=== PATIENT | male | born 1970 | race Caucasian/White ===

== ENCOUNTER 2022-09-15 15:20 | Inpatient (IN) | payer OTHER ==
[2022-09-15] MEDS ORDERED: MORPHINE SULFATE 4 MG/ML SYRINGE IV STA (16:14)
[2022-09-15] MEDS ORDERED: SODIUM CHLORIDE 0.9% 1,000 ML IV STA (16:14)
[2022-09-15] MEDS ORDERED: VANCOMYCIN IV PER PHARMACY 1 EACH MISC MISCELLANE PRN (16:15)
--- NOTE | 2022-09-15 16:16 | ED ---
Extremity Problem HPI - General Chief complaint: Extremity Injury, Lower Stated complaint: Cellulitis Time Seen by Provider: 09/15/22 15:24 Source: patient, RN notes reviewed, old records reviewed Mode of arrival: ambulatory Limitations: no limitations - History of Present Illness Initial comments: This is a 52-year-old male to the emergency department for evaluation who is noticed facility. Patient has a long history of acute on chronic comorbidities with recent prolonged hospitalization 2 weeks. Patient presents us today for significant swelling of his right lower extremity with significant tenderness and pain especially over patient weeping ulcers ulcers both to his right lower extremity left lower extremity foot and abdomen. MD Complaint: extremity pain, extremity swelling -: days(s) Location: right, lower extremity, bilateral lower extremity History of Same: Yes Radiation: proximal Severity scale (1-10): 10 Consistency: constant Improves with: nothing Worsens with: weight bearing Associated Symptoms: shortness of breath, fever, rash - Related Data Home Medications Medication Instructions Recorded Confirmed Atorvastatin [Lipitor] 20 mg PO HS 09/15/22 09/15/22 Cetirizine HCl [Zyrtec] 10 mg PO DAILY 09/15/22 09/15/22 Enalapril [Vasotec] 10 mg PO DAILY 09/15/22 09/15/22 Furosemide [Lasix] 80 mg PO BID 09/15/22 09/15/22 HYDROcodone/APAP 5-325MG [[place] 1 tab PO BID PRN 09/15/22 09/15/22 5-325] Ibuprofen [Motrin] 800 mg PO Q8H PRN 09/15/22 09/15/22 Metoprolol Tartrate [Lopressor] 100 mg PO BID 09/15/22 09/15/22 Montelukast Sodium [Singulair] 10 mg PO DAILY 09/15/22 09/15/22 Omeprazole [PriLOSEC] 20 mg PO DAILY 09/15/22 09/15/22 Pregabalin [Lyrica] 300 mg PO BID 09/15/22 09/15/22 Sertraline [Zoloft] 50 mg PO DAILY 09/15/22 09/15/22 Sildenafil Citrate [Sildenafil] 20 mg PO DAILY PRN 09/15/22 09/15/22 Allergies Allergy/AdvReac Type Severity Reaction Status Date / Time No Known Allergies Allergy Verified 09/15/22 16:46 Review of Systems ROS Statement: Those systems with pertinent positive or pertinent negative responses have been documented in the HPI. ROS Other: All systems not noted in ROS Statement are negative. Past Medical History Past Medical History: Heart Failure, COPD, Diabetes Mellitus, Hyperlipidemia, Hypertension History of Any Multi-Drug Resistant Organisms: None Reported Additional Past Surgical History / Comment(s): stomach ulcers Past Psychological History: Depression Smoking Status: Current every day smoker Past Alcohol Use History: Occasional Past Drug Use History: None Reported General Exam Limitations: no limitations General appearance: alert, in no apparent distress, anxious, lethargic, in distress, obese Head exam: Present: atraumatic, normocephalic, normal inspection Eye exam: Present: normal appearance, PERRL, EOMI. Absent: scleral icterus, conjunctival injection, periorbital swelling ENT exam: Present: normal exam, mucous membranes moist Neck exam: Present: normal inspection. Absent: tenderness, meningismus, lymphadenopathy Respiratory exam: Present: normal lung sounds bilaterally. Absent: respiratory distress, wheezes, rales, rhonchi, stridor Cardiovascular Exam: Present: regular rate, normal rhythm, normal heart sounds. Absent: systolic murmur, diastolic murmur, rubs, gallop, clicks GI/Abdominal exam: Present: soft, normal bowel sounds. Absent: distended, tenderness, guarding, rebound, rigid Extremities exam: Present: normal inspection, full ROM, normal capillary refill, other (Significant right lower extremity edema, weeping, redness tenderness and warmth). Absent: tenderness, pedal edema, joint swelling, calf tenderness Back exam: Present: normal inspection Neurological exam: Present: alert, oriented X3, CN II-XII intact Psychiatric exam: Present: normal affect, normal mood Skin exam: Present: warm, dry, intact, normal color. Absent: rash Course Vital Signs 09/15/22 09/15/22 09/15/22 15:23 18:33 18:41 Temperature 97.7 F Pulse Rate 69 68 70 Respiratory 18 Rate Blood Pressure 121/58 O2 Sat by Pulse 98 Oximetry - Reevaluation(s) Reevaluation #1: 09/15/22 18:47 Medical record is reviewed Reevaluation #2: 09/15/22 18:47 Patient has no change in symptoms here in the ER Reevaluation #3: 09/15/22 18:47 Patient informed of results and questions are answered Reevaluation #4: 09/15/22 18:47 Was pt. sent in by a medical professional or institution? @ -no Did you speak to anyone other than the patient for history? @ -no Did you review nursing and triage notes? @ -agree Were old charts reviewed? @ -no Differential Diagnosis? @ -prior EKG interpreted by me (3pts min.)? @ -yes X-rays interpreted by me (1pt min.)? @ -yes CT interpreted by me (1pt min.)? @ -no U/S interpreted by me (1pt. min.)? @ -no What testing was considered but not performed? (CT, X-rays, U/S, labs)? Why? @ -no What meds were considered but not given? Why? @ -no Did you discuss the management of the patient with other professionals? @ -no Did you reconcile home meds? @ -no Was smoking cessation discussed for >3mins.? @ -no Was critical care preformed (if so, how long)? @ -yes Were there social determinants of health that impacted care today? How? (Homelessness, low income, unemployed, alcoholism, drug addiction, transportation, low edu. Level, literacy, decrease access to med. care, group home, rehab)? @ -no Was there de-escalation of care discussed even if they declined? (Discuss DNR or withdrawal of care, Hospice)? @ -no What co-morbidities impacted this encounter? (DM, HTN, Smoking, COPD, CAD, Cancer, CVA, Hep., AIDS, mental health diagnosis, sleep apnea, morbid obesity)? @ -LiverFailure, Venous Stasis, Cellulitis, Obesity Was patient admitted / discharged? @ -admit Undiagnosed new problem with uncertain prognosis? @ -no Drug Therapy requiring intensive monitoring for toxicity (Heparin, Nitro, Insulin, Cardizem)? @ no Were any procedures done? @ -no Diagnosis/symptom? @ -Hyperkalemia,Weak,Cellulitis Acute, or Chronic, or Acute on Chronic? @ -acute on chronic Uncomplicated (without systemic symptoms) or Complicated (systemic symptoms)? @ -complicated Side effects of treatment? @ -no Exacerbation, Progression, or Severe Exacerbation] @ -exacerbation Poses a threat to life or bodily function? @ -no Reevaluation #5: 09/15/22 18:47 Differential Weakness: Hypoglycemia, shock, sepsis, hyponatremia, anemia, infection, HI, ETOH, adverse medicine reaction, overdose, stroke, this is not meant to be an all-inclusive list. - Consultations Consultation #1: Spoke with Dr. March who agrees to admit this patient Medical Decision Making - Medical Decision Making 52 male to the ER for evaluation patient presents today for evaluation of severe right lower Shorty pain pain is severe in nature with increased swelling and drainage. Patient has a decreased potassium we will treat patient will be placed on monitor have treatment hyperkalemia antibiotics for cellulitis and further monitoring - Lab Data Result diagrams: 09/15/22 16:32 09/15/22 16:32 Lab Results 09/15/22 09/15/22 09/15/22 Range/Units 16:32 16:32 16:32 WBC 5.3 (3.8-10.6) k/uL RBC 2.61 L (4.30-5.90) m/uL Hgb 8.6 L (13.0-17.5) gm/dL Hct 27.3 L (39.0-53.0) % MCV 104.8 H (80.0-100.0) fL MCH 33.1 (25.0-35.0) pg MCHC 31.6 (31.0-37.0) g/dL RDW 17.6 H (11.5-15.5) % Plt Count 154 (150-450) k/uL MPV 9.9 Neutrophils % 72 % Lymphocytes % 18 % Monocytes % 7 % Eosinophils % 1 % Basophils % 0 % Neutrophils # 3.8 (1.3-7.7) k/uL Lymphocytes # 0.9 L (1.0-4.8) k/uL Monocytes # 0.4 (0-1.0) k/uL Eosinophils # 0.0 (0-0.7) k/uL Basophils # 0.0 (0-0.2) k/uL Manual Slide Review Performed Polychromasia Present Hypochromasia Slight Poikilocytosis Slight Anisocytosis Slight Macrocytosis Marked A PT 10.3 (9.0-12.0) sec INR 1.0 (<1.2) APTT 23.6 (22.0-30.0) sec Sodium 124 L (137-145) mmol/L Potassium 6.3 H* (3.5-5.1) mmol/L Chloride 91 L (98-107) mmol/L Carbon Dioxide 24 (22-30) mmol/L Anion Gap 9 mmol/L BUN 40 H (9-20) mg/dL Creatinine 1.64 H (0.66-1.25) mg/dL Est GFR (CKD-EPI)AfAm 55 (>60 ml/min/1.73 sqM) Est GFR (CKD-EPI)NonAf 48 (>60 ml/min/1.73 sqM) Glucose 88 (74-99) mg/dL Plasma Lactic Acid Schuyler (0.7-2.0) mmol/L Calcium 8.6 (8.4-10.2) mg/dL Phosphorus 5.1 H (2.5-4.5) mg/dL Magnesium 2.1 (1.6-2.3) mg/dL Total Bilirubin 1.0 (0.2-1.3) mg/dL AST 83 H (17-59) U/L ALT 27 (4-49) U/L Alkaline Phosphatase 161 H (38-126) U/L Ammonia (<30) umol/L Troponin I (0.000-0.034) ng/mL NT-Pro-B Natriuret Pep pg/mL Total Protein 6.6 (6.3-8.2) g/dL Albumin 3.3 L (3.5-5.0) g/dL Lipase 336 H (23-300) U/L 09/15/22 09/15/22 09/15/22 Range/Units 16:32 16:32 16:32 WBC (3.8-10.6) k/uL RBC (4.30-5.90) m/uL Hgb (13.0-17.5) gm/dL Hct (39.0-53.0) % MCV (80.0-100.0) fL MCH (25.0-35.0) pg MCHC (31.0-37.0) g/dL RDW (11.5-15.5) % Plt Count (150-450) k/uL MPV Neutrophils % % Lymphocytes % % Monocytes % % Eosinophils % % Basophils % % Neutrophils # (1.3-7.7) k/uL Lymphocytes # (1.0-4.8) k/uL Monocytes # (0-1.0) k/uL Eosinophils # (0-0.7) k/uL Basophils # (0-0.2) k/uL Manual Slide Review Polychromasia Hypochromasia Poikilocytosis Anisocytosis Macrocytosis PT (9.0-12.0) sec INR (<1.2) APTT (22.0-30.0) sec Sodium (137-145) mmol/L Potassium (3.5-5.1) mmol/L Chloride (98-107) mmol/L Carbon Dioxide (22-30) mmol/L Anion Gap mmol/L BUN (9-20) mg/dL Creatinine (0.66-1.25) mg/dL Est GFR (CKD-EPI)AfAm (>60 ml/min/1.73 sqM) Est GFR (CKD-EPI)NonAf (>60 ml/min/1.73 sqM) Glucose (74-99) mg/dL Plasma Lactic Acid Schuyler 0.9 (0.7-2.0) mmol/L Calcium (8.4-10.2) mg/dL Phosphorus (2.5-4.5) mg/dL Magnesium (1.6-2.3) mg/dL Total Bilirubin (0.2-1.3) mg/dL AST (17-59) U/L ALT (4-49) U/L Alkaline Phosphatase (38-126) U/L Ammonia 20 (<30) umol/L Troponin I 0.013 (0.000-0.034) ng/mL NT-Pro-B Natriuret Pep 2530 pg/mL Total Protein (6.3-8.2) g/dL Albumin (3.5-5.0) g/dL Lipase (23-300) U/L - EKG Data -: EKG Interpreted by Me (EKG is sinus 62 NH 271 QRS 90 QTC 401) - Radiology Data Radiology results: report reviewed (Ultrasound and x-ray of right lower extremity are pending), image reviewed Critical Care Time Critical Care Time: Yes Total Critical Care Time: 31 Disposition Clinical Impression: Cellulitis of right leg, Hyponatremia, Hyperkalemia, Weakness, COPD (chronic obstructive pulmonary disease) Disposition: ADMITTED IP TO THIS [facility] Condition: Fair Is patient prescribed a controlled substance at d/c from ED?: No Time of Disposition: 18:00
[2022-09-15] MEDS ORDERED: VANCOMYCIN 2,500 MG in SODIUM CHLORIDE 0.9% 500 ML 500 ML IVPB STA (16:28)
[2022-09-15 16:46] LABS: Anisocytosis Slight; Basophils % (A) 0 %; Eosinophils % (A) 1 %; HCT 27.3 % (39.0-53.0); HGB 8.6 gm/dL (13.0-17.5); Hypochromasia Slight; Lymphocytes # (A) 0.9 k/uL (1.0-4.8); Lymphocytes % (A) 18 %; MCH 33.1 pg (25.0-35.0); MCHC 31.6 g/dL (31.0-37.0); MCV 104.8 fL (80.0-100.0); Macrocytosis Marked; Mean Platelet Volume 9.9; Monocytes # (A) 0.4 k/uL (0-1.0); Monocytes % (A) 7 %; Neutrophils # (A) 3.8 k/uL (1.3-7.7); Neutrophils % (A) 72 %; Platelet Count 154 k/uL (150-450); Poikilocytosis Slight; RBC 2.61 m/uL (4.30-5.90); RDW 17.6 % (11.5-15.5); WBC 5.3 k/uL (3.8-10.6)
[2022-09-15 16:56] LABS: Partial Thromboplastin Time 23.6 sec (22.0-30.0); Prothrombin Time 10.3 sec (9.0-12.0)
[2022-09-15 16:58] LABS: Albumin 3.3 g/dL (3.5-5.0); Calcium 8.6 mg/dL (8.4-10.2); Lactic Acid, Venous 0.9 mmol/L (0.7-2.0); Magnesium 2.1 mg/dL (1.6-2.3); Phosphorus 5.1 mg/dL (2.5-4.5); Total Protein 6.6 g/dL (6.3-8.2)
[2022-09-15 17:00] LABS: Potassium 6.3 mmol/L (3.5-5.1)
[2022-09-15 17:44] LABS: Polychromasia Present
[2022-09-15] MEDS ORDERED: ONDANSETRON 4 MG/2 ML VIAL IVP PRN (17:57)
[2022-09-15] MEDS ORDERED: IPRATROPIUM-ALBUTEROL 3 ML NEB INHALATION STA (17:57)
[2022-09-15] MEDS ORDERED: NALOXONE 0.4 MG/ML 1 ML VIAL IV PRN (17:57)
[2022-09-15] MEDS ORDERED: SODIUM ZIRCONIUM CYCLOSILICATE 10 GM PACKET PO ONE (17:59)
[2022-09-15] MEDS ORDERED: INSULIN REGULAR 100 UNIT/ML VIAL (IV) IV ONE (17:59)
[2022-09-15] MEDS ORDERED: SODIUM BICARB 8.4% 50 ML SYR (1 MEQ/ML) IV STA (17:59)
[2022-09-15] MEDS ORDERED: SODIUM POLYSTYRENE SULFONATE 15 GM/60 ML BOTTLE PO STA (17:59)
[2022-09-15] MEDS ORDERED: DEXTROSE 50% SYRINGE 50 ML IVP STA (17:59)
--- NOTE | 2022-09-15 19:47 | XR ---
EXAMINATION TYPE: XR tibia fibula RT DATE OF EXAM: 09/15/2022 7:38 PM INDICATION: Patient age:Male; 52 years old; Reason for study: Cellulitis; COMPARISON: None TECHNIQUE: The right tibia/fibula was examined in AP and lateral projections. FINDINGS: Soft tissue swelling throughout the leg. No evidence of osseous erosion. No subcutaneous ga s. No evidence of any acute osseous pathology, joint dislocation, or soft tissue swelling is noted. IMPRESSION: 1. No evidence of acute fracture. 2. Soft tissue swelling of the leg without evidence of osseous erosion.
--- NOTE | 2022-09-15 19:49 | US ---
EXAMINATION TYPE: US venous doppler duplex LE RT DATE OF EXAM: 09/15/2022 6:50 PM COMPARISON: NONE CLINICAL INDICATION: Male, 52 years old with history of cellulitis; hx of cellulitis in calf. Pain an d swelling x 3 days. No hx of DVT SIDE PERFORMED: Right TECHNIQUE: The lower extremity deep venous system is examined utilizing real time linear array sonog mc with graded compression, doppler sonography and color-flow sonography. VESSELS IMAGED: Common Femoral Vein Deep Femoral Vein Greater Saphenous Vein * Femoral Vein Popliteal Vein Small Saphenous Vein * Proximal Calf Veins (* superficial vessels) Right Leg: Negative for DVT IMPRESSION: Grayscale, color doppler, spectral doppler imaging performed of the deep veins of the lo wer extremities. There is normal flow, compressibility, vascular waveforms.
[2022-09-15] MEDS ORDERED: IPRATROPIUM-ALBUTEROL 3 ML NEB INHALATION SCH (20:00)
[2022-09-15 22:42] LABS: ALT 26 U/L (4-49); AST 72 U/L (17-59); African American GFR (CKD) 58 (>60 ml/min/1.73 sqM); Albumin 2.9 g/dL (3.5-5.0); Alkaline Phosphatase 143 U/L (38-126); Anion Gap 7 mmol/L; Blood Urea Nitrogen 41 mg/dL (9-20); Carbon Dioxide 23 mmol/L (22-30); Chloride 94 mmol/L (98-107); Glucose 81 mg/dL (74-99); Non-African American GFR(CKD) 50 (>60 ml/min/1.73 sqM); Potassium 5.5 mmol/L (3.5-5.1); Sodium 124 mmol/L (137-145); Total Bilirubin 0.9 mg/dL (0.2-1.3); Total Protein 5.9 g/dL (6.3-8.2)
[2022-09-16 08:17] LABS: Glucose,Whole Blood 99 mg/dL (70-110)
[2022-09-16] MEDS: IPRATROPIUM-ALBUTEROL 3 ML NEB INHALATION SCH ×4 (08:47→20:30)
[2022-09-16 10:51] LABS: HCT 23.2 % (39.6-50.0); HGB 7.2 g/dL (13.0-17.0); MCH 33.8 pg (27.0-32.0); MCV 108.9 fL (80.0-97.0); Mean Platelet Volume 11.9 fL (9.5-12.2); NRBC Per 100 WBC 0 /100 WBCS (0.0-0.0); Platelet Count 126 X 10*3/uL (140-440); RBC 2.13 X 10*6/uL (4.40-5.60); RDW 18.6 % (11.5-14.5); WBC 5.35 X 10*3/uL (4.50-10.00)
[2022-09-16 11:01] LABS: African American GFR (CKD) 60.1 (60.0-200.0); Albumin/Globulin Ratio 1.19 (1.60-3.17); Anion Gap 9.1 mmol/L (10.00-18.00); BUN/Creat Ratio 25.49 Ratio (12.00-20.00); Calcium 8.6 mg/dL (8.7-10.3); Globulin 2.5 g/dL (1.6-3.3); Magnesium 2.2 mg/dL (1.5-2.4); Non-African American GFR(CKD) 51.9 (60.0-200.0); Phosphorus 4.9 mg/dL (2.4-5.1); Potassium 5.2 mmol/L (3.5-5.5); Total Bilirubin 0.9 mg/dL (0.30-1.20); Total Protein 5.6 g/dL (6.2-8.2)
[2022-09-16 12:46] LABS: Basophils # (A) 0.04 X 10*3/uL (0.00-0.10); Basophils % (A) 0.7 %; Eosinophils # (A) 0.06 X 10*3/uL (0.04-0.35); Eosinophils % (A) 1.1 %; Hypochromasia (M) 2+; Immature Grans, Automated 0.6 %; Lymphocytes # (A) 1.22 X 10*3/uL (0.90-5.00); Lymphocytes % (A) 22.8 %; Macrocytosis (M) 2+; Monocytes # (A) 0.67 X 10*3/uL (0.20-1.00); Monocytes % (A) 12.5 %; Neutrophils # (A) 3.33 X 10*3/uL (1.80-7.70); Neutrophils % (A) 62.3 %
[2022-09-16] MEDS: MORPHINE SULFATE 4 MG/ML SYRINGE IV PRN ×2 (12:48→19:48)
[2022-09-16] MEDS: VANCOMYCIN 2,500 MG in SODIUM CHLORIDE 0.9% 500 ML 500 ML IVPB SCH ×2 (13:17→23:24)
[2022-09-16] MEDS ORDERED: IBUPROFEN 800 MG TAB PO PRN (13:23)
[2022-09-16] MEDS ORDERED: METOPROLOL TARTRATE 50 MG TAB PO SCH (13:30)
[2022-09-16] MEDS: lisinopriL 20 MG TAB PO SCH (16:29)
[2022-09-16] MEDS: FUROSEMIDE 80 MG TAB PO SCH (16:34)
[2022-09-16] MEDS: LORATADINE 10 MG TAB PO SCH (16:35)
[2022-09-16] MEDS: PANTOPRAZOLE 40 MG TABLET PO SCH (16:35)
[2022-09-16] MEDS: MONTELUKAST 10 MG TAB PO SCH (16:35)
[2022-09-16] MEDS: ATORVASTATIN 20 MG TAB PO SCH (19:42)
[2022-09-16] MEDS: PREGABALIN 100 MG CAP PO SCH (19:42)
--- NOTE | 2022-09-17 00:29 | HP ---
HISTORY AND PHYSICAL In 455. CHIEF COMPLAINT: Cellulitis of the right leg. HISTORY OF PRESENT ILLNESS: This is another admission for this 52-year-old obese white male, he has a history of diabetes mellitus and has had problems with venous insufficiency and cellulitis of lower extremities. He presented to the emergency room because the right leg was becoming more swollen and more painful. In the emergency room, he was found to have a hemoglobin of 8.6 and white count of 5300. His potassium was elevated at 6.3. Lipase was 333. REVIEW OF SYSTEMS: He denies any headache, chest pain, significant shortness of breath, cough, hemoptysis, abdominal pain, nausea, vomiting, melena, hematochezia, jaundice, hepatitis, dysuria, frequency, urgency, etc. PAST MEDICAL HISTORY, FAMILY HISTORY AND PERSONAL AND SOCIAL HISTORY: Reveal that he has a history of congestive heart failure as well as stage IV CKD. He does smoke. He states that he drinks socially. MEDICATIONS: He is on numerous medications including, 1. Amoxicillin 3 times a day, which he has finished. 2. Metoprolol 100 mg twice a day. 3. Enalapril 10 mg once a day. 4. Hydrocodone. 5. Symbicort. 6. Zyrtec. 7. Lyrica. 8. Updrafts with DuoNeb. 9. Zyloprim. 10.Singulair. 11.Ambien. 12.Sertraline. 13.Atorvastatin. ALLERGIES: He is not allergic to any medications. PHYSICAL EXAMINATION: VITAL SIGNS: Blood pressure is 140/88 with a pulse of 84, respirations were 33. GENERAL: He appeared to be obese. SKIN: Color is normal. HEENT: Head, ears, eyes, nose, mouth and throat were normal. NECK: Veins not distended. Thyroid is not enlarged. CHEST: Demonstrates decreased breath sounds throughout with scattered rales. CARDIOVASCULAR: Demonstrates sinus rhythm. ABDOMEN: Protuberant, soft, and nontender. EXTREMITIES: Demonstrated dependent edema with cellulitis which is much worse on the right leg and there was a necrotic ulcer in the middle of the anterior lower leg. There is good capillary refill. NEUROLOGICAL: He is intact. DIAGNOSES: He is admitted to the hospital with diagnoses, 1. Cellulitis of the right lower leg. 2. Venous stasis disease. 3. Hyperkalemia. 4. Chronic renal failure. 5. Pancreatitis. PLAN: 1. Bed rest. 2. IV fluids. 3. IV diuretics. 4. IV antibiotics. MMODL / LIUN: [id number] /
--- NOTE | 2022-09-17 00:32 | PN ---
PROGRESS NOTE DATE OF SERVICE: 09/16/2022 CHIEF COMPLAINT: Cellulitis of the right lower extremity. HISTORY OF PRESENT ILLNESS: This gentleman is fairly comfortable and awaits a bed. He has had no fever, chills, chest pain, etc. PHYSICAL EXAMINATION: VITAL SIGNS: Normal. CHEST: Clear. CARDIAC: Normal. ABDOMEN: Soft and protuberant. No masses. EXTREMITIES: Reveal his cellulitis with necrotic ulcer in the mid anterior lower leg. IMPRESSION: 1. Venous stasis disease. 2. Cellulitis. 3. Infected ulcer of the right anterior lower leg. PLAN: Continue with elevation and IV antibiotics. MMODL / IJN: [id number] /
[2022-09-17] MEDS: MORPHINE SULFATE 4 MG/ML SYRINGE IV PRN ×4 (00:55→21:17)
[2022-09-17] MEDS: PANTOPRAZOLE 40 MG TABLET PO SCH (06:24)
[2022-09-17] MEDS: IPRATROPIUM-ALBUTEROL 3 ML NEB INHALATION SCH ×4 (08:28→21:24)
[2022-09-17 09:29] LABS: African American GFR (CKD) 81 (>60 ml/min/1.73 sqM); Anion Gap 10 mmol/L; Blood Urea Nitrogen 32 mg/dL (9-20); Calcium 8.7 mg/dL (8.4-10.2); Carbon Dioxide 25 mmol/L (22-30); Chloride 98 mmol/L (98-107); Glucose 165 mg/dL (74-99); Non-African American GFR(CKD) 70 (>60 ml/min/1.73 sqM); Potassium 4.4 mmol/L (3.5-5.1); Sodium 133 mmol/L (137-145)
[2022-09-17] MEDS: SERTRALINE 50 MG TAB PO SCH (09:47)
[2022-09-17] MEDS: MONTELUKAST 10 MG TAB PO SCH (09:47)
[2022-09-17] MEDS: PREGABALIN 100 MG CAP PO SCH ×2 (09:47→21:12)
[2022-09-17] MEDS: lisinopriL 20 MG TAB PO SCH (09:47)
[2022-09-17] MEDS: FUROSEMIDE 80 MG TAB PO SCH ×2 (09:47→17:21)
[2022-09-17] MEDS: LORATADINE 10 MG TAB PO SCH (09:47)
[2022-09-17] MEDS: VANCOMYCIN 2,500 MG in SODIUM CHLORIDE 0.9% 500 ML 500 ML IVPB SCH ×2 (11:54→23:10)
[2022-09-17 11:57] LABS: Glucose,Whole Blood 193 mg/dL (70-110)
[2022-09-17] MEDS ORDERED: DEXTROSE 50% SYRINGE 50 ML IVP PRN ×2 (12:27)
[2022-09-17] MEDS: INSULIN ASPART (NovoLOG) 100 UNIT/ML VIAL SQ SCH ×3 (12:38→21:13)
[2022-09-17] MEDS: FUROSEMIDE 10 MG/ML 10 ML VIAL IV SCH ×2 (16:57→23:10)
[2022-09-17] MEDS: LOSARTAN 50 MG TAB PO SCH (16:57)
[2022-09-17] MEDS: HEPARIN SODIUM,PORCINE/PF 5,000 UNIT/0.5 ML SYRINGE SQ SCH ×2 (16:58→23:10)
[2022-09-17 16:59] LABS: Glucose,Whole Blood 179 mg/dL (70-110)
[2022-09-17] MEDS: METOPROLOL SUCCINATE (ER) 100 MG TAB.ER.24H PO SCH (17:43)
--- NOTE | 2022-09-17 18:09 | XR ---
EXAMINATION TYPE: XR chest 2V DATE OF EXAM: 09/17/2022 5:25 PM COMPARISON: None TECHNIQUE: XR chest 2V Frontal and lateral views of the chest. CLINICAL INDICATION:Male, 52 years old with history of COPD, CHF; FINDINGS: Lungs/Pleura: Right lower lobe airspace opacities. Airspace opacities. No evidence of pneumothorax or pleural effusion. Pulmonary vascularity: Pulmonary vascular congestion. Heart/mediastinum: Cardiomediastinal silhouette is enlarged and stable. Musculoskeletal: No acute osseous pathology. IMPRESSION: Right lower lobe airspace opacities superimposed on possibly CHF. Correlate with serum BNP and clinic al symptoms for pneumonia.
[2022-09-17 18:30] LABS: Anisocytosis Slight; Basophils % (A) 0 %; Eosinophils % (A) 1 %; HCT 28.1 % (39.0-53.0); HGB 8.6 gm/dL (13.0-17.5); Hypochromasia Marked; Lymphocytes # (A) 0.6 k/uL (1.0-4.8); Lymphocytes % (A) 15 %; MCHC 30.6 g/dL (31.0-37.0); MCV 107.9 fL (80.0-100.0); Macrocytosis Marked; Mean Platelet Volume 9.7; Monocytes # (A) 0.2 k/uL (0-1.0); Monocytes % (A) 6 %; Neutrophils # (A) 3.1 k/uL (1.3-7.7); Neutrophils % (A) 75 %; Platelet Count 113 k/uL (150-450); Poikilocytosis Slight; RDW 17.6 % (11.5-15.5); WBC 4.1 k/uL (3.8-10.6)
[2022-09-17 19:17] LABS: ALT 24 U/L (4-49); AST 69 U/L (17-59); African American GFR (CKD) >90 (>60 ml/min/1.73 sqM); Albumin 3.2 g/dL (3.5-5.0); Alkaline Phosphatase 139 U/L (38-126); Anion Gap 9 mmol/L; Blood Urea Nitrogen 29 mg/dL (9-20); Calcium 8.7 mg/dL (8.4-10.2); Carbon Dioxide 28 mmol/L (22-30); Chloride 98 mmol/L (98-107); Globulin 3.3 g/dL; Glucose 133 mg/dL (74-99); Non-African American GFR(CKD) 85 (>60 ml/min/1.73 sqM); Potassium 4.3 mmol/L (3.5-5.1); Sodium 135 mmol/L (137-145); Total Bilirubin 0.7 mg/dL (0.2-1.3); Total Protein 6.5 g/dL (6.3-8.2)
[2022-09-17 20:31] LABS: Glucose,Whole Blood 170 mg/dL (70-110)
[2022-09-17] MEDS: ATORVASTATIN 20 MG TAB PO SCH (21:12)
[2022-09-17] MEDS: SYMBICORT 160-4.5 MCG INHALER INHALATION SCH (21:24)
[2022-09-18] MEDS: MORPHINE SULFATE 4 MG/ML SYRINGE IV PRN ×5 (01:26→21:53)
[2022-09-18 05:39] LABS: Glucose,Whole Blood 154 mg/dL (70-110)
[2022-09-18] MEDS: PANTOPRAZOLE 40 MG TABLET PO SCH (06:11)
[2022-09-18] MEDS: INSULIN ASPART (NovoLOG) 100 UNIT/ML VIAL SQ SCH ×4 (06:11→20:40)
[2022-09-18] MEDS: FUROSEMIDE 10 MG/ML 10 ML VIAL IV SCH ×3 (07:43→23:30)
[2022-09-18] MEDS: HEPARIN SODIUM,PORCINE/PF 5,000 UNIT/0.5 ML SYRINGE SQ SCH ×3 (08:00→23:30)
[2022-09-18] MEDS: MONTELUKAST 10 MG TAB PO SCH (08:01)
[2022-09-18] MEDS: SERTRALINE 50 MG TAB PO SCH (08:01)
[2022-09-18] MEDS: LORATADINE 10 MG TAB PO SCH (08:01)
[2022-09-18] MEDS: METOPROLOL SUCCINATE (ER) 100 MG TAB.ER.24H PO SCH (08:01)
[2022-09-18] MEDS: LOSARTAN 50 MG TAB PO SCH (08:01)
[2022-09-18] MEDS: PREGABALIN 100 MG CAP PO SCH ×2 (08:01→21:45)
[2022-09-18] MEDS: SYMBICORT 160-4.5 MCG INHALER INHALATION SCH ×2 (08:33→20:52)
[2022-09-18] MEDS: IPRATROPIUM-ALBUTEROL 3 ML NEB INHALATION SCH ×4 (08:33→20:52)
[2022-09-18] MEDS: HYDROcodone/APAP 5-325MG 1 EACH TAB PO PRN (10:53)
[2022-09-18] MEDS: VANCOMYCIN 2,500 MG in SODIUM CHLORIDE 0.9% 500 ML 500 ML IVPB SCH (10:54)
[2022-09-18] MEDS ORDERED: VANCOMYCIN TROUGH DUE 1 EACH MISC MISCELLANE ONE (11:00)
[2022-09-18 11:47] LABS: Glucose,Whole Blood 115 mg/dL (70-110)
[2022-09-18 12:01] LABS: African American GFR (CKD) >90 (>60 ml/min/1.73 sqM); Anion Gap 10 mmol/L; Blood Urea Nitrogen 28 mg/dL (9-20); Calcium 8.5 mg/dL (8.4-10.2); Carbon Dioxide 27 mmol/L (22-30); Chloride 98 mmol/L (98-107); Glucose 97 mg/dL (74-99); Non-African American GFR(CKD) >90 (>60 ml/min/1.73 sqM); Potassium 4.7 mmol/L (3.5-5.1); Sodium 135 mmol/L (137-145)
[2022-09-18 16:32] LABS: Glucose,Whole Blood 122 mg/dL (70-110)
[2022-09-18 20:34] LABS: Glucose,Whole Blood 120 mg/dL (70-110)
[2022-09-18] MEDS: ATORVASTATIN 20 MG TAB PO SCH (21:45)
--- NOTE | 2022-09-19 02:14 | PN ---
PROGRESS NOTE CHIEF COMPLAINT: Cellulitis of the right lower leg. HISTORY OF PRESENT ILLNESS: This gentleman is still having quite a bit of discomfort. He is not febrile. Leg is slightly improved. He does have slight cough. PHYSICAL EXAMINATION: CHEST: He does have bilateral rales and rhonchi. CARDIAC: Normal. ABDOMEN: Soft and nontender. EXTREMITIES: Left lower extremity is still very erythematous and swollen. IMPRESSION: 1. Cellulitis of particularly the right lower leg with anterior ulcer. 2. Shortness of breath and congestion. PLAN: 1. Chest x-ray. 2. Updrafts. 3. Increase Lasix to 80 mg IV q.8. MMODL / IJN: [id number] /
[2022-09-19] MEDS: MORPHINE SULFATE 4 MG/ML SYRINGE IV PRN ×4 (03:19→19:55)
[2022-09-19 05:59] LABS: Glucose,Whole Blood 111 mg/dL (70-110)
[2022-09-19] MEDS: INSULIN ASPART (NovoLOG) 100 UNIT/ML VIAL SQ SCH ×4 (06:06→21:13)
[2022-09-19] MEDS: HYDROcodone/APAP 5-325MG 1 EACH TAB PO PRN ×3 (06:11→22:00)
[2022-09-19] MEDS: PANTOPRAZOLE 40 MG TABLET PO SCH (06:11)
[2022-09-19] MEDS: SYMBICORT 160-4.5 MCG INHALER INHALATION SCH ×2 (07:29→20:44)
[2022-09-19] MEDS: IPRATROPIUM-ALBUTEROL 3 ML NEB INHALATION SCH ×4 (07:29→20:45)
[2022-09-19] MEDS: FUROSEMIDE 10 MG/ML 10 ML VIAL IV SCH ×3 (08:12→23:24)
[2022-09-19] MEDS: HEPARIN SODIUM,PORCINE/PF 5,000 UNIT/0.5 ML SYRINGE SQ SCH ×3 (08:21→23:24)
[2022-09-19] MEDS: SERTRALINE 50 MG TAB PO SCH (08:21)
[2022-09-19] MEDS: PREGABALIN 100 MG CAP PO SCH ×2 (08:21→19:55)
[2022-09-19] MEDS: LORATADINE 10 MG TAB PO SCH (08:21)
--- NOTE | 2022-09-19 08:40 | CDI ---
Documentation Clarification Form Date: 09/22/2022 8:40:00 AM From: Shahida Mckenzie Phone: [phone] Admit Date: 09/15/2022 5:57:00 PM Patient Name: Goran Lombardo Visit Number: [id number] Discharge Date: ATTENTION: The Clinical Documentation Specialists (CDI) and [facility] Coding Staff appreciate your assistance in clarifying documentation. Please respond to the clarification below the line at the bottom and electronically sign. The CDI & [facility] Coding staff will review the response and follow-up if needed. Please note: Queries are made part of the Legal Health Record. If you have any questions, please contact the author of this message via ITS. Dr. Howie March Your patient has the documented diagnosis of acute on chronic CHF. Additional information regarding the type of CHF is requested. History/Risk Factors: Pt has a h/o CHF, CKD4, liver failure ([facility] presented with cellulitis, hyponatremia and hyperkalemia Clinical Indicators: manager of selection and assessment 09/17 4+ pitting weeping B/L LE edema manager of selection and assessment 09/18 pt short of breath with diminished breath sounds BNP 09/17: 1530 Echocardiogram Results 09/20: EF 55-60%, mild concentric LVH, moderate RV dilatation, severe dilatation of LA. Mild pHTN Chest X Ray 09/17: RLL airspace opacities superimposed on possible CHF Treatment: Lasix IV 80mg q8h, supplemental O2, monitoring, daily weights In your professional opinion, can you please clarify the acuity and type of CHF if known? [ ] Acute on Chronic Systolic Heart Failure (reduced EF) [ ] Acute on Chronic Diastolic Heart Failure (preserved EF) [ ] Acute on Chronic Heart Failure Systolic & Diastolic Heart Failure [ ] Other, please specify [ ] Unable to determine (Template Last Revised: June 2020) MTDD
[2022-09-19] MEDS ORDERED: VANCOMYCIN 2,500 MG in SODIUM CHLORIDE 0.9% 500 ML 500 ML IVPB SCH (09:00)
[2022-09-19] MEDS: MONTELUKAST 10 MG TAB PO SCH (09:52)
[2022-09-19] MEDS: LOSARTAN 50 MG TAB PO SCH (09:52)
[2022-09-19] MEDS: METOPROLOL SUCCINATE (ER) 100 MG TAB.ER.24H PO SCH (09:52)
[2022-09-19 11:25] LABS: Glucose,Whole Blood 117 mg/dL (70-110)
[2022-09-19 12:48] LABS: Anisocytosis Slight; Basophils % (A) 1 %; Eosinophils # (A) 0.1 k/uL (0-0.7); Eosinophils % (A) 2 %; HCT 28.9 % (39.0-53.0); HGB 8.5 gm/dL (13.0-17.5); Hypochromasia Marked; Lymphocytes # (A) 0.8 k/uL (1.0-4.8); Lymphocytes % (A) 22 %; MCH 32.8 pg (25.0-35.0); MCHC 29.5 g/dL (31.0-37.0); MCV 111.2 fL (80.0-100.0); Macrocytosis Marked; Mean Platelet Volume 8.9; Monocytes # (A) 0.2 k/uL (0-1.0); Monocytes % (A) 6 %; Neutrophils # (A) 2.6 k/uL (1.3-7.7); Neutrophils % (A) 67 %; Platelet Count 116 k/uL (150-450); RDW 17.2 % (11.5-15.5); WBC 3.8 k/uL (3.8-10.6)
[2022-09-19 13:29] LABS: Large Platelets Present; Polychromasia Present
[2022-09-19] MEDS ORDERED: Magnesium Replacement Protocol 1 EACH MISC MISCELLANE PRN (15:52)
--- NOTE | 2022-09-19 16:05 | P.PN ---
Subjective Progress Note Date: 09/19/[address] March This is a pleasant 52-year-old male who follows with Dr. Restrepo in the [facility] setting with a past medical history of heart failure, COPD, diabetes mellitus, hyperlipidemia, hypertension, depression, nicotine dependence, morbid obesity. Patient was recently admitted CHF exacerbation as well as bilateral lower extremity edema with significant volume overload and concerns of right lower extreme a cellulitis. Patient was maintained on IV vancomycin along with ceftriaxone although labs revealed today and elevated vancomycin level and discontinued. Infectious disease was consulted as there is worsening redness of the right lower extremity. There is a wound on the right lower cobb that does not look infected although the redness reported by patient has worsened overnight. Patient with significant volume overload noted throughout including the abdomen and maintained on high-dose IV Lasix every 8 hours and with kidney disease would recommend nephrology consultation for management of this Lasix. Patient's swelling and edema is not improving. Patient with significant weakness would also recommend physical therapy evaluation. Patient is currently afebrile denies chest pain or shortness of breath. Patient reports significant pain in the abdomen and lower extremities due to all the swelling and reports his swelling has worsened since admission. Patient also reports to excessively drinking a lot of water including ice chips and would recommend fluid restrictions. Patient does have diabetes and would recommend tight glycemic control with Accu-Cheks before meals and at bedtime. Review of systems: Constitutional: No reports of fatigue, fever, or chills Cardiovascular: No reports of chest pain or palpitations Respiratory: No reports of shortness of breath or cough GI: No reports of nausea, no reports of vomiting, no diarrhea : No reports of dysuria or retention Neurovascular: reports of generalized weakness, reports increased lower extremi ty swelling and pain All medications have been reviewed PHYSICAL EXAMINATION: GENERAL: The patient is alert and oriented x4, Well developed, well nourished. Morbidly obese HEENT: Pupils are round and equally reacting to light. EOMI. no scleral icterus. No conjunctival pallor. Normocephalic, atraumatic. No pharyngeal erythema. No thyromegaly. CARDIOVASCULAR: S1 and S2 muffled PULMONARY: diminished breath sounds bilaterally with no wheezing or rhonchi noted. ABDOMEN: soft. Tender of the lower region due to significant swelling and redness on exam. obese. non-distended, normoactive bowel sounds. No palpable organomegaly. MUSCULOSKELETAL: No joint swelling or deformity. EXTREMITIES: No cyanosis, clubbing, bilateral lower extremity swelling with right lower extremity surrounding cellulitis that is spreading up to the knee NEUROLOGICAL: Gross neurological examination did not reveal any focal deficits. Diffuse weakness SKIN: No rashes. Volume overload noted significantly of bilateral lower extremities, cobb wound noted on the right that appears clean and open with weeping noted Assessment: Acute on chronic CHF exacerbation, unknown EF Bilateral lower extremity edema most likely secondary to CHF exacerbation Chronic venous stasis disease of bilateral lower extremities Cellulitis right lower extremity, present on admission hyperkalemia Chronic kidney disease, stage IV Morbid obesity with a BMI of 54.1 Continued ongoing nicotine abuse GI prophylaxis DVT prophylaxis Full code Plan: Recommend to continue with current medications and management and will consult infectious disease along with nephrology as patient was maintained on high-dose IV Lasix 3 times daily and continued to have significant overload Recommend follow-up labs and replace electrolytes per protocol. Magnesium was found to be low and will replace and follow up with repeat labs in the morning. Patient was continued on IV vancomycin although trough level was 35.9 yesterday and discontinued vancomycin and patient was maintained on ceftriaxone although we'll transition to cefazolin and appreciate input and recommendations from infectious disease Recommend local wound care and elevating lower extremity swelling rest. Recommend marking the right lower extremity for redness and monitoring closely for any worsening symptoms Patient with diabetes was maintained on regular diet and we'll transition to consistent carb and recommend fluid restrictions and recommend monitoring Accu- Cheks before meals and at bedtime Patient with significant multiple comorbidities, recommend PT/OT therapy rodrick ta The impression and plan of care has been dictated by nurse Giorgio pra ctitioner as directed. Dr. Geraldine MD I have performed a history and examination and MDM of this patient, discussed the same with the dictator, and agree with the dictator's assessment and plan as written ,documented as a scribe. Based on total visit time, I have performed more than 50% of the visit. Any additional findings or plans will be noted. Objective - Vital Signs Vital signs: Vital Signs Temp 98.5 F 09/19/22 06:56 Pulse 76 09/19/22 07:48 Resp 19 09/19/22 06:56 BP 105/67 09/19/22 06:56 Pulse Ox 92 L 05/05/23 07:26 FiO2 21 09/19/22 07:26 Intake & Output 09/18/22 09/19/22 09/19/22 18:59 06:59 18:59 Intake Total 472 Output Total 800 400 400 Balance -328 -400 -400 Weight 181 kg Intake: Oral 472 Output: Urine 800 400 400 Other: # Voids 3 - Labs CBC & Chem 7: 09/19/22 12:34 09/19/22 05:23 Labs: Abnormal Lab Results - Last 24 Hours (Table) 09/18/22 09/18/22 09/18/22 Range/Units 10:18 10:18 11:46 Sodium 135 L (137-145) mmol/L BUN 28 H (9-20) mg/dL POC Glucose (mg/dL) 115 H (70-110) mg/dL Vancomycin Trough 35.9 H* ug/mL 09/18/22 09/18/22 09/19/22 Range/Units 16:30 20:32 05:58 Sodium (137-145) mmol/L BUN (9-20) mg/dL POC Glucose (mg/dL) 122 H 120 H 111 H (70-110) mg/dL Vancomycin Trough ug/mL Microbiology - Last 24 Hours (Table) 09/15/22 16:35 Blood Culture - Preliminary Blood 09/15/22 16:20 Blood Culture - Preliminary Blood
[2022-09-19 16:19] LABS: Glucose,Whole Blood 116 mg/dL (70-110)
[2022-09-19] MEDS: MAGNESIUM SULFATE-D5W PMX 1 GM in DEXTROSE/WATER 1 100ML.BAG IVPB SCH ×2 (17:14→18:38)
[2022-09-19] MEDS: LATANOPROST 0.005% OPHTH DROPS 2.5 ML BTL BOTH EYES SCH (19:55)
[2022-09-19] MEDS: ATORVASTATIN 20 MG TAB PO SCH (19:55)
[2022-09-19 21:09] LABS: Glucose,Whole Blood 129 mg/dL (70-110)
--- NOTE | 2022-09-19 21:56 | P.CONS ---
History of Present Illness - Reason for Consult Consult date: 09/19/22 Right lower extremity cellulitis Requesting physician: Elma Nascimento - Chief Complaint Increasing shortness of breath and leg swelling x days - History of Present Illness Patient is a 52-year-old male with a past medical history significant for COPD diabetes mellitus hypertension hyperlipidemia heart failure presented to the hospital 4 days ago for evaluation of increasing shortness of breath and significant swelling to bilateral extremity especially the right leg along with weeping edema and some superficial ulceration patient mentioned symptom has been going on on for a few days to week before presented to the hospital has been complaining of increasing shortness of breath on moderate exertion even at rest patient also complaining of elevated skin especially the right leg with some erythema superficial ulceration and some clear drainage has been complaining of pain to the right leg to be done aching to sharp 6-7 out of 10 no radiation some relief with the pain medication patient on presentation to the hospital was afebrile no fever has been recorded subsequently patient did have a normal white count creatinine has been normal liver enzymes are AST alkaline phos mildly elevated patient has been treated with the self troxidone and vancomycin infectious was consulted for further management of antibiotic therapy Review of Systems Positive point and negatives has been mentioned in the HPI, complete review of systems was performed and all other systems are negative Past Medical History Past Medical History: Heart Failure, COPD, Diabetes Mellitus, Hyperlipidemia, Hypertension History of Any Multi-Drug Resistant Organisms: None Reported Additional Past Surgical History / Comment(s): stomach ulcers Past Anesthesia/Blood Transfusion Reactions: No Reported Reaction Smoking Status: Current every day smoker - Past Family History Son(s) Family Medical History: No Reported History Medications and Allergies Home Medications Medication Instructions Recorded Confirmed Type Atorvastatin [Lipitor] 20 mg PO HS 09/15/22 09/15/22 History Cetirizine HCl [Zyrtec] 10 mg PO DAILY 09/15/22 09/15/22 History Enalapril [Vasotec] 10 mg PO DAILY 09/15/22 09/15/22 History Furosemide [Lasix] 80 mg PO BID 09/15/22 09/15/22 History HYDROcodone/APAP 5-325MG [[place] 1 tab PO BID PRN 09/15/22 09/15/22 History 5-325] Ibuprofen [Motrin] 800 mg PO Q8H PRN 09/15/22 09/15/22 History Metoprolol Tartrate [Lopressor] 100 mg PO BID 09/15/22 09/15/22 History Montelukast Sodium [Singulair] 10 mg PO DAILY 09/15/22 09/15/22 History Omeprazole [PriLOSEC] 20 mg PO DAILY 09/15/22 09/15/22 History Pregabalin [Lyrica] 300 mg PO BID 09/15/22 09/15/22 History Sertraline [Zoloft] 50 mg PO DAILY 09/15/22 09/15/22 History Sildenafil Citrate [Sildenafil] 20 mg PO DAILY PRN 09/15/22 09/15/22 History Allergies Allergy/AdvReac Type Severity Reaction Status Date / Time No Known Allergies Allergy Verified 09/15/22 16:46 Physical Exam Vitals: Vital Signs Temp Pulse Pulse Resp BP Pulse Ox FiO2 09/19/22 11:03 80 09/19/22 10:52 80 09/19/22 10:01 65 19 09/19/22 07:48 76 09/19/22 07:26 76 92 L 21 09/19/22 06:56 98.5 F 65 19 105/67 92 L 09/19/22 01:44 98.3 F 90 107/61 90 L 09/18/22 21:07 82 09/18/22 20:53 82 09/18/22 20:00 97.6 F 74 18 123/74 97 09/18/22 16:41 88 18 09/18/22 16:29 84 18 09/18/22 13:31 97.7 F 76 20 106/64 97 09/18/22 12:47 88 18 09/18/22 12:37 84 18 Intake and Output 09/18/22 09/19/22 09/19/22 22:59 06:59 14:59 Intake Total 118 Output Total 400 1100 Balance 118 -400 -1100 Intake: Oral 118 Output: Urine 400 1100 Other: Voiding Method External Catheter # Voids 3 Weight 181 kg GENERAL DESCRIPTION: Middle-aged male up in the chair, no distress. No tachypnea or accessory muscle of respiration use. HEENT: Shows Pallor , no scleral icterus. Oral mucous membrane is dry. NECK: Trachea central, no thyromegaly. LUNGS: Unlabored breathing. Decreased breath sounds at the base. HEART: S1, S2, regular rate and rhythm. No loud murmur ABDOMEN: Soft, no tenderness , guarding or rigidity, no organomegaly EXTREMITIES: Diffuse swelling to bilateral lower extremity especially the right leg with superficial ulceration some slough tissue SKIN: No rash, no masses palpable. NEUROLOGICAL: The patient is awake, alert, oriented x3, mood and affect normal. Results CBC & Chem 7: 09/20/22 04:07 09/20/22 04:07 Labs: Abnormal Lab Results - Last 24 Hours (Table) 09/18/22 09/18/22 09/19/22 Range/Units 16:30 20:32 05:58 POC Glucose (mg/dL) 122 H 120 H 111 H (70-110) mg/dL 09/19/22 Range/Units 11:24 POC Glucose (mg/dL) 117 H (70-110) mg/dL Microbiology - Last 24 Hours (Table) 09/15/22 16:35 Blood Culture - Preliminary Blood 09/15/22 16:20 Blood Culture - Preliminary Blood Assessment and Plan (1) Cellulitis of right leg Current Visit: Yes Status: Acute Code(s): L03.115 - CELLULITIS OF RIGHT LOWER LIMB SNOMED Code(s): 835924327 Plan: 1patient presented to hospital with increasing shortness of breath along with increasing swelling and redness to the right lower extremity in this patient for did have features of fluid overload and concerning for cellulitis to the right leg likely from gram-positive skin aleyda 2-discontinue vancomycin and Rocephin 3-start the patient cefazolin 2 g every 8 hours 4-we will apply Medihoney to the wound right leg with slough tissue followed by moist dressing and Pablo wrap to the left from distal bilateral below the knee 5-nystatin cream in between the toes twice a day We will follow on clinical condition and cultures to further adjust medication if needed Thank you for this consultation we will follow the patient along with you Time with Patient: Greater than 30
[2022-09-20] MEDS: MORPHINE SULFATE 4 MG/ML SYRINGE IV PRN ×4 (01:40→20:16)
[2022-09-20 06:02] LABS: Glucose,Whole Blood 99 mg/dL (70-110)
[2022-09-20] MEDS: INSULIN ASPART (NovoLOG) 100 UNIT/ML VIAL SQ SCH ×4 (06:07→21:29)
[2022-09-20] MEDS: PANTOPRAZOLE 40 MG TABLET PO SCH (06:49)
[2022-09-20] MEDS ORDERED: VANCOMYCIN TROUGH DUE 1 EACH MISC MISCELLANE ONE (08:00)
[2022-09-20] MEDS: SYMBICORT 160-4.5 MCG INHALER INHALATION SCH ×2 (08:26→22:09)
[2022-09-20] MEDS: IPRATROPIUM-ALBUTEROL 3 ML NEB INHALATION SCH ×4 (08:26→22:09)
[2022-09-20] MEDS: FUROSEMIDE 10 MG/ML 10 ML VIAL IV SCH ×3 (08:45→23:52)
[2022-09-20] MEDS: LOSARTAN 50 MG TAB PO SCH (08:46)
[2022-09-20] MEDS: METOPROLOL SUCCINATE (ER) 100 MG TAB.ER.24H PO SCH (08:46)
[2022-09-20] MEDS: MONTELUKAST 10 MG TAB PO SCH (08:46)
[2022-09-20] MEDS: LORATADINE 10 MG TAB PO SCH (08:46)
[2022-09-20] MEDS: HEPARIN SODIUM,PORCINE/PF 5,000 UNIT/0.5 ML SYRINGE SQ SCH ×3 (08:46→23:52)
[2022-09-20] MEDS: SERTRALINE 50 MG TAB PO SCH (08:46)
[2022-09-20] MEDS: PREGABALIN 100 MG CAP PO SCH ×2 (08:46→20:17)
[2022-09-20 09:15] LABS: Basophils # (A) 0.05 X 10*3/uL (0.00-0.10); Basophils % (A) 1.1 %; Eosinophils # (A) 0.18 X 10*3/uL (0.04-0.35); Eosinophils % (A) 3.9 %; HGB 7.9 g/dL (13.0-17.0); Immature Grans, Automated 0.4 %; Lymphocytes % (A) 21.6 %; MCH 32.4 pg (27.0-32.0); MCHC 29.3 g/dL (32.0-37.0); MCV 110.7 fL (80.0-97.0); Mean Platelet Volume 11.8 fL (9.5-12.2); Monocytes # (A) 0.57 X 10*3/uL (0.20-1.00); Monocytes % (A) 12.3 %; NRBC Per 100 WBC 0 /100 WBCS (0.0-0.0); Neutrophils % (A) 60.7 %; Platelet Count 117 X 10*3/uL (140-440); RBC 2.44 X 10*6/uL (4.40-5.60); RDW 18.2 % (11.5-14.5); WBC 4.62 X 10*3/uL (4.50-10.00)
[2022-09-20 09:53] LABS: Magnesium 1.7 mg/dL (1.5-2.4)
[2022-09-20 10:00] LABS: African American GFR (CKD) 80.7 (60.0-200.0); Anion Gap 11.5 mmol/L (10.00-18.00); Calcium 8.9 mg/dL (8.7-10.3); Carbon Dioxide 30.5 mmol/L (20.0-27.5); Non-African American GFR(CKD) 69.6 (60.0-200.0); Potassium 4.5 mmol/L (3.5-5.5)
--- NOTE | 2022-09-20 10:49 | P.PN ---
Subjective Progress Note Date: 09/20/22 Principal diagnosis: Right lower extremity cellulitis Patient is a 52-year-old male with a past medical history significant for COPD diabetes mellitus hypertension hyperlipidemia heart failure presented to the hospital 4 days ago for evaluation of increasing shortness of breath and significant swelling to bilateral extremity especially the right leg along with weeping edema and some superficial ulceration, patient has been diagnosed with right lower extremity cellulitis. On today's evaluation that is 09/20/2022, the patient denies having any fever or any chills, the patient is breathing slightly comfortable today pain to the lower extremity has decreased in intensity, no nausea no vomiting no abdominal pain or diarrhea Objective - Vital Signs Vital signs: Vital Signs Temp 98.1 F 09/20/22 07:40 Pulse 80 09/20/22 08:41 Resp 20 09/20/22 07:40 BP 104/62 09/20/22 07:40 Pulse Ox 98 09/20/22 07:40 FiO2 21 09/19/22 07:26 Intake & Output 09/19/22 09/20/22 09/20/22 18:59 06:59 18:59 Intake Total 236 Output Total 1500 350 Balance -1500 -350 236 Weight 181.7 kg Intake: Oral 236 Output: Urine 1500 350 Other: Voiding Method External Catheter # Voids 3 - Exam GENERAL DESCRIPTION: A middle-aged male up in a chair in no distress RESPIRATORY SYSTEM: Unlabored breathing , decreased breath sounds at bases HEART: S1 S2 regular rate and rhythm , ABDOMEN: Soft , no tenderness EXTREMITIES: Bilateral legs are currently wrapped in Pablo wrap no drainage on the dressing - Labs CBC & Chem 7: 09/20/22 04:07 09/20/22 04:07 Labs: Abnormal Lab Results - Last 24 Hours (Table) 09/19/22 09/19/22 09/19/22 Range/Units 11:24 12:34 12:34 RBC 2.60 L (4.30-5.90) m/uL Hgb 8.5 L (13.0-17.5) gm/dL Hct 28.9 L (39.0-53.0) % MCV 111.2 H (80.0-100.0) fL MCH (27.0-32.0) pg MCHC 29.5 L (31.0-37.0) g/dL RDW 17.2 H (11.5-15.5) % Plt Count 116 L (150-450) k/uL Lymphocytes # 0.8 L (1.0-4.8) k/uL Macrocytosis Marked A Carbon Dioxide (20.0-27.5) mmol/L POC Glucose (mg/dL) 117 H (70-110) mg/dL Magnesium 1.5 L (1.6-2.3) mg/dL 09/19/22 09/19/22 09/20/22 Range/Units 16:18 21:08 04:07 RBC 2.44 L (4.30-5.90) m/uL Hgb 7.9 L (13.0-17.5) gm/dL Hct 27.0 L (39.0-53.0) % MCV 110.7 H (80.0-100.0) fL MCH 32.4 H (27.0-32.0) pg MCHC 29.3 L (31.0-37.0) g/dL RDW 18.2 H (11.5-15.5) % Plt Count 117 L (150-450) k/uL Lymphocytes # (1.0-4.8) k/uL Macrocytosis Carbon Dioxide (20.0-27.5) mmol/L POC Glucose (mg/dL) 116 H 129 H (70-110) mg/dL Magnesium (1.6-2.3) mg/dL 09/20/22 Range/Units 04:07 RBC (4.30-5.90) m/uL Hgb (13.0-17.5) gm/dL Hct (39.0-53.0) % MCV (80.0-100.0) fL MCH (27.0-32.0) pg MCHC (31.0-37.0) g/dL RDW (11.5-15.5) % Plt Count (150-450) k/uL Lymphocytes # (1.0-4.8) k/uL Macrocytosis Carbon Dioxide 30.5 H (20.0-27.5) mmol/L POC Glucose (mg/dL) (70-110) mg/dL Magnesium (1.6-2.3) mg/dL Microbiology - Last 24 Hours (Table) 09/15/22 16:35 Blood Culture - Preliminary Blood 09/15/22 16:20 Blood Culture - Preliminary Blood Assessment and Plan (1) Cellulitis of right leg Current Visit: Yes Status: Acute Code(s): L03.115 - CELLULITIS OF RIGHT LOWER LIMB SNOMED Code(s): 526125492 Plan: 1patient presented to hospital with increasing shortness of breath along with increasing swelling and redness to the right lower extremity in this patient for did have features of fluid overload and concerning for cellulitis to the right leg likely from gram-positive skin aleyda 2Patient to continue with the patient cefazolin 2 g every 8 hours 3-we will apply Medihoney to the wound right leg with slough tissue followed by moist dressing and Pablo wrap to the left from distal bilateral below the knee 4 cream in between the toes twice a day Time with Patient: Less than 30
[2022-09-20] MEDS: HYDROcodone/APAP 5-325MG 1 EACH TAB PO PRN ×3 (11:11→22:05)
[2022-09-20 11:44] LABS: Glucose,Whole Blood 131 mg/dL (70-110)
--- NOTE | 2022-09-20 12:27 | P.NPCON ---
History of Present Illness - Reason for Consult acute renal failure - History of Present Illness Patient is a 52-year-old male with history of obesity, type 2 diabetes, hypertension, COPD, admitted with increased swelling of the legs as well as shortness of breath. Patient has had ulcerations in the right leg as well which has progressively worsened. Serum creatinine was 1.6 on admission and decreased to 0.9 710 increased back up to 1.2. He shouldn't has evidence of significant volume overload and is currently being diuresed. He is also maintained on antibiotics for cellulitis. Overall patient states is feeling better with decrease in lower extremity edema. Systolic blood pressures have been on the lower side with systolic in the 90s. Patient is maintained on angiotensin receptor blockers as well as NSAIDs. Patient reports good urine output. Lasix is currently at 80 mg IV every 8 hours. Review of Systems As per HPI. Past Medical History Past Medical History: Heart Failure, COPD, Diabetes Mellitus, Hyperlipidemia, Hypertension History of Any Multi-Drug Resistant Organisms: None Reported Additional Past Surgical History / Comment(s): stomach ulcers Past Anesthesia/Blood Transfusion Reactions: No Reported Reaction Smoking Status: Current every day smoker - Past Family History Son(s) Family Medical History: No Reported History Medications and Allergies Home Medications Medication Instructions Recorded Confirmed Type Atorvastatin [Lipitor] 20 mg PO HS 09/15/22 09/15/22 History Cetirizine HCl [Zyrtec] 10 mg PO DAILY 09/15/22 09/15/22 History Enalapril [Vasotec] 10 mg PO DAILY 09/15/22 09/15/22 History Furosemide [Lasix] 80 mg PO BID 09/15/22 09/15/22 History HYDROcodone/APAP 5-325MG [[place] 1 tab PO BID PRN 09/15/22 09/15/22 History 5-325] Ibuprofen [Motrin] 800 mg PO Q8H PRN 09/15/22 09/15/22 History Metoprolol Tartrate [Lopressor] 100 mg PO BID 09/15/22 09/15/22 History Montelukast Sodium [Singulair] 10 mg PO DAILY 09/15/22 09/15/22 History Omeprazole [PriLOSEC] 20 mg PO DAILY 09/15/22 09/15/22 History Pregabalin [Lyrica] 300 mg PO BID 09/15/22 09/15/22 History Sertraline [Zoloft] 50 mg PO DAILY 09/15/22 09/15/22 History Sildenafil Citrate [Sildenafil] 20 mg PO DAILY PRN 09/15/22 09/15/22 History Allergies Allergy/AdvReac Type Severity Reaction Status Date / Time No Known Allergies Allergy Verified 09/15/22 16:46 Physical Exam Vitals: Vital Signs Temp Pulse Pulse Resp BP Pulse Ox 09/20/22 10:56 20 09/20/22 08:41 80 09/20/22 08:26 80 09/20/22 07:40 98.1 F 78 20 104/62 98 09/20/22 00:39 98.3 F 74 17 100/64 95 09/19/22 20:56 72 09/19/22 20:47 68 09/19/22 19:14 97.7 F 82 17 114/69 100 09/19/22 16:25 76 09/19/22 16:11 76 09/19/22 14:00 98.4 F 74 18 118/79 98 09/19/22 12:41 92/56 Intake and Output 09/19/22 09/20/22 09/20/22 22:59 06:59 14:59 Intake Total 236 Output Total 400 350 Balance -400 -350 236 Intake: Oral 236 Output: Urine 400 350 Other: Voiding Method External Catheter # Voids 3 Weight 181.7 kg Patient is awake, comfortable, no acute distress Examination of the heart S1 and S2 Examination of the lungs bilateral breath sounds are heard Examination of the abdomen reveals it to be soft obese Examination lower extremity shows bilateral extremities to be wrapped. 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 Acute kidney injury on admission, mostly cardiorenal and due to hypotension causing ischemic ATN in the setting of use of GLENDA inhibitor's and NSAIDs. Currently nonoliguric with improving renal function since admission. Check urine analysis. 2. Volume overload currently being diuresed. Discontinuation of NSAIDs and holding GLENDA inhibitor's will help with the diuresis as blood pressure has been on the lower side. 3. Morbid obesity 4. Anemia rule out iron deficiency 5. COPD 6. Right lower extremity cellulitis status post vancomycin currently maintained on Rocephin 7. Acute on chronic CHF, EF not known Plan: DC ibuprofen DC Cozaar as systolic blood pressure remains on the lower side. Continue with current dose of Lasix Agree with discontinuation of vancomycin Repeat labs in a.m. Check iron profile Check UA Check ultrasound of the kidneys Thank you for the consultation. We will continue to follow the patient with you during his hospitalization
--- NOTE | 2022-09-20 13:16 | CA ---
Transthoracic Echo Report Name: Goran Lombardo Age: 52 Gender: M : 1970 Exam Date: 09/20/2022 07:57 Exam Location: [facility] Ht (in): 72 Wt (lb): 400 Ordering Physician: Elma Nascimento Attending/Referring Phys: Mending Carrier Heidy Gama RDCS Procedure CPT: Indications: chf Cardiac Hx: Technical Quality: Good Contrast 1: Total Dose (mL): Contrast 2: Total Dose (mL): MEASUREMENTS (Male / Female) Normal Values 2D ECHO LV Diastolic Diameter PLAX 5.8 cm 4.2 - 5.9 / 3.9 - 5.3 cm LV Systolic Diameter PLAX 3.7 cm IVS Diastolic Thickness 1.4 cm 0.6 - 1.0 / 0.6 - 0.9 cm LVPW Diastolic Thickness 1.4 cm 0.6 - 1.0 / 0.6 - 0.9 cm LV Relative Wall Thickness 0.5 RV Internal Dim ED PLAX 3.9 cm LA Systolic Diameter LX 5.0 cm 3.0 - 4.0 / 2.7 - 3.8 cm LA Volume 109.2 cm??? 18 - 58 / 22 - 52 cm??? M-MODE Aortic Root Diameter MM 3.4 cm MV E Point Septal Separation 0.3 cm AV Cusp Separation MM 2.6 cm DOPPLER AV Peak Velocity 185.7 cm/s AV Peak Gradient 13.8 mmHg MV Peak Velocity 169.5 cm/s MV Peak Gradient 11.5 mmHg MV Mean Velocity 102.4 cm/s MV Mean Gradient 5.0 mmHg MV Velocity Time Integral 42.1 cm MV Area PHT 3.2 cm??? Mitral E Point Velocity 144.7 cm/s Mitral A Point Velocity 83.2 cm/s Mitral E to A Ratio 1.7 MV Deceleration Time 239.9 ms TR Peak Velocity 285.3 cm/s TR Peak Gradient 32.6 mmHg Right Ventricular Systolic Press 36.6 mmHg FINDINGS Left Ventricle Left ventricular ejection fraction is estimated at 55-60 %. Left ventricular cavity size normal. Moderate concentric left ventricular hypertrophy. Normal left ventricular wall motion. Right Ventricle Moderate right ventricular dilatation. Mild pulmonary hypertension. Right Atrium Normal right atrial size. Left Atrium Moderately increased left atrial diameter. Severely increased left atrial volume. Moderately increased left atrial area. Mitral Valve Mitral valve thickened. Mild mitral regurgitation. Aortic Valve Trileaflet aortic valve. Aortic valve sclerosis. No aortic valve stenosis or regurgitation. Tricuspid Valve Structurally normal tricuspid valve. Mild tricuspid regurgitation. Pulmonic Valve Pulmonic valve not well visualized. Pericardium Normal pericardium. No pericardial effusion. Aorta Normal size aortic root and proximal ascending aorta. CONCLUSIONS 1. Normal left ventricle size and systolic function 2. Mild mitral and tricuspid regurgitation Previewed by: Dr. Neal Becker MD (Electronically Signed) Final Date: 20 Sep 2022 13:15
[2022-09-20 13:53] LABS: Appearance,Urine Clear (Clear); Bilirubin,Urine Negative (Negative); Blood,Urine Moderate (Negative); Color,Urine Light Yellow; Glucose,Urine (UA) Negative (Negative); Ketones,Urine Negative (Negative); Leukocyte Esterase,Urine Negative (Negative); Nitrite,Urine Negative (Negative); PH, Urine 6.5 (5.0-8.0); Protein,Urine Negative (Negative); RBC,Urine 45 /hpf (0-5); Specific Gravity,Urine 1.006 (1.001-1.035); Squamous Epithelial Cell,Urine <1 /hpf (0-4); Urobilinogen,Urine <2.0 mg/dL (<2.0); WBC,Urine 5 /hpf (0-5)
--- NOTE | 2022-09-20 14:18 | P.PN ---
Subjective Progress Note Date: 09/20/22 This is a pleasant 52-year-old male who follows with Dr. Restrepo in the outpatient setting with a past medical history of heart failure, COPD, diabetes mellitus, hyperlipidemia, hypertension, depression, nicotine dependence, morbid obesity. Patient was recently admitted CHF exacerbation as well as bilateral lower extremity edema with significant volume overload and concerns of right lower extreme a cellulitis. Patient was maintained on IV vancomycin along with ceftriaxone although labs revealed today and elevated vancomycin level and discontinued. Infectious disease was consulted as there is worsening redness of the right lower extremity. There is a wound on the right lower cobb that does not look infected although the redness reported by patient has worsened overnight. Patient with significant volume overload noted throughout including the abdomen and maintained on high-dose IV Lasix every 8 hours and with kidney disease would recommend nephrology consultation for management of this Lasix. Patient's swelling and edema is not improving. Patient with significant weakness would also recommend physical therapy evaluation. Patient is currently afebrile denies chest pain or shortness of breath. Patient reports significant pain in the abdomen and lower extremities due to all the swelling and reports his swelling has worsened since admission. Patient also reports to excessively drinking a lot of water including ice chips and would recommend fluid restrictions. Patient does have diabetes and would recommend tight glycemic control with Accu-Cheks before meals and at bedtime. 09/20. Patient seen and examined. White count this morning is 4.62, hemoglobin 7.9, sodium 138, potassium 4.5. States swelling of lower extremity has improved, REVIEW OF SYSTEMS: CONSTITUTIONAL: No fever, no malaise,. CARDIOVASCULAR: No chest pain, no palpitations, no syncope. PULMONARY: No shortness of breath, no cough, GASTROINTESTINAL: No diarrhea, no nausea, no vomiting, no abdominal pain. NEUROLOGICAL: No headaches, no weakness, PHYSICAL EXAMINATION: GENERAL: The patient is alert and oriented x3, not in any acute distress. Well developed, well nourished. HEENT: Pupils are round and equally reacting to light. EOMI. No scleral icterus. No conjunctival pallor. Normocephalic, atraumatic. No pharyngeal erythema. No thyromegaly. CARDIOVASCULAR: S1 and S2 present. No murmurs, rubs, or gallops. PULMONARY: Chest is clear to auscultation, no wheezing or crackles. ABDOMEN: Soft, nontender, nondistended, normoactive bowel sounds. No palpable organomegaly. MUSCULOSKELETAL: No joint swelling or deformity. EXTREMITIES: Right lower extremity erythema, bandage seen NEUROLOGICAL: Gross neurological examination did not reveal any focal deficits. SKIN: No rashes. Assessment and plan Acute on chronic CHF exacerbation, unknown EF Bilateral lower extremity edema most likely secondary to CHF exacerbation Chronic venous stasis disease of bilateral lower extremities Cellulitis right lower extremity, present on admission hyperkalemia Chronic kidney disease, stage IV Morbid obesity with a BMI of 54.1 Continued ongoing nicotine abuse Monitor vital signs Monitor CBC Monitor CMP Continue telemetry monitoring Continue IV cefazolin DC Cozaar and ibuprofen Ultrasound of Kidneys ordered Follow-up in ID recs Follow-up in nephrology recommendations Objective - Vital Signs Vital signs: Vital Signs Temp 98.1 F 09/20/22 07:40 Pulse 80 09/20/22 08:41 Resp 20 09/20/22 07:40 BP 104/62 09/20/22 07:40 Pulse Ox 98 09/20/22 07:40 FiO2 21 09/19/22 07:26 Intake & Output 09/19/22 09/20/22 09/20/22 18:59 06:59 18:59 Intake Total 236 Output Total 1500 350 Balance -1500 -350 236 Weight 181.7 kg Intake: Oral 236 Output: Urine 1500 350 Other: Voiding Method External Catheter # Voids 3 - Labs CBC & Chem 7: 09/20/22 04:07 09/20/22 04:07 Labs: Abnormal Lab Results - Last 24 Hours (Table) 09/19/22 09/19/22 09/19/22 Range/Units 11:24 12:34 12:34 RBC 2.60 L (4.30-5.90) m/uL Hgb 8.5 L (13.0-17.5) gm/dL Hct 28.9 L (39.0-53.0) % MCV 111.2 H (80.0-100.0) fL MCH (27.0-32.0) pg MCHC 29.5 L (31.0-37.0) g/dL RDW 17.2 H (11.5-15.5) % Plt Count 116 L (150-450) k/uL Lymphocytes # 0.8 L (1.0-4.8) k/uL Macrocytosis Marked A Carbon Dioxide (20.0-27.5) mmol/L POC Glucose (mg/dL) 117 H (70-110) mg/dL Magnesium 1.5 L (1.6-2.3) mg/dL 09/19/22 09/19/22 09/20/22 Range/Units 16:18 21:08 04:07 RBC 2.44 L (4.30-5.90) m/uL Hgb 7.9 L (13.0-17.5) gm/dL Hct 27.0 L (39.0-53.0) % MCV 110.7 H (80.0-100.0) fL MCH 32.4 H (27.0-32.0) pg MCHC 29.3 L (31.0-37.0) g/dL RDW 18.2 H (11.5-15.5) % Plt Count 117 L (150-450) k/uL Lymphocytes # (1.0-4.8) k/uL Macrocytosis Carbon Dioxide (20.0-27.5) mmol/L POC Glucose (mg/dL) 116 H 129 H (70-110) mg/dL Magnesium (1.6-2.3) mg/dL 09/20/22 Range/Units 04:07 RBC (4.30-5.90) m/uL Hgb (13.0-17.5) gm/dL Hct (39.0-53.0) % MCV (80.0-100.0) fL MCH (27.0-32.0) pg MCHC (31.0-37.0) g/dL RDW (11.5-15.5) % Plt Count (150-450) k/uL Lymphocytes # (1.0-4.8) k/uL Macrocytosis Carbon Dioxide 30.5 H (20.0-27.5) mmol/L POC Glucose (mg/dL) (70-110) mg/dL Magnesium (1.6-2.3) mg/dL Microbiology - Last 24 Hours (Table) 09/15/22 16:35 Blood Culture - Preliminary Blood 09/15/22 16:20 Blood Culture - Preliminary Blood
--- NOTE | 2022-09-20 14:59 | US ---
EXAMINATION TYPE: US kidneys/renal and bladder DATE OF EXAM: 09/20/2022 COMPARISON: NONE CLINICAL INDICATION: Male, 52 years old with history of karol; Abnormal labs. Patient scanned in chair due to unable to get in bed. Portable ultrasound. EXAM MEASUREMENTS: Right Kidney: 13.2 x 6.5 x 5.3 cm Left Kidney: 10.3 x 5.2 x 4.5 cm Estimated due to unable to visualized lower pole of kidney Suboptimal due to large patient body habitus and position Right Kidney: No hydronephrosis or masses seen Left Kidney: Inferior pole obscured by bowel gas Bladder: anechoic, distended Bilateral Jets not seen Incidental finding: small amount of free fluid seen adjacent to bladder in pelvic and adjacent to spleen There is no evidence for hydronephrosis at this point in time. No nephrolithiasis is seen. No afia s are identified. The urinary bladder is anechoic. IMPRESSION: No significant abnormality seen within the limits described above. No hydronephrosis or nephrolithiasis.
[2022-09-20 16:28] LABS: Glucose,Whole Blood 136 mg/dL (70-110)
[2022-09-20] MEDS: ATORVASTATIN 20 MG TAB PO SCH (20:17)
[2022-09-20 21:24] LABS: Glucose,Whole Blood 121 mg/dL (70-110)
[2022-09-20] MEDS: LATANOPROST 0.005% OPHTH DROPS 2.5 ML BTL BOTH EYES SCH (21:30)
[2022-09-20 22:22] LABS: % Iron Saturation 6.83 (15.00-50.00)
[2022-09-21] MEDS: HYDROcodone/APAP 5-325MG 1 EACH TAB PO PRN ×5 (02:59→23:30)
[2022-09-21] MEDS: MORPHINE SULFATE 4 MG/ML SYRINGE IV PRN ×5 (04:11→21:22)
[2022-09-21 06:00] LABS: Glucose,Whole Blood 133 mg/dL (70-110)
[2022-09-21] MEDS: INSULIN ASPART (NovoLOG) 100 UNIT/ML VIAL SQ SCH ×4 (06:19→21:15)
[2022-09-21] MEDS: PANTOPRAZOLE 40 MG TABLET PO SCH (07:29)
[2022-09-21] MEDS: FUROSEMIDE 10 MG/ML 10 ML VIAL IV SCH ×3 (08:07→23:31)
[2022-09-21] MEDS: PREGABALIN 100 MG CAP PO SCH ×2 (08:07→21:22)
[2022-09-21] MEDS: METOPROLOL SUCCINATE (ER) 100 MG TAB.ER.24H PO SCH (08:08)
[2022-09-21] MEDS: MONTELUKAST 10 MG TAB PO SCH (08:08)
[2022-09-21] MEDS: LORATADINE 10 MG TAB PO SCH (08:08)
[2022-09-21] MEDS: HEPARIN SODIUM,PORCINE/PF 5,000 UNIT/0.5 ML SYRINGE SQ SCH ×3 (08:08→23:31)
[2022-09-21] MEDS: SERTRALINE 50 MG TAB PO SCH (08:08)
[2022-09-21] MEDS: SYMBICORT 160-4.5 MCG INHALER INHALATION SCH ×2 (08:48→19:39)
[2022-09-21] MEDS: IPRATROPIUM-ALBUTEROL 3 ML NEB INHALATION SCH ×4 (08:48→19:39)
[2022-09-21] MEDS ORDERED: NYSTATIN 100,000 UNIT/GM POWD 15 GM TOPICAL SCH (09:00)
[2022-09-21 11:26] LABS: Glucose,Whole Blood 109 mg/dL (70-110)
--- NOTE | 2022-09-21 11:42 | P.PN ---
Subjective Patient is seen for follow-up for volume overload and acute kidney injury. Blood pressure had been low therefore NSAIDs and GLENDA inhibitor's were dis continued yesterday. Patient is maintained on IV Lasix 80 mg every 8 hours. Urine output has improved with 24-hour urine output documented at 2.5 L. No significant complaints today except for weakness. Blood pressure remains low with systolic at 92-96 mmHg. Objective - Vital Signs Vital signs: Vital Signs Temp 97.8 F 09/21/22 07:21 Pulse 68 09/21/22 09:06 Resp 17 09/21/22 07:21 BP 92/53 09/21/22 07:21 Pulse Ox 98 09/21/22 08:48 FiO2 21 09/19/22 07:26 Intake & Output 09/20/22 09/21/22 09/21/22 18:59 06:59 18:59 Intake Total 586 Output Total 1000 1925 Balance -414 -1925 Weight 181.7 kg 181.5 kg Intake: Oral 586 Output: Urine 600 1925 Post Void Residual 400 Other: Voiding Method External Catheter Toilet # Voids 4 # Bowel Movements 1 - Exam Patient is awake, comfortable, no acute distress Examination of the heart S1 and S2 Examination lungs bilateral breath sounds are heard Abdomen is soft, obese with significant abdominal wall edema. Patient also has significant scrotal edema noted yesterday Examination of the lower extremities shows both legs to be wrapped. 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 - Labs CBC & Chem 7: 09/20/22 04:07 09/20/22 04:07 Labs: Abnormal Lab Results - Last 24 Hours (Table) 09/20/22 09/20/22 09/20/22 Range/Units 04:07 11:43 13:22 POC Glucose (mg/dL) 131 H (70-110) mg/dL Iron 26 L (65-175) ug/dL % Saturation 6.83 L (15.00-50.00) Urine Blood Moderate H (Negative) Urine RBC 45 H (0-5) /hpf 09/20/22 09/20/22 09/21/22 Range/Units 16:27 21:22 05:58 POC Glucose (mg/dL) 136 H 121 H 133 H (70-110) mg/dL Iron (65-175) ug/dL % Saturation (15.00-50.00) Urine Blood (Negative) Urine RBC (0-5) /hpf Microbiology - Last 24 Hours (Table) 09/15/22 16:35 Blood Culture - Final Blood 09/15/22 16:20 Blood Culture - Final Blood Assessment and Plan Assessment: 1. Acute kidney injury on admission, mostly cardiorenal and due to hypotension causing ischemic ATN in the setting of use of GLENDA inhibitor's and NSAIDs. Currently nonoliguric with improving renal function since admission. UA shows moderate blood, no protein. WBCs 5 and RBCs 45 2. Volume overload currently being diuresed. Discontinuation of NSAIDs and holding GLENDA inhibitor's will help with the diuresis as blood pressure has been on the lower side. Metoprolol decreased as well today 3. Morbid obesity 4. Anemia rule out iron deficiency 5. COPD 6. Right lower extremity cellulitis status post vancomycin currently maintained on Rocephin 7. Acute on chronic CHF, EF not known Plan: Decrease metoprolol Continue with current dose of IV Lasix Repeat labs
--- NOTE | 2022-09-21 13:59 | XR ---
EXAMINATION TYPE: XR chest 2V DATE OF EXAM: 09/21/2022 1:44 PM COMPARISON: Chest radiographs from 09/17/2022 TECHNIQUE: XR chest 2V Frontal and lateral views of the chest. CLINICAL INDICATION:Male, 52 years old with history of CHF; FINDINGS: Lungs/Pleura: Improved aeration of lungs on today's exam with persistent airspace opacities scattered throughout the lungs. No evidence of pneumothorax or large pleural effusion. Pulmonary vascularity: Unremarkable. Heart/mediastinum: Cardiomediastinal silhouette is enlarged and stable. Musculoskeletal: No acute osseous pathology. IMPRESSION: Improved aeration of the right lower lung with persistent airspace opacities.
--- NOTE | 2022-09-21 16:14 | P.PN ---
Subjective Progress Note Date: 09/21/22 Principal diagnosis: Right lower extremity cellulitis Patient is a 52-year-old male with a past medical history significant for COPD diabetes mellitus hypertension hyperlipidemia heart failure presented to the hospital 4 days ago for evaluation of increasing shortness of breath and significant swelling to bilateral extremity especially the right leg along with weeping edema and some superficial ulceration, patient has been diagnosed with right lower extremity cellulitis. On today's evaluation that is 09/21/2022, the patient remains to be afebrile, the patient is breathing slightly comfortable currently on a 4 L nasal cannula oxygen, patient pain to the lower extremity has decreased in intensity, no nausea no vomiting no abdominal pain or diarrhea Objective - Vital Signs Vital signs: Vital Signs Temp 97.6 F 09/21/22 14:00 Pulse 67 09/21/22 14:00 Resp 18 09/21/22 14:00 BP 104/66 09/21/22 14:00 Pulse Ox 99 09/21/22 14:00 FiO2 21 09/19/22 07:26 Intake & Output 09/20/22 09/21/22 09/21/22 18:59 06:59 18:59 Intake Total 586 Output Total 1000 1925 Balance -414 -1925 Weight 181.7 kg 181.5 kg Intake: Oral 586 Output: Urine 600 1925 Post Void Residual 400 Other: Voiding Method External Catheter Toilet # Voids 4 # Bowel Movements 1 - Exam GENERAL DESCRIPTION: A middle-aged male up in a chair in no distress RESPIRATORY SYSTEM: Unlabored breathing , decreased breath sounds at bases HEART: S1 S2 regular rate and rhythm , ABDOMEN: Soft , no tenderness EXTREMITIES: Bilateral legs are currently wrapped in Pablo wrap no drainage on the dressing - Labs CBC & Chem 7: 09/20/22 04:07 09/20/22 04:07 Labs: Abnormal Lab Results - Last 24 Hours (Table) 09/20/22 09/20/22 09/20/22 Range/Units 04:07 16:27 21:22 POC Glucose (mg/dL) 136 H 121 H (70-110) mg/dL Iron 26 L (65-175) ug/dL % Saturation 6.83 L (15.00-50.00) 09/21/22 Range/Units 05:58 POC Glucose (mg/dL) 133 H (70-110) mg/dL Iron (65-175) ug/dL % Saturation (15.00-50.00) Microbiology - Last 24 Hours (Table) 09/15/22 16:35 Blood Culture - Final Blood 09/15/22 16:20 Blood Culture - Final Blood Assessment and Plan (1) Cellulitis of right leg Current Visit: Yes Status: Acute Code(s): L03.115 - CELLULITIS OF RIGHT LOWER LIMB SNOMED Code(s): 816922696 Plan: 1patient presented to hospital with increasing shortness of breath along with increasing swelling and redness to the right lower extremity in this patient for did have features of fluid overload and concerning for cellulitis to the right leg likely from gram-positive skin aleyda 2we will apply Medihoney to the wound right leg with slough tissue followed by moist dressing and Pablo wrap to the left from distal bilateral below the knee 3 cream in between the toes twice a day 4Patient to continue with the patient cefazolin 2 g every 8 hours Time with Patient: Less than 30
[2022-09-21 16:22] LABS: Glucose,Whole Blood 128 mg/dL (70-110)
[2022-09-21] MEDS: NYSTATIN 100,000 UNIT/GM POWD 15 GM TOPICAL SCH ×2 (18:01→21:25)
[2022-09-21 21:08] LABS: Glucose,Whole Blood 128 mg/dL (70-110)
[2022-09-21] MEDS: ATORVASTATIN 20 MG TAB PO SCH (21:22)
[2022-09-21] MEDS: LATANOPROST 0.005% OPHTH DROPS 2.5 ML BTL BOTH EYES SCH (21:23)
[2022-09-22] MEDS: MORPHINE SULFATE 4 MG/ML SYRINGE IV PRN ×6 (02:03→21:05)
[2022-09-22] MEDS: HYDROcodone/APAP 5-325MG 1 EACH TAB PO PRN ×6 (04:25→23:43)
[2022-09-22] MEDS: PANTOPRAZOLE 40 MG TABLET PO SCH (05:58)
[2022-09-22 06:04] LABS: Glucose,Whole Blood 94 mg/dL (70-110)
[2022-09-22] MEDS: INSULIN ASPART (NovoLOG) 100 UNIT/ML VIAL SQ SCH ×4 (06:10→21:22)
[2022-09-22] MEDS: PREGABALIN 100 MG CAP PO SCH ×2 (08:16→19:51)
[2022-09-22] MEDS: HEPARIN SODIUM,PORCINE/PF 5,000 UNIT/0.5 ML SYRINGE SQ SCH ×2 (08:16→16:46)
[2022-09-22] MEDS: MONTELUKAST 10 MG TAB PO SCH (08:17)
[2022-09-22] MEDS: NYSTATIN 100,000 UNIT/GM POWD 15 GM TOPICAL SCH ×3 (08:17→19:56)
[2022-09-22] MEDS: FUROSEMIDE 10 MG/ML 10 ML VIAL IV SCH (08:17)
[2022-09-22] MEDS: SERTRALINE 50 MG TAB PO SCH (08:17)
[2022-09-22] MEDS: LORATADINE 10 MG TAB PO SCH (08:17)
[2022-09-22] MEDS ORDERED: METOPROLOL SUCCINATE (ER) 100 MG TAB.ER.24H PO SCH (09:00)
[2022-09-22] MEDS: SYMBICORT 160-4.5 MCG INHALER INHALATION SCH ×2 (09:49→21:29)
[2022-09-22] MEDS: IPRATROPIUM-ALBUTEROL 3 ML NEB INHALATION SCH ×4 (09:49→21:29)
[2022-09-22 10:59] LABS: African American GFR (CKD) 66 (>60 ml/min/1.73 sqM); Anion Gap 11 mmol/L; Blood Urea Nitrogen 40 mg/dL (9-20); Calcium 8.1 mg/dL (8.4-10.2); Carbon Dioxide 29 mmol/L (22-30); Chloride 91 mmol/L (98-107); Glucose 87 mg/dL (74-99); Non-African American GFR(CKD) 57 (>60 ml/min/1.73 sqM); Sodium 131 mmol/L (137-145)
--- NOTE | 2022-09-22 11:26 | P.PN ---
Subjective Progress Note Date: 09/22/22 Principal diagnosis: Right lower extremity cellulitis Patient is a 52-year-old male with a past medical history significant for COPD diabetes mellitus hypertension hyperlipidemia heart failure presented to the hospital 4 days ago for evaluation of increasing shortness of breath and significant swelling to bilateral extremity especially the right leg along with weeping edema and some superficial ulceration, patient has been diagnosed with right lower extremity cellulitis. On today's evaluation that is 09/22/2022, the patient continues to be afebrile, the patient is breathing comfortably on a 4 L nasal cannula oxygen, patient pain to the lower extremity has decreased in intensity, no nausea no vomiting no abdominal pain or diarrhea Objective - Vital Signs Vital signs: Vital Signs Temp 98.2 F 09/22/22 07:55 Pulse 80 09/22/22 10:06 Resp 18 09/22/22 07:55 BP 110/67 09/22/22 09:10 Pulse Ox 98 09/22/22 07:55 FiO2 21 09/19/22 07:26 Intake & Output 09/21/22 09/22/22 09/22/22 18:59 06:59 18:59 Intake Total 980 Output Total 400 1150 Balance -400 -1150 980 Weight 184.5 kg Intake: Oral 980 Output: Urine 400 1150 Other: Voiding Method Toilet # Voids 6 # Bowel Movements 1 - Exam GENERAL DESCRIPTION: A middle-aged male up in a chair in no distress RESPIRATORY SYSTEM: Unlabored breathing , decreased breath sounds at bases HEART: S1 S2 regular rate and rhythm , ABDOMEN: Soft , no tenderness EXTREMITIES: Bilateral legs are currently wrapped in Pablo wrap no drainage on the dressing - Labs CBC & Chem 7: 09/20/22 04:07 09/22/22 10:21 Labs: Abnormal Lab Results - Last 24 Hours (Table) 09/21/22 09/21/22 09/22/22 Range/Units 16:21 21:06 10:21 Sodium 131 L (137-145) mmol/L Chloride 91 L (98-107) mmol/L BUN 40 H (9-20) mg/dL Creatinine 1.42 H (0.66-1.25) mg/dL POC Glucose (mg/dL) 128 H 128 H (70-110) mg/dL Calcium 8.1 L (8.4-10.2) mg/dL Microbiology - Last 24 Hours (Table) 09/15/22 16:35 Blood Culture - Final Blood 09/15/22 16:20 Blood Culture - Final Blood Assessment and Plan (1) Cellulitis of right leg Current Visit: Yes Status: Acute Code(s): L03.115 - CELLULITIS OF RIGHT LOWER LIMB SNOMED Code(s): 042127399 Plan: 1patient presented to hospital with increasing shortness of breath along with increasing swelling and redness to the right lower extremity in this patient for did have features of fluid overload and concerning for cellulitis to the right leg likely from gram-positive skin aleyda 2the patient to continue with Medihoney to the wound right leg with slough tissue followed by moist dressing and Pablo wrap to the left from just above the toe to below the knee 3 nystatin cream in between the toes twice a day 4Patient to continue with the patient cefazolin 2 g every 8 hours, which was reported oral diabetic medicines Time with Patient: Less than 30
--- NOTE | 2022-09-22 11:41 | P.PN ---
Subjective Patient is seen for follow-up for volume overload and acute kidney injury. Blood pressure had been low therefore NSAIDs and GLENDA inhibitor's were dis continued yesterday. Patient is maintained on IV Lasix 80 mg every 8 hours. Urine output decreased by about a liter from yesterday. Patient is also complaining of increased swelling. He has had about a 3 kg weight gain if the weight is checked accurately. No complaints of shortness of breath. Serum creatinine 1.4 Post void residual was elevated yesterday at 400 Objective - Vital Signs Vital signs: Vital Signs Temp 98.2 F 09/22/22 07:55 Pulse 80 09/22/22 10:06 Resp 18 09/22/22 07:55 BP 110/67 09/22/22 09:10 Pulse Ox 98 09/22/22 07:55 FiO2 21 09/19/22 07:26 Intake & Output 09/21/22 09/22/22 09/22/22 18:59 06:59 18:59 Intake Total 980 Output Total 400 1150 Balance -400 -1150 980 Weight 184.5 kg Intake: Oral 980 Output: Urine 400 1150 Other: Voiding Method Toilet # Voids 6 # Bowel Movements 1 - Exam Patient is awake, comfortable, no acute distress Examination of the heart S1 and S2 Examination lungs bilateral breath sounds are heard Abdomen is soft, obese with significant abdominal wall edema. Patient also has significant scrotal edema noted Examination of the lower extremities shows both legs to be wrapped. 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 Acute kidney injury on admission, mostly cardiorenal and due to hypotension causing ischemic ATN in the setting of use of GLENDA inhibitor's and NSAIDs. Currently nonoliguric with improving renal function since admission. UA shows moderate blood, no protein. WBCs 5 and RBCs 45. Post void residual was elev ated at 400 yesterday. We will recheck today 2. Volume overload currently being diuresed. Discontinuation of NSAIDs and holding GLENDA inhibitor's will help with the diuresis as blood pressure has been on the lower side. Metoprolol decreased as well 3. Morbid obesity 4. Anemia rule out iron deficiency 5. COPD 6. Right lower extremity cellulitis status post vancomycin currently maintained on Rocephin 7. Acute on chronic CHF, EF not known Plan: Switch to Lasix drip Repeat post void residual May need to insert Carmen catheter Repeat labs in a.m. Add midodrine and add parameters for metoprolol
[2022-09-22 12:00] LABS: Glucose,Whole Blood 121 mg/dL (70-110)
[2022-09-22] MEDS: FUROSEMIDE 100 MG in SODIUM CHLORIDE 0.9% 90 ML IV SCH ×2 (12:37→22:33)
[2022-09-22] MEDS: MIDODRINE 5 MG TAB PO SCH ×2 (12:38→16:45)
[2022-09-22 16:53] LABS: Glucose,Whole Blood 135 mg/dL (70-110)
[2022-09-22] MEDS: LATANOPROST 0.005% OPHTH DROPS 2.5 ML BTL BOTH EYES SCH (19:52)
[2022-09-22] MEDS: ATORVASTATIN 20 MG TAB PO SCH (19:52)
[2022-09-22 21:21] LABS: Glucose,Whole Blood 116 mg/dL (70-110)
[2022-09-23] MEDS: HEPARIN SODIUM,PORCINE/PF 5,000 UNIT/0.5 ML SYRINGE SQ SCH ×3 (00:19→17:42)
[2022-09-23] MEDS: MORPHINE SULFATE 4 MG/ML SYRINGE IV PRN ×6 (01:15→22:01)
[2022-09-23] MEDS: HYDROcodone/APAP 5-325MG 1 EACH TAB PO PRN ×5 (04:29→20:57)
[2022-09-23 06:10] LABS: Glucose,Whole Blood 119 mg/dL (70-110)
[2022-09-23] MEDS: INSULIN ASPART (NovoLOG) 100 UNIT/ML VIAL SQ SCH ×4 (06:25→21:41)
[2022-09-23] MEDS: PANTOPRAZOLE 40 MG TABLET PO SCH (06:52)
[2022-09-23] MEDS: MIDODRINE 5 MG TAB PO SCH ×2 (06:52→17:41)
[2022-09-23] MEDS: METOPROLOL SUCCINATE (ER) 25 MG TAB.ER.24H PO SCH (07:48)
[2022-09-23] MEDS: PREGABALIN 100 MG CAP PO SCH ×2 (07:48→19:40)
[2022-09-23] MEDS: LORATADINE 10 MG TAB PO SCH (07:49)
[2022-09-23] MEDS: SERTRALINE 50 MG TAB PO SCH (07:49)
[2022-09-23] MEDS: MONTELUKAST 10 MG TAB PO SCH (07:49)
--- NOTE | 2022-09-23 08:23 | PN ---
PROGRESS NOTE DATE OF SERVICE: 09/22/2022 CHIEF COMPLAINT: Cellulitis of lower extremities with ulcer on the right cobb along with anasarca. HISTORY OF PRESENT ILLNESS: This gentleman seems to be doing just about the same. He remains quite edematous. He has had no fever, no chills, chest pain, etc. PHYSICAL EXAMINATION: CHEST: Clear. CARDIAC: Normal. ABDOMEN: Protuberant. He does have edema and cellulitis of lower abdominal wall with some intertrigo. EXTREMITIES: Unchanged with 4+ edema and erythema along with the ulcer in the right anterior cobb. IMPRESSION: 1. Lower extremity cellulitis. 2. Infected and necrotic ulcer of the right anterior lower leg. 3. Anasarca. PLAN: Continue with current management with diuretics and antibiotics as well as compressive treatment of the lower extremities. MMODL / IJN: [id number] /
--- NOTE | 2022-09-23 08:59 | PN ---
PROGRESS NOTE CHIEF COMPLAINT: Cellulitis, lower extremities, with an ulcer of the right leg and anasarca. HISTORY OF PRESENT ILLNESS: This gentleman is not feeling he is having quite a bit of discomfort in the lower extremities and he continues to be very edematous. He denies chills. PHYSICAL EXAMINATION: CHEST: Clear. CARDIAC: Normal. ABDOMEN: Protuberant and he has cellulitis of the lower abdominal wall and continues to have significant edema and cellulitis of both legs, even though both are wrapped with a 6-inch Pablo wrap. IMPRESSION: 1. Cellulitis, lower extremities. 2. Ulcer of the right cobb. 3. Anasarca. 4. Cellulitis of abdominal wall. PLAN: Continue with IV antibiotics and diuretics. MMODL / LIUN: [id number] /
[2022-09-23] MEDS: FUROSEMIDE 100 MG in SODIUM CHLORIDE 0.9% 90 ML IV SCH ×2 (09:11→18:49)
--- NOTE | 2022-09-23 09:14 | PN ---
PROGRESS NOTE DATE OF SERVICE: 09/21/2022 CHIEF COMPLAINT: Cellulitis, lower extremities with edema. HISTORY OF PRESENT ILLNESS: This patient is about the same he is having quite a bit of discomfort. He has had no fever or chills. He is complaining of intertrigo underneath his abdominal fold. PHYSICAL EXAM: VITAL SIGNS: Normal. CHEST: Clear. CARDIAC: Normal. ABDOMEN: Very protuberant and cellulitis with edema in the lower half of the abdomen with intertrigo in the lower abdominal fold. EXTREMITIES: Remaining the same. They are both very erythematous and edematous. IMPRESSION: 1. Cellulitis of the lower extremities and abdominal wall. 2. Abscess of the right cobb. 3. Anasarca. PLAN: Nystatin powder for the abdominal panniculus fold. MMODL / IJN: [id number] /
[2022-09-23] MEDS: SYMBICORT 160-4.5 MCG INHALER INHALATION SCH ×2 (09:37→20:22)
[2022-09-23] MEDS: IPRATROPIUM-ALBUTEROL 3 ML NEB INHALATION SCH ×4 (09:37→20:22)
[2022-09-23] MEDS: NYSTATIN 100,000 UNIT/GM POWD 15 GM TOPICAL SCH ×3 (10:51→21:49)
[2022-09-23 11:17] LABS: Glucose,Whole Blood 101 mg/dL (70-110)
[2022-09-23 11:20] LABS: African American GFR (CKD) 73 (>60 ml/min/1.73 sqM); Anion Gap 10 mmol/L; Blood Urea Nitrogen 38 mg/dL (9-20); Calcium 8.3 mg/dL (8.4-10.2); Carbon Dioxide 30 mmol/L (22-30); Chloride 94 mmol/L (98-107); Glucose 95 mg/dL (74-99); Non-African American GFR(CKD) 63 (>60 ml/min/1.73 sqM); Potassium 4.1 mmol/L (3.5-5.1); Sodium 134 mmol/L (137-145)
--- NOTE | 2022-09-23 12:17 | P.PN ---
Subjective Patient is seen for follow-up for volume overload and acute kidney injury. Blood pressure had been low therefore NSAIDs and GLENDA inhibitor's were dis continued. Patient had gained weight yesterday and c/o increased leg and abdominal edema. Therefore, he was started on lasix drip yesterday. UOP has increased to about 6.2L for 24 hrs. Creatinine at 1.3mg/dL Over all feels well. Objective - Vital Signs Vital signs: Vital Signs Temp 97.7 F 09/23/22 07:00 Pulse 84 09/23/22 09:50 Resp 18 09/23/22 07:00 BP 122/77 09/23/22 07:00 Pulse Ox 93 L 09/23/22 07:00 FiO2 21 09/19/22 07:26 Intake & Output 09/22/22 09/23/22 09/23/22 18:59 06:59 18:59 Intake Total 980 99.333 100 Output Total 3423 3000 1650 Balance -2443 -2900.667 -1550 Weight 185.3 kg Intake: Intake, IV Titration 99.333 100 Amount Furosemide 100 mg In 99.333 100 Sodium Chloride 0.9% 90 ml @ 10 MG/HR 10 mls/hr IV .Q10H [facility] Rx#: [id number] Oral 980 Output: Urine 3200 3000 1650 Post Void Residual 223 Other: Voiding Method Toilet - Exam Patient is awake, comfortable, no acute distress Examination of the heart S1 and S2 Examination lungs bilateral breath sounds are heard Abdomen is soft, obese with significant abdominal wall edema. Patient also has significant scrotal edema noted Examination of the lower extremities shows both legs to be wrapped. 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 Acute kidney injury on admission, mostly cardiorenal and due to hypotension causing ischemic ATN in the setting of use of GLENDA inhibitor's and NSAIDs. Currently nonoliguric with improving renal function since admission. UA shows moderate blood, no protein. WBCs 5 and RBCs 45. Post void residual was elevated at 400 , but repeat scan showed no retention. 2. Volume overload currently on lasix drip. Discontinuation of NSAIDs and holding GLENDA inhibitor's will help with the diuresis as blood pressure has been on the lower side. Metoprolol decreased as well 3. Morbid obesity 4. Anemia with evidence of iron deficiency 5. COPD 6. Right lower extremity cellulitis status post vancomycin currently maintained on Rocephin 7. Acute on chronic CHF, EF not known Plan: Continue lasix drip Add IV iron Continue close monitoring of volume status. Maintain salt and fluid restriction.
--- NOTE | 2022-09-23 12:18 | P.PN ---
Subjective Progress Note Date: 09/23/22 Principal diagnosis: Right lower extremity cellulitis Patient is a 52-year-old male with a past medical history significant for COPD diabetes mellitus hypertension hyperlipidemia heart failure presented to the hospital 4 days ago for evaluation of increasing shortness of breath and significant swelling to bilateral extremity especially the right leg along with weeping edema and some superficial ulceration, patient has been diagnosed with right lower extremity cellulitis. On today's evaluation that is 09/23/2022, the patient remains to be afebrile, the patient is breathing comfortably and is down to 2 L nasal cannula oxygen, patient pain to the lower extremity has decreased in intensity, the patient denies nausea no vomiting no abdominal pain or diarrhea Objective - Vital Signs Vital signs: Vital Signs Temp 97.7 F 09/23/22 07:00 Pulse 84 09/23/22 09:50 Resp 18 09/23/22 07:00 BP 122/77 09/23/22 07:00 Pulse Ox 93 L 09/23/22 07:00 FiO2 21 09/19/22 07:26 Intake & Output 09/22/22 09/23/22 09/23/22 18:59 06:59 18:59 Intake Total 980 99.333 100 Output Total 3423 3000 1650 Balance -2443 -2900.667 -1550 Weight 185.3 kg Intake: Intake, IV Titration 99.333 100 Amount Furosemide 100 mg In 99.333 100 Sodium Chloride 0.9% 90 ml @ 10 MG/HR 10 mls/hr IV .Q10H [facility] Rx#: [id number] Oral 980 Output: Urine 3200 3000 1650 Post Void Residual 223 Other: Voiding Method Toilet - Exam GENERAL DESCRIPTION: A middle-aged male up in a chair in no distress RESPIRATORY SYSTEM: Unlabored breathing , decreased breath sounds at bases HEART: S1 S2 regular rate and rhythm , ABDOMEN: Soft , no tenderness EXTREMITIES: Bilateral legs are currently wrapped in Pablo wrap no drainage on the dressing - Labs CBC & Chem 7: 09/20/22 04:07 09/23/22 10:49 Labs: Abnormal Lab Results - Last 24 Hours (Table) 09/22/22 09/22/22 09/22/22 Range/Units 11:58 16:51 21:17 POC Glucose (mg/dL) 121 H 135 H 116 H (70-110) mg/dL 09/23/22 Range/Units 06:08 POC Glucose (mg/dL) 119 H (70-110) mg/dL Assessment and Plan (1) Cellulitis of right leg Current Visit: Yes Status: Acute Code(s): L03.115 - CELLULITIS OF RIGHT LOWER LIMB SNOMED Code(s): 403681634 Plan: 1patient presented to hospital with increasing shortness of breath along with increasing swelling and redness to the right lower extremity in this patient for did have features of fluid overload and concerning for cellulitis to the right leg likely from gram-positive skin aleyda 2the patient to continue with Medihoney to the wound right leg with slough tissue followed by moist dressing and Pablo wrap to the left from just above the toe to below the knee 3 nystatin cream in between the toes twice a day 4Patient did have some clinical improvement and will continue with the patient cefazolin 2 g every 8 hours, with a plan to finish therapy with oral antibiotics Time with Patient: Less than 30
[2022-09-23] MEDS: SODIUM FERRIC GLUCONAT-SUCROSE 125 MG in SODIUM CHLORIDE 0.9% 100 ML IVPB SCH (13:03)
[2022-09-23 16:22] LABS: Glucose,Whole Blood 118 mg/dL (70-110)
[2022-09-23] MEDS: LATANOPROST 0.005% OPHTH DROPS 2.5 ML BTL BOTH EYES SCH (19:40)
[2022-09-23] MEDS: ATORVASTATIN 20 MG TAB PO SCH (19:40)
[2022-09-23 21:22] LABS: Glucose,Whole Blood 133 mg/dL (70-110)
[2022-09-24] MEDS: HYDROcodone/APAP 5-325MG 1 EACH TAB PO PRN ×5 (00:28→20:18)
[2022-09-24] MEDS: HEPARIN SODIUM,PORCINE/PF 5,000 UNIT/0.5 ML SYRINGE SQ SCH ×3 (00:28→17:28)
[2022-09-24] MEDS: MORPHINE SULFATE 4 MG/ML SYRINGE IV PRN ×6 (01:06→22:25)
--- NOTE | 2022-09-24 02:35 | PN ---
PROGRESS NOTE DATE OF SERVICE: 09/23/2022 CHIEF COMPLAINT: Anasarca and cellulitis of the lower extremities with ulcer of the right cobb. HISTORY OF PRESENT ILLNESS: This gentleman is doing just about the same. He has had no chills, chest pain, shortness of breath, abdominal pain, nausea, vomiting, etc. PHYSICAL EXAMINATION: VITAL SIGNS: Normal. CHEST: Clear. CARDIAC: Normal. ABDOMEN: Protuberant, soft. EXTREMITIES: Just about the same. There continues to be a significant amount of edema in the lower abdominal wall and legs, and lower legs were wrapped in 6-inch Pablo wraps. IMPRESSION: 1. Anasarca. 2. Lower extremity and abdominal wall edema. 3. Cellulitis of both legs. 4. Ulcer of the right cobb. PLAN: No change in program and continue with IV fluids and antibiotics and local wound care. MMFELIXL / JATINDER: [id number] /
[2022-09-24] MEDS: FUROSEMIDE 100 MG in SODIUM CHLORIDE 0.9% 90 ML IV SCH ×2 (04:00→18:19)
[2022-09-24 05:48] LABS: Glucose,Whole Blood 97 mg/dL (70-110)
[2022-09-24] MEDS: INSULIN ASPART (NovoLOG) 100 UNIT/ML VIAL SQ SCH ×4 (06:27→23:26)
[2022-09-24] MEDS: MIDODRINE 5 MG TAB PO SCH ×2 (06:28→17:27)
[2022-09-24] MEDS: PANTOPRAZOLE 40 MG TABLET PO SCH (06:28)
[2022-09-24] MEDS: SYMBICORT 160-4.5 MCG INHALER INHALATION SCH ×2 (08:34→20:00)
[2022-09-24] MEDS: IPRATROPIUM-ALBUTEROL 3 ML NEB INHALATION SCH ×4 (08:34→20:00)
[2022-09-24] MEDS: LORATADINE 10 MG TAB PO SCH (09:02)
[2022-09-24] MEDS: METOPROLOL SUCCINATE (ER) 25 MG TAB.ER.24H PO SCH (09:02)
[2022-09-24] MEDS: PREGABALIN 100 MG CAP PO SCH ×2 (09:02→20:18)
[2022-09-24] MEDS: MONTELUKAST 10 MG TAB PO SCH (09:02)
[2022-09-24] MEDS: SERTRALINE 50 MG TAB PO SCH (09:02)
[2022-09-24] MEDS: SODIUM FERRIC GLUCONAT-SUCROSE 125 MG in SODIUM CHLORIDE 0.9% 100 ML IVPB SCH (09:03)
[2022-09-24] MEDS: NYSTATIN 100,000 UNIT/GM POWD 15 GM TOPICAL SCH ×2 (09:04→17:05)
[2022-09-24 11:07] LABS: Glucose,Whole Blood 112 mg/dL (70-110)
--- NOTE | 2022-09-24 11:50 | P.PN ---
Subjective Patient is seen for follow-up for volume overload and acute kidney injury. Blood pressure had been low therefore NSAIDs and GLENDA inhibitor's were dis continued. Patient had gained weight and c/o increased leg and abdominal edema. Therefore, he was started on lasix drip. Leg edema has improved today. UOP has increased to about 9.3 L for 24 hrs. Creatinine at 1.3mg/dL Over all feels well. Objective - Vital Signs Vital signs: Vital Signs Temp 98.6 F 09/24/22 07:00 Pulse 82 09/24/22 11:46 Resp 18 09/24/22 11:46 BP 110/69 09/24/22 07:00 Pulse Ox 95 09/24/22 08:35 FiO2 21 09/19/22 07:26 Intake & Output 09/23/22 09/24/22 09/24/22 18:59 06:59 18:59 Intake Total 196.333 91.833 Output Total 4500 4800 1850 Balance -4303.667 -4708.167 -1850 Weight 181.4 kg Intake: Intake, IV Titration 196.333 91.833 Amount Furosemide 100 mg In 196.333 91.833 Sodium Chloride 0.9% 90 ml @ 10 MG/HR 10 mls/hr IV .Q10H [facility] Rx#: [id number] Output: Urine 4500 4800 1850 Other: Voiding Method Toilet Toilet Urinal Urinal # Voids 300 # Bowel Movements 1 - Exam Patient is awake, comfortable, no acute distress Examination of the heart S1 and S2 Examination lungs bilateral breath sounds are heard Abdomen is soft, obese with significant abdominal wall edema. Patient also has significant scrotal edema noted Examination of the lower extremities shows both legs to be wrapped. 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 Acute kidney injury on admission, mostly cardiorenal and due to hypotension causing ischemic ATN in the setting of use of GLENDA inhibitor's and NSAIDs. Currently nonoliguric with improving renal function since admission. UA shows moderate blood, no protein. WBCs 5 and RBCs 45. Post void residual was elevated at 400 , but repeat scan showed no retention. 2. Volume overload currently on lasix drip. Discontinuation of NSAIDs and holding GLENDA inhibitor's will help with the diuresis as blood pressure has been on the lower side. Metoprolol decreased as well 3. Morbid obesity 4. Anemia with evidence of iron deficiency 5. COPD 6. Right lower extremity cellulitis status post vancomycin currently maintained on Rocephin 7. Acute on chronic CHF, EF not known Plan: Continue lasix drip IV iron x3 days Continue close monitoring of volume status. Maintain salt and fluid restriction.
--- NOTE | 2022-09-24 15:04 | P.PN ---
Subjective Progress Note Date: 09/24/22 Principal diagnosis: Right lower extremity cellulitis Patient is a 52-year-old male with a past medical history significant for COPD diabetes mellitus hypertension hyperlipidemia heart failure presented to the hospital 4 days ago for evaluation of increasing shortness of breath and significant swelling to bilateral extremity especially the right leg along with weeping edema and some superficial ulceration, patient has been diagnosed with right lower extremity cellulitis. On today's evaluation that is 09/24/2022, the patient continues to be afebrile, the patient is breathing comfortably on room air, patient pain to the lower extremity has decreased in intensity, the patient denies nausea no vomiting no abdominal pain or diarrhea, feeling better Objective - Vital Signs Vital signs: Vital Signs Temp 97.9 F 09/24/22 13:00 Pulse 86 09/24/22 13:00 Resp 16 09/24/22 13:00 BP 96/58 09/24/22 13:00 Pulse Ox 97 09/24/22 13:00 FiO2 21 09/19/22 07:26 Intake & Output 09/23/22 09/24/22 09/24/22 18:59 06:59 18:59 Intake Total 196.333 91.833 Output Total 4500 4800 1850 Balance -4303.667 -4708.167 -1850 Weight 181.4 kg Intake: Intake, IV Titration 196.333 91.833 Amount Furosemide 100 mg In 196.333 91.833 Sodium Chloride 0.9% 90 ml @ 10 MG/HR 10 mls/hr IV .Q10H [facility] Rx#: [id number] Output: Urine 4500 4800 1850 Other: Voiding Method Toilet Toilet Urinal Urinal # Voids 300 # Bowel Movements 1 1 - Exam GENERAL DESCRIPTION: A middle-aged male up in a chair in no distress RESPIRATORY SYSTEM: Unlabored breathing , decreased breath sounds at bases HEART: S1 S2 regular rate and rhythm , ABDOMEN: Soft , no tenderness EXTREMITIES: Bilateral legs are currently wrapped in Pablo wrap no drainage on the dressing - Labs CBC & Chem 7: 09/20/22 04:07 09/23/22 10:49 Labs: Abnormal Lab Results - Last 24 Hours (Table) 09/23/22 09/23/22 09/24/22 Range/Units 16:21 21:21 11:05 POC Glucose (mg/dL) 118 H 133 H 112 H (70-110) mg/dL Assessment and Plan (1) Cellulitis of right leg Current Visit: Yes Status: Acute Code(s): L03.115 - CELLULITIS OF RIGHT LOWER LIMB SNOMED Code(s): 427260887 Plan: 1patient presented to hospital with increasing shortness of breath along with increasing swelling and redness to the right lower extremity in this patient for did have features of fluid overload and concerning for cellulitis to the right leg likely from gram-positive skin aleyda 2the patient to continue with Medihoney to the wound right leg with slough tissue followed by moist dressing and Pablo wrap to the left from just above the toe to below the knee 3 nystatin cream in between the toes twice a day 4Patient slowly clinically improving. Continue with the current treatment of cefazolin 2 g every 8 hours, with a plan to finish therapy with oral antibiotics Time with Patient: Less than 30
[2022-09-24 16:14] LABS: Glucose,Whole Blood 133 mg/dL (70-110)
[2022-09-24 19:03] LABS: Glucose,Whole Blood 150 mg/dL (70-110)
[2022-09-24] MEDS: LATANOPROST 0.005% OPHTH DROPS 2.5 ML BTL BOTH EYES SCH (20:16)
[2022-09-24] MEDS: ATORVASTATIN 20 MG TAB PO SCH (20:18)
[2022-09-25] MEDS: HYDROcodone/APAP 5-325MG 1 EACH TAB PO PRN ×6 (00:04→22:26)
[2022-09-25] MEDS: NYSTATIN 100,000 UNIT/GM POWD 15 GM TOPICAL SCH ×3 (02:31→22:26)
[2022-09-25] MEDS: HEPARIN SODIUM,PORCINE/PF 5,000 UNIT/0.5 ML SYRINGE SQ SCH ×4 (02:32→23:25)
[2022-09-25] MEDS: FUROSEMIDE 100 MG in SODIUM CHLORIDE 0.9% 90 ML IV SCH ×4 (02:34→23:26)
[2022-09-25] MEDS: MORPHINE SULFATE 4 MG/ML SYRINGE IV PRN ×5 (03:03→21:23)
[2022-09-25 05:56] LABS: Glucose,Whole Blood 156 mg/dL (70-110)
[2022-09-25] MEDS: INSULIN ASPART (NovoLOG) 100 UNIT/ML VIAL SQ SCH ×4 (07:30→20:47)
[2022-09-25] MEDS: MIDODRINE 5 MG TAB PO SCH ×2 (07:31→17:28)
[2022-09-25] MEDS: PANTOPRAZOLE 40 MG TABLET PO SCH (07:31)
[2022-09-25] MEDS: METOPROLOL SUCCINATE (ER) 25 MG TAB.ER.24H PO SCH (07:49)
[2022-09-25] MEDS: MONTELUKAST 10 MG TAB PO SCH (07:49)
[2022-09-25] MEDS: PREGABALIN 100 MG CAP PO SCH ×2 (07:49→21:26)
[2022-09-25] MEDS: SERTRALINE 50 MG TAB PO SCH (07:49)
[2022-09-25] MEDS: LORATADINE 10 MG TAB PO SCH (07:49)
[2022-09-25] MEDS: SODIUM FERRIC GLUCONAT-SUCROSE 125 MG in SODIUM CHLORIDE 0.9% 100 ML IVPB SCH (08:47)
[2022-09-25] MEDS: IPRATROPIUM-ALBUTEROL 3 ML NEB INHALATION SCH ×4 (08:54→20:41)
[2022-09-25] MEDS: SYMBICORT 160-4.5 MCG INHALER INHALATION SCH ×2 (08:54→20:41)
[2022-09-25 10:28] LABS: African American GFR (CKD) 81 (>60 ml/min/1.73 sqM); Anion Gap 7 mmol/L; Blood Urea Nitrogen 40 mg/dL (9-20); Calcium 8.6 mg/dL (8.4-10.2); Carbon Dioxide 35 mmol/L (22-30); Chloride 95 mmol/L (98-107); Glucose 117 mg/dL (74-99); Non-African American GFR(CKD) 70 (>60 ml/min/1.73 sqM); Potassium 3.9 mmol/L (3.5-5.1); Sodium 137 mmol/L (137-145)
[2022-09-25 11:05] LABS: Glucose,Whole Blood 123 mg/dL (70-110)
--- NOTE | 2022-09-25 11:33 | P.PN ---
Subjective Patient is seen for follow-up for volume overload and acute kidney injury. Blood pressure had been low therefore NSAIDs and GLENDA inhibitor's were dis continued. Started on Lasix drip for severe volume overload and significant abdominal and scrotal edema. UOP has increased. Creatinine at 1.1 mg/dL Over all feels well. Objective - Vital Signs Vital signs: Vital Signs Temp 98.2 F 09/25/22 07:00 Pulse 84 09/25/22 09:07 Resp 18 09/25/22 07:00 BP 109/65 09/25/22 07:00 Pulse Ox 96 09/25/22 08:55 FiO2 21 09/19/22 07:26 Intake & Output 09/24/22 09/25/22 09/25/22 18:59 06:59 18:59 Intake Total 300 442.5 Output Total 2150 1650 1300 Balance -1850 -1207.5 -1300 Weight 181.5 kg Intake: Intake, IV Titration 100 82.5 Amount Furosemide 100 mg In 100 82.5 Sodium Chloride 0.9% 90 ml @ 10 MG/HR 10 mls/hr IV .Q10H [facility] Rx#: [id number] Oral 200 360 Output: Urine 2150 1650 1300 Other: Voiding Method Toilet Urinal # Bowel Movements 1 1 - Exam Patient is awake, comfortable, no acute distress Examination of the heart S1 and S2 Examination lungs bilateral breath sounds are heard Abdomen is soft, obese with significant abdominal wall edema. Patient also has significant scrotal edema noted Examination of the lower extremities shows both legs to be wrapped. 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 Acute kidney injury on admission, mostly cardiorenal and due to hypotension causing ischemic ATN in the setting of use of GLENDA inhibitor's and NSAIDs. Currently nonoliguric with improving renal function since admission. UA shows moderate blood, no protein. WBCs 5 and RBCs 45. Post void residual was elevated at 400 , but repeat scan showed no retention. 2. Volume overload currently on lasix drip. Discontinuation of NSAIDs and holding GLENDA inhibitor's will help with the diuresis as blood pressure has been on the lower side. Metoprolol decreased as well 3. Morbid obesity 4. Anemia with evidence of iron deficiency 5. COPD 6. Right lower extremity cellulitis status post vancomycin currently maintained on Rocephin 7. Acute on chronic CHF, EF not known Plan: Continue with Lasix drip Continue with daily weights and accurate I's and O's
[2022-09-25 13:53] LABS: ALT 14 U/L (4-49); AST 47 U/L (17-59); Albumin 3.2 g/dL (3.5-5.0); Alkaline Phosphatase 129 U/L (38-126); Globulin 3.1 g/dL; Total Bilirubin 0.6 mg/dL (0.2-1.3); Total Protein 6.3 g/dL (6.3-8.2)
--- NOTE | 2022-09-25 15:25 | P.PN ---
Subjective Progress Note Date: 09/25/22 Principal diagnosis: Right lower extremity cellulitis Patient is a 52-year-old male with a past medical history significant for COPD diabetes mellitus hypertension hyperlipidemia heart failure presented to the hospital 4 days ago for evaluation of increasing shortness of breath and significant swelling to bilateral extremity especially the right leg along with weeping edema and some superficial ulceration, patient has been diagnosed with right lower extremity cellulitis. On today's evaluation that is 09/25/2022, the patient remains to be afebrile, the patient is breathing comfortably on room air, the patient denies having any chest pain or cough, patient pain to the lower extremity has decreased in intensity, the patient denies nausea no vomiting no abdominal pain or diarrhea, feeling better Objective - Vital Signs Vital signs: Vital Signs Temp 98.2 F 09/25/22 07:00 Pulse 88 09/25/22 12:16 Resp 18 09/25/22 07:00 BP 109/65 09/25/22 07:00 Pulse Ox 96 09/25/22 08:55 FiO2 21 09/19/22 07:26 Intake & Output 09/24/22 09/25/22 09/25/22 18:59 06:59 18:59 Intake Total 300 442.5 Output Total 2150 1650 1300 Balance -1850 -1207.5 -1300 Weight 181.5 kg Intake: Intake, IV Titration 100 82.5 Amount Furosemide 100 mg In 100 82.5 Sodium Chloride 0.9% 90 ml @ 10 MG/HR 10 mls/hr IV .Q10H [facility] Rx#: [id number] Oral 200 360 Output: Urine 2150 1650 1300 Other: Voiding Method Toilet Urinal # Bowel Movements 1 1 - Exam GENERAL DESCRIPTION: A middle-aged male up in a chair in no distress RESPIRATORY SYSTEM: Unlabored breathing , decreased breath sounds at bases HEART: S1 S2 regular rate and rhythm , ABDOMEN: Soft , no tenderness EXTREMITIES: Bilateral legs are currently wrapped in Pablo wrap no drainage on the dressing - Labs CBC & Chem 7: 09/20/22 04:07 09/25/22 09:57 Labs: Abnormal Lab Results - Last 24 Hours (Table) 09/24/22 09/24/22 09/25/22 Range/Units 16:13 19:02 05:55 Chloride (98-107) mmol/L Carbon Dioxide (22-30) mmol/L BUN (9-20) mg/dL Glucose (74-99) mg/dL POC Glucose (mg/dL) 133 H 150 H 156 H (70-110) mg/dL 09/25/22 09/25/22 Range/Units 09:57 11:04 Chloride 95 L (98-107) mmol/L Carbon Dioxide 35 H (22-30) mmol/L BUN 40 H (9-20) mg/dL Glucose 117 H (74-99) mg/dL POC Glucose (mg/dL) 123 H (70-110) mg/dL Assessment and Plan (1) Cellulitis of right leg Current Visit: Yes Status: Acute Code(s): L03.115 - CELLULITIS OF RIGHT LOWER LIMB SNOMED Code(s): 938415942 Plan: 1patient presented to hospital with increasing shortness of breath along with increasing swelling and redness to the right lower extremity in this patient for did have features of fluid overload and concerning for cellulitis to the right leg likely from gram-positive skin aleyda 2the patient to continue with Medihoney to the wound right leg with slough tissue followed by moist dressing and Pablo wrap to the left from just above the toe to below the knee 3 nystatin cream in between the toes twice a day 4Patient did have some clinical improvement as for his lower extremity cellulitis, patient Continue with the current treatment of cefazolin 2 g every 8 hours, with a plan to finish therapy with oral Keflex Time with Patient: Less than 30
[2022-09-25 15:51] LABS: Basophils # (A) 0.05 X 10*3/uL (0.00-0.10); Eosinophils # (A) 0.09 X 10*3/uL (0.04-0.35); Eosinophils % (A) 1.8 %; HCT 26.1 % (39.6-50.0); HGB 7.6 g/dL (13.0-17.0); Immature Grans, Automated 0.4 %; Lymphocytes # (A) 1.25 X 10*3/uL (0.90-5.00); Lymphocytes % (A) 24.8 %; MCH 31.4 pg (27.0-32.0); MCHC 29.1 g/dL (32.0-37.0); MCV 107.9 fL (80.0-97.0); Mean Platelet Volume 12.2 fL (9.5-12.2); Monocytes # (A) 0.68 X 10*3/uL (0.20-1.00); Monocytes % (A) 13.5 %; NRBC Per 100 WBC 0 /100 WBCS (0.0-0.0); Neutrophils # (A) 2.95 X 10*3/uL (1.80-7.70); Neutrophils % (A) 58.5 %; Platelet Count 146 X 10*3/uL (140-440); RBC 2.42 X 10*6/uL (4.40-5.60); RDW 18.2 % (11.5-14.5); WBC 5.04 X 10*3/uL (4.50-10.00)
[2022-09-25 16:19] LABS: Glucose,Whole Blood 126 mg/dL (70-110)
[2022-09-25 20:46] LABS: Glucose,Whole Blood 130 mg/dL (70-110)
[2022-09-25] MEDS: LATANOPROST 0.005% OPHTH DROPS 2.5 ML BTL BOTH EYES SCH (21:26)
[2022-09-25] MEDS: ATORVASTATIN 20 MG TAB PO SCH (21:26)
[2022-09-25] MEDS: SPIRONOLACTONE-HCTZ 25-25MG 1 EACH TAB PO SCH (22:26)
[2022-09-26] MEDS: MORPHINE SULFATE 4 MG/ML SYRINGE IV PRN ×4 (01:06→22:44)
[2022-09-26] MEDS: HYDROcodone/APAP 5-325MG 1 EACH TAB PO PRN ×3 (02:29→10:27)
--- NOTE | 2022-09-26 05:42 | PN ---
PROGRESS NOTE DATE OF SERVICE: 09/24/2022 CHIEF COMPLAINT: Generalized anasarca and cellulitis of both legs. HISTORY OF PRESENT ILLNESS: This gentleman is doing fairly well and may be slowly improving. The edema seems to be slightly less. He has less shortness of breath and he has had no chest pain. He has had no fever or chills. PHYSICAL EXAM: HEENT: Head ears, eyes, nose, mouth and throat are normal. CHEST: Clear. CARDIAC: Normal. ABDOMEN: Remains protuberant with significant induration and edema in the lower half. EXTREMITIES: Still very edematous and cellulitic, but may be slowly improving. IMPRESSION: 1. Anasarca. 2. Cellulitis of both lower extremities with ulcer of the right cobb. PLAN: Continue with efforts to diurese along with antibiotic management. MMODL / IJN: [id number] /
[2022-09-26 06:01] LABS: Glucose,Whole Blood 119 mg/dL (70-110)
[2022-09-26] MEDS: INSULIN ASPART (NovoLOG) 100 UNIT/ML VIAL SQ SCH ×4 (06:04→21:22)
[2022-09-26] MEDS: MIDODRINE 5 MG TAB PO SCH ×2 (06:28→17:40)
[2022-09-26] MEDS: PANTOPRAZOLE 40 MG TABLET PO SCH (06:28)
[2022-09-26] MEDS: LORATADINE 10 MG TAB PO SCH (08:26)
[2022-09-26] MEDS: PREGABALIN 100 MG CAP PO SCH ×2 (08:26→21:10)
[2022-09-26] MEDS: MONTELUKAST 10 MG TAB PO SCH (08:26)
[2022-09-26] MEDS: METOPROLOL SUCCINATE (ER) 25 MG TAB.ER.24H PO SCH (08:26)
[2022-09-26] MEDS: SERTRALINE 50 MG TAB PO SCH (08:27)
[2022-09-26] MEDS: HEPARIN SODIUM,PORCINE/PF 5,000 UNIT/0.5 ML SYRINGE SQ SCH ×3 (08:49→23:52)
[2022-09-26] MEDS: SPIRONOLACTONE-HCTZ 25-25MG 1 EACH TAB PO SCH ×2 (08:49→21:10)
[2022-09-26] MEDS: FUROSEMIDE 100 MG in SODIUM CHLORIDE 0.9% 90 ML IV SCH ×2 (08:49→22:00)
[2022-09-26] MEDS: SYMBICORT 160-4.5 MCG INHALER INHALATION SCH ×2 (08:53→22:12)
[2022-09-26] MEDS: IPRATROPIUM-ALBUTEROL 3 ML NEB INHALATION SCH ×5 (08:53→22:12)
[2022-09-26 12:09] LABS: Glucose,Whole Blood 125 mg/dL (70-110)
--- NOTE | 2022-09-26 14:53 | P.PN ---
Subjective Progress Note Date: 09/26/22 Principal diagnosis: Right lower extremity cellulitis Patient is a 52-year-old male with a past medical history significant for COPD diabetes mellitus hypertension hyperlipidemia heart failure presented to the hospital 4 days ago for evaluation of increasing shortness of breath and significant swelling to bilateral extremity especially the right leg along with weeping edema and some superficial ulceration, patient has been diagnosed with right lower extremity cellulitis. On today's evaluation that is 09/26/2022, the patient continues to be afebrile, the patient is breathing comfortably on room air, the patient denies having any chest pain or cough, patient still complaining of pain to the lower extremity and apparently noticed to have increasing redness especially to the right lower leg with some clear drainage Objective - Vital Signs Vital signs: Vital Signs Temp 98.9 F 09/26/22 07:32 Pulse 92 09/26/22 09:04 Resp 17 09/26/22 07:32 BP 106/62 09/26/22 07:32 Pulse Ox 95 09/26/22 08:53 FiO2 21 09/19/22 07:26 Intake & Output 09/25/22 09/26/22 09/26/22 18:59 06:59 18:59 Intake Total 100 100 543.833 Output Total 2500 2200 600 Balance -2400 -2100 -56.167 Weight 182.3 kg Intake: Intake, IV Titration 100 100 93.833 Amount Furosemide 100 mg In 100 100 93.833 Sodium Chloride 0.9% 90 ml @ 10 MG/HR 10 mls/hr IV .Q10H [facility] Rx#: [id number] Oral 450 Output: Urine 2500 2200 600 Other: Voiding Method Toilet Urinal # Voids 6 - Exam GENERAL DESCRIPTION: A middle-aged male up in a chair in no distress RESPIRATORY SYSTEM: Unlabored breathing , decreased breath sounds at bases HEART: S1 S2 regular rate and rhythm , ABDOMEN: Soft , no tenderness, some abdominal wall erythema EXTREMITIES: Increasing redness especially the right lower leg was noticed - Labs CBC & Chem 7: 09/25/22 09:57 09/25/22 09:57 Labs: Abnormal Lab Results - Last 24 Hours (Table) 09/25/22 09/25/22 09/25/22 Range/Units 09:57 09:57 16:17 RBC 2.42 L (4.40-5.60) X 10*6/uL Hgb 7.6 L (13.0-17.0) g/dL Hct 26.1 L (39.6-50.0) % MCV 107.9 H (80.0-97.0) fL MCHC 29.1 L (32.0-37.0) g/dL RDW 18.2 H (11.5-14.5) % Chloride 95 L (98-107) mmol/L Carbon Dioxide 35 H (22-30) mmol/L BUN 40 H (9-20) mg/dL Glucose 117 H (74-99) mg/dL POC Glucose (mg/dL) 126 H (70-110) mg/dL Alkaline Phosphatase 129 H (38-126) U/L Albumin 3.2 L (3.5-5.0) g/dL 09/25/22 09/26/22 Range/Units 20:45 05:59 RBC (4.40-5.60) X 10*6/uL Hgb (13.0-17.0) g/dL Hct (39.6-50.0) % MCV (80.0-97.0) fL MCHC (32.0-37.0) g/dL RDW (11.5-14.5) % Chloride (98-107) mmol/L Carbon Dioxide (22-30) mmol/L BUN (9-20) mg/dL Glucose (74-99) mg/dL POC Glucose (mg/dL) 130 H 119 H (70-110) mg/dL Alkaline Phosphatase (38-126) U/L Albumin (3.5-5.0) g/dL Assessment and Plan (1) Cellulitis of right leg Current Visit: Yes Status: Acute Code(s): L03.115 - CELLULITIS OF RIGHT LOWER LIMB SNOMED Code(s): 048635009 Plan: 1patient presented to hospital with increasing shortness of breath along with increasing swelling and redness to the right lower extremity in this patient for did have features of fluid overload and concerning for cellulitis to the right leg likely from gram-positive skin aleyda 2the patient to continue with Medihoney to the wound right leg with slough tissue followed by moist dressing and Pablo wrap to the left from just above the toe to below the knee 3 nystatin cream in between the toes twice a day 4Patient noticed to have slight worsening of redness especially to the right lower leg he would discontinue cefazolin and start the patient on cefepime and monitor clinical course closely. We will check a CBC and in the telemetry markers with a.m. lab Time with Patient: Less than 30
[2022-09-26] MEDS: CEFEPIME 2 GM in SODIUM CHLORIDE 0.9% 100 ML IVPB SCH ×2 (15:19→23:52)
[2022-09-26] MEDS: HYDROcodone/APAP 10-325MG 1 EACH TAB PO PRN ×2 (15:20→21:10)
[2022-09-26] MEDS: MORPHINE SULFATE 2 MG/ML SYRINGE IVP PRN (16:30)
[2022-09-26 16:38] LABS: Glucose,Whole Blood 154 mg/dL (70-110)
[2022-09-26] MEDS: NYSTATIN 100,000 UNIT/GM POWD 15 GM TOPICAL SCH ×2 (17:42→21:14)
--- NOTE | 2022-09-26 19:28 | P.PN ---
Subjective Patient is seen for follow-up for volume overload and acute kidney injury. Blood pressure had been low therefore NSAIDs and GLENDA inhibitor's were dis continued. Started on Lasix drip for severe volume overload and significant abdominal and scrotal edema. UOP has increased with continued improvement in volume status. Creatinine at 1.1 mg/dL Over all feels well. Objective - Vital Signs Vital signs: Vital Signs Temp 98.3 F 09/26/22 14:10 Pulse 96 09/26/22 16:21 Resp 18 09/26/22 14:10 BP 135/69 09/26/22 14:10 Pulse Ox 92 L 09/26/22 14:10 FiO2 21 09/19/22 07:26 Intake & Output 09/26/22 09/26/22 09/27/22 06:59 18:59 06:59 Intake Total 100 663.833 Output Total 2200 1200 Balance -2100 -536.167 Weight 182.3 kg Intake: Intake, IV Titration 100 93.833 Amount Furosemide 100 mg In 100 93.833 Sodium Chloride 0.9% 90 ml @ 10 MG/HR 10 mls/hr IV .Q10H [facility] Rx#: [id number] Oral 570 Output: Urine 2200 1200 Other: Voiding Method Toilet Urinal # Voids 6 - Exam Patient is awake, comfortable, no acute distress Examination of the heart S1 and S2 Examination lungs bilateral breath sounds are heard Abdomen is soft, obese with significant abdominal wall edema. Patient also has significant scrotal edema noted Examination of the lower extremities shows both legs to be wrapped. 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 Acute kidney injury on admission, mostly cardiorenal and due to hypotension causing ischemic ATN in the setting of use of GELNDA inhibitor's and NSAIDs. Currently nonoliguric with improving renal function since admission. UA shows moderate blood, no protein. WBCs 5 and RBCs 45. Post void residual was elevated at 400 , but repeat scan showed no retention. 2. Volume overload currently on lasix drip. Discontinuation of NSAIDs and holding GLENDA inhibitor's will help with the diuresis as blood pressure has been on the lower side. Metoprolol has been decreased. 3. Morbid obesity 4. Anemia with evidence of iron deficiency 5. COPD 6. Right lower extremity cellulitis status post vancomycin currently maintained on Rocephin 7. Acute on chronic CHF, EF not known Plan: Continue with Lasix drip Continue with daily weights and accurate I's and O's Check labs in am.
[2022-09-26] MEDS: ATORVASTATIN 20 MG TAB PO SCH (21:10)
[2022-09-26 21:12] LABS: Glucose,Whole Blood 301 mg/dL (70-110)
[2022-09-26] MEDS: LATANOPROST 0.005% OPHTH DROPS 2.5 ML BTL BOTH EYES SCH (21:14)
--- NOTE | 2022-09-26 23:25 | PN ---
PROGRESS NOTE CHIEF COMPLAINT: Anasarca and cellulitis of lower extremities. HISTORY OF PRESENT ILLNESS: This gentleman is doing fairly well. It is noted that his hemoglobin is dropping, it is just below 8. He has no signs of bleeding. He is feeling a little bit better, but he still remains very edematous and he is slightly less short of breath. He is giving the nurses quite a bit of difficulty about his pain medications and we will start to taper off the morphine and increase Basile. REVIEW OF SYSTEMS: Otherwise unremarkable. He is still having a lot of pain in the legs. PHYSICAL EXAMINATION: CHEST: Clear. CARDIAC: Normal. He still has marked edema of the lower half of the trunk and the legs. There is still cellulitis of the thighs and into the lower legs which are now wrapped. IMPRESSION: 1. Anasarca. 2. Venous stasis disease with cellulitis and ulcers. 3. Narcotic dependency. PLAN: Continue with current program, but increases Basile and cut down morphine. MMODL / IJN: [id number] /
[2022-09-27] MEDS: HYDROcodone/APAP 10-325MG 1 EACH TAB PO PRN ×4 (03:02→20:02)
[2022-09-27] MEDS: MORPHINE SULFATE 4 MG/ML SYRINGE IV PRN ×5 (04:40→23:53)
[2022-09-27 06:27] LABS: Glucose,Whole Blood 137 mg/dL (70-110)
[2022-09-27] MEDS: INSULIN ASPART (NovoLOG) 100 UNIT/ML VIAL SQ SCH ×4 (06:28→20:45)
[2022-09-27] MEDS: PANTOPRAZOLE 40 MG TABLET PO SCH (06:32)
[2022-09-27] MEDS: MIDODRINE 5 MG TAB PO SCH ×2 (06:32→17:13)
[2022-09-27] MEDS: FUROSEMIDE 100 MG in SODIUM CHLORIDE 0.9% 90 ML IV SCH ×2 (08:52→17:14)
[2022-09-27] MEDS: HEPARIN SODIUM,PORCINE/PF 5,000 UNIT/0.5 ML SYRINGE SQ SCH ×3 (08:55→23:54)
[2022-09-27] MEDS: SERTRALINE 50 MG TAB PO SCH (08:55)
[2022-09-27] MEDS: METOPROLOL SUCCINATE (ER) 25 MG TAB.ER.24H PO SCH (08:55)
[2022-09-27] MEDS: PREGABALIN 100 MG CAP PO SCH ×2 (08:55→20:03)
[2022-09-27] MEDS: LORATADINE 10 MG TAB PO SCH (08:56)
[2022-09-27] MEDS: CEFEPIME 2 GM in SODIUM CHLORIDE 0.9% 100 ML IVPB SCH ×3 (08:56→23:54)
[2022-09-27] MEDS: MONTELUKAST 10 MG TAB PO SCH (08:56)
[2022-09-27] MEDS: SPIRONOLACTONE-HCTZ 25-25MG 1 EACH TAB PO SCH ×2 (08:56→20:03)
[2022-09-27] MEDS: SYMBICORT 160-4.5 MCG INHALER INHALATION SCH ×2 (09:12→21:45)
[2022-09-27] MEDS: IPRATROPIUM-ALBUTEROL 3 ML NEB INHALATION SCH ×4 (09:12→21:45)
[2022-09-27 09:51] LABS: Albumin 3.8 g/dL (3.8-4.9); Albumin/Globulin Ratio 1.27 (1.60-3.17); Anion Gap 12.3 mmol/L (10.00-18.00); BUN/Creat Ratio 27.56 Ratio (12.00-20.00); Blood Urea Nitrogen 37.2 mg/dL (9.0-27.0); C Reactive Protein 1.5 mg/dL (0.00-0.80); Calcium 9.2 mg/dL (8.7-10.3); Carbon Dioxide 33.7 mmol/L (20.0-27.5); Non-African American GFR(CKD) 60.4 (60.0-200.0); Potassium 3.9 mmol/L (3.5-5.5); Total Bilirubin 0.8 mg/dL (0.30-1.20); Total Protein 6.8 g/dL (6.2-8.2)
[2022-09-27] MEDS: NYSTATIN 100,000 UNIT/GM POWD 15 GM TOPICAL SCH ×3 (10:24→21:33)
[2022-09-27 11:39] LABS: Glucose,Whole Blood 117 mg/dL (70-110)
[2022-09-27 12:07] LABS: Basophils # (A) 0.05 X 10*3/uL (0.00-0.10); Basophils % (A) 0.9 %; Eosinophils # (A) 0.11 X 10*3/uL (0.04-0.35); Eosinophils % (A) 2.1 %; HCT 26.1 % (39.6-50.0); HGB 7.7 g/dL (13.0-17.0); Immature Grans, Automated 0.4 %; Lymphocytes # (A) 1.04 X 10*3/uL (0.90-5.00); Lymphocytes % (A) 19.7 %; MCH 31.8 pg (27.0-32.0); MCHC 29.5 g/dL (32.0-37.0); MCV 107.9 fL (80.0-97.0); Mean Platelet Volume 11.4 fL (9.5-12.2); Monocytes # (A) 0.54 X 10*3/uL (0.20-1.00); Monocytes % (A) 10.2 %; NRBC Per 100 WBC 0 /100 WBCS (0.0-0.0); Neutrophils # (A) 3.53 X 10*3/uL (1.80-7.70); Neutrophils % (A) 66.7 %; Platelet Count 168 X 10*3/uL (140-440); RBC 2.42 X 10*6/uL (4.40-5.60); RDW 18.2 % (11.5-14.5); WBC 5.29 X 10*3/uL (4.50-10.00)
[2022-09-27 12:08] LABS: Immature Platelet Fraction 7.3 % (1.1-6.1); Macrocytosis (M) 2+
--- NOTE | 2022-09-27 15:31 | P.PN ---
Subjective Progress Note Date: 09/27/22 Follow-up for acute kidney injury and volume overload. Complaining of some pain in his legs needing pain medications. Urine output of 7.5 L in the last 24 hours. Objective - Vital Signs Vital signs: Vital Signs Temp 97.6 F 09/27/22 13:48 Pulse 94 09/27/22 13:48 Resp 16 09/27/22 13:48 BP 137/72 09/27/22 13:48 Pulse Ox 92 L 09/27/22 13:48 FiO2 21 09/19/22 07:26 Intake & Output 09/26/22 09/27/22 09/27/22 18:59 06:59 18:59 Intake Total 763.833 240 110 Output Total 1200 6375 2400 Balance -436.472 -5141 -3280 Weight 180.3 kg Intake: IV 10 Invasive Line 5 10 Intake, IV Titration 193.833 100 Amount Furosemide 100 mg In 193.833 100 Sodium Chloride 0.9% 90 ml @ 10 MG/HR 10 mls/hr IV .Q10H [facility] Rx#: [id number] Oral 570 240 Output: Urine 1200 6375 2400 Other: Voiding Method Toilet # Bowel Movements 1 - Exam No acute distress S1-S2 heard Decreased breath sounds Abdomen distended Edema - Labs CBC & Chem 7: 09/27/22 05:56 09/27/22 05:56 Labs: Abnormal Lab Results - Last 24 Hours (Table) 09/26/22 09/26/22 09/27/22 Range/Units 16:37 21:11 05:56 RBC 2.42 L (4.40-5.60) X 10*6/uL Hgb 7.7 L (13.0-17.0) g/dL Hct 26.1 L (39.6-50.0) % MCV 107.9 H (80.0-97.0) fL MCHC 29.5 L (32.0-37.0) g/dL RDW 18.2 H (11.5-14.5) % Immature Plt Fraction 7.3 H (1.1-6.1) % Chloride (96-109) mmol/L Carbon Dioxide (20.0-27.5) mmol/L BUN (9.0-27.0) mg/dL BUN/Creatinine Ratio (12.00-20.00) Ratio POC Glucose (mg/dL) 154 H 301 H (70-110) mg/dL AST (14-35) U/L Alkaline Phosphatase (41-126) U/L C-Reactive Protein (0.00-0.80) mg/dL Albumin/Globulin Ratio (1.60-3.17) g/dL 09/27/22 09/27/22 09/27/22 Range/Units 05:56 06:25 11:37 RBC (4.40-5.60) X 10*6/uL Hgb (13.0-17.0) g/dL Hct (39.6-50.0) % MCV (80.0-97.0) fL MCHC (32.0-37.0) g/dL RDW (11.5-14.5) % Immature Plt Fraction (1.1-6.1) % Chloride 91 L (96-109) mmol/L Carbon Dioxide 33.7 H (20.0-27.5) mmol/L BUN 37.2 H (9.0-27.0) mg/dL BUN/Creatinine Ratio 27.56 H (12.00-20.00) Ratio POC Glucose (mg/dL) 137 H 117 H (70-110) mg/dL AST 48 H (14-35) U/L Alkaline Phosphatase 137 H (41-126) U/L C-Reactive Protein 1.50 H (0.00-0.80) mg/dL Albumin/Globulin Ratio 1.27 L (1.60-3.17) g/dL Assessment and Plan Assessment: #1 acute kidney injury secondary to CRS -Baseline creatinine 0.9-1.1 MG per DL -Urine analysis hematuria without proteinuria #2 CK D stage IIIa suspected nephrosclerosis #3 morbid obesity #4 suspected CHF, EF unknown #5 anemia multifactorial Plan: #1 good urine output, creeping creatinine suspect overdiuresis. #2 continue with Lasix drip for now. #3 daily labs
[2022-09-27 16:39] LABS: Glucose,Whole Blood 153 mg/dL (70-110)
[2022-09-27] MEDS: ATORVASTATIN 20 MG TAB PO SCH (20:03)
[2022-09-27] MEDS: LATANOPROST 0.005% OPHTH DROPS 2.5 ML BTL BOTH EYES SCH (20:04)
[2022-09-27 20:11] LABS: Glucose,Whole Blood 191 mg/dL (70-110)
[2022-09-28] MEDS: FUROSEMIDE 100 MG in SODIUM CHLORIDE 0.9% 90 ML IV SCH ×2 (01:03→13:03)
[2022-09-28] MEDS: HYDROcodone/APAP 10-325MG 1 EACH TAB PO PRN ×3 (02:02→17:19)
[2022-09-28] MEDS: MORPHINE SULFATE 2 MG/ML SYRINGE IVP PRN (03:54)
[2022-09-28 05:44] LABS: Glucose,Whole Blood 119 mg/dL (70-110)
[2022-09-28] MEDS: INSULIN ASPART (NovoLOG) 100 UNIT/ML VIAL SQ SCH ×4 (05:54→21:37)
[2022-09-28] MEDS: PANTOPRAZOLE 40 MG TABLET PO SCH (06:02)
[2022-09-28] MEDS: MIDODRINE 5 MG TAB PO SCH ×2 (06:02→17:19)
[2022-09-28] MEDS: SYMBICORT 160-4.5 MCG INHALER INHALATION SCH ×2 (07:51→20:53)
[2022-09-28] MEDS: IPRATROPIUM-ALBUTEROL 3 ML NEB INHALATION SCH ×4 (07:51→20:53)
[2022-09-28] MEDS: PREGABALIN 100 MG CAP PO SCH ×2 (08:12→21:37)
[2022-09-28] MEDS: MONTELUKAST 10 MG TAB PO SCH (08:12)
[2022-09-28] MEDS: LORATADINE 10 MG TAB PO SCH (08:12)
[2022-09-28] MEDS: METOPROLOL SUCCINATE (ER) 25 MG TAB.ER.24H PO SCH (08:12)
[2022-09-28] MEDS: HEPARIN SODIUM,PORCINE/PF 5,000 UNIT/0.5 ML SYRINGE SQ SCH ×2 (08:13→17:19)
[2022-09-28] MEDS: SPIRONOLACTONE-HCTZ 25-25MG 1 EACH TAB PO SCH ×2 (08:13→21:37)
[2022-09-28] MEDS: SERTRALINE 50 MG TAB PO SCH (08:13)
[2022-09-28] MEDS: CEFEPIME 2 GM in SODIUM CHLORIDE 0.9% 100 ML IVPB SCH ×3 (08:15→23:58)
[2022-09-28] MEDS: NYSTATIN 100,000 UNIT/GM POWD 15 GM TOPICAL SCH ×3 (09:02→21:38)
[2022-09-28] MEDS: MORPHINE SULFATE 4 MG/ML SYRINGE IV PRN ×4 (09:48→22:22)
[2022-09-28 11:21] LABS: Glucose,Whole Blood 156 mg/dL (70-110)
--- NOTE | 2022-09-28 15:24 | P.PN ---
Subjective Progress Note Date: 09/27/22 Principal diagnosis: Right lower extremity cellulitis Patient is a 52-year-old male with a past medical history significant for COPD diabetes mellitus hypertension hyperlipidemia heart failure presented to the hospital 4 days ago for evaluation of increasing shortness of breath and significant swelling to bilateral extremity especially the right leg along with weeping edema and some superficial ulceration, patient has been diagnosed with right lower extremity cellulitis. On today's evaluation that is 09/27/2022, the patient remains to be afebrile, the patient is breathing comfortably on room air, the patient denies having any chest pain or cough, patient still complaining of pain to the lower extremity and complaining about cutting down on his pain medication, no worsening redness or drainage no vomiting or diarrhea Objective - Vital Signs Vital signs: Vital Signs Temp 98.2 F 09/27/22 07:03 Pulse 97 09/27/22 12:32 Resp 17 09/27/22 07:03 BP 127/72 09/27/22 07:03 Pulse Ox 93 L 09/27/22 07:03 FiO2 21 09/19/22 07:26 Intake & Output 09/26/22 09/27/22 09/27/22 18:59 06:59 18:59 Intake Total 763.833 240 110 Output Total 1200 6375 1400 Balance -436.805 -8313 -7733 Weight 180.3 kg Intake: IV 10 Invasive Line 5 10 Intake, IV Titration 193.833 100 Amount Furosemide 100 mg In 193.833 100 Sodium Chloride 0.9% 90 ml @ 10 MG/HR 10 mls/hr IV .Q10H [facility] Rx#: [id number] Oral 570 240 Output: Urine 1200 6375 1400 Other: Voiding Method Toilet # Bowel Movements 1 - Exam GENERAL DESCRIPTION: A middle-aged male up in a chair in no distress RESPIRATORY SYSTEM: Unlabored breathing , decreased breath sounds at bases HEART: S1 S2 regular rate and rhythm , ABDOMEN: Soft , no tenderness, some abdominal wall erythema EXTREMITIES: Increasing redness especially the right lower leg was noticed - Labs CBC & Chem 7: 09/27/22 05:56 09/27/22 05:56 Labs: Abnormal Lab Results - Last 24 Hours (Table) 09/26/22 09/26/22 09/27/22 Range/Units 16:37 21:11 05:56 RBC 2.42 L (4.40-5.60) X 10*6/uL Hgb 7.7 L (13.0-17.0) g/dL Hct 26.1 L (39.6-50.0) % MCV 107.9 H (80.0-97.0) fL MCHC 29.5 L (32.0-37.0) g/dL RDW 18.2 H (11.5-14.5) % Immature Plt Fraction 7.3 H (1.1-6.1) % Chloride (96-109) mmol/L Carbon Dioxide (20.0-27.5) mmol/L BUN (9.0-27.0) mg/dL BUN/Creatinine Ratio (12.00-20.00) Ratio POC Glucose (mg/dL) 154 H 301 H (70-110) mg/dL AST (14-35) U/L Alkaline Phosphatase (41-126) U/L C-Reactive Protein (0.00-0.80) mg/dL Albumin/Globulin Ratio (1.60-3.17) g/dL 09/27/22 09/27/22 09/27/22 Range/Units 05:56 06:25 11:37 RBC (4.40-5.60) X 10*6/uL Hgb (13.0-17.0) g/dL Hct (39.6-50.0) % MCV (80.0-97.0) fL MCHC (32.0-37.0) g/dL RDW (11.5-14.5) % Immature Plt Fraction (1.1-6.1) % Chloride 91 L (96-109) mmol/L Carbon Dioxide 33.7 H (20.0-27.5) mmol/L BUN 37.2 H (9.0-27.0) mg/dL BUN/Creatinine Ratio 27.56 H (12.00-20.00) Ratio POC Glucose (mg/dL) 137 H 117 H (70-110) mg/dL AST 48 H (14-35) U/L Alkaline Phosphatase 137 H (41-126) U/L C-Reactive Protein 1.50 H (0.00-0.80) mg/dL Albumin/Globulin Ratio 1.27 L (1.60-3.17) g/dL Assessment and Plan (1) Cellulitis of right leg Current Visit: Yes Status: Acute Code(s): L03.115 - CELLULITIS OF RIGHT LOWER LIMB SNOMED Code(s): 253172093 Plan: 1patient presented to hospital with increasing shortness of breath along with increasing swelling and redness to the right lower extremity in this patient for did have features of fluid overload and concerning for cellulitis to the right leg likely from gram-positive skin aleyda 2the patient to continue with Medihoney to the wound right leg with slough tissue followed by moist dressing and Pbalo wrap to the left from just above the toe to below the knee 3 nystatin cream in between the toes twice a day 4Patient redness especially to the right lower leg has slightly decreased in intensity, patient to continue cefepime and monitor clinical course closely. Wild recinos did have a normal white count and CRP was 1.50 Time with Patient: Less than 30
--- NOTE | 2022-09-28 15:26 | P.PN ---
Subjective Progress Note Date: 09/28/22 Principal diagnosis: Right lower extremity cellulitis Patient is a 52-year-old male with a past medical history significant for COPD diabetes mellitus hypertension hyperlipidemia heart failure presented to the hospital 4 days ago for evaluation of increasing shortness of breath and significant swelling to bilateral extremity especially the right leg along with weeping edema and some superficial ulceration, patient has been diagnosed with right lower extremity cellulitis. On today's evaluation that is 09/28/2022, the patient continues to be afebrile, the patient is breathing comfortably on room air, the patient denies having any chest pain or cough, patient pain to the lower extremity is better controlled today, swelling and redness has slightly decreased per patient, no vomiting or diarrhea Objective - Vital Signs Vital signs: Vital Signs Temp 98.2 F 09/28/22 13:48 Pulse 91 09/28/22 13:48 Resp 15 09/28/22 13:48 BP 134/54 09/28/22 13:48 Pulse Ox 94 L 09/28/22 13:48 FiO2 21 09/19/22 07:26 Intake & Output 09/27/22 09/28/22 09/28/22 18:59 06:59 18:59 Intake Total 1073.667 78.167 100 Output Total 2800 3600 800 Balance -1726.333 -3521.833 -700 Weight 178.5 kg Intake: IV 10 Invasive Line 5 10 Intake, IV Titration 183.667 78.167 100 Amount Furosemide 100 mg In 183.667 78.167 100 Sodium Chloride 0.9% 90 ml @ 10 MG/HR 10 mls/hr IV .Q10H [facility] Rx#: [id number] Oral 880 Output: Urine 2800 3600 800 Other: Voiding Method Toilet # Voids 1 # Bowel Movements 1 - Exam GENERAL DESCRIPTION: A middle-aged male up in a chair in no distress RESPIRATORY SYSTEM: Unlabored breathing , decreased breath sounds at bases HEART: S1 S2 regular rate and rhythm , ABDOMEN: Soft , no tenderness, some abdominal wall erythema EXTREMITIES: redness especially the right lower leg has decreased in intensity - Labs CBC & Chem 7: 09/27/22 05:56 09/27/22 05:56 Labs: Abnormal Lab Results - Last 24 Hours (Table) 05/13/23 05/13/23 05/14/23 Range/Units 16:36 20:09 05:42 POC Glucose (mg/dL) 153 H 191 H 119 H (70-110) mg/dL 09/28/22 Range/Units 11:20 POC Glucose (mg/dL) 156 H (70-110) mg/dL Assessment and Plan (1) Cellulitis of right leg Current Visit: Yes Status: Acute Code(s): L03.115 - CELLULITIS OF RIGHT LOWER LIMB SNOMED Code(s): 926661308 Plan: 1patient presented to hospital with increasing shortness of breath along with increasing swelling and redness to the right lower extremity in this patient for did have features of fluid overload and concerning for cellulitis to the right leg likely from gram-positive skin aleyda 2the patient to continue with Medihoney to the wound right leg with slough tissue followed by moist dressing and Pablo wrap to the left from just above the toe to below the knee 3 nystatin cream in between the toes twice a day 4Patient white count is normal CRP 1.50 5-patient to continue with cefepime and plan is for oral antibiotics on discharge Time with Patient: Less than 30
[2022-09-28 16:51] LABS: Glucose,Whole Blood 134 mg/dL (70-110)
--- NOTE | 2022-09-28 17:52 | P.PN ---
Subjective Progress Note Date: 09/28/22 Follow-up for acute kidney injury and volume overload. Sleepy today. Urine output of 6.5 L in the last 24 hours. Objective - Vital Signs Vital signs: Vital Signs Temp 98.2 F 09/28/22 13:48 Pulse 101 H 09/28/22 15:41 Resp 18 09/28/22 15:41 BP 134/54 09/28/22 13:48 Pulse Ox 94 L 09/28/22 13:48 FiO2 21 09/19/22 07:26 Intake & Output 09/27/22 09/28/22 09/28/22 18:59 06:59 18:59 Intake Total 1073.667 78.167 1020 Output Total 2800 3600 1450 Balance -1726.333 -3521.833 -430 Weight 178.5 kg Intake: IV 10 Invasive Line 5 10 Intake, IV Titration 183.667 78.167 100 Amount Furosemide 100 mg In 183.667 78.167 100 Sodium Chloride 0.9% 90 ml @ 10 MG/HR 10 mls/hr IV .Q10H [facility] Rx#: [id number] Oral 880 920 Output: Urine 2800 3600 1450 Other: Voiding Method Toilet # Voids 1 # Bowel Movements 1 - Exam No acute distress S1-S2 heard Decreased breath sounds Abdomen distended Edema - Labs CBC & Chem 7: 09/27/22 05:56 09/27/22 05:56 Labs: Abnormal Lab Results - Last 24 Hours (Table) 09/27/22 09/28/22 09/28/22 Range/Units 20:09 05:42 11:20 POC Glucose (mg/dL) 191 H 119 H 156 H (70-110) mg/dL 09/28/22 Range/Units 16:50 POC Glucose (mg/dL) 134 H (70-110) mg/dL Assessment and Plan Assessment: #1 acute kidney injury secondary to CRS -Baseline creatinine 0.9-1.1 MG per DL -Urine analysis hematuria without proteinuria #2 CK D stage IIIa suspected nephrosclerosis #3 morbid obesity #4 suspected CHF, EF unknown #5 anemia multifactorial Plan: #1 good urine output, no new labs, check in the morning #2 continue with Lasix drip for now. #3 daily labs
[2022-09-28 20:04] LABS: Glucose,Whole Blood 151 mg/dL (70-110)
[2022-09-28] MEDS: ATORVASTATIN 20 MG TAB PO SCH (21:37)
[2022-09-28] MEDS: LATANOPROST 0.005% OPHTH DROPS 2.5 ML BTL BOTH EYES SCH (21:38)
[2022-09-29] MEDS: HYDROcodone/APAP 10-325MG 1 EACH TAB PO PRN ×4 (00:01→18:05)
[2022-09-29] MEDS: HEPARIN SODIUM,PORCINE/PF 5,000 UNIT/0.5 ML SYRINGE SQ SCH ×3 (00:01→16:57)
[2022-09-29] MEDS: MORPHINE SULFATE 4 MG/ML SYRINGE IV PRN ×5 (02:31→21:28)
[2022-09-29] MEDS: FUROSEMIDE 100 MG in SODIUM CHLORIDE 0.9% 90 ML IV SCH ×3 (02:33→18:05)
[2022-09-29 06:01] LABS: Glucose,Whole Blood 141 mg/dL (70-110)
[2022-09-29] MEDS: INSULIN ASPART (NovoLOG) 100 UNIT/ML VIAL SQ SCH ×4 (06:04→21:28)
[2022-09-29] MEDS: PANTOPRAZOLE 40 MG TABLET PO SCH (06:51)
[2022-09-29] MEDS: MIDODRINE 5 MG TAB PO SCH (06:51)
[2022-09-29] MEDS: SYMBICORT 160-4.5 MCG INHALER INHALATION SCH ×3 (07:32→21:34)
[2022-09-29] MEDS: IPRATROPIUM-ALBUTEROL 3 ML NEB INHALATION SCH ×5 (07:32→21:34)
[2022-09-29] MEDS: PREGABALIN 100 MG CAP PO SCH ×2 (07:56→19:55)
[2022-09-29] MEDS: METOPROLOL SUCCINATE (ER) 25 MG TAB.ER.24H PO SCH (07:57)
[2022-09-29] MEDS: CEFEPIME 2 GM in SODIUM CHLORIDE 0.9% 100 ML IVPB SCH ×2 (07:57→19:55)
[2022-09-29] MEDS: MONTELUKAST 10 MG TAB PO SCH (07:58)
[2022-09-29] MEDS: SPIRONOLACTONE-HCTZ 25-25MG 1 EACH TAB PO SCH (07:58)
[2022-09-29] MEDS: SERTRALINE 50 MG TAB PO SCH (07:58)
[2022-09-29] MEDS: LORATADINE 10 MG TAB PO SCH (07:58)
[2022-09-29] MEDS: NYSTATIN 100,000 UNIT/GM POWD 15 GM TOPICAL SCH ×3 (08:57→21:29)
[2022-09-29 09:35] LABS: African American GFR (CKD) 52.9 (60.0-200.0); Anion Gap 14.3 mmol/L (10.00-18.00); BUN/Creat Ratio 27.47 Ratio (12.00-20.00); Blood Urea Nitrogen 46.7 mg/dL (9.0-27.0); Calcium 9.4 mg/dL (8.7-10.3); Carbon Dioxide 30.7 mmol/L (20.0-27.5); Non-African American GFR(CKD) 45.7 (60.0-200.0); Potassium 4.4 mmol/L (3.5-5.5)
--- NOTE | 2022-09-29 10:06 | P.PN ---
Subjective Patient is seen in follow-up for acute kidney injury on chronic kidney disease. Renal function worsening with diuresis. Creatinine 1.7. Urine output over 6 L in the last 24 hours. Still quite edematous. No vomiting or diarrhea. Hemodynamically stable. Vital signs are stable. General: No acute distress. HEENT: Head exam is unremarkable. LUNGS: No audible rhonchi or wheezes. HEART: Rate and Rhythm are regular. ABDOMEN: Obese. Nontender. EXTREMITITES: 2+ edema. Lower extremities wrapped. Objective - Vital Signs Vital signs: Vital Signs Temp 98.5 F 09/29/22 06:57 Pulse 104 H 09/29/22 07:50 Resp 16 09/29/22 06:57 BP 120/71 09/29/22 06:57 Pulse Ox 94 L 09/29/22 07:40 FiO2 21 09/19/22 07:26 Intake & Output 09/28/22 09/29/22 09/29/22 18:59 06:59 18:59 Intake Total 1020 1560 54 Output Total 2650 3400 Balance -1630 -1840 54 Weight 177.7 kg Intake: Intake, IV Titration 100 200 54 Amount Cefepime 2 gm In Sodium 100 Chloride 0.9% 100 ml @ 25 mls/hr IVPB Q8HR [facility] Rx# :[id number] Furosemide 100 mg In 100 100 54 Sodium Chloride 0.9% 90 ml @ 10 MG/HR 10 mls/hr IV .Q10H [facility] Rx#: [id number] Oral 920 1360 Output: Urine 2650 3400 Other: Voiding Method Toilet # Voids 6 - Labs CBC & Chem 7: 09/27/22 05:56 09/29/22 03:53 Labs: Abnormal Lab Results - Last 24 Hours (Table) 09/28/22 09/28/22 09/28/22 Range/Units 11:20 16:50 20:02 Chloride (96-109) mmol/L Carbon Dioxide (20.0-27.5) mmol/L BUN (9.0-27.0) mg/dL Creatinine (0.6-1.5) mg/dL Est GFR (CKD-EPI)AfAm (60.0-200.0) Est GFR (CKD-EPI)NonAf (60.0-200.0) BUN/Creatinine Ratio (12.00-20.00) Ratio Glucose (70-110) mg/dL POC Glucose (mg/dL) 156 H 134 H 151 H (70-110) mg/dL 09/29/22 09/29/22 Range/Units 03:53 05:59 Chloride 90 L (96-109) mmol/L Carbon Dioxide 30.7 H (20.0-27.5) mmol/L BUN 46.7 H (9.0-27.0) mg/dL Creatinine 1.7 H (0.6-1.5) mg/dL Est GFR (CKD-EPI)AfAm 52.9 L (60.0-200.0) Est GFR (CKD-EPI)NonAf 45.7 L (60.0-200.0) BUN/Creatinine Ratio 27.47 H (12.00-20.00) Ratio Glucose 128 H (70-110) mg/dL POC Glucose (mg/dL) 141 H (70-110) mg/dL Assessment and Plan Plan: Assessment: 1. Acute kidney injury secondary to ATN secondary to cardiorenal syndrome. Creatinine 1.7 today. Nonoliguric. No proteinuria on UA. No hydronephrosis noted on kidney ultrasound. 2. Chronic kidney disease stage II with baseline creatinine near 1. Suspect nephrosclerosis. 3. Volume overload. 4. Acute on chronic diastolic CHF with mild mitral and tricuspid regurgitation and mild pulmonary hypertension. 5. Anemia. Rule out iron deficiency. 6. Morbid obesity. Plan: Maintain Lasix drip. Stop hydrochlorothiazide. Add metolazone. Low-salt diet. 1500 mL fluid restriction. Avoid nephrotoxins. Check iron studies. Continue to monitor renal function and urine output. Stop midodrine.
--- NOTE | 2022-09-29 11:16 | PN ---
PROGRESS NOTE DATE OF SERVICE: 09/29/2022 CHIEF COMPLAINT: Anasarca and cellulitis. HISTORY OF PRESENT ILLNESS: This gentleman is improving. His weight is down. He states when he came in, he was 414 pounds and he is now down to 391, and he is diuresing well. He has no complaints. Leg pains are better. PHYSICAL EXAMINATION: CHEST: Clear. CARDIAC: Normal. ABDOMEN: Remains protuberant and cellulitis is improving. EXTREMITIES: Lower extremities are wrapped and less edematous and less painful. IMPRESSION: 1. Anasarca. 2. Cellulitis of lower abdominal wall. 3. Stasis disease and dermatitis of the lower extremities with cellulitis. PLAN: Continue with current program and start to consider discharge plan. MMFELIXL / LIUN: [id number] /
[2022-09-29 11:52] LABS: Glucose,Whole Blood 138 mg/dL (70-110)
[2022-09-29] MEDS: metOLazone 5 MG TAB PO SCH (12:23)
[2022-09-29 17:00] LABS: Glucose,Whole Blood 168 mg/dL (70-110)
[2022-09-29] MEDS: LATANOPROST 0.005% OPHTH DROPS 2.5 ML BTL BOTH EYES SCH (19:56)
[2022-09-29] MEDS: ATORVASTATIN 20 MG TAB PO SCH (19:56)
--- NOTE | 2022-09-29 23:23 | PN ---
PROGRESS NOTE DATE OF SERVICE: 09/25/2022 CHIEF COMPLAINT: Anasarca and cellulitis of both legs and abdominal wall. HISTORY OF PRESENT ILLNESS: This gentleman is still having a lot of trouble with generalized edema and anasarca and is still short of breath. He has had no fever or chills. His echocardiogram failed to demonstrate any pathology. PHYSICAL EXAMINATION: VITAL SIGNS: Normal. CHEST: Clear. CARDIAC: Normal. ABDOMEN: Remains protuberant and nontender. EXTREMITIES: Still edematous and cellulitic and wrapped with Pablo wraps. IMPRESSION: 1. Generalized anasarca. 2. Cellulitis of both lower extremities. 3. Cellulitis of abdominal wall. PLAN: Add Aldactazide to his diuretic program and continue to monitor. MMODL / IJN: [id number] /
--- NOTE | 2022-09-29 23:29 | PN ---
PROGRESS NOTE DATE OF SERVICE: 09/27/2022 CHIEF COMPLAINT: Anasarca and cellulitis. HISTORY OF PRESENT ILLNESS: This gentleman is on IV Lasix, and he is diuresing a little bit better. He is still short of breath, but he feels it is improving. He has had no fever or chills. PHYSICAL EXAMINATION: CHEST: Clear. CARDIAC: Normal. ABDOMEN: Protuberant and soft. Lower abdominal cellulitis is still present. EXTREMITIES: Unchanged as well. IMPRESSION: 1. Generalized anasarca. 2. Cellulitis of the lower abdominal wall. 3. Cellulitis of both legs. PLAN: Continue with IV Lasix. Anticipated discharge is uncertain. MMODL / IJN: [id number] /
[2022-09-30] MEDS: HYDROcodone/APAP 10-325MG 1 EACH TAB PO PRN ×4 (00:12→20:09)
[2022-09-30] MEDS: HEPARIN SODIUM,PORCINE/PF 5,000 UNIT/0.5 ML SYRINGE SQ SCH ×4 (00:13→23:46)
[2022-09-30] MEDS: MORPHINE SULFATE 4 MG/ML SYRINGE IV PRN ×6 (01:00→23:46)
[2022-09-30] MEDS: FUROSEMIDE 100 MG in SODIUM CHLORIDE 0.9% 90 ML IV SCH ×3 (05:01→23:01)
[2022-09-30 05:29] LABS: Glucose,Whole Blood 116 mg/dL (70-110)
[2022-09-30 05:53] LABS: African American GFR (CKD) 55 (>60 ml/min/1.73 sqM); Anion Gap 17 mmol/L; Blood Urea Nitrogen 59 mg/dL (9-20); Calcium 9.1 mg/dL (8.4-10.2); Carbon Dioxide 31 mmol/L (22-30); Chloride 87 mmol/L (98-107); Glucose 107 mg/dL (74-99); Non-African American GFR(CKD) 47 (>60 ml/min/1.73 sqM); Potassium 4.1 mmol/L (3.5-5.1); Sodium 135 mmol/L (137-145)
[2022-09-30] MEDS: INSULIN ASPART (NovoLOG) 100 UNIT/ML VIAL SQ SCH ×4 (06:08→21:49)
[2022-09-30] MEDS: PANTOPRAZOLE 40 MG TABLET PO SCH (06:10)
--- NOTE | 2022-09-30 07:18 | P.PN ---
Subjective Progress Note Date: 09/29/22 Principal diagnosis: Right lower extremity cellulitis Patient is a 52-year-old male with a past medical history significant for COPD diabetes mellitus hypertension hyperlipidemia heart failure presented to the hospital 4 days ago for evaluation of increasing shortness of breath and significant swelling to bilateral extremity especially the right leg along with weeping edema and some superficial ulceration, patient has been diagnosed with right lower extremity cellulitis. On today's evaluation that is 09/29/2022, the patient remains to be afebrile, the patient is breathing comfortably on room air, the patient denies chest pain or cough, patient pain to the lower extremity is controlled with the current medication, the patient bilateral lower extremity swelling and redness has slightly decreased per patient, no vomiting or diarrhea Objective - Vital Signs Vital signs: Vital Signs Temp 98.5 F 09/29/22 06:57 Pulse 92 09/29/22 11:11 Resp 16 09/29/22 06:57 BP 120/71 09/29/22 06:57 Pulse Ox 94 L 09/29/22 07:40 FiO2 21 09/19/22 07:26 Intake & Output 09/28/22 09/29/22 09/29/22 18:59 06:59 18:59 Intake Total 1020 1560 174 Output Total 2650 3400 1000 Balance -1630 -3640 -826 Weight 177.7 kg Intake: Intake, IV Titration 100 200 54 Amount Cefepime 2 gm In Sodium 100 Chloride 0.9% 100 ml @ 25 mls/hr IVPB Q8HR [facility] Rx# :[id number] Furosemide 100 mg In 100 100 54 Sodium Chloride 0.9% 90 ml @ 10 MG/HR 10 mls/hr IV .Q10H [facility] Rx#: [id number] Oral 920 1360 120 Output: Urine 2650 3400 1000 Other: Voiding Method Toilet # Voids 6 - Exam GENERAL DESCRIPTION: A middle-aged male up in a chair in no distress RESPIRATORY SYSTEM: Unlabored breathing , decreased breath sounds at bases HEART: S1 S2 regular rate and rhythm , ABDOMEN: Soft , no tenderness, some abdominal wall erythema EXTREMITIES: redness especially the right lower leg has decreased in intensity - Labs CBC & Chem 7: 09/27/22 05:56 09/30/22 04:48 Labs: Abnormal Lab Results - Last 24 Hours (Table) 09/28/22 09/28/22 09/29/22 Range/Units 16:50 20:02 03:53 Chloride 90 L (96-109) mmol/L Carbon Dioxide 30.7 H (20.0-27.5) mmol/L BUN 46.7 H (9.0-27.0) mg/dL Creatinine 1.7 H (0.6-1.5) mg/dL Est GFR (CKD-EPI)AfAm 52.9 L (60.0-200.0) Est GFR (CKD-EPI)NonAf 45.7 L (60.0-200.0) BUN/Creatinine Ratio 27.47 H (12.00-20.00) Ratio Glucose 128 H (70-110) mg/dL POC Glucose (mg/dL) 134 H 151 H (70-110) mg/dL 09/29/22 09/29/22 Range/Units 05:59 11:50 Chloride (96-109) mmol/L Carbon Dioxide (20.0-27.5) mmol/L BUN (9.0-27.0) mg/dL Creatinine (0.6-1.5) mg/dL Est GFR (CKD-EPI)AfAm (60.0-200.0) Est GFR (CKD-EPI)NonAf (60.0-200.0) BUN/Creatinine Ratio (12.00-20.00) Ratio Glucose (70-110) mg/dL POC Glucose (mg/dL) 141 H 138 H (70-110) mg/dL Assessment and Plan (1) Cellulitis of right leg Current Visit: Yes Status: Acute Code(s): L03.115 - CELLULITIS OF RIGHT LOWER LIMB SNOMED Code(s): 802244765 Plan: 1patient presented to hospital with increasing shortness of breath along with increasing swelling and redness to the right lower extremity in this patient for did have features of fluid overload and concerning for cellulitis to the right leg likely from gram-positive skin aleyda 2the patient to continue with Medihoney to the wound right leg with slough tissue followed by moist dressing and Pablo wrap to the left from just above the toe to below the knee 3 nystatin cream in between the toes twice a day 4Patient white count is normal CRP 1.50 5-patient did have some clinical improvement as for his cellulitis is concerned and will continue with cefepime and plan is for oral antibiotics on discharge Time with Patient: Less than 30
[2022-09-30] MEDS: IPRATROPIUM-ALBUTEROL 3 ML NEB INHALATION SCH ×4 (07:44→19:14)
[2022-09-30] MEDS: SYMBICORT 160-4.5 MCG INHALER INHALATION SCH ×2 (07:44→19:14)
[2022-09-30] MEDS: MONTELUKAST 10 MG TAB PO SCH (08:37)
[2022-09-30] MEDS: PREGABALIN 100 MG CAP PO SCH ×2 (08:37→20:06)
[2022-09-30] MEDS: SPIRONOLACTONE 25 MG TAB PO SCH (08:37)
[2022-09-30] MEDS: METOPROLOL SUCCINATE (ER) 25 MG TAB.ER.24H PO SCH (08:37)
[2022-09-30] MEDS: CEFEPIME 2 GM in SODIUM CHLORIDE 0.9% 100 ML IVPB SCH ×2 (08:37→20:07)
[2022-09-30] MEDS: LORATADINE 10 MG TAB PO SCH (08:37)
[2022-09-30] MEDS: SERTRALINE 50 MG TAB PO SCH (08:37)
[2022-09-30] MEDS: metOLazone 5 MG TAB PO SCH (08:54)
[2022-09-30] MEDS: NYSTATIN 100,000 UNIT/GM POWD 15 GM TOPICAL SCH ×3 (08:55→21:49)
[2022-09-30 09:27] LABS: % Iron Saturation 6.02 (15.00-50.00)
--- NOTE | 2022-09-30 11:37 | P.PN ---
Subjective Patient is seen in follow-up for acute kidney injury on chronic kidney disease. Renal function stable. Creatinine 1.7. Urine output over 5 L in the last 24 hours. Still quite edematous. No vomiting or diarrhea. Hemodynamically stable. Vital signs are stable. General: No acute distress. HEENT: Head exam is unremarkable. LUNGS: No audible rhonchi or wheezes. HEART: Rate and Rhythm are regular. ABDOMEN: Obese. Nontender. EXTREMITITES: 2+ edema. Lower extremities wrapped. Objective - Vital Signs Vital signs: Vital Signs Temp 97.9 F 09/30/22 07:49 Pulse 88 09/30/22 11:24 Resp 19 09/30/22 07:49 BP 102/52 09/30/22 08:34 Pulse Ox 99 09/30/22 07:49 FiO2 21 09/19/22 07:26 Intake & Output 09/29/22 09/30/22 09/30/22 18:59 06:59 18:59 Intake Total 394 1520 Output Total 1800 3700 Balance -1406 -2180 Weight 175.8 kg Intake: Intake, IV Titration 154 200 Amount Cefepime 2 gm In Sodium 100 Chloride 0.9% 100 ml @ 25 mls/hr IVPB Q12HR [facility] Rx #:[id number] Furosemide 100 mg In 154 100 Sodium Chloride 0.9% 90 ml @ 10 MG/HR 10 mls/hr IV .Q10H [facility] Rx#: [id number] Oral 240 1320 Output: Urine 1800 3700 Other: Voiding Method Toilet # Voids 1 - Labs CBC & Chem 7: 09/27/22 05:56 09/30/22 04:48 Labs: Abnormal Lab Results - Last 24 Hours (Table) 09/29/22 09/29/22 09/29/22 Range/Units 03:53 11:50 16:58 Sodium (137-145) mmol/L Chloride (98-107) mmol/L Carbon Dioxide (22-30) mmol/L BUN (9-20) mg/dL Creatinine (0.66-1.25) mg/dL Glucose (74-99) mg/dL POC Glucose (mg/dL) 138 H 168 H (70-110) mg/dL Iron 26 L (65-175) ug/dL % Saturation 6.02 L (15.00-50.00) 09/30/22 09/30/22 Range/Units 04:48 05:27 Sodium 135 L (137-145) mmol/L Chloride 87 L (98-107) mmol/L Carbon Dioxide 31 H (22-30) mmol/L BUN 59 H (9-20) mg/dL Creatinine 1.66 H (0.66-1.25) mg/dL Glucose 107 H (74-99) mg/dL POC Glucose (mg/dL) 116 H (70-110) mg/dL Iron (65-175) ug/dL % Saturation (15.00-50.00) Assessment and Plan Plan: Assessment: 1. Acute kidney injury secondary to ATN secondary to cardiorenal syndrome. Creatinine stable at 1.66 today. Nonoliguric. No proteinuria on UA. No hydronephrosis noted on kidney ultrasound. 2. Chronic kidney disease stage II with baseline creatinine near 1. Suspect nephrosclerosis. 3. Volume overload. Improving with diuresis. 4. Acute on chronic diastolic CHF with mild mitral and tricuspid regurgitation and mild pulmonary hypertension. 5. Anemia. Iron deficiency noted. 6. Morbid obesity. Plan: Maintain Lasix drip. Maintain metolazone. Low-salt diet. 1500 mL fluid restriction. Avoid nephrotoxins. Add IV iron. Continue to monitor renal function and urine output.
[2022-09-30 12:07] LABS: Glucose,Whole Blood 151 mg/dL (70-110)
[2022-09-30] MEDS ORDERED: FERROUS SULFATE 325 MG TAB PO SCH (12:15)
[2022-09-30] MEDS: SODIUM FERRIC GLUCONAT-SUCROSE 125 MG in SODIUM CHLORIDE 0.9% 100 ML IVPB SCH (12:26)
[2022-09-30 12:35] LABS: Glucose,Whole Blood 154 mg/dL (70-110)
[2022-09-30 12:35] LABS: Glucose,Whole Blood 148 mg/dL (70-110)
[2022-09-30 17:02] LABS: Glucose,Whole Blood 168 mg/dL (70-110)
[2022-09-30] MEDS: ATORVASTATIN 20 MG TAB PO SCH (20:05)
[2022-09-30] MEDS: LATANOPROST 0.005% OPHTH DROPS 2.5 ML BTL BOTH EYES SCH (20:06)
[2022-09-30 20:27] LABS: Glucose,Whole Blood 203 mg/dL (70-110)
--- NOTE | 2022-09-30 23:03 | PN ---
PROGRESS NOTE DATE OF SERVICE: 09/30/2022 CHIEF COMPLAINT: Anasarca, cellulitis of abdominal wall and legs. HISTORY OF PRESENT ILLNESS: This gentleman is slowly doing better. His breathing is improving. He still has a great deal of lower abdominal edema with cellulitis and the same in both legs, although they are slowly improving. IMPRESSION: 1. Anasarca. 2. Dependent edema. 3. Stasis dermatitis with ulcer of the right cobb. 4. Obesity. PLAN: Continue with current management and possibly discharge later in the week. He will probably have to go to extended care facility. MMODL / IJN: [id number] /
[2022-10-01] MEDS: HYDROcodone/APAP 10-325MG 1 EACH TAB PO PRN ×4 (02:08→20:20)
[2022-10-01 05:51] LABS: Glucose,Whole Blood 151 mg/dL (70-110)
[2022-10-01] MEDS: MORPHINE SULFATE 4 MG/ML SYRINGE IV PRN (06:03)
[2022-10-01] MEDS: INSULIN ASPART (NovoLOG) 100 UNIT/ML VIAL SQ SCH ×4 (06:46→23:01)
[2022-10-01] MEDS: PANTOPRAZOLE 40 MG TABLET PO SCH (06:47)
[2022-10-01 07:19] LABS: African American GFR (CKD) 54 (>60 ml/min/1.73 sqM); Anion Gap 12 mmol/L; Blood Urea Nitrogen 61 mg/dL (9-20); Calcium 9.1 mg/dL (8.4-10.2); Carbon Dioxide 33 mmol/L (22-30); Chloride 88 mmol/L (98-107); Glucose 140 mg/dL (74-99); Magnesium 1.7 mg/dL (1.6-2.3); Non-African American GFR(CKD) 47 (>60 ml/min/1.73 sqM); Potassium 4.1 mmol/L (3.5-5.1); Sodium 133 mmol/L (137-145)
[2022-10-01] MEDS: CEFEPIME 2 GM in SODIUM CHLORIDE 0.9% 100 ML IVPB SCH ×2 (08:06→20:19)
[2022-10-01] MEDS: HEPARIN SODIUM,PORCINE/PF 5,000 UNIT/0.5 ML SYRINGE SQ SCH ×3 (08:06→23:01)
[2022-10-01] MEDS: SERTRALINE 50 MG TAB PO SCH (08:07)
[2022-10-01] MEDS: MONTELUKAST 10 MG TAB PO SCH (08:07)
[2022-10-01] MEDS: METOPROLOL SUCCINATE (ER) 25 MG TAB.ER.24H PO SCH (08:07)
[2022-10-01] MEDS: PREGABALIN 100 MG CAP PO SCH ×2 (08:07→20:19)
[2022-10-01] MEDS: LORATADINE 10 MG TAB PO SCH (08:08)
[2022-10-01] MEDS: metOLazone 5 MG TAB PO SCH (08:08)
[2022-10-01] MEDS: SPIRONOLACTONE 25 MG TAB PO SCH (08:08)
[2022-10-01] MEDS: SODIUM FERRIC GLUCONAT-SUCROSE 125 MG in SODIUM CHLORIDE 0.9% 100 ML IVPB SCH (08:17)
[2022-10-01] MEDS: IPRATROPIUM-ALBUTEROL 3 ML NEB INHALATION SCH ×4 (09:13→19:48)
[2022-10-01] MEDS: SYMBICORT 160-4.5 MCG INHALER INHALATION SCH ×2 (09:13→19:50)
[2022-10-01] MEDS: MORPHINE SULFATE 2 MG/ML SYRINGE IVP PRN ×3 (11:03→23:02)
[2022-10-01 11:24] LABS: Glucose,Whole Blood 171 mg/dL (70-110)
[2022-10-01] MEDS: NYSTATIN 100,000 UNIT/GM POWD 15 GM TOPICAL SCH ×3 (11:26→23:02)
--- NOTE | 2022-10-01 12:01 | P.PN ---
Subjective Patient is seen in follow-up for acute kidney injury on chronic kidney disease. Renal function stable. Nonoliguric. Still quite edematous. On Lasix drip and metolazone. No vomiting or diarrhea. Hemodynamically stable. Vital signs are stable. General: No acute distress. HEENT: Head exam is unremarkable. LUNGS: No audible rhonchi or wheezes. HEART: Rate and Rhythm are regular. ABDOMEN: Obese. Nontender. EXTREMITITES: 2+ edema. Lower extremities wrapped. Objective - Vital Signs Vital signs: Vital Signs Temp 99.0 F 10/01/22 07:20 Pulse 72 10/01/22 09:27 Resp 18 10/01/22 07:20 BP 103/57 10/01/22 07:20 Pulse Ox 99 10/01/22 09:14 FiO2 21 09/19/22 07:26 Intake & Output 09/30/22 10/01/22 10/01/22 18:59 06:59 18:59 Intake Total 1506 574 Output Total 3660 1050 Balance 1506 -3086 -1050 Weight 175.3 kg Intake: Intake, IV Titration 86 94 Amount Furosemide 100 mg In 86 94 Sodium Chloride 0.9% 90 ml @ 10 MG/HR 10 mls/hr IV .Q10H [facility] Rx#: [id number] Oral 1420 480 Output: Urine 3660 1050 - Labs CBC & Chem 7: 09/27/22 05:56 10/01/22 06:46 Labs: Abnormal Lab Results - Last 24 Hours (Table) 09/29/22 09/29/22 09/30/22 Range/Units 20:38 21:27 12:04 Sodium (137-145) mmol/L Chloride (98-107) mmol/L Carbon Dioxide (22-30) mmol/L BUN (9-20) mg/dL Creatinine (0.66-1.25) mg/dL Glucose (74-99) mg/dL POC Glucose (mg/dL) 154 H 148 H 151 H (70-110) mg/dL 09/30/22 09/30/22 10/01/22 Range/Units 17:00 20:25 05:49 Sodium (137-145) mmol/L Chloride (98-107) mmol/L Carbon Dioxide (22-30) mmol/L BUN (9-20) mg/dL Creatinine (0.66-1.25) mg/dL Glucose (74-99) mg/dL POC Glucose (mg/dL) 168 H 203 H 151 H (70-110) mg/dL 10/01/22 10/01/22 Range/Units 06:46 11:22 Sodium 133 L (137-145) mmol/L Chloride 88 L (98-107) mmol/L Carbon Dioxide 33 H (22-30) mmol/L BUN 61 H (9-20) mg/dL Creatinine 1.68 H (0.66-1.25) mg/dL Glucose 140 H (74-99) mg/dL POC Glucose (mg/dL) 171 H (70-110) mg/dL Assessment and Plan Plan: Assessment: 1. Acute kidney injury secondary to ATN secondary to cardiorenal syndrome. Creatinine stable at 1.68 today. Nonoliguric. No proteinuria on UA. No hydronephrosis noted on kidney ultrasound. 2. Chronic kidney disease stage II with baseline creatinine near 1. Suspect nephrosclerosis. 3. Volume overload. Improving with diuresis. 4. Acute on chronic diastolic CHF with mild mitral and tricuspid regurgitation and mild pulmonary hypertension. 5. Anemia. Iron deficiency noted. 6. Morbid obesity. Plan: Maintain Lasix drip - increase dose to 15 mL an hour. Maintain metolazone. Low-salt diet. 1500 mL fluid restriction. Avoid nephrotoxins. Maintain IV iron. Continue to monitor renal function and urine output.
[2022-10-01] MEDS: FUROSEMIDE 100 MG in SODIUM CHLORIDE 0.9% 90 ML IV SCH ×2 (12:40→17:06)
--- NOTE | 2022-10-01 14:14 | P.PN ---
Subjective Progress Note Date: 09/30/22 Principal diagnosis: Right lower extremity cellulitis Patient is a 52-year-old male with a past medical history significant for COPD diabetes mellitus hypertension hyperlipidemia heart failure presented to the hospital 4 days ago for evaluation of increasing shortness of breath and significant swelling to bilateral extremity especially the right leg along with weeping edema and some superficial ulceration, patient has been diagnosed with right lower extremity cellulitis. On today's evaluation that is 09/30/2022, the patient continues to be afebrile, the patient is breathing comfortably on room air, the patient denies chest pain or cough, patient pain to the lower extremity has decreased in intensity, the patient bilateral lower extremity swelling and redness has slightly decreased per patient, no vomiting or diarrhea has been reported Objective - Vital Signs Vital signs: Vital Signs Temp 97.9 F 09/30/22 07:49 Pulse 88 09/30/22 11:24 Resp 19 09/30/22 07:49 BP 102/52 09/30/22 08:34 Pulse Ox 99 09/30/22 07:49 FiO2 21 09/19/22 07:26 Intake & Output 09/29/22 09/30/22 09/30/22 18:59 06:59 18:59 Intake Total 394 1520 Output Total 1800 3700 Balance -1406 -2180 Weight 175.8 kg Intake: Intake, IV Titration 154 200 Amount Cefepime 2 gm In Sodium 100 Chloride 0.9% 100 ml @ 25 mls/hr IVPB Q12HR [facility] Rx #:[id number] Furosemide 100 mg In 154 100 Sodium Chloride 0.9% 90 ml @ 10 MG/HR 10 mls/hr IV .Q10H [facility] Rx#: [id number] Oral 240 1320 Output: Urine 1800 3700 Other: Voiding Method Toilet # Voids 1 - Exam GENERAL DESCRIPTION: A middle-aged male up in a chair in no distress RESPIRATORY SYSTEM: Unlabored breathing , decreased breath sounds at bases HEART: S1 S2 regular rate and rhythm , ABDOMEN: Soft , no tenderness, some abdominal wall erythema EXTREMITIES: redness especially the right lower leg has decreased in intensity - Labs CBC & Chem 7: 09/27/22 05:56 10/01/22 06:46 Labs: Abnormal Lab Results - Last 24 Hours (Table) 09/29/22 09/29/22 09/30/22 Range/Units 03:53 16:58 04:48 Sodium 135 L (137-145) mmol/L Chloride 87 L (98-107) mmol/L Carbon Dioxide 31 H (22-30) mmol/L BUN 59 H (9-20) mg/dL Creatinine 1.66 H (0.66-1.25) mg/dL Glucose 107 H (74-99) mg/dL POC Glucose (mg/dL) 168 H (70-110) mg/dL Iron 26 L (65-175) ug/dL % Saturation 6.02 L (15.00-50.00) 09/30/22 09/30/22 Range/Units 05:27 12:04 Sodium (137-145) mmol/L Chloride (98-107) mmol/L Carbon Dioxide (22-30) mmol/L BUN (9-20) mg/dL Creatinine (0.66-1.25) mg/dL Glucose (74-99) mg/dL POC Glucose (mg/dL) 116 H 151 H (70-110) mg/dL Iron (65-175) ug/dL % Saturation (15.00-50.00) Assessment and Plan (1) Cellulitis of right leg Current Visit: Yes Status: Acute Code(s): L03.115 - CELLULITIS OF RIGHT L OWER LIMB SNOMED Code(s): 439357957 Plan: 1patient presented to hospital with increasing shortness of breath along with increasing swelling and redness to the right lower extremity in this patient for did have features of fluid overload and concerning for cellulitis to the right leg likely from gram-positive skin aleyda 2the patient to continue with Medihoney to the wound right leg with slough tissue followed by moist dressing and Pablo wrap to the left from just above the toe to below the knee 3 nystatin cream in between the toes twice a day 4Patient white count is normal CRP 1.50 5-patient is slowly clinically improving as for his cellulitis is concerned and will continue with cefepime while inpatient Time with Patient: Less than 30
--- NOTE | 2022-10-01 14:15 | P.PN ---
Subjective Progress Note Date: 10/01/22 Principal diagnosis: Right lower extremity cellulitis Patient is a 52-year-old male with a past medical history significant for COPD diabetes mellitus hypertension hyperlipidemia heart failure presented to the hospital 4 days ago for evaluation of increasing shortness of breath and significant swelling to bilateral extremity especially the right leg along with weeping edema and some superficial ulceration, patient has been diagnosed with right lower extremity cellulitis. On today's evaluation that is 10/01/2022, the patient remains to be afebrile, the patient is breathing comfortably on room air, the patient denies chest pain or cough, patient pain to the lower extremity is controlled with the current medication, the patient bilateral lower extremity swelling and redness has decreased per patient, the patient denies having any nausea no vomiting and no diarrhea has been reported Objective - Vital Signs Vital signs: Vital Signs Temp 99.0 F 10/01/22 07:20 Pulse 89 10/01/22 12:40 Resp 18 10/01/22 07:20 BP 103/57 10/01/22 07:20 Pulse Ox 99 10/01/22 09:14 FiO2 21 09/19/22 07:26 Intake & Output 09/30/22 10/01/22 10/01/22 18:59 06:59 18:59 Intake Total 1506 574 100 Output Total 3660 1050 Balance 1506 -9851 -950 Weight 175.3 kg Intake: Intake, IV Titration 86 94 100 Amount Furosemide 100 mg In 86 94 100 Sodium Chloride 0.9% 90 ml @ 10 MG/HR 10 mls/hr IV .Q10H [facility] Rx#: [id number] Oral 1420 480 Output: Urine 3660 1050 - Exam GENERAL DESCRIPTION: A middle-aged male up in a chair in no distress RESPIRATORY SYSTEM: Unlabored breathing , decreased breath sounds at bases HEART: S1 S2 regular rate and rhythm , ABDOMEN: Soft , no tenderness, some abdominal wall erythema EXTREMITIES: Bilateral lower extremity swelling and redness has decreased no drainage - Labs CBC & Chem 7: 09/27/22 05:56 10/01/22 06:46 Labs: Abnormal Lab Results - Last 24 Hours (Table) 09/30/22 09/30/22 10/01/22 Range/Units 17:00 20:25 05:49 Sodium (137-145) mmol/L Chloride (98-107) mmol/L Carbon Dioxide (22-30) mmol/L BUN (9-20) mg/dL Creatinine (0.66-1.25) mg/dL Glucose (74-99) mg/dL POC Glucose (mg/dL) 168 H 203 H 151 H (70-110) mg/dL 10/01/22 10/01/22 Range/Units 06:46 11:22 Sodium 133 L (137-145) mmol/L Chloride 88 L (98-107) mmol/L Carbon Dioxide 33 H (22-30) mmol/L BUN 61 H (9-20) mg/dL Creatinine 1.68 H (0.66-1.25) mg/dL Glucose 140 H (74-99) mg/dL POC Glucose (mg/dL) 171 H (70-110) mg/dL Assessment and Plan (1) Cellulitis of right leg Current Visit: Yes Status: Acute Code(s): L03.115 - CELLULITIS OF RIGHT LOWER LIMB SNOMED Code(s): 387361335 Plan: 1patient presented to hospital with increasing shortness of breath along with increasing swelling and redness to the right lower extremity in this patient for did have features of fluid overload and concerning for cellulitis to the right leg likely from gram-positive skin aleyda 2the patient to continue with Medihoney to the wound right leg with slough tissue followed by moist dressing and Pablo wrap to the left from just above the toe to below the knee 3 nystatin cream in between the toes twice a day 4Patient white count is normal CRP 1.50 5-patient has shown clinical improvement as for his cellulitis is concerned and will continue with cefepime while inpatient and will transition to oral Keflex on discharge Time with Patient: Less than 30
[2022-10-01 16:54] LABS: Glucose,Whole Blood 156 mg/dL (70-110)
[2022-10-01] MEDS: ATORVASTATIN 20 MG TAB PO SCH (20:20)
[2022-10-01 20:45] LABS: Glucose,Whole Blood 209 mg/dL (70-110)
[2022-10-02] MEDS: FUROSEMIDE 100 MG in SODIUM CHLORIDE 0.9% 90 ML IV SCH ×4 (00:40→20:08)
[2022-10-02] MEDS: HYDROcodone/APAP 10-325MG 1 EACH TAB PO PRN ×4 (02:00→20:09)
[2022-10-02] MEDS: MORPHINE SULFATE 2 MG/ML SYRINGE IVP PRN ×4 (04:56→22:55)
[2022-10-02] MEDS: PANTOPRAZOLE 40 MG TABLET PO SCH (04:56)
[2022-10-02 06:07] LABS: Glucose,Whole Blood 119 mg/dL (70-110)
[2022-10-02] MEDS: INSULIN ASPART (NovoLOG) 100 UNIT/ML VIAL SQ SCH ×4 (06:08→20:10)
[2022-10-02 07:45] LABS: African American GFR (CKD) 51 (>60 ml/min/1.73 sqM); Anion Gap 13 mmol/L; Blood Urea Nitrogen 60 mg/dL (9-20); Calcium 9.3 mg/dL (8.4-10.2); Carbon Dioxide 35 mmol/L (22-30); Chloride 86 mmol/L (98-107); Glucose 107 mg/dL (74-99); Magnesium 1.6 mg/dL (1.6-2.3); Non-African American GFR(CKD) 44 (>60 ml/min/1.73 sqM); Potassium 4.2 mmol/L (3.5-5.1); Sodium 134 mmol/L (137-145)
[2022-10-02] MEDS: LATANOPROST 0.005% OPHTH DROPS 2.5 ML BTL BOTH EYES SCH ×2 (08:06→22:57)
[2022-10-02] MEDS: SODIUM FERRIC GLUCONAT-SUCROSE 125 MG in SODIUM CHLORIDE 0.9% 100 ML IVPB SCH (08:21)
[2022-10-02] MEDS: HEPARIN SODIUM,PORCINE/PF 5,000 UNIT/0.5 ML SYRINGE SQ SCH ×3 (08:21→22:55)
[2022-10-02] MEDS: METOPROLOL SUCCINATE (ER) 25 MG TAB.ER.24H PO SCH (08:22)
[2022-10-02] MEDS: PREGABALIN 100 MG CAP PO SCH ×2 (08:22→20:10)
[2022-10-02] MEDS: MONTELUKAST 10 MG TAB PO SCH (08:22)
[2022-10-02] MEDS: metOLazone 5 MG TAB PO SCH (08:22)
[2022-10-02] MEDS: NYSTATIN 100,000 UNIT/GM POWD 15 GM TOPICAL SCH ×3 (08:23→23:00)
[2022-10-02] MEDS: SPIRONOLACTONE 25 MG TAB PO SCH (08:23)
[2022-10-02] MEDS: SERTRALINE 50 MG TAB PO SCH (08:23)
[2022-10-02] MEDS: LORATADINE 10 MG TAB PO SCH (08:23)
[2022-10-02] MEDS: SYMBICORT 160-4.5 MCG INHALER INHALATION SCH ×2 (09:04→20:51)
[2022-10-02] MEDS: IPRATROPIUM-ALBUTEROL 3 ML NEB INHALATION SCH ×4 (09:04→20:51)
[2022-10-02] MEDS: CEFEPIME 2 GM in SODIUM CHLORIDE 0.9% 100 ML IVPB SCH ×2 (09:28→20:09)
[2022-10-02 11:26] LABS: Glucose,Whole Blood 155 mg/dL (70-110)
--- NOTE | 2022-10-02 12:03 | P.PN ---
Subjective Patient is seen in follow-up for acute kidney injury on chronic kidney disease. Renal function slightly worse from diuresis. Nonoliguric. Still quite edematous. On Lasix drip and metolazone. No vomiting or diarrhea. Hemodynamically stable. Vital signs are stable. General: No acute distress. HEENT: Head exam is unremarkable. LUNGS: No audible rhonchi or wheezes. HEART: Rate and Rhythm are regular. ABDOMEN: Obese. Nontender. EXTREMITITES: 1+ edema. Objective - Vital Signs Vital signs: Vital Signs Temp 97.5 F L 10/02/22 08:00 Pulse 84 10/02/22 11:37 Resp 18 10/02/22 11:37 BP 100/49 10/02/22 08:00 Pulse Ox 97 10/02/22 09:07 FiO2 21 09/19/22 07:26 Intake & Output 10/01/22 10/02/22 10/02/22 18:59 06:59 18:59 Intake Total 144.333 166.5 Output Total 1450 750 Balance -1305.667 166.5 -750 Weight 172.8 kg Intake: Intake, IV Titration 144.333 166.5 Amount Furosemide 100 mg In 144.333 166.5 Sodium Chloride 0.9% 90 ml @ 15 MG/HR 15 mls/hr IV .Q6H40M [facility] Rx#: [id number] Output: Urine 1450 750 Other: Voiding Method Toilet # Voids 4 # Bowel Movements 1 1 - Labs CBC & Chem 7: 09/27/22 05:56 10/02/22 07:04 Labs: Abnormal Lab Results - Last 24 Hours (Table) 10/01/22 10/01/22 10/02/22 Range/Units 16:52 20:43 06:05 Sodium (137-145) mmol/L Chloride (98-107) mmol/L Carbon Dioxide (22-30) mmol/L BUN (9-20) mg/dL Creatinine (0.66-1.25) mg/dL Glucose (74-99) mg/dL POC Glucose (mg/dL) 156 H 209 H 119 H (70-110) mg/dL 10/02/22 10/02/22 Range/Units 07:04 11:23 Sodium 134 L (137-145) mmol/L Chloride 86 L (98-107) mmol/L Carbon Dioxide 35 H (22-30) mmol/L BUN 60 H (9-20) mg/dL Creatinine 1.76 H (0.66-1.25) mg/dL Glucose 107 H (74-99) mg/dL POC Glucose (mg/dL) 155 H (70-110) mg/dL Assessment and Plan Plan: Assessment: 1. Acute kidney injury secondary to ATN secondary to cardiorenal syndrome. Creatinine slightly higher at 1.76 today. Nonoliguric. No proteinuria on UA. No hydronephrosis noted on kidney ultrasound. 2. Chronic kidney disease stage II with baseline creatinine near 1. Suspect nephrosclerosis. 3. Volume overload. Improving with diuresis. 4. Acute on chronic diastolic CHF with mild mitral and tricuspid regurgitation and mild pulmonary hypertension. 5. Anemia. Iron deficiency noted. 6. Morbid obesity. 7. Hypomagnesemia from diuresis. 8. Lower extremity cellulitis on antibiotics. ID following. Plan: Maintain Lasix drip - transition to oral torsemide upon discharge. Maintain metolazone. Low-salt diet. 1500 mL fluid restriction. Avoid nephrotoxins. Maintain IV iron. Continue to monitor renal function and urine output. Replace magnesium.
[2022-10-02 12:07] VITALS: BMI 51.6
[2022-10-02] MEDS: MAGNESIUM SULFATE-D5W PMX 1 GM in DEXTROSE/WATER 1 100ML.BAG IVPB SCH ×2 (13:28→15:35)
--- NOTE | 2022-10-02 14:47 | P.PN ---
Subjective Progress Note Date: 10/02/22 Principal diagnosis: Right lower extremity cellulitis Patient is a 52-year-old male with a past medical history significant for COPD diabetes mellitus hypertension hyperlipidemia heart failure presented to the hospital 4 days ago for evaluation of increasing shortness of breath and significant swelling to bilateral extremity especially the right leg along with weeping edema and some superficial ulceration, patient has been diagnosed with right lower extremity cellulitis. On today's evaluation that is 10/02/2022, the patient continues to be afebrile, the patient is breathing comfortably on room air, the patient denies chest pain or cough, patient pain to the lower extremity has decreased in intensity, the patient bilateral lower extremity swelling and redness has decreased per patient, the patient denies having any nausea no vomiting and no diarrhea Objective - Vital Signs Vital signs: Vital Signs Temp 97.5 F L 10/02/22 08:00 Pulse 84 10/02/22 11:37 Resp 18 10/02/22 11:37 BP 100/49 10/02/22 08:00 Pulse Ox 97 10/02/22 09:07 FiO2 21 09/19/22 07:26 Intake & Output 10/01/22 10/02/22 10/02/22 18:59 06:59 18:59 Intake Total 144.333 166.5 Output Total 1450 750 Balance -1305.667 166.5 -750 Weight 172.8 kg 172.8 kg Intake: Intake, IV Titration 144.333 166.5 Amount Furosemide 100 mg In 144.333 166.5 Sodium Chloride 0.9% 90 ml @ 15 MG/HR 15 mls/hr IV .Q6H40M [facility] Rx#: [id number] Output: Urine 1450 750 Other: Voiding Method Toilet # Voids 4 # Bowel Movements 1 1 - Exam GENERAL DESCRIPTION: A middle-aged male up in a chair in no distress RESPIRATORY SYSTEM: Unlabored breathing , decreased breath sounds at bases HEART: S1 S2 regular rate and rhythm , ABDOMEN: Soft , no tenderness, some abdominal wall erythema EXTREMITIES: Bilateral lower extremity swelling and redness has decreased no drainage - Labs CBC & Chem 7: 09/27/22 05:56 10/02/22 07:04 Labs: Abnormal Lab Results - Last 24 Hours (Table) 10/01/22 10/01/22 10/02/22 Range/Units 16:52 20:43 06:05 Sodium (137-145) mmol/L Chloride (98-107) mmol/L Carbon Dioxide (22-30) mmol/L BUN (9-20) mg/dL Creatinine (0.66-1.25) mg/dL Glucose (74-99) mg/dL POC Glucose (mg/dL) 156 H 209 H 119 H (70-110) mg/dL 10/02/22 10/02/22 Range/Units 07:04 11:23 Sodium 134 L (137-145) mmol/L Chloride 86 L (98-107) mmol/L Carbon Dioxide 35 H (22-30) mmol/L BUN 60 H (9-20) mg/dL Creatinine 1.76 H (0.66-1.25) mg/dL Glucose 107 H (74-99) mg/dL POC Glucose (mg/dL) 155 H (70-110) mg/dL Assessment and Plan (1) Cellulitis of right leg Current Visit: Yes Status: Acute Code(s): L03.115 - CELLULITIS OF RIGHT LOWER LIMB SNOMED Code(s): 198989811 Plan: 1patient presented to hospital with increasing shortness of breath along with increasing swelling and redness to the right lower extremity in this patient for did have features of fluid overload and concerning for cellulitis to the right leg likely from gram-positive skin aleyda 2the patient to continue with Medihoney to the wound right leg with slough tissue followed by moist dressing and Pablo wrap to the left from just above the toe to below the knee 3 nystatin cream in between the toes twice a day 4Patient white count is normal CRP 1.50 5-patient has shown clinical improvement as for his lower extremity cellulitis is concerned and will continue with cefepime while inpatient and will transition to oral Keflex on discharge and continue local care as ordered Time with Patient: Less than 30
[2022-10-02 16:37] LABS: Glucose,Whole Blood 131 mg/dL (70-110)
[2022-10-02 18:57] LABS: Glucose,Whole Blood 171 mg/dL (70-110)
[2022-10-02] MEDS: ATORVASTATIN 20 MG TAB PO SCH (20:09)
[2022-10-03] MEDS: HYDROcodone/APAP 10-325MG 1 EACH TAB PO PRN ×3 (02:00→14:12)
[2022-10-03] MEDS: FUROSEMIDE 100 MG in SODIUM CHLORIDE 0.9% 90 ML IV SCH ×2 (02:00→15:07)
--- NOTE | 2022-10-03 04:10 | PN ---
PROGRESS NOTE DATE OF SERVICE: 10/02/2022 CHIEF COMPLAINT: Persistent anasarca and cellulitis of the lower abdomen and legs. HISTORY OF PRESENT ILLNESS: This gentleman seems to be doing a little bit better each day. He could probably be discharged to a [facility]. He could not manage at home by himself. PHYSICAL EXAMINATION: CHEST: Clear. CARDIAC: Normal. ABDOMEN: Remains the same with hard induration or edema in the lower half. EXTREMITIES: Same in the legs which are also erythematous. IMPRESSION: 1. Anasarca with cellulitis of the lower abdominal wall and legs. 2. Cellulitis of the legs and lower abdominal wall. 3. Ulcer of the right cobb. PLAN: Continue with current care and start to look a place where he could go after the IV medication is stopped. MMODL / LIUN: [id number] /
--- NOTE | 2022-10-03 04:28 | CONS ---
CONSULTATION CHIEF COMPLAINT: Anasarca, cellulitis of the legs and abdominal wall and heart failure. HISTORY OF PRESENT ILLNESS: This is a gentleman who is doing well. He continues to diurese and lose weight. Breathing is improved. His BUN and creatinine are up slightly. PHYSICAL EXAMINATION: CHEST: Quite clear. CARDIAC: Normal. ABDOMEN: Still protuberant with induration in the lower half. EXTREMITIES: Wrapped but there is still cellulitis. IMPRESSION: 1. Anasarca. 2. Abdominal wall edema and cellulitis. 3. Stasis dermatitis with cellulitis and ulcers of the legs. PLAN: Continue with current management with diuresis and local wound care to the legs. His discharge plan will be a problem. He cannot maintain himself at home as he is now. MMODL / IJN: [id number] /
[2022-10-03] MEDS: PANTOPRAZOLE 40 MG TABLET PO SCH (05:07)
[2022-10-03] MEDS: MORPHINE SULFATE 2 MG/ML SYRINGE IVP PRN ×2 (05:08→10:56)
[2022-10-03 06:19] LABS: Glucose,Whole Blood 144 mg/dL (70-110)
[2022-10-03] MEDS: INSULIN ASPART (NovoLOG) 100 UNIT/ML VIAL SQ SCH ×2 (07:32→11:28)
[2022-10-03] MEDS: CEFEPIME 2 GM in SODIUM CHLORIDE 0.9% 100 ML IVPB SCH (07:57)
[2022-10-03] MEDS: HEPARIN SODIUM,PORCINE/PF 5,000 UNIT/0.5 ML SYRINGE SQ SCH ×2 (07:58→15:08)
[2022-10-03] MEDS: metOLazone 5 MG TAB PO SCH (07:59)
[2022-10-03] MEDS: PREGABALIN 100 MG CAP PO SCH (07:59)
[2022-10-03] MEDS: SPIRONOLACTONE 25 MG TAB PO SCH (07:59)
[2022-10-03] MEDS: NYSTATIN 100,000 UNIT/GM POWD 15 GM TOPICAL SCH ×2 (07:59→15:08)
[2022-10-03] MEDS: LORATADINE 10 MG TAB PO SCH (07:59)
[2022-10-03] MEDS: MONTELUKAST 10 MG TAB PO SCH (07:59)
[2022-10-03] MEDS: SERTRALINE 50 MG TAB PO SCH (07:59)
[2022-10-03] MEDS: METOPROLOL SUCCINATE (ER) 25 MG TAB.ER.24H PO SCH (08:02)
[2022-10-03] MEDS: IPRATROPIUM-ALBUTEROL 3 ML NEB INHALATION SCH ×3 (09:27→16:07)
[2022-10-03] MEDS: SYMBICORT 160-4.5 MCG INHALER INHALATION SCH (09:27)
[2022-10-03] MEDS: SODIUM FERRIC GLUCONAT-SUCROSE 125 MG in SODIUM CHLORIDE 0.9% 100 ML IVPB SCH (10:56)
[2022-10-03 11:13] LABS: Glucose,Whole Blood 116 mg/dL (70-110)
--- NOTE | 2022-10-03 12:04 | P.PN ---
Subjective Patient is seen in follow-up for acute kidney injury on chronic kidney disease. Creatinine 1.76 as of yesterday. Edema improving. Weight trending down. Nonoliguric. On Lasix drip and metolazone. No vomiting or diarrhea. Hemodynamically stable. Vital signs are stable. General: No acute distress. HEENT: Head exam is unremarkable. LUNGS: No audible rhonchi or wheezes. HEART: Rate and Rhythm are regular. ABDOMEN: Obese. Nontender. EXTREMITITES: 1+ edema. Objective - Vital Signs Vital signs: Vital Signs Temp 98.1 F 10/03/22 02:00 Pulse 84 10/03/22 09:39 Resp 16 10/03/22 06:56 BP 122/72 10/03/22 06:56 Pulse Ox 95 10/03/22 09:30 FiO2 21 09/19/22 07:26 Intake & Output 10/02/22 10/03/22 10/03/22 18:59 06:59 18:59 Intake Total 1600 188 Output Total 750 1600 Balance 850 -1412 Weight 172.8 kg 170.3 kg Intake: Intake, IV Titration 100 188 Amount Furosemide 100 mg In 100 188 Sodium Chloride 0.9% 90 ml @ 15 MG/HR 15 mls/hr IV .Q6H40M [facility] Rx#: [id number] Oral 1500 Output: Urine 750 1600 Other: Voiding Method Toilet # Bowel Movements 1 - Labs CBC & Chem 7: 09/27/22 05:56 10/02/22 07:04 Labs: Abnormal Lab Results - Last 24 Hours (Table) 10/02/22 10/02/22 10/03/22 Range/Units 16:36 18:56 06:18 POC Glucose (mg/dL) 131 H 171 H 144 H (70-110) mg/dL 10/03/22 Range/Units 11:11 POC Glucose (mg/dL) 116 H (70-110) mg/dL Assessment and Plan Plan: Assessment: 1. Acute kidney injury secondary to ATN secondary to cardiorenal syndrome. Creatinine 1.76 yesterday. Nonoliguric. No proteinuria on UA. No hydronephrosis noted on kidney ultrasound. 2. Chronic kidney disease stage II with baseline creatinine near 1. Suspect nephrosclerosis. 3. Volume overload. Improving with diuresis. 4. Acute on chronic diastolic CHF with mild mitral and tricuspid regurgitation and mild pulmonary hypertension. 5. Anemia. Iron deficiency noted. Status post IV iron. 6. Morbid obesity. 7. Hypomagnesemia from diuresis. Replaced. 8. Lower extremity cellulitis on antibiotics. ID following. Plan: Maintain Lasix drip - transition to oral torsemide 80 mg once daily upon discharge. Stop metolazone. Low-salt diet. 1500 mL fluid restriction. Avoid nephrotoxins. Continue to monitor renal function and urine output. Repeat BMP and magnesium level 2-3 days postdischarge. Follow up outpatient in 1 week. Morning labs pending.
[2022-10-03 15:20] VITALS: BP 103/58; RESP 18; TEMP 97.9
--- NOTE | 2022-10-03 15:28 | P.PN ---
Subjective Progress Note Date: 10/03/22 Principal diagnosis: Right lower extremity cellulitis Patient is a 52-year-old male with a past medical history significant for COPD diabetes mellitus hypertension hyperlipidemia heart failure presented to the hospital 4 days ago for evaluation of increasing shortness of breath and significant swelling to bilateral extremity especially the right leg along with weeping edema and some superficial ulceration, patient has been diagnosed with right lower extremity cellulitis. On today's evaluation that is 10/03/2022, the patient remains to be afebrile, the patient is breathing comfortably on 3 L nasal cannula oxygen, the patient denies chest pain or cough, patient pain to the lower extremity has decreased in intensity, the patient bilateral lower extremity swelling and redness has decreased per patient, the patient denies having any nausea no vomiting and no diarrhea has been reported by the nursing staff Objective - Vital Signs Vital signs: Vital Signs Temp 98.1 F 10/03/22 02:00 Pulse 84 10/03/22 09:39 Resp 16 10/03/22 06:56 BP 122/72 10/03/22 06:56 Pulse Ox 95 10/03/22 09:30 FiO2 21 09/19/22 07:26 Intake & Output 10/02/22 10/03/22 10/03/22 18:59 06:59 18:59 Intake Total 1600 188 Output Total 750 1600 Balance 850 -1412 Weight 172.8 kg 170.3 kg Intake: Intake, IV Titration 100 188 Amount Furosemide 100 mg In 100 188 Sodium Chloride 0.9% 90 ml @ 15 MG/HR 15 mls/hr IV .Q6H40M [facility] Rx#: [id number] Oral 1500 Output: Urine 750 1600 Other: Voiding Method Toilet # Bowel Movements 1 - Exam GENERAL DESCRIPTION: A middle-aged male up in a chair in no distress RESPIRATORY SYSTEM: Unlabored breathing , decreased breath sounds at bases HEART: S1 S2 regular rate and rhythm , ABDOMEN: Soft , no tenderness, some abdominal wall erythema EXTREMITIES: Bilateral lower extremity swelling and redness has decreased no drainage - Labs CBC & Chem 7: 09/27/22 05:56 10/02/22 07:04 Labs: Abnormal Lab Results - Last 24 Hours (Table) 10/02/22 10/02/22 10/03/22 Range/Units 16:36 18:56 06:18 POC Glucose (mg/dL) 131 H 171 H 144 H (70-110) mg/dL 10/03/22 Range/Units 11:11 POC Glucose (mg/dL) 116 H (70-110) mg/dL Assessment and Plan (1) Cellulitis of right leg Current Visit: Yes Status: Acute Code(s): L03.115 - CELLULITIS OF RIGHT LOWER LIMB SNOMED Code(s): 976924641 Plan: 1patient presented to hospital with increasing shortness of breath along with increasing swelling and redness to the right lower extremity in this patient for did have features of fluid overload and concerning for cellulitis to the right leg likely from gram-positive skin aleyda 2the patient to continue with Medihoney to the wound right leg with slough tissue followed by moist dressing and Pablo wrap to the left from just above the toe to below the knee 3 nystatin cream in between the toes twice a day 4Patient white count is normal CRP 1.50 5-patient slowly clinically improving and is currently being treated with cefepime while inpatient and will transition to oral Keflex on discharge and close outpatient follow-up Time with Patient: Less than 30
[2022-10-03 15:31] LABS: African American GFR (CKD) 43.2 (60.0-200.0); Anion Gap 15.4 mmol/L (10.00-18.00); BUN/Creat Ratio 30.75 Ratio (12.00-20.00); Blood Urea Nitrogen 61.8 mg/dL (9.0-27.0); Calcium 9.8 mg/dL (8.7-10.3); Carbon Dioxide 31.9 mmol/L (20.0-27.5); Non-African American GFR(CKD) 37.3 (60.0-200.0); Potassium 4.5 mmol/L (3.5-5.5)
[2022-10-03 16:18] VITALS: PULSE 88
--- NOTE | 2022-10-03 21:25 | P.CONS ---
History of Present Illness - Reason for Consult Consult date: 10/02/22 Rehab needs - History of Present Illness This is a 52 yo M with PMH of heart failure, COPD, HLD, DM, hypertension, and morbid obesity. He was recently admitted for worsening lower extremity edema and concern for cellulitis of lower extremity. Patient was started on IV antibiotics and ID following for concern of cellulitis. PM&R was consulted For evaluation and rehabilitation needs. Upon assessment today, patient reports that he is feeling weaker than baseline but is still able to do his ADLs on his own and ambulate to and from the bathroom without assistance. He states that he lives in a duplex home with a few steps to enter. He lives with family and friends to help him. He was previously not ambulating with any assistive devices. Currently he reports pain particularly in his right foot which has been stable. He is on chronic pain medication's at home.He is interested in returning back home after discharge. Past Medical History Past Medical History: Heart Failure, COPD, Diabetes Mellitus, Hyperlipidemia, Hypertension History of Any Multi-Drug Resistant Organisms: None Reported Additional Past Surgical History / Comment(s): stomach ulcers Past Anesthesia/Blood Transfusion Reactions: No Reported Reaction Smoking Status: Current every day smoker - Past Family History Son(s) Family Medical History: No Reported History Medications and Allergies Home Medications Medication Instructions Recorded Confirmed Type Atorvastatin [Lipitor] 20 mg PO HS 09/15/22 09/15/22 History Cetirizine HCl [Zyrtec] 10 mg PO DAILY 09/15/22 09/15/22 History Enalapril [Vasotec] 10 mg PO DAILY 09/15/22 09/15/22 History Furosemide [Lasix] 80 mg PO BID 09/15/22 09/15/22 History HYDROcodone/APAP 5-325MG [Parsons 1 tab PO BID PRN 09/15/22 09/15/22 History 5-325] Montelukast Sodium [Singulair] 10 mg PO DAILY 09/15/22 09/15/22 History Omeprazole [PriLOSEC] 20 mg PO DAILY 09/15/22 09/15/22 History Pregabalin [Lyrica] 300 mg PO BID 09/15/22 09/15/22 History Sertraline [Zoloft] 50 mg PO DAILY 09/15/22 09/15/22 History Sildenafil Citrate 20 mg PO DAILY PRN 09/15/22 09/15/22 History Budesonide-Formot 160-4.5 Mcg 2 puff INHALATION RT-BID #60 each 10/03/22 Rx [Symbicort 160-4.5 Mcg Inhaler] Ipratropium-Albuterol Nebulize 3 ml INHALATION RT-QID #120 each 10/03/22 Rx [Duoneb 0.5 mg-3 mg/3 ml Soln] Latanoprost Ophth [Xalatan 0.005%] 1 drops BOTH EYES HS ml 10/03/22 Rx Metoprolol Succinate (ER) [Toprol 12.5 mg PO DAILY #30 tab 10/03/22 Rx XL] Nystatin 100,000 Unit/gm Powd 1 applic TOPICAL TID #90 each 10/03/22 Rx [Mycostatin Powder] Spironolactone [Aldactone] 25 mg PO DAILY #30 tab 10/03/22 Rx Allergies Allergy/AdvReac Type Severity Reaction Status Date / Time No Known Allergies Allergy Verified 09/15/22 16:46 Physical Exam Vitals: Vital Signs Temp Pulse Pulse Resp BP Pulse Ox 10/02/22 08:00 97.5 F L 99 18 100/49 93 L 10/02/22 01:20 98.1 F 85 18 101/59 93 L 10/01/22 20:02 82 10/01/22 20:00 82 19 10/01/22 19:51 80 10/01/22 19:08 98.4 F 82 19 111/67 93 L 10/01/22 16:10 80 10/01/22 15:58 76 10/01/22 13:50 98.0 F 93 19 106/63 91 L 10/01/22 12:40 89 10/01/22 12:28 72 10/01/22 09:27 72 10/01/22 09:14 82 99 Intake and Output 10/01/22 10/02/22 10/02/22 22:59 06:59 14:59 Intake Total 44.333 166.5 Output Total 400 750 Balance -355.667 166.5 -750 Intake: Intake, IV Titration 44.333 166.5 Amount Furosemide 100 mg In 44.333 166.5 Sodium Chloride 0.9% 90 ml @ 15 MG/HR 15 mls/hr IV .[id number] [facility] Rx#: [id number] Output: Urine 400 750 Other: Voiding Method Toilet # Voids 4 # Bowel Movements 1 1 Weight 172.8 kg General: Well-developed, well-nourished, male HEENT: NC/AT, external ears intact, hearing intact to conversational speech Cardiovascular: B/L calves with dressings, unsaturated. Respiratory: Even and unlabored breathing on supplemental O2 cannula Skin: Lower extremities with dressings, other areas of exposed skin intact Musculoskeletal: ROM WFL MMT LUE: Sh Abd 5/5, EE 5/5, EF 5/5, WE 5/5, HG 5/5 MMT RUE: Sh Abd 5/5, EE 5/5, EF 5/5, WE 5/5, HG 5/5 MMT LLE: HF 4/5, KE 5/5 MMT RLE: HF 4/5, KE 5/5 Neurological: Alert and oriented x 3. CN II-XII: Grossly intact. Speech is clear, fluent No ankle clonus Sensation to light tough grossly intact Psychiatric: Mood calm, affect appropriate, cooperative Results CBC & Chem 7: 09/27/22 05:56 10/03/22 07:05 Labs: Abnormal Lab Results - Last 24 Hours (Table) 10/01/22 10/01/22 10/01/22 Range/Units 11:22 16:52 20:43 Sodium (137-145) mmol/L Chloride (98-107) mmol/L Carbon Dioxide (22-30) mmol/L BUN (9-20) mg/dL Creatinine (0.66-1.25) mg/dL Glucose (74-99) mg/dL POC Glucose (mg/dL) 171 H 156 H 209 H (70-110) mg/dL 10/02/22 10/02/22 Range/Units 06:05 07:04 Sodium 134 L (137-145) mmol/L Chloride 86 L (98-107) mmol/L Carbon Dioxide 35 H (22-30) mmol/L BUN 60 H (9-20) mg/dL Creatinine 1.76 H (0.66-1.25) mg/dL Glucose 107 H (74-99) mg/dL POC Glucose (mg/dL) 119 H (70-110) mg/dL Assessment and Plan Assessment: Assessment / Plan: # Decline in function 2 CHF volume overload and lower extremity cellulitis -PT/OT evaluation -Fall precautions -Patient appears to be near baseline function. He has good support system at home. He is not requiring assistance for ADLs currently and is not requiring AD for ambulation. OK to DC home with home health care PT/OT/RN. # Thank you for this consult. Bárbara Armenta MD Time with Patient: Greater than 30
--- NOTE | 2022-10-07 07:14 | DS ---
DISCHARGE SUMMARY CHIEF COMPLAINT: Anasarca with lower extremity stasis disease with stasis dermatitis, cellulitis and ulcer on the right anterior cobb. HISTORY OF PRESENT ILLNESS AND PHYSICAL EXAMINATION: Details of this man's history and physical can be found in the initial workup. LABORATORY STUDIES: While he was in the hospital, he had laboratory studies, details of which can be found in the laboratory section of his chart. COURSE IN THE HOSPITAL: After admission, he was placed on bedrest and started on intravenous fluids and diuretics. His course was prolonged and complicated because his anasarca continued and was resistant to diuretic management. He was seen and followed by Cardiology and Nephrology and that he did display renal failure, which made more difficult to improve his diuresis. He also had significant lower abdominal wall edema and cellulitis. He underwent leg wrapping and frequent dressing changes of the right cobb. He had remained quite short of breath and then his diuretic management was changed and he started to lose weight. He still was not able to function well and it was thought that he would have to go to extended care for management. He thought he got really enough relatives and friends to help take care of him at home and it was decided to try to discharge to home care. FINAL DIAGNOSES: 1. Generalized anasarca. 2. Lower extremity venous stasis disease. 3. Stasis dermatitis of the lower extremities. 4. Cellulitis of the lower abdominal wall and lower extremities. 5. Ulcer on the right cobb. 6. Chronic renal failure. 7. Prerenal azotemia. 8. Morbid obesity. OPERATIONS: None. CONSULTATIONS: Cardiology, Nephrology. He is improved. MMODL / IJN: [id number] /
--- NOTE | 2022-10-08 08:39 | CDI ---
Documentation Clarification Form Date: 10/08/2022 8:21:25 AM From: Meghana Angelo Phone: Admit Date: 09/15/2022 5:57:00 PM Patient Name: Goran Lombardo Visit Number: [id number] Discharge Date: 10/03/2022 4:30:00 PM ATTENTION: The Clinical Documentation Specialists (CDI) and [facility] Coding Staff appreciate your assistance in clarifying documentation. Please respond to the clarification below the line at the bottom and electronically sign. The CDI & [facility] Coding staff will review the response and follow-up if needed. Please note: Queries are made part of the Legal Health Record. If you have any questions, please contact the author of this message via ITS. Dr. Howie March Varying stages of CKD are documented throughout the Progress Notes. Additional clarification regarding the stage of CKD is requested. CKD stage II Progress Note 09/29/22 CKD stage IIIa Progress Note 09/27/22 CKD, stage IV Progress Note 09/19/22 History/Risk Factors: 52yo M, HTN w ACDHF w CKD, BLE chronicvenous stasis, cellulitis& abscess RLE, hyperkalemia, morbid obesityBMI 54.1, ATN, pHTN, anemia, BLE ulcers, Baseline creatinine 0.9-1.1 MG per DL Clinical Indicators: BUN: 40 Creatinine 1.64 Est GFR (CKD-EPI) NonAf 48 Est GFR (CKD-EPI) AfAm 55 BUN/Creatinine Ratio 27.56 H (12.00-20.00) Ratio Treatment: patient was maintained on high-dose IV Lasix 3 times daily and continued to have significantoverload Consults: Nephrology- DC ibuprofen; DC Cozaar as systolic bloodpressureremains on the lower side. Continue with current dose of Lasix; agree with discontinuation of vancomycin. Repeat labs in a.m. Check iron profile. Check UA. Checkultrasoundof the kidneys Please clarify the stage of the CKD, if known: [ ] CKD Stage 3a (GFR 45-59) [ ] CKD Stage 3b (GFR 30-44) [ ] CKD Stage 4 (GFR 15-29) [ ] Other, please specify [ ] Unable to determine (Template last revised: June 2020) MTDD
--- NOTE | 2022-10-08 08:54 | CDI ---
Documentation Clarification Form Date: 10/08/2022 8:21:25 AM From: Meghana Angelo Phone: Admit Date: 09/15/2022 5:57:00 PM Patient Name: Goran Lombardo Visit Number: [id number] Discharge Date: 10/03/2022 4:30:00 PM ATTENTION: The Clinical Documentation Specialists (CDI) and [facility] Coding Staff appreciate your assistance in clarifying documentation. Please respond to the clarification below the line at the bottom and electronically sign. The CDI & [facility] Coding staff will review the response and follow-up if needed. Please note: Queries are made part of the Legal Health Record. If you have any questions, please contact the author of this message via ITS. Dr. Howie March Cellulitis is documented per the H&P Note and thoroughout the Progress Notes. Additional clarification regarding the type of cellulitis is requested. History/Risk Factors: 52yo M, HTN w ACDHF w CKD, BLE chronicvenous stasis, Cellulitis BLE, abscess RLE, hyperkalemia, morbid obesityBMI 54.1, ATN, pHTN, anemia, BLE ulcers, venous insufficiency, lower abdominal walledemaand cellulitis Clinical Indicators: hx of cellulitisin calf. Painandswellingx 3 days. Ushlvdezpv00/01/23 Soft tissueswellingof the legw/o evidence ofosseouserosion X-rayReport: 09/15/22 Hemoglobin of 8.6 and white count of 5300.His potassium waselevatedat 6.3. Lipase was 333. Dependentedemawithcellulitismuch worse on the RLE; there was anecroticulcerin the middle of the anterior lower leg. There is good capillary refill. Treatment: underwent leg wrapping and frequent dressing changes of the right cobb the patient to continue with [facility] with slough tissue followed by moist dressing and Pablo wrap to the left from just above the toe to below the knee. Nystatin cream between the toes 2x/day. Please clarify the etiology of the cellulitis, if known: [ ] Cellulitis is a diabetic skin complication [ ] Cellulitis is not a diabetic skin complication [ ] Other, please specify: [ ] Unable to determine (Template Last Revised: May 2022) MTDD
--- NOTE | 2022-10-08 09:06 | CDI ---
Documentation Clarification Form Date: 10/08/2022 8:21:25 AM From: Meghana Angelo Phone: Admit Date: 09/15/2022 5:57:00 PM Patient Name: Goran Lombardo Visit Number: [id number] Discharge Date: 10/03/2022 4:30:00 PM ATTENTION: The Clinical Documentation Specialists (CDI) and [facility] Coding Staff appreciate your assistance in clarifying documentation. Please respond to the clarification below the line at the bottom and electronically sign. The CDI & [facility] Coding staff will review the response and follow-up if needed. Please note: Queries are made part of the Legal Health Record. If you have any questions, please contact the author of this message via ITS. Dr. Howie March Ulcersto BLE, left foot and abdomen per ED Note and throughout. Additional clarification regarding the etiology of the ulcers is requested. History/Risk Factors: 52yo M, HTN w ACDHF w CKD, BLE chronicvenous stasis, cellulitis BLE, abscess RLE, hyperkalemia, morbid obesityBMI 54.1, ATN, pHTN, anemia, BLE ulcers, venous insufficiency, lower abdominal walledemaand cellulitis Clinical Indicators: weepingulcersBLE and left foot and abdomen Treatment: underwent leg wrapping and frequent dressing changes of the right cobb the patient to continue with Medihoney to thewoundright leg with slough tissue followed by moist dressing and Pablo wrap to the left from just above the toe to below the knee. Nystatin cream in between the toes 2x/day. Please clarify the etiology of the ulcers, if known: [ ] Ulcers are a diabetic complication [ ] Ulcers are not a diabetic complication [ ] Other, please specify: [ ] Unable to determine (Template Last Revised: May 2022) MTDD
--- NOTE | 2022-10-09 15:48 | CDI ---
Documentation Clarification Form Date: 10/09/2022 3:42:43 PM From: Meghana Angelo Phone: Admit Date: 09/15/2022 5:57:00 PM Patient Name: Goran Lombardo Visit Number: [id number] Discharge Date: 10/03/2022 4:30:00 PM ATTENTION: The Clinical Documentation Specialists (CDI) and [facility] Coding Staff appreciate your assistance in clarifying documentation. Please respond to the clarification below the line at the bottom and electronically sign. The CDI & [facility] Coding staff will review the response and follow-up if needed. Please note: Queries are made part of the Legal Health Record. If you have any questions, please contact the author of this message via ITS. Dr. Howie March Thank you for acknowledging the previous query; however, it lacked a response. Varying stages of CKD are documented throughout the Progress Notes. Additional clarification regarding the stage of CKD is requested. CKD stage II Progress Note 09/29/22 CKD stage IIIa Progress Note 09/27/22 CKD, stage IV Progress Note 09/19/22 History/Risk Factors: 52yo M, HTN w ACDHF w CKD, BLE chronic venous stasis, ATN, Cellulitis abscess RLE, hyperkalemia, morbid obesity BMI 54.1, pHTN, anemia, BLE ulcers Baseline creatinine 0.9-1.1 MG per DL Clinical Indicators: BUN: 40 Creatinine 1.64 Est GFR (CKD-EPI) NonAf 48 Est GFR (CKD-EPI) AfAm 55 BUN/Creatinine Ratio 27.56 H (12.00-20.00) Ratio Treatment: patient was maintained on high-dose IV Lasix 3 times daily and continued to have significant overload Consults: Nephrology- DC ibuprofen; DC Cozaar as systolic blood pressure remains on the lower side. Continue with current dose of Lasix; agree with discontinuation of vancomycin. Repeat labs in a.m. Check iron profile. Check UA. Check ultrasound of the kidneys Please clarify the stage of the CKD, if known: [ ] CKD Stage 3a (GFR 45-59) [ ] CKD Stage 3b (GFR 30-44) [ ] CKD Stage 4 (GFR 15-29) [ ] Other, please specify [ ] Unable to determine (Template last revised: June 2020) MTDD
--- NOTE | 2022-10-09 15:52 | CDI ---
Documentation Clarification Form Date: 10/09/2022 03:51 PM From: Meghana Angelo Phone: Admit Date: 09/15/2022 5:57:00 PM Patient Name: Goran Lombardo Visit Number: [id number] Discharge Date: 10/03/2022 4:30:00 PM ATTENTION: The Clinical Documentation Specialists (CDI) and [facility] Coding Staff appreciate your assistance in clarifying documentation.Please respond to the clarification below the line at the bottom and electronically sign.The CDI [facility] Coding staff will review the response and follow-up if needed.Please note: Queries are made part of the Legal Health Record.If you have any questions, please contact the author of this message via ITS. Dr. Howie March Thank you for acknowledging the previous query; however, it lacked a response. Ulcers to BLE, left foot and abdomen per ED Note and throughout. Additional clarification regarding the etiology of the ulcers is requested. History/Risk Factors: 52yo M, HTN w ACDHF w CKD, BLE chronic venous stasis, cellulitis BLE, abscess RLE, hyperkalemia, morbid obesity BMI 54.1, ATN, pHTN, anemia, BLE ulcers, venous insufficiency, lower abdominal wall edema and cellulitis Clinical Indicators: weeping ulcers BLE and left foot and abdomen Treatment: underwent leg wrapping and frequent dressing changes of the right cobb the patient to continue with Medihoney to the wound right leg with slough tissue followed by moist dressing and Pablo wrap to the left from just above the toe to below the knee.Nystatin cream in between the toes 2x/day. Please clarify the etiology of the ulcers, if known: [ ] Ulcers are a diabetic complication [ ] Ulcers are not a diabetic complication [ ] Other, please specify: [ ] Unable to determine (Template Last Revised: May 2022) MTDD
--- NOTE | 2022-10-10 02:15 | MISC ---
MISCELLANOUS REPORT Cellulitis due to stasis disease. Clarify etiology of ulcers, stasis disease, not diabetic complication. MMODL / IJN: [id number] /
--- NOTE | 2022-10-14 12:50 | MISC ---
MISCELLANOUS REPORT stage IIIA. Not diabetic complication. Other stasis disease with stasis dermatitis and cellulitis. MMODL / IJN: [id number] /
--- NOTE | 2022-10-16 09:14 | CDI ---
Documentation Clarification Form Date: 10/16/2022 08:55:31 AM From: Meghana Angelo Phone: Admit Date: 09/15/2022 05:57:00 PM Patient Name: Goran Lombardo Visit Number: [id number] Discharge Date: 10/03/2022 04:30:00 PM ATTENTION: The Clinical Documentation Specialists (CDI) and [facility] Coding Staff appreciate your assistance in clarifying documentation. Please respond to the clarification below the line at the bottom and electronically sign. The CDI & [facility] Coding staff will review the response and follow-up if needed. Please note: Queries are made part of the Legal Health Record. If you have any questions, please contact the author of this message via ITS. Dr. Howie March Varying stages of CKD are documented. Additional clarification regarding the stage of CKD is requested. Chronic kidney disease, stage IV Progress Note 09/19/22 CKD stage IIIa Progress Note 09/27/22 Chronic kidney disease stage II Progress Note 09/29/22 History/Risk Factors: 52yo M, ATNon CKD, ACDHF, anemia, MR & TR, pHTN, morbid obesity, venous stasis w cellulitis and ulcers, smoker Baseline creatinine near 1 Clinical Indicators: Current BUN: 20.00 09/20 27.47 09/29 CR: 1.20 09/17 1.68 10/01 AA GFR: 81 54 10/01 JUDAH GFR: 70 47 10/01 Treatment: His course wasprolongedand complicated because hisanasarca continued and wasresistantto diuretic management. He was seen and followed by Cardiology and Nephrology and that he did displayrenal failure, which made more difficult to improve his diuresis. Nephrology Consult: AKIon admission, mostly cardiorenal and due tohypotension causingischemicATNin the setting of use of GLENDA inhibitors and NSAIDs. Currently nonoliguric with improving renal function since admission. Check urine analysis. Please clarify the stage of the CKD, if known: [ ] CKD Stage 2 (GFR 60-89) [ ] CKD Stage 3a (GFR 45-59) [ ] CKD Stage 3b (GFR 30-44) [ ] CKD Stage 4 (GFR 15-29) [ ] Other, please specify [ ] Unable to determine (Template Last revised: June 2020) MTDD
== END 2022-10-03 16:30 | disposition home health service (06) | DRG 194 ==
LOC: EC 15:20 → 4SSUR 17:57
PROVIDERS: ADMIT Family Medicine; ATTEND Family Medicine
PROC: 05HD33Z Insertion of Infusion Device into Right Cephalic Vein, Percutaneous Approach (ICD-10-PCS; principal; 2022-10-03 11:00)
DX: I13.0 Hypertensive heart and chronic kidney disease with heart failure and stage 1 through stage 4 chronic kidney disease, or unspecified chronic kidney disease (principal); N17.0 Acute kidney failure with tubular necrosis; K85.90 Acute pancreatitis without necrosis or infection, unspecified; I27.20 Pulmonary hypertension, unspecified; D63.1 Anemia in chronic kidney disease; L03.115 Cellulitis of right lower limb; L97.529 Non-pressure chronic ulcer of other part of left foot with unspecified severity; L97.221 Non-pressure chronic ulcer of left calf limited to breakdown of skin; L97.211 Non-pressure chronic ulcer of right calf limited to breakdown of skin; L02.415 Cutaneous abscess of right lower limb; N18.31 Chronic kidney disease, stage 3a; L03.311 Cellulitis of abdominal wall; Z68.43 Body mass index [BMI] 50.0-59.9, adult; E87.1 Hypo-osmolality and hyponatremia; L03.116 Cellulitis of left lower limb; I95.9 Hypotension, unspecified; E11.22 Type 2 diabetes mellitus with diabetic chronic kidney disease; J44.9 Chronic obstructive pulmonary disease, unspecified; I50.33 Acute on chronic diastolic (congestive) heart failure; E66.01 Morbid (severe) obesity due to excess calories; I08.1 Rheumatic disorders of both mitral and tricuspid valves; F11.20 Opioid dependence, uncomplicated; I87.2 Venous insufficiency (chronic) (peripheral); F32.A Depression, unspecified; E87.5 Hyperkalemia; F17.210 Nicotine dependence, cigarettes, uncomplicated; L98.499 Non-pressure chronic ulcer of skin of other sites with unspecified severity; E83.42 Hypomagnesemia; T50.2X5A Adverse effect of carbonic-anhydrase inhibitors, benzothiadiazides and other diuretics, initial encounter; I87.8 Other specified disorders of veins; L30.4 Erythema intertrigo; N50.89 Other specified disorders of the male genital organs; T39.395A Adverse effect of other nonsteroidal anti-inflammatory drugs [NSAID], initial encounter; T44.5X5A Adverse effect of predominantly beta-adrenoreceptor agonists, initial encounter; R31.9 Hematuria, unspecified; E78.5 Hyperlipidemia, unspecified; Z87.11 Personal history of peptic ulcer disease; Z79.899 Other long term (current) drug therapy; Z79.85 Long-term (current) use of injectable non-insulin antidiabetic drugs; Z79.51 Long term (current) use of inhaled steroids
CPT/HCPCS: 36410; 36415; 71046; 76770; 76937; 80048; 80053; 80202; 81001; 82140; 82565; 82728; 83036; 83540; 83550; 83605; 83690; 83735; 83880; 84100; 84484; 85025; 85610; 85730; 86140; 93005; 93306; 94640; 94760; 96365; 96366; 96367; 96375; 99291

== ENCOUNTER 2022-11-05 07:49 | Inpatient (IN) | payer OTHER ==
[2022-11-05] MEDS ORDERED: SODIUM CHLORIDE 0.9% 1,000 ML IV STA ×4 (08:10→10:43)
[2022-11-05] MEDS ORDERED: ONDANSETRON 4 MG/2 ML VIAL IVP STA (08:10)
[2022-11-05] MEDS ORDERED: HYDROmorphone 1 MG/ML 1 ML SYRINGE IVP STA (08:11)
[2022-11-05] MEDS ORDERED: FAMOTIDINE 20 MG/2 ML VIAL IV STA (08:11)
--- NOTE | 2022-11-05 08:13 | ED ---
General Adult HPI - General Chief complaint: Abdominal Pain Stated complaint: abd pain Time Seen by Provider: 11/05/22 07:58 Source: patient, EMS, RN notes reviewed Mode of arrival: EMS Limitations: no limitations - History of Present Illness Initial comments: Patient is a pleasant 52-year-old male presenting to the emergency department with concerns with abdominal discomfort. Onset of symptoms was around 2-3 days ago. Patient has had some nausea and vomiting. patient diarrhea. No history of similar symptoms. She. Discomfort has been increasing. Discomfort is left mid abdomen. - Related Data Home Medications Medication Instructions Recorded Confirmed Atorvastatin [Lipitor] 20 mg PO HS 09/15/22 09/15/22 Cetirizine HCl [Zyrtec] 10 mg PO DAILY 09/15/22 09/15/22 Enalapril [Vasotec] 10 mg PO DAILY 09/15/22 09/15/22 Furosemide [Lasix] 80 mg PO BID 09/15/22 09/15/22 HYDROcodone/APAP 5-325MG [[place] 1 tab PO BID PRN 09/15/22 09/15/22 5-325] Montelukast Sodium [Singulair] 10 mg PO DAILY 09/15/22 09/15/22 Omeprazole [PriLOSEC] 20 mg PO DAILY 09/15/22 09/15/22 Pregabalin [Lyrica] 300 mg PO BID 09/15/22 09/15/22 Sertraline [Zoloft] 50 mg PO DAILY 09/15/22 09/15/22 Sildenafil Citrate 20 mg PO DAILY PRN 09/15/22 09/15/22 Previous Rx's Medication Instructions Recorded Budesonide-Formot 160-4.5 Mcg 2 puff INHALATION RT-BID #60 each 10/03/22 [Symbicort 160-4.5 Mcg Inhaler] Ipratropium-Albuterol Nebulize 3 ml INHALATION RT-QID #120 each 10/03/22 [Duoneb 0.5 mg-3 mg/3 ml Soln] Latanoprost Ophth [Xalatan 0.005%] 1 drops BOTH EYES HS ml 10/03/22 Metoprolol Succinate (ER) [Toprol 12.5 mg PO DAILY #30 tab 10/03/22 XL] Nystatin 100,000 Unit/gm Powd 1 applic TOPICAL TID #90 each 10/03/22 [Mycostatin Powder] Spironolactone [Aldactone] 25 mg PO DAILY #30 tab 10/03/22 Allergies Allergy/AdvReac Type Severity Reaction Status Date / Time No Known Allergies Allergy Verified 11/05/22 07:56 Review of Systems ROS Statement: Those systems with pertinent positive or pertinent negative responses have been documented in the HPI. ROS Other: All systems not noted in ROS Statement are negative. Constitutional: Denies: fever Eyes: Denies: eye pain ENT: Denies: ear pain Respiratory: Denies: cough Cardiovascular: Denies: chest pain Endocrine: Denies: fatigue Gastrointestinal: Reports: as per HPI, abdominal pain, nausea, vomiting Genitourinary: Denies: urgency, dysuria Musculoskeletal: Denies: back pain Skin: Denies: rash Neurological: Denies: weakness Past Medical History Past Medical History: Heart Failure, COPD, Diabetes Mellitus, Hyperlipidemia, Hypertension History of Any Multi-Drug Resistant Organisms: None Reported Additional Past Surgical History / Comment(s): stomach ulcers, colonoscopy Past Anesthesia/Blood Transfusion Reactions: No Reported Reaction Past Psychological History: Depression Smoking Status: Current every day smoker Past Alcohol Use History: Occasional Past Drug Use History: None Reported - Past Family History Son(s) Family Medical History: No Reported History General Exam Limitations: no limitations General appearance: alert, in no apparent distress Head exam: Present: normocephalic Eye exam: Present: normal appearance Neck exam: Present: normal inspection Respiratory exam: Present: normal lung sounds bilaterally Cardiovascular Exam: Present: regular rate, normal rhythm Expanded Peripheral pulses: 2+: Posterior Tibialis (R), Posterior Tibialis (L) GI/Abdominal exam: Present: soft, tenderness (Moderate tenderness left mid abdomen), normal bowel sounds. Absent: distended, guarding, rebound, rigid, pulsatile mass Extremities exam: Present: normal inspection. Absent: pedal edema, calf tenderness Neurological exam: Present: alert. Absent: motor sensory deficit Psychiatric exam: Present: normal affect, normal mood Skin exam: Present: normal color Course Vital Signs 11/05/22 11/05/22 07:50 10:50 Temperature 98.2 F Pulse Rate 100 96 Respiratory 20 18 Rate Blood Pressure 98/41 O2 Sat by Pulse 96 92 L Oximetry Medical Decision Making - Medical Decision Making Was pt. sent in by a medical professional or institution (ANI Draper, GYM MANAGER, urgent care, hospital, or half-way...) When possible be specific @ -No Did you speak to anyone other than the patient for history (EMS, parent, family, police, friend...)? What history was obtained from this source @ -No Did you review nursing and triage notes (agree or disagree)? Why? @ -I reviewed and agree with nursing and triage notes Were old charts reviewed (outside hosp., previous admission, EMS record, old EKG, old radiological studies, urgent care reports/EKG's, half-way records)? Report findings @ -No old charts were reviewed Differential Diagnosis (chest pain, altered mental status, abdominal pain women, abdominal pain men, vaginal bleeding, weakness, fever, dyspnea, syncope, headache, dizziness, GI bleed, back pain, seizure, CVA, palpatations, mental health)? @ -Differential Abdominal Pain Men: Appendicitis, cholecystitis, diverticulosis, ischemic bowel, pancreatitis, hepatitis, UTI, gastroenteritis, AAA, incarcerated hernia, bowel obstruction, constipation, inflammatory bowel, hepatitis, peptic ulcer disease, splenic infarction, perforated viscus, testicular torsion, this is not meant to be an all-inclusive list EKG interpreted by me (3pts min.). @ -As above X-rays interpreted by me (1pt min.). @ -Is x-ray does show left lower lobe infiltrate CT interpreted by me (1pt min.). @ -None done U/S interpreted by me (1pt. min.). @ -None done What testing was considered but not performed or refused? (CT, X-rays, U/S, labs)? Why? @ -None What meds were considered but not given or refused? Why? @ -None Did you discuss the management of the patient with other professionals (professionals i.e. ANI Draper, GYM MANAGER, lab, RT, psych nurse, medical social worker, supervisor felting, teacher, chairman president and chief executive officer, social work case manager)? Give summary @ -Case was discussed with Dr. March who will admit his patient. Was smoking cessation discussed for >3mins.? @ -No Was critical care preformed (if so, how long)? @ -31 minutes critical care time provided. Were there social determinants of health that impacted care today? How? (Homelessness, low income, unemployed, alcoholism, drug addiction, transportation, low edu. Level, literacy, decrease access to med. care, [facility], rehab)? @ -No Was there de-escalation of care discussed even if they declined (Discuss DNR or withdrawal of care, Hospice)? DNR status @ -No What co-morbidities impacted this encounter? (DM, HTN, Smoking, COPD, CAD, Cancer, CVA, ARF, Chemo, Hep., AIDS, mental health diagnosis, sleep apnea, morbid obesity)? @ -None Was patient admitted / discharged? Hospital course, mention meds given and route, prescriptions, significant lab abnormalities, going to OR and other pertinent info. @ -Patient reevaluated. Patient updated on results and plan. There is concern for severe sepsis. Patient was hypotensive and has improved with IV fluids. Last systolic blood pressure over 100. Patient was given fluids off of body weight of 81 kg. Blood culture and lactic acid have been ordered. IV antibiotics have been ordered. Undiagnosed new problem with uncertain prognosis? @ -No Drug Therapy requiring intensive monitoring for toxicity (Heparin, Nitro, Insulin, Cardizem)? @ -No Were any procedures done? @ -No Diagnosis/symptom? @ -Pneumonia, severe sepsis, hypotensive episode, acute kidney injury Acute, or Chronic, or Acute on Chronic? @ -Acute, acute, acute, acute Uncomplicated (without systemic symptoms) or Complicated (systemic symptoms)? @ -Complicated with Acute with sepsis and hypotension Side effects of treatment? @ -No Exacerbation, Progression, or Severe Exacerbation? @ -No Poses a threat to life or bodily function? How? (Chest pain, [place], [place], pneumonia, PE, COPD, DKA, ARF, appy, cholecystitis, CVA, Diverticulitis, Homicidal, Suicidal, threat to staff... and all critical care pts) @ -Threat to life and lung and body with hypotension and sepsis - Lab Data Result diagrams: 11/05/22 08:13 11/05/22 08:13 Lab Results 11/05/22 11/05/22 11/05/22 Range/Units 08:13 08:13 08:13 WBC 9.9 (3.8-10.6) k/uL RBC 3.20 L (4.30-5.90) m/uL Hgb 9.8 L (13.0-17.5) gm/dL Hct 31.0 L (39.0-53.0) % MCV 96.6 D (80.0-100.0) fL MCH 30.6 (25.0-35.0) pg MCHC 31.6 (31.0-37.0) g/dL RDW 17.2 H (11.5-15.5) % Plt Count 112 L (150-450) k/uL MPV 11.3 Neutrophils % 75 % Lymphocytes % 16 % Monocytes % 6 % Eosinophils % 1 % Basophils % 0 % Neutrophils # 7.4 (1.3-7.7) k/uL Lymphocytes # 1.6 (1.0-4.8) k/uL Monocytes # 0.6 (0-1.0) k/uL Eosinophils # 0.1 (0-0.7) k/uL Basophils # 0.0 (0-0.2) k/uL Hypochromasia Moderate Anisocytosis Slight Macrocytosis Slight PT 10.8 (9.0-12.0) sec INR 1.0 (<1.2) APTT 24.3 (22.0-30.0) sec Sodium 138 (137-145) mmol/L Potassium 4.9 (3.5-5.1) mmol/L Chloride 108 H (98-107) mmol/L Carbon Dioxide 12 L (22-30) mmol/L Anion Gap 18 mmol/L BUN 97 H (9-20) mg/dL Creatinine 4.06 H (0.66-1.25) mg/dL Est GFR (CKD-EPI)AfAm 18 (>60 ml/min/1.73 sqM) Est GFR (CKD-EPI)NonAf 16 (>60 ml/min/1.73 sqM) Glucose 130 H (74-99) mg/dL Calcium 8.6 (8.4-10.2) mg/dL Total Bilirubin 1.2 (0.2-1.3) mg/dL AST 44 (17-59) U/L ALT 25 (4-49) U/L Alkaline Phosphatase 126 (38-126) U/L Total Protein 6.9 (6.3-8.2) g/dL Albumin 3.7 (3.5-5.0) g/dL Amylase 36 (30-110) U/L Lipase 334 H (23-300) U/L Urine Color Urine Appearance (Clear) Urine pH (5.0-8.0) Ur Specific [place] (1.001-1.035) Urine Protein (Negative) Urine Glucose (UA) (Negative) Urine Ketones (Negative) Urine Blood (Negative) Urine Nitrite (Negative) Urine Bilirubin (Negative) Urine Urobilinogen (<2.0) mg/dL Ur Leukocyte Esterase (Negative) Urine RBC (0-5) /hpf Ur Squamous Epith Cells (0-4) /hpf Urine Bacteria (None) /hpf Urine Mucus (None) /hpf 11/05/22 Range/Units 08:13 WBC (3.8-10.6) k/uL RBC (4.30-5.90) m/uL Hgb (13.0-17.5) gm/dL Hct (39.0-53.0) % MCV (80.0-100.0) fL MCH (25.0-35.0) pg MCHC (31.0-37.0) g/dL RDW (11.5-15.5) % Plt Count (150-450) k/uL MPV Neutrophils % % Lymphocytes % % Monocytes % % Eosinophils % % Basophils % % Neutrophils # (1.3-7.7) k/uL Lymphocytes # (1.0-4.8) k/uL Monocytes # (0-1.0) k/uL Eosinophils # (0-0.7) k/uL Basophils # (0-0.2) k/uL Hypochromasia Anisocytosis Macrocytosis PT (9.0-12.0) sec INR (<1.2) APTT (22.0-30.0) sec Sodium (137-145) mmol/L Potassium (3.5-5.1) mmol/L Chloride (98-107) mmol/L Carbon Dioxide (22-30) mmol/L Anion Gap mmol/L BUN (9-20) mg/dL Creatinine (0.66-1.25) mg/dL Est GFR (CKD-EPI)AfAm (>60 ml/min/1.73 sqM) Est GFR (CKD-EPI)NonAf (>60 ml/min/1.73 sqM) Glucose (74-99) mg/dL Calcium (8.4-10.2) mg/dL Total Bilirubin (0.2-1.3) mg/dL AST (17-59) U/L ALT (4-49) U/L Alkaline Phosphatase (38-126) U/L Total Protein (6.3-8.2) g/dL Albumin (3.5-5.0) g/dL Amylase (30-110) U/L Lipase (23-300) U/L Urine Color Light Yellow Urine Appearance Clear (Clear) Urine pH 5.5 (5.0-8.0) Ur Specific [place] 1.007 (1.001-1.035) Urine Protein Trace H (Negative) Urine Glucose (UA) Negative (Negative) Urine Ketones Negative (Negative) Urine Blood Small H (Negative) Urine Nitrite Negative (Negative) Urine Bilirubin Negative (Negative) Urine Urobilinogen <2.0 (<2.0) mg/dL Ur Leukocyte Esterase Negative (Negative) Urine RBC <1 (0-5) /hpf Ur Squamous Epith Cells <1 (0-4) /hpf Urine Bacteria Rare H (None) /hpf Urine Mucus Occasional H (None) /hpf Critical Care Time Critical Care Time: Yes Total Critical Care Time: 31 Disposition Clinical Impression: Pneumonia, Sepsis, Acute kidney injury Disposition: ADMITTED IP TO THIS HOSP Condition: Serious Is patient prescribed a controlled substance at d/c from ED?: No Referrals: Howie March MD [Primary Care Provider] - 1-2 days Time of Disposition: 12:13
[2022-11-05 08:29] LABS: Anisocytosis Slight; Basophils % (A) 0 %; Eosinophils # (A) 0.1 k/uL (0-0.7); Eosinophils % (A) 1 %; HGB 9.8 gm/dL (13.0-17.5); Hypochromasia Moderate; Lymphocytes # (A) 1.6 k/uL (1.0-4.8); Lymphocytes % (A) 16 %; MCH 30.6 pg (25.0-35.0); MCHC 31.6 g/dL (31.0-37.0); Macrocytosis Slight; Mean Platelet Volume 11.3; Monocytes # (A) 0.6 k/uL (0-1.0); Monocytes % (A) 6 %; Neutrophils # (A) 7.4 k/uL (1.3-7.7); Neutrophils % (A) 75 %; Platelet Count 112 k/uL (150-450); RDW 17.2 % (11.5-15.5); WBC 9.9 k/uL (3.8-10.6)
[2022-11-05 08:44] LABS: MCV 96.6 fL (80.0-100.0)
[2022-11-05 08:46] LABS: Albumin 3.7 g/dL (3.5-5.0); Amylase 36 U/L (30-110); Chloride 108 mmol/L (98-107); Glucose 130 mg/dL (74-99); Potassium 4.9 mmol/L (3.5-5.1); Sodium 138 mmol/L (137-145); Total Protein 6.9 g/dL (6.3-8.2)
[2022-11-05 08:50] LABS: ALT 25 U/L (4-49); AST 44 U/L (17-59); African American GFR (CKD) 18 (>60 ml/min/1.73 sqM); Alkaline Phosphatase 126 U/L (38-126); Anion Gap 18 mmol/L; Blood Urea Nitrogen 97 mg/dL (9-20); Calcium 8.6 mg/dL (8.4-10.2); Carbon Dioxide 12 mmol/L (22-30); Lipase 334 U/L (23-300); Non-African American GFR(CKD) 16 (>60 ml/min/1.73 sqM); Total Bilirubin 1.2 mg/dL (0.2-1.3)
[2022-11-05 08:57] LABS: Partial Thromboplastin Time 24.3 sec (22.0-30.0); Prothrombin Time 10.8 sec (9.0-12.0)
--- NOTE | 2022-11-05 09:36 | CT ---
EXAMINATION TYPE: CT abdomen pelvis wo con DATE OF EXAM: 11/05/2022 COMPARISON: None HISTORY: 52 year-old male acute kidney injury, Pain CT DLP: 2331.9 mGycm. Automated exposure control for dose reduction was used. TECHNIQUE: Contiguous axial scanning of the abdomen and pelvis without IV contrast. Coronal and sagit branden reconstructions performed. FINDINGS: Heart is upper limits of normal in size without pericardial effusion. Prominent patchy and confluent opacities at the left base. Pneumonia not excluded. Liver enlarged at 22.6 cm. Mildly diminished attenuation of the liver parenchyma. Gallbladder nondist ended. Small omental varices anterior to the liver. Adrenal glands, right kidney, and pancreas show no gross abnormality. Spleen enlarged at 16.2 cm with hilar splenule. 1.2 cm nonobstructive left lower pole renal calculus. No hydronephrosis on either side. Some prominent upper abdominal lymph nodes in the [place] hepatis and portacaval region measuring up to 1.4 cm. No dilated small bowel, free fluid, or free air. No mesenteric adenopathy. Normal appendix. Left-sided colonic diverticulosis. No pericolonic inflammatory change. Bladder collapsed with prominent wall thickening. Trace pelvic free fluid noted. No pelvic lymphadeno jeannine. Mild generalized anasarca changes. [facility] in the lower thoracic spine. Moderate spondylotic changes throughout the lumbar spine. IMPRESSION: 1. Patchy and confluent airspace disease at the left base. Correlate for infectious or aspiration pn eumonitis. 2. Hepatomegaly at 22.6 cm. Splenomegaly at 16.2 cm. Small varices in the anterior omentum. Query un derlying chronic liver disease. Consider further evaluation. 3. Mild generalized anasarca and trace pelvic free fluid probably due to third spacing. 4. Borderline enlarged [place] hepatic and portacaval lymph nodes probably reactive measuring up to 1. 4 cm. Follow-up CT in 3 months to ensure stability/resolution. 5. Left sided colonic diverticulosis without acute diverticulitis. 1.2 cm nonobstructive left renal calculus. 6. Thickened and collapsed bladder. Neurogenic bladder or chronic bladder wall hypertrophy or consid erations. Correlate to exclude cystitis.
--- NOTE | 2022-11-05 10:21 | XR ---
EXAMINATION TYPE: XR chest 2V DATE OF EXAM: 11/05/2022 COMPARISON: 09/21/2022 INDICATION: Abdomen pain TECHNIQUE: Frontal and lateral views of the chest are obtained. FINDINGS: The heart size is normal. The pulmonary vasculature is normal. Left lower lobe infiltrate is present. Correlate for pneumonia. Follow-up is recommended.. IMPRESSION: 1. Left lower lobe infiltrate silhouetting the diaphragm. Correlate for pneumonia. Follow-up is recom mended.
[2022-11-05] MEDS ORDERED: SODIUM CHLORIDE 0.9% 500 ML 250 ML IV STA (10:45)
[2022-11-05 12:09] LABS: Appearance,Urine Clear (Clear); Bacteria,Urine Rare /hpf; Bilirubin,Urine Negative (Negative); Blood,Urine Small (Negative); Color,Urine Light Yellow; Glucose,Urine (UA) Negative (Negative); Ketones,Urine Negative (Negative); Leukocyte Esterase,Urine Negative (Negative); Mucus,Urine Occasional /hpf; Nitrite,Urine Negative (Negative); PH, Urine 5.5 (5.0-8.0); Protein,Urine Trace (Negative); RBC,Urine <1 /hpf (0-5); Specific Gravity,Urine 1.007 (1.001-1.035); Squamous Epithelial Cell,Urine <1 /hpf (0-4); Urobilinogen,Urine <2.0 mg/dL (<2.0)
[2022-11-05] MEDS ORDERED: AZITHROMYCIN 500 MG in SODIUM CHLORIDE 0.9% 250 ML IVPB STA (12:14)
[2022-11-05] MEDS ORDERED: PNEUMONIA PROTOCOL UTILIZED 1 EACH MISC PO PRN (12:14)
[2022-11-05] MEDS ORDERED: SODIUM CHLORIDE 0.9% 1,000 ML IV SCH (12:15)
--- NOTE | 2022-11-05 14:49 | ED ---
Medical Decision Making - Lab Data Result diagrams: 11/05/22 08:13 11/05/22 08:13 Lab Results 11/05/22 11/05/22 11/05/22 Range/Units 08:13 08:13 08:13 WBC 9.9 (3.8-10.6) k/uL RBC 3.20 L (4.30-5.90) m/uL Hgb 9.8 L (13.0-17.5) gm/dL Hct 31.0 L (39.0-53.0) % MCV 96.6 D (80.0-100.0) fL MCH 30.6 (25.0-35.0) pg MCHC 31.6 (31.0-37.0) g/dL RDW 17.2 H (11.5-15.5) % Plt Count 112 L (150-450) k/uL MPV 11.3 Neutrophils % 75 % Lymphocytes % 16 % Monocytes % 6 % Eosinophils % 1 % Basophils % 0 % Neutrophils # 7.4 (1.3-7.7) k/uL Lymphocytes # 1.6 (1.0-4.8) k/uL Monocytes # 0.6 (0-1.0) k/uL Eosinophils # 0.1 (0-0.7) k/uL Basophils # 0.0 (0-0.2) k/uL Hypochromasia Moderate Anisocytosis Slight Macrocytosis Slight PT 10.8 (9.0-12.0) sec INR 1.0 (<1.2) APTT 24.3 (22.0-30.0) sec Sodium 138 (137-145) mmol/L Potassium 4.9 (3.5-5.1) mmol/L Chloride 108 H (98-107) mmol/L Carbon Dioxide 12 L (22-30) mmol/L Anion Gap 18 mmol/L BUN 97 H (9-20) mg/dL Creatinine 4.06 H (0.66-1.25) mg/dL Est GFR (CKD-EPI)AfAm 18 (>60 ml/min/1.73 sqM) Est GFR (CKD-EPI)NonAf 16 (>60 ml/min/1.73 sqM) Glucose 130 H (74-99) mg/dL Calcium 8.6 (8.4-10.2) mg/dL Total Bilirubin 1.2 (0.2-1.3) mg/dL AST 44 (17-59) U/L ALT 25 (4-49) U/L Alkaline Phosphatase 126 (38-126) U/L Total Protein 6.9 (6.3-8.2) g/dL Albumin 3.7 (3.5-5.0) g/dL Amylase 36 (30-110) U/L Lipase 334 H (23-300) U/L Urine Color Urine Appearance (Clear) Urine pH (5.0-8.0) Ur Specific [place] (1.001-1.035) Urine Protein (Negative) Urine Glucose (UA) (Negative) Urine Ketones (Negative) Urine Blood (Negative) Urine Nitrite (Negative) Urine Bilirubin (Negative) Urine Urobilinogen (<2.0) mg/dL Ur Leukocyte Esterase (Negative) Urine RBC (0-5) /hpf Ur Squamous Epith Cells (0-4) /hpf Urine Bacteria (None) /hpf Urine Mucus (None) /hpf 11/05/22 Range/Units 08:13 WBC (3.8-10.6) k/uL RBC (4.30-5.90) m/uL Hgb (13.0-17.5) gm/dL Hct (39.0-53.0) % MCV (80.0-100.0) fL MCH (25.0-35.0) pg MCHC (31.0-37.0) g/dL RDW (11.5-15.5) % Plt Count (150-450) k/uL MPV Neutrophils % % Lymphocytes % % Monocytes % % Eosinophils % % Basophils % % Neutrophils # (1.3-7.7) k/uL Lymphocytes # (1.0-4.8) k/uL Monocytes # (0-1.0) k/uL Eosinophils # (0-0.7) k/uL Basophils # (0-0.2) k/uL Hypochromasia Anisocytosis Macrocytosis PT (9.0-12.0) sec INR (<1.2) APTT (22.0-30.0) sec Sodium (137-145) mmol/L Potassium (3.5-5.1) mmol/L Chloride (98-107) mmol/L Carbon Dioxide (22-30) mmol/L Anion Gap mmol/L BUN (9-20) mg/dL Creatinine (0.66-1.25) mg/dL Est GFR (CKD-EPI)AfAm (>60 ml/min/1.73 sqM) Est GFR (CKD-EPI)NonAf (>60 ml/min/1.73 sqM) Glucose (74-99) mg/dL Calcium (8.4-10.2) mg/dL Total Bilirubin (0.2-1.3) mg/dL AST (17-59) U/L ALT (4-49) U/L Alkaline Phosphatase (38-126) U/L Total Protein (6.3-8.2) g/dL Albumin (3.5-5.0) g/dL Amylase (30-110) U/L Lipase (23-300) U/L Urine Color Light Yellow Urine Appearance Clear (Clear) Urine pH 5.5 (5.0-8.0) Ur Specific [place] 1.007 (1.001-1.035) Urine Protein Trace H (Negative) Urine Glucose (UA) Negative (Negative) Urine Ketones Negative (Negative) Urine Blood Small H (Negative) Urine Nitrite Negative (Negative) Urine Bilirubin Negative (Negative) Urine Urobilinogen <2.0 (<2.0) mg/dL Ur Leukocyte Esterase Negative (Negative) Urine RBC <1 (0-5) /hpf Ur Squamous Epith Cells <1 (0-4) /hpf Urine Bacteria Rare H (None) /hpf Urine Mucus Occasional H (None) /hpf Disposition Clinical Impression: Pneumonia, Sepsis, Acute kidney injury Disposition: ADMITTED IP TO THIS [facility] Condition: Serious Is patient prescribed a controlled substance at d/c from ED?: No Procedures - Central Line Placement Right Femoral Consent Obtained: verbal consent, emergent situation Patient Placed on Monitor/Pulse Ox: Yes Prep: mask, gown, gloves Central Line Prep: Chlorhexidine scrub Local Anesthesia Used: Lidocaine 1% Amount of Anesthesia Used (mls): 2 Ultrasound Used for Placement: No Central Line Lumen Inserted: triple Central Line Position: good blood return, all ports aspirated, flushed, capped, sutured in place with 3-0 nylon Dressing Applied: Tegaderm Patient Tolerated Procedure: well, no complications
[2022-11-05] MEDS: NOREPINEPHRINE 32 MG in SODIUM CHLORIDE 0.9% 218 ML IV SCH (14:53)
--- NOTE | 2022-11-05 15:05 | ED ---
Medical Decision Making - Medical Decision Making Case also discussed with Dr. He who will consult for critical care. Central line was placed. Pressor started. Patient will need monitoring for the Levophed drip. - Lab Data Result diagrams: 11/05/22 08:13 11/05/22 08:13 Lab Results 11/05/22 11/05/22 11/05/22 Range/Units 08:13 08:13 08:13 WBC 9.9 (3.8-10.6) k/uL RBC 3.20 L (4.30-5.90) m/uL Hgb 9.8 L (13.0-17.5) gm/dL Hct 31.0 L (39.0-53.0) % MCV 96.6 D (80.0-100.0) fL MCH 30.6 (25.0-35.0) pg MCHC 31.6 (31.0-37.0) g/dL RDW 17.2 H (11.5-15.5) % Plt Count 112 L (150-450) k/uL MPV 11.3 Neutrophils % 75 % Lymphocytes % 16 % Monocytes % 6 % Eosinophils % 1 % Basophils % 0 % Neutrophils # 7.4 (1.3-7.7) k/uL Lymphocytes # 1.6 (1.0-4.8) k/uL Monocytes # 0.6 (0-1.0) k/uL Eosinophils # 0.1 (0-0.7) k/uL Basophils # 0.0 (0-0.2) k/uL Hypochromasia Moderate Anisocytosis Slight Macrocytosis Slight PT 10.8 (9.0-12.0) sec INR 1.0 (<1.2) APTT 24.3 (22.0-30.0) sec Sodium 138 (137-145) mmol/L Potassium 4.9 (3.5-5.1) mmol/L Chloride 108 H (98-107) mmol/L Carbon Dioxide 12 L (22-30) mmol/L Anion Gap 18 mmol/L BUN 97 H (9-20) mg/dL Creatinine 4.06 H (0.66-1.25) mg/dL Est GFR (CKD-EPI)AfAm 18 (>60 ml/min/1.73 sqM) Est GFR (CKD-EPI)NonAf 16 (>60 ml/min/1.73 sqM) Glucose 130 H (74-99) mg/dL Calcium 8.6 (8.4-10.2) mg/dL Total Bilirubin 1.2 (0.2-1.3) mg/dL AST 44 (17-59) U/L ALT 25 (4-49) U/L Alkaline Phosphatase 126 (38-126) U/L Total Protein 6.9 (6.3-8.2) g/dL Albumin 3.7 (3.5-5.0) g/dL Amylase 36 (30-110) U/L Lipase 334 H (23-300) U/L Urine Color Urine Appearance (Clear) Urine pH (5.0-8.0) Ur Specific [place] (1.001-1.035) Urine Protein (Negative) Urine Glucose (UA) (Negative) Urine Ketones (Negative) Urine Blood (Negative) Urine Nitrite (Negative) Urine Bilirubin (Negative) Urine Urobilinogen (<2.0) mg/dL Ur Leukocyte Esterase (Negative) Urine RBC (0-5) /hpf Ur Squamous Epith Cells (0-4) /hpf Urine Bacteria (None) /hpf Urine Mucus (None) /hpf 11/05/22 Range/Units 08:13 WBC (3.8-10.6) k/uL RBC (4.30-5.90) m/uL Hgb (13.0-17.5) gm/dL Hct (39.0-53.0) % MCV (80.0-100.0) fL MCH (25.0-35.0) pg MCHC (31.0-37.0) g/dL RDW (11.5-15.5) % Plt Count (150-450) k/uL MPV Neutrophils % % Lymphocytes % % Monocytes % % Eosinophils % % Basophils % % Neutrophils # (1.3-7.7) k/uL Lymphocytes # (1.0-4.8) k/uL Monocytes # (0-1.0) k/uL Eosinophils # (0-0.7) k/uL Basophils # (0-0.2) k/uL Hypochromasia Anisocytosis Macrocytosis PT (9.0-12.0) sec INR (<1.2) APTT (22.0-30.0) sec Sodium (137-145) mmol/L Potassium (3.5-5.1) mmol/L Chloride (98-107) mmol/L Carbon Dioxide (22-30) mmol/L Anion Gap mmol/L BUN (9-20) mg/dL Creatinine (0.66-1.25) mg/dL Est GFR (CKD-EPI)AfAm (>60 ml/min/1.73 sqM) Est GFR (CKD-EPI)NonAf (>60 ml/min/1.73 sqM) Glucose (74-99) mg/dL Calcium (8.4-10.2) mg/dL Total Bilirubin (0.2-1.3) mg/dL AST (17-59) U/L ALT (4-49) U/L Alkaline Phosphatase (38-126) U/L Total Protein (6.3-8.2) g/dL Albumin (3.5-5.0) g/dL Amylase (30-110) U/L Lipase (23-300) U/L Urine Color Light Yellow Urine Appearance Clear (Clear) Urine pH 5.5 (5.0-8.0) Ur Specific [place] 1.007 (1.001-1.035) Urine Protein Trace H (Negative) Urine Glucose (UA) Negative (Negative) Urine Ketones Negative (Negative) Urine Blood Small H (Negative) Urine Nitrite Negative (Negative) Urine Bilirubin Negative (Negative) Urine Urobilinogen <2.0 (<2.0) mg/dL Ur Leukocyte Esterase Negative (Negative) Urine RBC <1 (0-5) /hpf Ur Squamous Epith Cells <1 (0-4) /hpf Urine Bacteria Rare H (None) /hpf Urine Mucus Occasional H (None) /hpf Disposition Clinical Impression: Pneumonia, Sepsis, Acute kidney injury Disposition: ADMITTED IP TO THIS HOSP Condition: Serious Is patient prescribed a controlled substance at d/c from ED?: No Procedures - Sepsis Sepsis Focused Exam #1 Time Sepsis Criteria Met: 12:00 Sepsis Focused Exam Date: 11/05/22 Sepsis Focused Exam Time: 15:03 Sepsis Focused Exam Complete: Yes Vital Signs & RN Notes Reviewed: Yes Capillary Refill: < 2 Seconds: Fingers, Toes Peripheral Pulses: Weak: Radial (R), Radial (L) Skin Color: Normal for Patient Respiratory Exam: rhonchi Cardiovascular Exam: regular rate, normal rhythm
[2022-11-05 16:40] LABS: Glucose,Whole Blood 141 mg/dL (70-110)
[2022-11-05] MEDS: DEXTROSE 5% IN WATER 1,000 ML with SODIUM BICARB (1 MEQ/ML) 150 ML IV SCH (16:59)
--- NOTE | 2022-11-05 17:20 | P.CNPUL ---
History of Present Illness Consult date: 11/05/22 Chief complaint: Hypotension History of present illness: 52-year-old male patient, and 40 sodium, came into the hospital because of abdominal pain. The pain isn't essentially in the left upper quadrant area. No nausea. No emesis. No witnessed diarrhea although there may be some history of diarrhea. The patient is a poor historian. He is obese. He was afebrile and he was hypotensive in the emergency. He was given IV fluids and following that he was given a triple-lumen catheter and he was started on norepinephrine at 0.03 mcg/kg/m for blood pressure control. WBC count of 9.9 with a hemoglobin of 9.8 and a platelet count of 112. He has chronic kidney disease and he had an acute on top of chronic kidney failure with a BUN of 97 and a creatinine of 4.06. He had a component of anion gap metabolic acidosis with a bicarb of 12. Sodium is at 138. Glucose at 1:30. Amylase level was 36, lipase was 334. His UA was essentially negative. Patient was started on bicarb infusion and the patient was transferred to the intensive care unit for further support. He was started on a combination of Rocephin and Zithromax as the patient was found to have a limited lower lobe pulmonary infiltrates on the left suspicious of a pneumonia based on the CAT scan of the abdomen. His CAT scan showed if patchy airspace disease in the left lung base. There was hepatomegaly. Mild generalized anasarca and placed on 3 with. Borderline enlarged hepatic and portal caval lymph nodes were seen largest being 1.3 cm size. There was a left colonic diverticulosis without diverticulitis and a 1.2 cm nonobstructive left renal Disease was also seen. Note that the patient does not have any hematuria. Is morbidly obese with a BMI of 46. LFTs are within normal limits. Review of Systems Constitutional: Reports fatigue, Reports poor appetite, Reports weakness Eyes: denies as per HPI, denies blurred vision, denies bulging eye, denies decreased vision, denies diplopia, denies discharge, denies dry eye, denies irritation, denies itching, denies pain, denies photophobia, denies loss of peripheral vision, denies loss of vision, denies tunnel vision/blind spots Ears: deny: decreased hearing, ear discharge, earache, tinnitus Ears, nose, mouth and throat: Reports as per HPI Breasts: absent: as per HPI, gynecomastia Cardiovascular: Reports decreased exercise tolerance, Reports dyspnea on exertion Respiratory: Reports cough (review think the main), Reports dyspnea Gastrointestinal: Reports abdominal pain Genitourinary: Reports as per HPI Musculoskeletal: Reports as per HPI, Reports muscle weakness Musculoskeletal: absent: ankle pain, ankle stiffness, ankle swelling Integumentary: Reports as per HPI Neurological: Reports as per HPI, Reports weakness (Wheezy when he) Psychiatric: Reports as per HPI Endocrine: Reports as per HPI Hematologic/Lymphatic: Reports as per HPI Allergic/Immunologic: Reports as per HPI Past Medical History Past Medical History: No Reported History ( abdominal plate tenderness tomorrow), Heart Failure, COPD, Diabetes Mellitus, Hyperlipidemia, Hypertension Additional Past Medical History / Comment(s): CKD History of Any Multi-Drug Resistant Organisms: None Reported Additional Past Surgical History / Comment(s): stomach ulcers, colonoscopy Past Anesthesia/Blood Transfusion Reactions: No Reported Reaction Past Psychological History: Depression Smoking Status: Current every day smoker Past Alcohol Use History: Occasional Past Drug Use History: None Reported - Past Family History Son(s) Family Medical History: No Reported History Medications and Allergies Home Medications Medication Instructions Recorded Confirmed Type Atorvastatin [Lipitor] 20 mg PO HS 09/15/22 11/05/22 History Cetirizine HCl [Zyrtec] 10 mg PO DAILY 09/15/22 11/05/22 History Enalapril [Vasotec] 10 mg PO DAILY 09/15/22 11/05/22 History Furosemide [Lasix] 80 mg PO BID 09/15/22 11/05/22 History HYDROcodone/APAP 5-325MG [[place] 1 tab PO BID PRN 09/15/22 11/05/22 History 5-325] Montelukast Sodium [Singulair] 10 mg PO DAILY 09/15/22 11/05/22 History Omeprazole [PriLOSEC] 20 mg PO DAILY 09/15/22 11/05/22 History Pregabalin [Lyrica] 300 mg PO BID 09/15/22 11/05/22 History Sertraline [Zoloft] 50 mg PO DAILY 09/15/22 11/05/22 History Sildenafil Citrate 20 mg PO DAILY PRN 09/15/22 11/05/22 History Budesonide-Formot 160-4.5 Mcg 2 puff INHALATION RT-BID #60 each 10/03/22 11/05/22 Rx [Symbicort 160-4.5 Mcg Inhaler] Ipratropium-Albuterol Nebulize 3 ml INHALATION RT-QID #120 each 10/03/22 11/05/22 Rx [Duoneb 0.5 mg-3 mg/3 ml Soln] Latanoprost Ophth [Xalatan 0.005%] 1 drops BOTH EYES HS ml 10/03/22 11/05/22 Rx Metoprolol Succinate (ER) [Toprol 12.5 mg PO DAILY #30 tab 10/03/22 11/05/22 Rx XL] Spironolactone [Aldactone] 25 mg PO DAILY #30 tab 10/03/22 11/05/22 Rx Allergies Allergy/AdvReac Type Severity Reaction Status Date / Time No Known Allergies Allergy Verified 11/05/22 12:16 Physical Exam Vitals: Vital Signs Temp Pulse Resp BP Pulse Ox 11/05/22 14:55 89 99/51 97 11/05/22 14:50 90 87/47 11/05/22 14:45 90 80/40 11/05/22 14:30 92 85/39 11/05/22 14:02 96 20 80/40 93 L 11/05/22 13:47 87 19 74/40 95 11/05/22 13:39 97.5 F L 94 18 89/41 97 11/05/22 10:50 96 18 92 L 11/05/22 07:50 98.2 F 100 20 98/41 96 Intake and Output 11/05/22 11/05/22 11/05/22 06:59 14:59 22:59 Other: Weight 154.221 kg obese, comfortable on 2 L of oxygen by nasal cannula, body mass index is 46.1 Head exam was generally normal. There was no scleral icterus or corneal arcus. Mucous membranes were moist. Neck was supple and without jugular venous distension, thyromegaly, or carotid bruits. Carotids were easily palpable bilaterally. There was no adenopathy. Lungs sounds are diminished bilaterally and the patient has few crackles in lung bases Cardiac exam revealed the PMI to be normally situated and sized. The rhythm was regular and no extrasystoles were noted during several minutes of auscultation. The first and second heart sounds were normal and physiologic splitting of the second heart sound was noted. There were no murmurs, rubs, clicks, or gallops. Abdomen distended and the left upper quadrant area. No rebound tenderness or guarding. Bowel sounds are hypoactive at the present Examination of the extremities revealed easily palpable radial, femoral and pedal pulses. There was no cyanosis, clubbing or edema. Examination of the skin revealed no evidence of significant rashes, suspicious a ppearing nevi or other concerning lesions. Results - Laboratory Findings CBC and BMP: 11/05/22 08:13 11/05/22 08:13 ABG WBC 9.9 k/uL (3.8-10.6) 11/05/22 08:13 RBC 3.20 m/uL (4.30-5.90) L 11/05/22 08:13 Hgb 9.8 gm/dL (13.0-17.5) L 11/05/22 08:13 Hct 31.0 % (39.0-53.0) L 11/05/22 08:13 MCV 96.6 fL (80.0-100.0) D 11/05/22 08:13 MCH 30.6 pg (25.0-35.0) 11/05/22 08:13 MCHC 31.6 g/dL (31.0-37.0) 11/05/22 08:13 RDW 17.2 % (11.5-15.5) H 11/05/22 08:13 Plt Count 112 k/uL (150-450) L 11/05/22 08:13 MPV 11.3 11/05/22 08:13 Neutrophils % 75 % 11/05/22 08:13 Lymphocytes % 16 % 11/05/22 08:13 Monocytes % 6 % 11/05/22 08:13 Eosinophils % 1 % 11/05/22 08:13 Basophils % 0 % 11/05/22 08:13 Neutrophils # 7.4 k/uL (1.3-7.7) 11/05/22 08:13 Lymphocytes # 1.6 k/uL (1.0-4.8) 11/05/22 08:13 Monocytes # 0.6 k/uL (0-1.0) 11/05/22 08:13 Eosinophils # 0.1 k/uL (0-0.7) 11/05/22 08:13 Basophils # 0.0 k/uL (0-0.2) 11/05/22 08:13 Hypochromasia Moderate 11/05/22 08:13 Anisocytosis Slight 11/05/22 08:13 Macrocytosis Slight 11/05/22 08:13 PT 10.8 sec (9.0-12.0) 11/05/22 08:13 INR 1.0 (<1.2) 11/05/22 08:13 APTT 24.3 sec (22.0-30.0) 11/05/22 08:13 Sodium 138 mmol/L (137-145) 11/05/22 08:13 Potassium 4.9 mmol/L (3.5-5.1) 11/05/22 08:13 Chloride 108 mmol/L (98-107) H 11/05/22 08:13 Carbon Dioxide 12 mmol/L (22-30) L 11/05/22 08:13 Anion Gap 18 mmol/L 11/05/22 08:13 BUN 97 mg/dL (9-20) H 11/05/22 08:13 Creatinine 4.06 mg/dL (0.66-1.25) H 11/05/22 08:13 Est GFR (CKD-EPI)AfAm 18 (>60 ml/min/1.73 sqM) 11/05/22 08:13 Est GFR (CKD-EPI)NonAf 16 (>60 ml/min/1.73 sqM) 11/05/22 08:13 Glucose 130 mg/dL (74-99) H 11/05/22 08:13 Plasma Lactic Acid Schu[place] 0.8 mmol/L (0.7-2.0) 11/05/22 13:35 Calcium 8.6 mg/dL (8.4-10.2) 11/05/22 08:13 Total Bilirubin 1.2 mg/dL (0.2-1.3) 11/05/22 08:13 AST 44 U/L (17-59) 11/05/22 08:13 ALT 25 U/L (4-49) 11/05/22 08:13 Alkaline Phosphatase 126 U/L (38-126) 11/05/22 08:13 Total Protein 6.9 g/dL (6.3-8.2) 11/05/22 08:13 Albumin 3.7 g/dL (3.5-5.0) 11/05/22 08:13 Amylase 36 U/L (30-110) 11/05/22 08:13 Lipase 334 U/L (23-300) H 11/05/22 08:13 Urine Color Light Yellow 11/05/22 08:13 Urine Appearance Clear (Clear) 11/05/22 08:13 Urine pH 5.5 (5.0-8.0) 11/05/22 08:13 Ur Specific [place] 1.007 (1.001-1.035) 11/05/22 08:13 Urine Protein Trace (Negative) H 11/05/22 08:13 Urine Glucose (UA) Negative (Negative) 11/05/22 08:13 Urine Ketones Negative (Negative) 11/05/22 08:13 Urine Blood Small (Negative) H 11/05/22 08:13 Urine Nitrite Negative (Negative) 11/05/22 08:13 Urine Bilirubin Negative (Negative) 11/05/22 08:13 Urine Urobilinogen <2.0 mg/dL (<2.0) 11/05/22 08:13 Ur Leukocyte Esterase Negative (Negative) 11/05/22 08:13 Urine RBC <1 /hpf (0-5) 11/05/22 08:13 Ur Squamous Epith Cells <1 /hpf (0-4) 11/05/22 08:13 Urine Bacteria Rare /hpf (None) H 11/05/22 08:13 Urine Mucus Occasional /hpf (None) H 11/05/22 08:13 PT/INR, D-dimer PT 10.8 sec (9.0-12.0) 11/05/22 08:13 INR 1.0 (<1.2) 11/05/22 08:13 Abnormal lab findings: Abnormal Labs 11/05/22 11/05/22 11/05/22 08:13 08:13 08:13 RBC 3.20 L Hgb 9.8 L Hct 31.0 L RDW 17.2 H Plt Count 112 L Chloride 108 H Carbon Dioxide 12 L BUN 97 H Creatinine 4.06 H Glucose 130 H Lipase 334 H Urine Protein Trace H Urine Blood Small H Urine Bacteria Rare H Urine Mucus Occasional H - Diagnostic Findings Chest x-ray: image reviewed Assessment and Plan Plan: Abdominal pain under investigation. Pain is essentially left lower quadrant/left upper quadrant area. No evidence of any pyelonephritis. No evidence of any diverticulitis. The patient has diverticulosis. Patient was also found to have a left lower lobe pulmonary infiltrates consistent with pneumonia Acute left lower lobe pneumonia/consolidation Hypotension, rule out underlying sepsis Acute hypoxic respiratory failure currently on 2 L of oxygen by nasal cannula Acute kidney injury on top of chronic kidney disease, no signs of any fluid overload at this point in time Anion gap metabolic acidosis with a serum bicarb of 12 chronic diastolic heart failure Previous history of cellulitis of the lower extremities, inactive for now Anemia of chronic disease Plan Urine and blood cultures continue IV fluids and switch this patient to a bicarb infusion at the rate of 150 mL an hour Nephrology consultation Continue IV Rocephin and Zithromax pending further cultures Keep pressors for now admit the patient to the intensive care unit Stop the GLENDA inhibitor, Lasix and Aldactone Stop the beta blockers and the patient was taking metoprolol and outpatient basis May need a surgical consultation regarding abdominal pain We'll continue to follow
[2022-11-05] MEDS: HEPARIN SODIUM,PORCINE/PF 5,000 UNIT/0.5 ML SYRINGE SQ SCH ×2 (19:52→23:32)
[2022-11-05] MEDS: PREGABALIN 100 MG CAP PO SCH (20:03)
[2022-11-05] MEDS: ATORVASTATIN 20 MG TAB PO SCH (20:03)
[2022-11-05] MEDS: HYDROcodone/APAP 5-325MG 1 EACH TAB PO PRN (20:06)
[2022-11-05] MEDS: LATANOPROST 0.005% OPHTH DROPS 2.5 ML BTL BOTH EYES SCH (21:06)
[2022-11-05] MEDS: SYMBICORT 160-4.5 MCG INHALER INHALATION SCH (21:08)
[2022-11-06] MEDS: DEXTROSE 5% IN WATER 1,000 ML with SODIUM BICARB (1 MEQ/ML) 150 ML IV SCH ×2 (00:23→08:20)
[2022-11-06] MEDS: HYDROcodone/APAP 5-325MG 1 EACH TAB PO PRN ×2 (02:45→18:34)
[2022-11-06 05:08] LABS: Anisocytosis Slight; Basophils % (A) 0 %; Eosinophils # (A) 0.1 k/uL (0-0.7); Eosinophils % (A) 1 %; HCT 33.3 % (39.0-53.0); HGB 10.5 gm/dL (13.0-17.5); Hypochromasia Slight; Lymphocytes % (A) 14 %; MCH 30.2 pg (25.0-35.0); MCHC 31.6 g/dL (31.0-37.0); MCV 95.6 fL (80.0-100.0); Mean Platelet Volume 11.2; Monocytes # (A) 0.5 k/uL (0-1.0); Monocytes % (A) 8 %; Neutrophils # (A) 5.3 k/uL (1.3-7.7); Neutrophils % (A) 75 %; Platelet Count 114 k/uL (150-450); RBC 3.48 m/uL (4.30-5.90); RDW 17.1 % (11.5-15.5)
[2022-11-06 05:27] LABS: African American GFR (CKD) 31 (>60 ml/min/1.73 sqM); Anion Gap 13 mmol/L; Blood Urea Nitrogen 86 mg/dL (9-20); Carbon Dioxide 22 mmol/L (22-30); Chloride 104 mmol/L (98-107); Glucose 134 mg/dL (74-99); Magnesium 1.6 mg/dL (1.6-2.3); Non-African American GFR(CKD) 27 (>60 ml/min/1.73 sqM); Potassium 4.3 mmol/L (3.5-5.1); Sodium 139 mmol/L (137-145)
[2022-11-06] MEDS: MAGNESIUM SULFATE-D5W PMX 1 GM in DEXTROSE/WATER 1 100ML.BAG IVPB SCH ×2 (05:56→07:12)
[2022-11-06] MEDS: HYDROmorphone 0.5 MG/0.5 ML SYRINGE IVP PRN ×3 (07:11→23:06)
[2022-11-06 07:57] LABS: Allen Test Performed? Yes
[2022-11-06 07:58] LABS: ABG Base Excess -1.1 mmol/L; ABG HCO3 25 mmol/L (21-25); ABG Oxygen Saturation 91.2 % (94-97); ABG PCO2 52 mmHg (35-45); ABG PO2 63 mmHg (83-108); ABG TCO2 27 mmol/L (19-24)
[2022-11-06] MEDS: SYMBICORT 160-4.5 MCG INHALER INHALATION SCH ×2 (08:03→20:46)
--- NOTE | 2022-11-06 08:04 | XR ---
EXAMINATION TYPE: XR chest 1V portable DATE OF EXAM: 11/06/2022 Comparison: 11/05/2022 Clinical History: 52-year-old male Pneumonia Findings: Heart mildly enlarged. Increasing retrocardiac and left basilar opacity. Ongoing patchy peripheral ri ght basilar density. Mild hyperinflation. Impression: Increasing retrocardiac and left basilar airspace disease. Similar mild patchy infiltrate at the righ t base.
[2022-11-06] MEDS: HEPARIN SODIUM,PORCINE/PF 5,000 UNIT/0.5 ML SYRINGE SQ SCH ×3 (08:18→23:07)
[2022-11-06] MEDS: PREGABALIN 100 MG CAP PO SCH ×2 (08:20→20:31)
[2022-11-06] MEDS: AZITHROMYCIN 500 MG TAB PO SCH (09:08)
--- NOTE | 2022-11-06 09:19 | P.PN ---
Subjective Progress Note Date: 11/06/22 52-year-old male patient, and 40 sodium, came into the hospital because of abdominal pain. The pain isn't essentially in the left upper quadrant area. No nausea. No emesis. No witnessed diarrhea although there may be some history of diarrhea. The patient is a poor historian. He is obese. He was afebrile and he was hypotensive in the emergency. He was given IV fluids and following that he was given a triple-lumen catheter and he was started on norepinephrine at 0.03 mcg/kg/m for blood pressure control. WBC count of 9.9 with a hemoglobin of 9.8 and a platelet count of 112. He has chronic kidney disease and he had an acute on top of chronic kidney failure with a BUN of 97 and a creatinine of 4.06. He had a component of anion gap metabolic acidosis with a bicarb of 12. Sodium is at 138. Glucose at 1:30. Amylase level was 36, lipase was 334. His UA was essentially negative. Patient was started on bicarb infusion and the patient was transferred to the intensive care unit for further support. He was started on a combination of Rocephin and Zithromax as the patient was found to h ave a limited lower lobe pulmonary infiltrates on the left suspicious of a pneumonia based on the CAT scan of the abdomen. His CAT scan showed if patchy airspace disease in the left lung base. There was hepatomegaly. Mild generalized anasarca and placed on 3 with. Borderline enlarged hepatic and portal caval lymph nodes were seen largest being 1.3 cm size. There was a left colonic diverticulosis without diverticulitis and a 1.2 cm nonobstructive left renal Disease was also seen. Note that the patient does not have any hematuria. Is morbidly obese with a BMI of 46. LFTs are within normal limits. On today's evaluation of 11/06/2022, the patient is still experiencing some pain in the left upper quadrant. Repeat chest x-ray from today shows limited atelectasis/infiltrate in the left lung base. The patient was on oxygen at 2 L. However, he became more lethargic and obtunded. At that point, blood gas was done that showed mild respiratory acidosis with a pH of 7.3 and a pCO2 52 and pO2 of 63 and this was done on 2 L of O2 nasal cannula. Based on that, the patient was placed on a BiPAP at a pressure of 12/5 cm of water with an FiO2 of 50%. He generating a tidal of 700 with a minute ventilation of 9-10 L. No major airspace disease on his chest x-ray. Meanwhile, the patient was assessed. IV fluids. He was given a bicarb infusion. Serum bicarb is improved and is currently up to 22. BUN is at 86 which is improved and the creatinine is down to 2.6. The patient has no significant leukocytosis. The white cell count of 7 with a hemoglobin of 10.5 and a platelet count of 114. UA has been negative. The patient may also benefit from a surgical consultation. CAT scan of the abdomen was done yesterday and it showed diverticulosis without diverticulitis. He also had a 1.2 cm nonobstructive calculus in the left lower lobe of the kidney, no hydronephrosis. The patient was offered a combination of Rocephin and Zithromax. I'm going to switch him to IV Zosyn for a better intra-abdominal coverage. Objective - Vital Signs Vital signs: Vital Signs Temp 97.8 F 11/06/22 00:00 Pulse 73 11/06/22 07:00 Resp 9 L 11/06/22 07:00 BP 110/56 11/06/22 07:00 Pulse Ox 90 L 11/06/22 07:00 FiO2 50 11/06/22 08:14 Intake & Output 11/05/22 11/06/22 11/06/22 18:59 06:59 18:59 Intake Total 5.350 1767.93 100 Output Total 2800 4360 175 Balance -2794.650 -2592.07 -75 Weight 154.221 kg 156.4 kg Intake: IV 1750 100 Dextrose 5% in Water 1, 1650 000 ml @ 150 mls/hr IV . Q7H40M [place] with Sodium Bicarb (1 Meq/ml) 150 ml Rx#:[id number] Magnesium Sulfate-D5w Pmx 100 100 1 gm In Dextrose/Water 1 100ml.bag @ 100 mls/hr IVPB Q1H [place] Rx#: [id number] Intake, IV Titration 5.350 17.93 Amount Norepinephrine 32 mg In 5.350 17.93 Sodium Chloride 0.9% 218 ml @ 0.03 MCG/KG/MIN 2. 169 mls/hr IV .Q24H [facility] Rx#:[id number] Output: Urine 2800 4360 175 Other: Voiding Method Indwelling Catheter - Exam obese, comfortable the patient is current on a BiPAP at a pressure of 12/5 cm of water with an FiO2 of 50%. Lethargic yet arousable. Body mass index is 46. Head exam was generally normal. There was no scleral icterus or corneal arcus. Mucous membranes were moist. Neck was supple and without jugular venous distension, thyromegaly, or carotid bruits. Carotids were easily palpable bilaterally. There was no adenopathy. Lungs sounds are diminished bilaterally and the patient has few crackles in lung bases Cardiac exam revealed the PMI to be normally situated and sized. The rhythm was regular and no extrasystoles were noted during several minutes of auscultation. The first and second heart sounds were normal and physiologic splitting of the second heart sound was noted. There were no murmurs, rubs, clicks, or gallops. Abdomen distended and the left upper quadrant area. No rebound tenderness or guarding. Bowel sounds are hypoactive at the present Examination of the extremities revealed easily palpable radial, femoral and pedal pulses. There was no cyanosis, clubbing or edema. Examination of the skin revealed no evidence of significant rashes, suspicious appearing nevi or other concerning lesions. - Labs CBC & Chem 7: 11/06/22 04:27 11/06/22 04:27 Labs: Abnormal Lab Results - Last 24 Hours (Table) 11/05/22 11/05/22 11/05/22 Range/Units 08:13 08:13 16:39 RBC (4.30-5.90) m/uL Hgb (13.0-17.5) gm/dL Hct (39.0-53.0) % RDW (11.5-15.5) % Plt Count (150-450) k/uL ABG pH (7.35-7.45) ABG pCO2 (35-45) mmHg ABG pO2 (83-108) mmHg ABG Total CO2 (19-24) mmol/L ABG O2 Saturation (94-97) % BUN (9-20) mg/dL Creatinine (0.66-1.25) mg/dL Glucose (74-99) mg/dL POC Glucose (mg/dL) 141 H (70-110) mg/dL Procalcitonin 4.08 H (0.02-0.09) ng/mL Urine Protein Trace H (Negative) Urine Blood Small H (Negative) Urine Bacteria Rare H (None) /hpf Urine Mucus Occasional H (None) /hpf 11/06/22 11/06/22 11/06/22 Range/Units 04:27 04:27 07:51 RBC 3.48 L (4.30-5.90) m/uL Hgb 10.5 L (13.0-17.5) gm/dL Hct 33.3 L (39.0-53.0) % RDW 17.1 H (11.5-15.5) % Plt Count 114 L (150-450) k/uL ABG pH 7.30 L (7.35-7.45) ABG pCO2 52 H (35-45) mmHg ABG pO2 63 L (83-108) mmHg ABG Total CO2 27 H (19-24) mmol/L ABG O2 Saturation 91.2 L (94-97) % BUN 86 H (9-20) mg/dL Creatinine 2.63 H (0.66-1.25) mg/dL Glucose 134 H (74-99) mg/dL POC Glucose (mg/dL) (70-110) mg/dL Procalcitonin (0.02-0.09) ng/mL Urine Protein (Negative) Urine Blood (Negative) Urine Bacteria (None) /hpf Urine Mucus (None) /hpf Assessment and Plan Plan: Abdominal pain under investigation. Pain is essentially left lower quadrant/left upper quadrant area. No evidence of any pyelonephritis. No evidence of any diverticulitis. The patient has diverticulosis. Patient was also found to have a left lower lobe pulmonary infiltrates consistent with pneumonia. It I'm not absolutely convinced that the pneumonia is causing the left upper quadrant pain. There is some limited infiltration the left lung base. I'm a bit more concerned of an intra-abdominal pathology. CAT scan of the abdomen was benign. The patient will be covered with IV Zosyn. The general surgical consultation be obtained. Acute left lower lobe pneumonia/consolidation Hypotension, rule out underlying sepsis, and the patient remains on a low-dose norepinephrine at 0.02 mcg/kg/m. The patient was adequately resuscitated with a bicarb infusion and his acidosis improved. Acute hypoxic /hypercapnic respiratory failure and the patient is currently on a BiPAP at a pressure of 12/5 with an FiO2 of 50% Acute kidney injury on top of chronic kidney disease, no signs of any fluid overload at this point in time Anion gap metabolic acidosis with a serum bicarb of 12 , improved with bicarbonate infusion and serum bicarb is normalized. Lactic acid is nonelevated. chronic diastolic heart failure Previous history of cellulitis of the lower extremities, inactive for now Anemia of chronic disease Plan Change IV fluids to normal saline at the rate of 100 mL an hour Stop Rocephin and Zithromax and cover the patient with IV Zosyn given abdominal pain in need for an intra-abdominal coverage Renal function is improving Urine and blood cultures Obtain a general surgical consultation Nephrology consultation Stop the GLENDA inhibitor, Lasix and Aldactone Stop the beta blockers and the patient was taking metoprolol and outpatient basis We'll continue to follow, keep the patient ICU for now. We'll continue to follow. Awaiting cultures. If the patient nothing by mouth for now. Tolerating BiPAP.
--- NOTE | 2022-11-06 09:44 | P.NPCON ---
History of Present Illness - Reason for Consult acute renal failure - History of Present Illness Reason for consultation: Acute kidney injury History of present illness: Patient is a 52-year-old male seen in renal consultation for acute kidney injury. Patient's creatinine in September 2022 was as low as 0.97. This admission his creatinine was elevated at 4.06 and is 2.63 today.patient came to the hospital due to abdominal discomfort. Patient's currently on a BiPAP and is not able to provide much history. It is noted in the chart that he did have nausea vomiting and the pain started about 2-3 days ago. Computed tomography scan of the abdomen and pelvis without contrast was done and showed no hydronephrosis, left nonobstructive kidney stone, left base patchy airspace disease, hepatomegaly, splenomegaly, enlarged fanta hepatic and portacaval lymph nodes as well as left-sided diverticulosis. Patient's ultrasound from September 2022 showed normal-sized kidneys without hydronephrosis. Echocardiogram from September 2022 showed preserved ejection fraction with mild pulmonary hypertension. Patient was admitted in September 2022 with CHF exacerbation and required IV diuresis. Currently receiving bicarb drip and all diuretics are held. He is on low-dose Levophed. Nonoliguric. Vital signs are stable. On vasopressor support. General: No acute distress. HEENT: Head exam is unremarkable. On BiPAP. LUNGS: Scattered rhonchi. HEART: Rate and Rhythm are regular. ABDOMEN: Soft, left sided tenderness to touch. EXTREMITITES: No edema. Past Medical History Past Medical History: No Reported History ( abdominal plate tenderness tomorrow), Heart Failure, COPD, Diabetes Mellitus, Hyperlipidemia, Hypertension Additional Past Medical History / Comment(s): CKD History of Any Multi-Drug Resistant Organisms: None Reported Additional Past Surgical History / Comment(s): stomach ulcers, colonoscopy Past Anesthesia/Blood Transfusion Reactions: No Reported Reaction Past Psychological History: Depression Smoking Status: Current every day smoker Past Alcohol Use History: Occasional Past Drug Use History: None Reported - Past Family History Son(s) Family Medical History: No Reported History Medications and Allergies Home Medications Medication Instructions Recorded Confirmed Type Atorvastatin [Lipitor] 20 mg PO HS 09/15/22 11/05/22 History Cetirizine HCl [Zyrtec] 10 mg PO DAILY 09/15/22 11/05/22 History Enalapril [Vasotec] 10 mg PO DAILY 09/15/22 11/05/22 History Furosemide [Lasix] 80 mg PO BID 09/15/22 11/05/22 History HYDROcodone/APAP 5-325MG [[place] 1 tab PO BID PRN 09/15/22 11/05/22 History 5-325] Montelukast Sodium [Singulair] 10 mg PO DAILY 09/15/22 11/05/22 History Omeprazole [PriLOSEC] 20 mg PO DAILY 09/15/22 11/05/22 History Pregabalin [Lyrica] 300 mg PO BID 09/15/22 11/05/22 History Sertraline [Zoloft] 50 mg PO DAILY 09/15/22 11/05/22 History Sildenafil Citrate 20 mg PO DAILY PRN 09/15/22 11/05/22 History Budesonide-Formot 160-4.5 Mcg 2 puff INHALATION RT-BID #60 each 10/03/22 11/05/22 Rx [Symbicort 160-4.5 Mcg Inhaler] Ipratropium-Albuterol Nebulize 3 ml INHALATION RT-QID #120 each 10/03/22 11/05/22 Rx [Duoneb 0.5 mg-3 mg/3 ml Soln] Latanoprost Ophth [Xalatan 0.005%] 1 drops BOTH EYES HS ml 10/03/22 11/05/22 Rx Metoprolol Succinate (ER) [Toprol 12.5 mg PO DAILY #30 tab 10/03/22 11/05/22 Rx XL] Spironolactone [Aldactone] 25 mg PO DAILY #30 tab 10/03/22 11/05/22 Rx Allergies Allergy/AdvReac Type Severity Reaction Status Date / Time No Known Allergies Allergy Verified 11/05/22 12:16 Physical Exam Vitals: Vital Signs Temp Pulse Resp BP Pulse Ox FiO2 11/06/22 09:00 89 20 116/60 96 11/06/22 08:45 78 9 L 109/62 93 L 11/06/22 08:30 80 11 L 109/60 93 L 11/06/22 08:15 78 11 L 87/52 90 L 11/06/22 08:14 50 11/06/22 08:10 50 11/06/22 08:00 98.2 F 78 14 84/40 86 L 11/06/22 07:45 84 12 112/63 85 L 11/06/22 07:30 78 10 L 105/60 88 L 11/06/22 07:15 82 12 105/54 89 L 11/06/22 07:00 73 9 L 110/56 90 L 11/06/22 06:45 79 10 L 107/60 90 L 11/06/22 06:30 71 10 L 105/68 91 L 11/06/22 06:15 73 9 L 105/71 89 L 11/06/22 06:00 74 10 L 96/54 91 L 11/06/22 05:45 76 9 L 113/64 91 L 11/06/22 05:30 76 12 95/51 90 L 11/06/22 05:15 80 12 92/50 90 L 11/06/22 05:00 77 12 94/44 91 L 11/06/22 04:45 77 10 L 98/53 90 L 11/06/22 04:30 81 13 113/55 89 L 11/06/22 04:15 80 12 113/52 89 L 11/06/22 04:00 79 10 L 109/57 89 L 11/06/22 03:45 81 10 L 109/55 91 L 11/06/22 03:30 80 10 L 105/60 93 L 11/06/22 03:15 80 9 L 120/58 92 L 11/06/22 03:00 98 22 117/64 94 L 11/06/22 02:45 84 10 L 110/55 93 L 11/06/22 02:30 78 11 L 104/56 93 L 11/06/22 02:19 77 11 L 104/56 93 L 11/06/22 01:45 76 10 L 99/51 91 L 11/06/22 01:30 77 10 L 100/50 90 L 11/06/22 01:15 72 11 L 100/54 91 L 11/06/22 01:00 72 13 99/53 91 L 11/06/22 00:45 71 13 98/55 11/06/22 00:30 70 13 96/53 91 L 11/06/22 00:15 70 11 L 105/53 11/06/22 00:00 97.8 F 70 10 L 107/81 95 11/05/22 23:45 74 12 125/68 94 L 11/05/22 23:30 72 10 L 119/65 94 L 11/05/22 23:15 66 11 L 109/62 95 11/05/22 23:00 67 10 L 95/57 95 11/05/22 22:45 68 11 L 73/47 93 L 11/05/22 22:30 76 11 L 87/49 93 L 11/05/22 22:15 76 10 L 99/49 94 L 11/05/22 22:00 85 15 96/52 94 L 11/05/22 21:45 74 10 L 106/55 96 11/05/22 21:30 71 9 L 98/53 95 11/05/22 21:15 64 10 L 101/58 95 11/05/22 21:00 64 10 L 101/59 94 L 11/05/22 20:45 64 11 L 99/56 95 11/05/22 20:30 64 10 L 104/60 95 11/05/22 20:15 70 10 L 108/58 96 11/05/22 20:00 98 F 76 12 95/55 95 11/05/22 19:45 68 11 L 101/49 97 11/05/22 19:30 66 10 L 106/55 97 11/05/22 19:15 68 10 L 112/63 99 11/05/22 19:00 72 14 108/55 97 11/05/22 18:45 74 14 105/59 97 11/05/22 18:30 78 12 111/63 95 11/05/22 18:15 74 10 L 107/63 95 11/05/22 18:00 74 12 102/64 95 11/05/22 17:45 78 10 L 110/60 94 L 11/05/22 17:30 79 12 111/76 96 11/05/22 17:15 80 13 117/72 96 11/05/22 17:00 80 14 120/67 98 11/05/22 16:41 97.4 F L 90 18 108/69 96 11/05/22 15:32 93 18 100/66 97 11/05/22 15:00 86 20 96/50 97 11/05/22 14:55 89 99/51 97 11/05/22 14:50 90 87/47 11/05/22 14:45 90 80/40 11/05/22 14:30 92 85/39 11/05/22 14:02 96 20 80/40 93 L 11/05/22 13:47 87 19 74/40 95 11/05/22 13:39 97.5 F L 94 18 89/41 97 11/05/22 10:50 96 18 92 L Intake and Output 11/05/22 11/06/22 11/06/22 22:59 06:59 14:59 Intake Total 610.599 1773.93 400 Output Total 4875 2285 425 Balance -4419.650 -967.07 -25 Intake: IV 450 1300 400 Dextrose 5% in Water 1, 450 1200 300 000 ml @ 150 mls/hr IV . Q7H40M [place] with Sodium Bicarb (1 Meq/ml) 150 ml Rx#:[id number] Magnesium Sulfate-D5w Pmx 100 100 1 gm In Dextrose/Water 1 100ml.bag @ 100 mls/hr IVPB Q1H [place] Rx#: [id number] Intake, IV Titration 5.350 17.93 Amount Norepinephrine 32 mg In 5.350 17.93 Sodium Chloride 0.9% 218 ml @ 0.03 MCG/KG/MIN 2. 169 mls/hr IV .Q24H [place] Rx#:[id number] Output: Urine 4840 6480 425 Other: Voiding Method Indwelling Catheter Indwelling Catheter Weight 156.4 kg Results - Lab Results Most recent lab results ABG pH 7.30 (7.35-7.45) L 11/06/22 07:51 ABG pCO2 52 mmHg (35-45) H 11/06/22 07:51 ABG pO2 63 mmHg (83-108) L 11/06/22 07:51 ABG HCO3 25 mmol/L (21-25) 11/06/22 07:51 ABG O2 Saturation 91.2 % (94-97) L 11/06/22 07:51 Calcium 9.0 mg/dL (8.4-10.2) 11/06/22 04:27 Magnesium 1.6 mg/dL (1.6-2.3) 11/06/22 04:27 11/06/22 04:27 11/06/22 04:27 Assessment and Plan Plan: Assessment: 1. Acute kidney injury secondary to vasomotor nephropathy secondary to hypotension and diuretics. Creatinine was 4.06 on admission and is 2.63 today. UA fairly benign. No hydronephrosis noted on CAT scan. Baseline creatinine near 1 from September 2022. 2. Metabolic acidosis secondary to acute kidney injury improved with bicarbonate drip. 3. Abdominal pain possibly from diverticulosis. 4. Questionable pneumonia on antibiotics. 5. Chronic diastolic CHF. Plan: Change IV fluids from bicarbonate drip to normal saline. Follow-up cultures. Continue to monitor renal function and urine output. Avoid nephrotoxins. Case discussed with home health clinician. Thank you for the consultation. I will continue to follow the patient with you during his hospital stay.
[2022-11-06] MEDS: SODIUM CHLORIDE 0.9% 1,000 ML IV SCH ×2 (11:47→19:00)
--- NOTE | 2022-11-06 12:58 | P.GSCN ---
History of Present Illness Consult date: 11/06/22 History of present illness: CHIEF COMPLAINT: Abdominal pain HISTORY OF PRESENT ILLNESS: This is a 52-year-old male who presents to hospital with complaints of left upper quadrant and left side abdominal pain for the last 2-3 days. He did report nausea and vomiting. Patient has also been short of breath and lethargic. He is requiring BiPAP. And is currently in the ICU. Computed tomography scan abdomen and pelvis completed that did show a 1.2 cm nonobstructive left renal calculus. There is no evidence of diverticulitis. He did have hepatomegaly and splenomegaly. Patient is currently on antibiotics. He has Carmen catheter in place. Urine is clear. Urinalysis did show small amount of blood. Patient reports last bowel movement was about 3 days ago. He is on a small dose of Levophed he has been hypotensive. Denies any fever chills or so. PAST MEDICAL HISTORY: See list. PAST SURGICAL HISTORY: See list. Last colonoscopy less than a year ago patient reports negative. MEDICATIONS: See list. ALLERGIES: See list. SOCIAL HISTORY: No illicit drug use. REVIEW OF SYSTEMS: CONSTITUTIONAL: Denies fever or chills. HEENT: Denies blurred vision, vision changes, or eye pain. Denies hemoptysis ENDOCRINE: Denies heat or cold intolerance. CARDIOVASCULAR: Denies chest pain or pressure. RESPIRATORY: No shortness of breath. GASTROINTESTINAL: Please refer to HPI otherwise unremarkable NEURO: Denies history of seizures. PSYCH: No depression or suicidal ideation HEMATOLOGIC: Denies bleeding disorders. LYMPHATIC: The patient denies any lumps and bumps around the neck. GENITOURINARY: Denies any blood in urine or increased urinary frequency. MUSCULOSKELETAL: Denies myalgias. Denies joint swelling. Denies decreased range of motion beyond patients baseline. SKIN: Denies pruitis. Denies rash. PHYSICAL EXAM: VITAL SIGNS: Reviewed GENERAL: Well-developed in no acute distress. HEENT: No sclera icterus. Extraocular movements grossly intact. Moist buccal mucosa. Head is atraumatic, normocephalic. Hears conversational speech. No nasal drainage. NECK: Supple without lymphadenopathy. CHEST: Non-labored respirations and equal bilateral excursions. CARDIOVASCULAR: Palpable 2+ radial pulses. ABDOMEN: Soft. Obese. Nondistended. Tenderness with palpation in the left upper quadrant and left sided of abdomen MUSCULOSKELETAL: No clubbing or cyanosis. NEUROLOGIC: Lethargic. No focal or lateralizing signs. Cranial nerves II t hrough XII grossly intact. PSYCH: Appropriate affect. Alert and oriented to person, place and time. SKIN: Well perfused. Good skin turgor. LABORATORY DATA: WBC is 7.0 Hgb 10.5 platelets 112 Sodium 139 potassium is 4.3 creatinine 4.6 down to 2.63 LFTs normal lipase 334 Lactic acid level 0.8 Procalcitonin 4.08 Urinalysis trace protein and small amount of blood rare Bacteria IMAGING: Computed tomography scan abdomen and pelvis patching confluent airspace disease at the left base. Correlate for infectious or aspiration pneumonitis. Hepatomegaly at 22.6 cm. Splenomegaly at 16.2 cm. Small varices in the anterior omentum query underlying chronic liver disease. Consider further evaluation. Mild generalized anasarca and trace pelvic free fluid probably due to third spacing. Borderline enlarged fanta hepatic and portalcaval lymph nodes probably reactive measuring up to 1.4 cm. Follow-up CT in 3 months to ensure stability/resolution. Left-sided colonic diverticulosis without acute diverticulitis. 1.2 cm nonobstructive left renal calculus. Thickened and collapsed bladder. Neurogenic bladder chronic bladder wall hypertrophy or considerations. Correlate to exclude cystitis. ASSESSMENT: 1. Left-sided abdominal pain likely secondary to left renal calculus 2. Acute kidney injury 3. Possible pneumonia 4. Hypotension 5. Acute hypoxic/hypercapnic respiratory failure 6. Mild metabolic acidosis 7. Diabetes mellitus 8. Heart failure history PLAN: -Patient's pain likely due to the left kidney stone. No surgical intervention planned -Continue supportive care -Continue pain management -ICU management per critical care service -Continue heart healthy diet Thank you for this consultation Physician [employer] Enforcement Officer note has been reviewed by physician. Signing provider agrees with the documented findings, assessment, and plan of care. Past Medical History Past Medical History: No Reported History ( abdominal plate tenderness tomorrow), Heart Failure, COPD, Diabetes Mellitus, Hyperlipidemia, Hypertension Additional Past Medical History / Comment(s): CKD History of Any Multi-Drug Resistant Organisms: None Reported Additional Past Surgical History / Comment(s): stomach ulcers, colonoscopy Past Anesthesia/Blood Transfusion Reactions: No Reported Reaction Past Psychological History: Depression Smoking Status: Current every day smoker Past Alcohol Use History: Occasional Past Drug Use History: None Reported - Past Family History Son(s) Family Medical History: No Reported History Medications and Allergies Home Medications Medication Instructions Recorded Confirmed Type Atorvastatin [Lipitor] 20 mg PO HS 09/15/22 11/05/22 History Cetirizine HCl [Zyrtec] 10 mg PO DAILY 09/15/22 11/05/22 History Enalapril [Vasotec] 10 mg PO DAILY 09/15/22 11/05/22 History Furosemide [Lasix] 80 mg PO BID 09/15/22 11/05/22 History HYDROcodone/APAP 5-325MG [[place] 1 tab PO BID PRN 09/15/22 11/05/22 History 5-325] Montelukast Sodium [Singulair] 10 mg PO DAILY 09/15/22 11/05/22 History Omeprazole [PriLOSEC] 20 mg PO DAILY 09/15/22 11/05/22 History Pregabalin [Lyrica] 300 mg PO BID 09/15/22 11/05/22 History Sertraline [Zoloft] 50 mg PO DAILY 09/15/22 11/05/22 History Sildenafil Citrate 20 mg PO DAILY PRN 09/15/22 11/05/22 History Budesonide-Formot 160-4.5 Mcg 2 puff INHALATION RT-BID #60 each 10/03/22 11/05/22 Rx [Symbicort 160-4.5 Mcg Inhaler] Ipratropium-Albuterol Nebulize 3 ml INHALATION RT-QID #120 each 10/03/22 11/05/22 Rx [Duoneb 0.5 mg-3 mg/3 ml Soln] Latanoprost Ophth [Xalatan 0.005%] 1 drops BOTH EYES HS ml 10/03/22 11/05/22 Rx Metoprolol Succinate (ER) [Toprol 12.5 mg PO DAILY #30 tab 10/03/22 11/05/22 Rx XL] Spironolactone [Aldactone] 25 mg PO DAILY #30 tab 10/03/22 11/05/22 Rx Allergies Allergy/AdvReac Type Severity Reaction Status Date / Time No Known Allergies Allergy Verified 11/05/22 12:16 Surgical - Exam Vital Signs Temp Pulse Resp BP Pulse Ox 98.2 F 100 20 98/41 96 11/05/22 07:50 11/05/22 07:50 11/05/22 07:50 11/05/22 07:50 11/05/22 07:50 Results - Labs 11/06/22 04:27 11/06/22 04:27 Abnormal Lab Results - Last 24 Hours (Table) 11/05/22 11/05/22 11/05/22 Range/Units 08:13 08:13 16:39 RBC (4.30-5.90) m/uL Hgb (13.0-17.5) gm/dL Hct (39.0-53.0) % RDW (11.5-15.5) % Plt Count (150-450) k/uL ABG pH (7.35-7.45) ABG pCO2 (35-45) mmHg ABG pO2 (83-108) mmHg ABG Total CO2 (19-24) mmol/L ABG O2 Saturation (94-97) % BUN (9-20) mg/dL Creatinine (0.66-1.25) mg/dL Glucose (74-99) mg/dL POC Glucose (mg/dL) 141 H (70-110) mg/dL Procalcitonin 4.08 H (0.02-0.09) ng/mL Urine Protein Trace H (Negative) Urine Blood Small H (Negative) Urine Bacteria Rare H (None) /hpf Urine Mucus Occasional H (None) /hpf 11/06/22 11/06/22 11/06/22 Range/Units 04:27 04:27 07:51 RBC 3.48 L (4.30-5.90) m/uL Hgb 10.5 L (13.0-17.5) gm/dL Hct 33.3 L (39.0-53.0) % RDW 17.1 H (11.5-15.5) % Plt Count 114 L (150-450) k/uL ABG pH 7.30 L (7.35-7.45) ABG pCO2 52 H (35-45) mmHg ABG pO2 63 L (83-108) mmHg ABG Total CO2 27 H (19-24) mmol/L ABG O2 Saturation 91.2 L (94-97) % BUN 86 H (9-20) mg/dL Creatinine 2.63 H (0.66-1.25) mg/dL Glucose 134 H (74-99) mg/dL POC Glucose (mg/dL) (70-110) mg/dL Procalcitonin (0.02-0.09) ng/mL Urine Protein (Negative) Urine Blood (Negative) Urine Bacteria (None) /hpf Urine Mucus (None) /hpf Diabetes panel 11/06/22 Range/Units 04:27 Sodium 139 (137-145) mmol/L Potassium 4.3 (3.5-5.1) mmol/L Chloride 104 (98-107) mmol/L Carbon Dioxide 22 (22-30) mmol/L BUN 86 H (9-20) mg/dL Creatinine 2.63 H (0.66-1.25) mg/dL Glucose 134 H (74-99) mg/dL Calcium 9.0 (8.4-10.2) mg/dL Calcium panel 11/06/22 Range/Units 04:27 Calcium 9.0 (8.4-10.2) mg/dL Pituitary panel 11/06/22 Range/Units 04:27 Sodium 139 (137-145) mmol/L Potassium 4.3 (3.5-5.1) mmol/L Chloride 104 (98-107) mmol/L Carbon Dioxide 22 (22-30) mmol/L BUN 86 H (9-20) mg/dL Creatinine 2.63 H (0.66-1.25) mg/dL Glucose 134 H (74-99) mg/dL Calcium 9.0 (8.4-10.2) mg/dL Adrenal panel 11/06/22 Range/Units 04:27 Sodium 139 (137-145) mmol/L Potassium 4.3 (3.5-5.1) mmol/L Chloride 104 (98-107) mmol/L Carbon Dioxide 22 (22-30) mmol/L BUN 86 H (9-20) mg/dL Creatinine 2.63 H (0.66-1.25) mg/dL Glucose 134 H (74-99) mg/dL Calcium 9.0 (8.4-10.2) mg/dL
--- NOTE | 2022-11-06 13:07 | CDI ---
Documentation Clarification Form Date: 11/06/2022 12:13:34 PM From: Meghan Curry RN, CCDS Admit Date: 11/05/2022 12:15:00 PM Patient Name: Goran Lombardo Visit Number: [id number] Discharge Date: ATTENTION: The Clinical Documentation Specialists (CDI) and [facility] Coding Staff appreciate your assistance in clarifying documentation. Please respond to the clarification below the line at the bottom and electronically sign. The CDI & [facility] Coding staff will review the response and follow-up if needed. Please note: Queries are made part of the Legal Health Record. If you have any questions, please contact the author of this message via ITS. Dr. Cely He The patient has hypotension documentation in the Pulmonary consult and subsequent progress notes, and he is maintained on a Levophed drip. Based on this information and the findings below, is there an additional diagnosis that is clinically appropriate for this patient? Patient history/risk factors: Heart failure, COPD, Diabetes Mellitus, Hyperlipidemia, Hypertension CKD, Current every day smoker Clinical Indicators: 52-year-old male present with complaints of abdominal pain. 11/05 Vital signs: 98/41 100 20 98.2 96% @/L NC, 89/41 94 18 97.5 97% 2/L, 74/40 87 19 95% 2/L NC 11/05 Labs: WBC 9.9 HGB 9.8 HCT 31.0, BUN 97 CR 4.06 Procalcitonin 4.08 11/05 CXR: let lower lobe infiltrate/pneumonia 11/05 CT abd: Correlate for infectious or aspiration pneumonitis. Hepatomegaly at 22.6 cm. Splenomegaly at 16.2 cm. Small varices in the anterior omentum. Left sided colonic diverticulosis without ac diverticulitis. Neurogenic bladder or chronic bladder wall hypertrophy Treatment: ICU/Telemetry monitoring .9NS 1,000 ML IV Bolus X 4 Norepinephrine 32 MG/250 MLS IV @ 2.169 mls/hr. (Titrate per orders) 11/05-11/06 .9NS IV @ 100 MLS/HR Stop GLENDA inhibitor and Aldactone, Stop beta blockers Is there an additional diagnosis that is clinically appropriate for this patient? [ x ] Hypotensive Shock [ ] No additional diagnosis/Not clinically significant [ ] Unable to determine [ ] Other, please specify (Template Last Reviewed: June 2022) MTDD
--- NOTE | 2022-11-06 13:26 | CDI ---
Documentation Clarification Form Date: 11/06/2022 01:12:11 PM From: Meghan Curry RN, CCDS Admit Date: 11/05/2022 12:15:00 PM Patient Name: Goran Lombardo Visit Number: [id number] Discharge Date: ATTENTION: The Clinical Documentation Specialists (CDI) and [facility] Coding Staff appreciate your assistance in clarifying documentation. Please respond to the clarification below the line at the bottom and electronically sign. The CDI & [facility] Coding staff will review the response and follow-up if needed. Please note: Queries are made part of the Legal Health Record. If you have any questions, please contact the author of this message via ITS. Dr. Evert Vallejo Unspecified CKD is documented in the past medical history. Additional clarification regarding the stage of CKD is requested. History/Risk Factors: Heart failure, COPD, Diabetes Mellitus, Hyperlipidemia, Hypertension CKD, Current every day smoker Patients Historical: Baseline creatinine near 1 from September 2022 (Nephrology consult 11/06/2022) Clinical Indicators: 52-year-old male seen for acute kidney injury. 11/05 CT abd: Correlate for infectious or aspiration pneumonitis. Hepatomegaly at 22.6 cm. Splenomegaly at 16.2 cm. Small varices in the anterior omentum. Left sided colonic diverticulosis without ac diverticulitis. Neurogenic bladder or chronic bladder wall hypertrophy 11/05 BUN 97, Cr 4.06 GFR 16 11/06 BUN 86 Cr 2.63 GFR 27 Current BUN/CR/GFR: Treatment: ICU/Telemetry monitoring .9NS 1,000 ML IV Bolus X 4 Norepinephrine 32 MG/250 MLS IV @ 2.169 mls/hr. (Titrate per orders) 11/05-11/06 Sodium Bicarbonate drip @ 150 11/05-11/06 .9NS IV @ 100 MLS/HR 11/06 Stop GLENDA inhibitor and Aldactone, Stop beta blockers Avoid nephrotoxins, continue to monitor renal function and urine output. Please clarify the stage of the CKD, if known: [ ] CKD Stage 2 (GFR 60-89) [ ] CKD Stage 3 (GFR 30-59) [ ] CKD Stage 3a (GFR 45-59) [ ] CKD Stage 3b (GFR 30-44) [ ] CKD Stage 4 (GFR 15-29) [ ] Other, please specify [ x ] Unable to determine (Template Last revised: June 2020) possible CKD, will need to establish once MALINDA resolves MTDD
[2022-11-06] MEDS: NOREPINEPHRINE 32 MG in SODIUM CHLORIDE 0.9% 218 ML IV SCH (14:56)
[2022-11-06] MEDS: PIPERACILLIN-TAZOBACTAM 3.375 GM in SODIUM CHLORIDE 0.9% 100 ML IVPB SCH ×2 (15:00→23:07)
[2022-11-06 15:11] LABS: Glucose,Whole Blood 183 mg/dL (70-110)
--- NOTE | 2022-11-06 16:00 | CT ---
EXAMINATION TYPE: CT brain wo con DATE OF EXAM: 11/06/2022 COMPARISON: None HISTORY: AMS/lethargy CT DLP: 1247.[address] of the brain was performed. The ventricles, basal cisterns and sulci overlying the cerebral convexities demonstrate mild enlargem ent. There is vague asymmetric decreased attenuation posterior left parietal lobe image 49 sequence 2 033. An area of underlying ischemic insult is difficult to exclude. Correlate clinically and consider MRI if felt to be indicated. There is no evidence for intracranial hemorrhage or sulcal effacement. There is decreased attenuation about the periventricular white matter and deep white matter of both c erebral hemispheres, compatible with chronic small vessel ischemia. Differential diagnosis does inclu de demyelination. No mass effects are seen.No midline shift. Osseous calvarium is intact. If symptoms persist consider MRI. IMPRESSION: 1. There is vague asymmetric decreased attenuation posterior left parietal lobe image 49 sequence 203 3. An area of underlying ischemic insult is difficult to exclude. Correlate clinically and consider M RI if felt to be indicated.
[2022-11-06] MEDS: NOREPINEPHRINE 8 MG in SODIUM CHLORIDE 0.9% 250 ML IV SCH (19:00)
[2022-11-06] MEDS: LATANOPROST 0.005% OPHTH DROPS 2.5 ML BTL BOTH EYES SCH (20:31)
[2022-11-06] MEDS: ATORVASTATIN 20 MG TAB PO SCH (20:31)
[2022-11-07 04:49] LABS: Anisocytosis Slight; Basophils % (A) 0 %; Eosinophils # (A) 0.1 k/uL (0-0.7); Eosinophils % (A) 1 %; HCT 31.4 % (39.0-53.0); Hypochromasia Slight; Lymphocytes # (A) 0.7 k/uL (1.0-4.8); Lymphocytes % (A) 11 %; MCH 30.5 pg (25.0-35.0); MCHC 31.7 g/dL (31.0-37.0); Mean Platelet Volume 10.6; Monocytes # (A) 0.5 k/uL (0-1.0); Monocytes % (A) 8 %; Neutrophils % (A) 78 %; Platelet Count 100 k/uL (150-450); RBC 3.27 m/uL (4.30-5.90); WBC 6.5 k/uL (3.8-10.6)
[2022-11-07 05:02] LABS: African American GFR (CKD) 41 (>60 ml/min/1.73 sqM); Anion Gap 9 mmol/L; Blood Urea Nitrogen 68 mg/dL (9-20); Calcium 9.1 mg/dL (8.4-10.2); Carbon Dioxide 27 mmol/L (22-30); Chloride 104 mmol/L (98-107); Glucose 116 mg/dL (74-99); Non-African American GFR(CKD) 35 (>60 ml/min/1.73 sqM); Potassium 5.1 mmol/L (3.5-5.1); Sodium 140 mmol/L (137-145)
[2022-11-07] MEDS: SODIUM CHLORIDE 0.9% 1,000 ML IV SCH (05:42)
[2022-11-07] MEDS: HYDROmorphone 0.5 MG/0.5 ML SYRINGE IVP PRN ×3 (05:43→20:21)
--- NOTE | 2022-11-07 07:23 | XR ---
EXAMINATION TYPE: XR chest 1V portable DATE OF EXAM: 11/07/2022 HISTORY: Shortness of breath. COMPARISON: 11/06/2022 TECHNIQUE: Single view of the chest is submitted. FINDINGS: Demonstrated are scattered senescent parenchymal change. Stable increased density left lower lobe compatible with the provided history of pneumonia. The right lung is clear. The heart is stable. Hilar and mediastinal structures are within normal limits. Degenerative changes are seen of the dorsal spine. IMPRESSION: 1. Stable increased density left lower lobe compatible with the provided history of pneumonia.
[2022-11-07] MEDS: SYMBICORT 160-4.5 MCG INHALER INHALATION SCH ×2 (08:30→21:10)
[2022-11-07] MEDS: HEPARIN SODIUM,PORCINE/PF 5,000 UNIT/0.5 ML SYRINGE SQ SCH ×3 (09:09→23:19)
[2022-11-07] MEDS: AZITHROMYCIN 500 MG TAB PO SCH (09:09)
[2022-11-07] MEDS: PIPERACILLIN-TAZOBACTAM 3.375 GM in SODIUM CHLORIDE 0.9% 100 ML IVPB SCH ×3 (09:09→23:19)
[2022-11-07] MEDS: PREGABALIN 100 MG CAP PO SCH ×2 (09:10→20:20)
--- NOTE | 2022-11-07 09:21 | P.PN ---
Subjective Progress Note Date: 11/07/22 52-year-old male patient, and 40 sodium, came into the hospital because of abdominal pain. The pain isn't essentially in the left upper quadrant area. No nausea. No emesis. No witnessed diarrhea although there may be some history of diarrhea. The patient is a poor historian. He is obese. He was afebrile and he was hypotensive in the emergency. He was given IV fluids and following that he was given a triple-lumen catheter and he was started on norepinephrine at 0.03 mcg/kg/m for blood pressure control. WBC count of 9.9 with a hemoglobin of 9.8 and a platelet count of 112. He has chronic kidney disease and he had an acute on top of chronic kidney failure with a BUN of 97 and a creatinine of 4.06. He had a component of anion gap metabolic acidosis with a bicarb of 12. Sodium is at 138. Glucose at 1:30. Amylase level was 36, lipase was 334. His UA was essentially negative. Patient was started on bicarb infusion and the patient was transferred to the intensive care unit for further support. He was started on a combination of Rocephin and Zithromax as the patient was found to h ave a limited lower lobe pulmonary infiltrates on the left suspicious of a pneumonia based on the CAT scan of the abdomen. His CAT scan showed if patchy airspace disease in the left lung base. There was hepatomegaly. Mild generalized anasarca and placed on 3 with. Borderline enlarged hepatic and portal caval lymph nodes were seen largest being 1.3 cm size. There was a left colonic diverticulosis without diverticulitis and a 1.2 cm nonobstructive left renal Disease was also seen. Note that the patient does not have any hematuria. Is morbidly obese with a BMI of 46. LFTs are within normal limits. On today's evaluation of 11/06/2022, the patient is still experiencing some pain in the left upper quadrant. Repeat chest x-ray from today shows limited atelectasis/infiltrate in the left lung base. The patient was on oxygen at 2 L. However, he became more lethargic and obtunded. At that point, blood gas was done that showed mild respiratory acidosis with a pH of 7.3 and a pCO2 52 and pO2 of 63 and this was done on 2 L of O2 nasal cannula. Based on that, the patient was placed on a BiPAP at a pressure of 12/5 cm of water with an FiO2 of 50%. He generating a tidal of 700 with a minute ventilation of 9-10 L. No major airspace disease on his chest x-ray. Meanwhile, the patient was assessed. IV fluids. He was given a bicarb infusion. Serum bicarb is improved and is currently up to 22. BUN is at 86 which is improved and the creatinine is down to 2.6. The patient has no significant leukocytosis. The white cell count of 7 with a hemoglobin of 10.5 and a platelet count of 114. UA has been negative. The patient may also benefit from a surgical consultation. CAT scan of the abdomen was done yesterday and it showed diverticulosis without diverticulitis. He also had a 1.2 cm nonobstructive calculus in the left lower lobe of the kidney, no hydronephrosis. The patient was offered a combination of Rocephin and Zithromax. I'm going to switch him to IV Zosyn for a better intra-abdominal coverage. 11/07/2022, I'm seeing the patient for a follow-up. Is much more alert and awake compared to yesterday. Communicating. He seems to be appropriate. Overnight, he was kept on a BiPAP at pressures of 12/5 cm of water and this morning he was placed on nasal cannula at 5 L. We're going to monitor his oxygenation. There is possibility of a left lower lobe pneumonia and the patient is currently on IV Zosyn. Gen. surgical consultation was obtained regarding his abdominal pain. His abdominal pain is on and off. He states it is worse with coughing. Nevertheless, his abdominal exam is essentially benign. There was concern of his underlying mentation. A CAT scan of the brain was done and showed some hypoattenuation of the left parietal area. No focal sanjay rological deficits and I'm going to consult neurology in that regard for a further evaluation advice regarding those abnormalities. Meanwhile, the patient is hemodynamically stable. He is on IV fluids with normal saline which is running at 100 mL an hour. No chest pain. Limited cough and congestion and wheeze. On today's blood work, there is improvement in the patient's renal function. Creatinine is down to 2.1 with a BUN of 68 and a sodium is at 140 with a potassium level of 5.1. The bili was noted 6.5 with a hemoglobin of 10 and a platelet count of 100. A repeat chest x-ray was done today and it showed atelectatic changes/infiltrate in left lung base. Findings are essentially unch anged. Blood cultures are negative. The patient's pro-calcitonin level was 4.08. His acute kidney injury is improving and the patient is also being seen by nephrology. He is drinking and I'm going to go ahead and His IV Fluids. He Was on a Combination of Diuretics Including Lasix and Aldactone and He Was Also Taken Pablo Inhibitors Which Are Old Discontinued. Objective - Vital Signs Vital signs: Vital Signs Temp 97.8 F 11/07/22 04:00 Pulse 100 11/07/22 07:00 Resp 10 L 11/07/22 07:00 BP 119/64 11/07/22 07:00 Pulse Ox 97 11/07/22 07:00 FiO2 50 11/07/22 08:30 Intake & Output 11/06/22 11/07/22 11/07/22 18:59 06:59 18:59 Intake Total 5392.759 4646 100 Output Total 1420 1875 200 Balance 250.545 -475 -100 Weight 156.7 kg Intake: IV 400 1200 100 Dextrose 5% in Water 1, 300 000 ml @ 150 mls/hr IV . Q7H40M [facility] with Sodium Bicarb (1 Meq/ml) 150 ml Rx#:[id number] Magnesium Sulfate-D5w Pmx 100 1 gm In Dextrose/Water 1 100ml.bag @ 100 mls/hr IVPB Q1H [facility] Rx#: [id number] Piperacillin-Tazobactam 3 100 .375 gm In Sodium Chloride 0.9% 100 ml @ 25 mls/hr IVPB Q8HR [facility] Rx# :[id number] Sodium Chloride 0.9% 1, 1100 100 000 ml @ 100 mls/hr IV . Q10H [facility] Rx#:[id number] Intake, IV Titration 920.545 100 Amount Norepinephrine 32 mg In 20.545 Sodium Chloride 0.9% 218 ml @ 0.03 MCG/KG/MIN 2. 169 mls/hr IV .Q24H [facility] Rx#:[id number] Sodium Chloride 0.9% 1, 900 100 000 ml @ 100 mls/hr IV . Q10H [facility] Rx#:[id number] Oral 350 100 Output: Urine 1420 1875 200 Other: Voiding Method Indwelling Catheter Indwelling Catheter - Exam obese, comfortable the patient is current on a BiPAP at a pressure of 12/5 cm of water with an FiO2 of 50% FiO2, improved and the patient was switched to 5 L O2 nasal cannula Head exam was generally normal. There was no scleral icterus or corneal arcus. Mucous membranes were moist. Neck was supple and without jugular venous distension, thyromegaly, or carotid bruits. Carotids were easily palpable bilaterally. There was no adenopathy. Lungs sounds are diminished bilaterally and the patient has few crackles in lung bases Cardiac exam revealed the PMI to be normally situated and sized. The rhythm was regular and no extrasystoles were noted during several minutes of auscultation. The first and second heart sounds were normal and physiologic splitting of the second heart sound was noted. There were no murmurs, rubs, clicks, or gallops. Abdomen distended and the left upper quadrant area. No rebound tenderness or guarding. Bowel sounds are hypoactive at the present Examination of the extremities revealed easily palpable radial, femoral and pedal pulses. There was no cyanosis, clubbing or edema. Examination of the skin revealed no evidence of significant rashes, suspicious appearing nevi or other concerning lesions. Neurologically awake and alert and communicating. Seems to be appropriate on today's evaluation. - Labs CBC & Chem 7: 11/07/22 04:27 11/07/22 04:27 Labs: Abnormal Lab Results - Last 24 Hours (Table) 11/06/22 11/07/22 11/07/22 Range/Units 15:09 04:27 04:27 RBC 3.27 L (4.30-5.90) m/uL Hgb 10.0 L (13.0-17.5) gm/dL Hct 31.4 L (39.0-53.0) % RDW 17.0 H (11.5-15.5) % Plt Count 100 L (150-450) k/uL Lymphocytes # 0.7 L (1.0-4.8) k/uL BUN 68 H (9-20) mg/dL Creatinine 2.10 H (0.66-1.25) mg/dL Glucose 116 H (74-99) mg/dL POC Glucose (mg/dL) 183 H (70-110) mg/dL Microbiology - Last 24 Hours (Table) 11/05/22 13:30 Blood Culture - Preliminary Blood 11/05/22 13:15 Blood Culture - Preliminary Blood Assessment and Plan Plan: Abdominal pain under investigation. Pain is essentially left lower quadrant/left upper quadrant area. No evidence of any pyelonephritis. No evidence of any diverticulitis. The patient has diverticulosis. Patient was also found to have a left lower lobe pulmonary infiltrates consistent with pneumonia. It I'm not absolutely convinced that the pneumonia is causing the left upper quadrant pain. There is some limited infiltration the left lung base. I'm a bit more concerned of an intra-abdominal pathology. CAT scan of the abdomen was benign. The patient will be covered with IV Zosyn. The general surgical consultation was obtained. Abdominal exam remains benign. Pain is subsided although is having some on-and-off pain especially with coughing. Acute left lower lobe pneumonia/consolidation, chest x-ray findings are unchanged and the patient is currently on IV Zosyn Elevated pro-calcitonin level Hypotension, rule out underlying sepsis, recovered and the patient is currently off pressors. Remains on IV fluids at the rate of 100 mL an hour Acute hypoxic /hypercapnic respiratory failure and the patient is currently on a BiPAP at a pressure of 12/5 with an FiO2 of 50%, will be switched to 5 L O2 nasal cannula Acute kidney injury on top of chronic kidney disease, no signs of any fluid overload at this point in time, improving and the patient's creatinine is down to 2 Anion gap metabolic acidosis with a serum bicarb of 12 , improved with bicarbonate infusion and serum bicarb is normalized. Lactic acid is nonelevated. The patient was taken off the bicarb infusion the patient is currently on normal saline chronic diastolic heart failure Previous history of cellulitis of the lower extremities, inactive for now Anemia of chronic disease Altered mentation, improved and the patient's mentation is more appropriate. Hypoattenuation in the left parietal area. May need another repeat CAT scan in neurologic consultation Plan Change IV fluids to normal saline at the rate of 40 mL an hour Switch this patient to nasal cannula Repeat CAT scan of the brain Obtain neurologic consultation Continue IV Zosyn Renal function is improving Urine and blood cultures Surgical consultation was obtained and their input is appreciated Nephrology consultation Stop the PABLO inhibitor, Lasix and Aldactone Stop the beta blockers and the patient was taking metoprolol and outpatient basis Advance diet We'll continue to follow We'll continue to follow, keep the patient ICU for now. We'll continue to follow. Awaiting cultures. If the patient nothing by mouth for now. Tolerat ing BiPAP.
--- NOTE | 2022-11-07 10:10 | P.PN ---
Subjective Patient is seen in follow-up for acute kidney injury. Renal function improving. Currently on nasal cannula. Off vasopressors. Nonoliguric. Vital signs are stable. General: No acute distress. HEENT: Head exam is unremarkable. On nasal cannula. LUNGS: No audible rhonchi or wheezes. HEART: Rate and Rhythm are regular. ABDOMEN: Soft, obese. EXTREMITITES: No edema. Objective - Vital Signs Vital signs: Vital Signs Temp 97.8 F 11/07/22 04:00 Pulse 100 11/07/22 07:00 Resp 10 L 11/07/22 07:00 BP 119/64 11/07/22 07:00 Pulse Ox 97 11/07/22 07:00 FiO2 50 11/07/22 08:30 Intake & Output 11/06/22 11/07/22 11/07/22 18:59 06:59 18:59 Intake Total 1153.504 4484 100 Output Total 1420 1875 200 Balance 250.545 -475 -100 Weight 156.7 kg Intake: IV 400 1200 100 Dextrose 5% in Water 1, 300 000 ml @ 150 mls/hr IV . Q7H40M [facility] with Sodium Bicarb (1 Meq/ml) 150 ml Rx#:[id number] Magnesium Sulfate-D5w Pmx 100 1 gm In Dextrose/Water 1 100ml.bag @ 100 mls/hr IVPB Q1H [facility] Rx#: [id number] Piperacillin-Tazobactam 3 100 .375 gm In Sodium Chloride 0.9% 100 ml @ 25 mls/hr IVPB Q8HR [facility] Rx# :[id number] Sodium Chloride 0.9% 1, 1100 100 000 ml @ 100 mls/hr IV . Q10H [facility] Rx#:[id number] Intake, IV Titration 920.545 100 Amount Norepinephrine 32 mg In 20.545 Sodium Chloride 0.9% 218 ml @ 0.03 MCG/KG/MIN 2. 169 mls/hr IV .Q24H [facility] Rx#:[id number] Sodium Chloride 0.9% 1, 900 100 000 ml @ 100 mls/hr IV . Q10H [facility] Rx#:[id number] Oral 350 100 Output: Urine 1420 1875 200 Other: Voiding Method Indwelling Catheter Indwelling Catheter - Labs CBC & Chem 7: 11/07/22 04:27 11/07/22 04:27 Labs: Abnormal Lab Results - Last 24 Hours (Table) 11/06/22 11/07/22 11/07/22 Range/Units 15:09 04:27 04:27 RBC 3.27 L (4.30-5.90) m/uL Hgb 10.0 L (13.0-17.5) gm/dL Hct 31.4 L (39.0-53.0) % RDW 17.0 H (11.5-15.5) % Plt Count 100 L (150-450) k/uL Lymphocytes # 0.7 L (1.0-4.8) k/uL BUN 68 H (9-20) mg/dL Creatinine 2.10 H (0.66-1.25) mg/dL Glucose 116 H (74-99) mg/dL POC Glucose (mg/dL) 183 H (70-110) mg/dL Microbiology - Last 24 Hours (Table) 11/05/22 13:30 Blood Culture - Preliminary Blood 11/05/22 13:15 Blood Culture - Preliminary Blood Assessment and Plan Plan: Assessment: 1. Acute kidney injury secondary to vasomotor nephropathy secondary to hypotension and diuretics. Creatinine was 4.06 on admission and is 2.1 today. UA fairly benign. No hydronephrosis noted on CAT scan. Baseline creatinine near 1 from September 2022. 2. Metabolic acidosis secondary to acute kidney injury status post bicarbonate drip. 3. Abdominal pain possibly from diverticulosis. 4. Questionable pneumonia on antibiotics. 5. Chronic diastolic CHF. Plan: Hep-Lock IV fluids. Encourage oral intake. Follow-up cultures. Continue to monitor renal function and urine output. Avoid nephrotoxins.
[2022-11-07] MEDS: COLCHICINE 0.6 MG EACH PO SCH ×3 (11:24→23:19)
[2022-11-07] MEDS: allopurinoL 300 MG TAB PO SCH (11:24)
[2022-11-07] MEDS: ASPIRIN 81 MG PO SCH (11:24)
[2022-11-07] MEDS: HYDROcodone/APAP 5-325MG 1 EACH TAB PO PRN ×2 (11:24→23:18)
--- NOTE | 2022-11-07 11:46 | US ---
EXAMINATION TYPE: US carotid duplex BILAT DATE OF EXAM: 11/07/2022 COMPARISON: NONE CLINICAL INDICATION: Male, 52 years old with history of stroke; Stroke TECHNIQUE: Carotid duplex ultrasound examination. Indirect Doppler criteria was utilized. FINDINGS: EXAM MEASUREMENTS: RIGHT: Peak Systolic Velocity (PSV) cm/sec ----- Right CCA: 75.5 ----- Right ICA: 100.3 ----- Right ECA: 113.3 ICA/CCA ratio: 1.3 RIGHT: End Diastole cm/sec ----- Right CCA: 26.0 ----- Right ICA: 32.5 ----- Right ECA: 28.5 LEFT: Peak Systolic Velocity (PSV) cm/sec ----- Left CCA: 96.8 ----- Left ICA: 112.9 ----- Left ECA: 100.0 ICA/CCA ratio: 1.2 LEFT: End Diastole cm/sec ----- Left CCA: 22.5 ----- Left ICA: 53.1 ----- Left ECA: 9.5 VERTEBRALS (direction of flow): Right Vertebral: Antegrade Left Vertebral: Antegrade Rhythm: Normal PUBLIC INFORMATION DIRECTOR NOTES: Mild atherosclerotic Exam technically difficult due to movement and heavy breathing IMPRESSION: Limited study however no definite evidence for hemodynamically significant stenosis. Criteria for Assigning % of Stenosis / Diameter reduction (Estimation based on the indirect measurements of the internal carotid artery velocities (ICA PSV). 1. Normal (no stenosis)=ICA PSV < 125 cm/s: ratio < 2.0: ICA EDV<40 cm/s. 2. Less than 50% stenosis=ICA PSV < 125 cm/s: ratio < 2.0: ICA EDV<40 cm/s. 3. 50 to 69% stenosis=ICA PSV of 125 to 230 cm/s: ration 2.0 ? 4.0: ICA EDV 40-100 cm/s. 4. Greater than 70% stenosis to near occlusion= ICA PSV > 230 cm/s: ratio > 4.0: ICA EDV > 100 cm/s. 5. Near occlusion= ICA PSV velocities may be low or undetectable: variable ratio and ICA EDV. 6. Total occlusion=unable to detect flow.
--- NOTE | 2022-11-07 11:47 | P.CNNES ---
History of Present Illness Consult date: 11/07/22 Requesting physician: Cely He Reason for Consult: stroke per CT head History of Present Illness: This is a 52-year-old gentleman who presented because of abdominal pain. Neurology is consulted for concern for stroke because of abnormal CT head. Some of the history is obtained from the patient's nurse as well as a medical record. It seems that the patient presented because of abdominal pain and it's under in vestigation. In this hospital visit was felt the patient has acute left lobe pneumonia and the patient was on BiPAP and was confused and yesterday according to nurse as a result CT of the head was done. The CT of the head that showed vague asymmetric decreased attenuation posterior left parietal lobe. An area of underlying ischemic insult difficult to exclude. According to the nurses mentation is drastically improved and has no focal deficit. According to patient he denies of any focal weakness or numbness, visual disturbance, difficulty swallowing. He feels he is doing better. Denies any history of stroke in the past. Her hospital stay he was hypoxic and the high 80s which has improved. Some of the workup during his hospital visit consisted of: CT of the head is reported as howed vague asymmetric decreased attenuation posterior left parietal lobe. An area of underlying ischemic insult difficult to exclude. Correlate clinically and consider MRI if felt to be indicated. Patient had acute kidney injury which is trending down. Pressure reviewed the CT of the head and I felt the patient has subacute changes over the left inferior portion of temporal region. No bleed is noted. Has anemia with a platelet count of 100,000 currently. Hemoglobin of 510.0 currently. Review of Systems Review of system: The 12 point system was reviewed and apparent positive and negative per HPI. Past Medical History Past Medical History: No Reported History ( abdominal plate tenderness tomorrow), Heart Failure, COPD, Diabetes Mellitus, Hyperlipidemia, Hypertension Additional Past Medical History / Comment(s): CKD History of Any Multi-Drug Resistant Organisms: None Reported Additional Past Surgical History / Comment(s): stomach ulcers, colonoscopy Past Anesthesia/Blood Transfusion Reactions: No Reported Reaction Past Psychological History: Depression Smoking Status: Current every day smoker Past Alcohol Use History: Occasional Past Drug Use History: None Reported - Past Family History Son(s) Family Medical History: No Reported History Medications and Allergies Home Medications Medication Instructions Recorded Confirmed Type Atorvastatin [Lipitor] 20 mg PO HS 09/15/22 11/05/22 History Cetirizine HCl [Zyrtec] 10 mg PO DAILY 09/15/22 11/05/22 History Enalapril [Vasotec] 10 mg PO DAILY 09/15/22 11/05/22 History Furosemide [Lasix] 80 mg PO BID 09/15/22 11/05/22 History HYDROcodone/APAP 5-325MG [[place] 1 tab PO BID PRN 09/15/22 11/05/22 History 5-325] Montelukast Sodium [Singulair] 10 mg PO DAILY 09/15/22 11/05/22 History Omeprazole [PriLOSEC] 20 mg PO DAILY 09/15/22 11/05/22 History Pregabalin [Lyrica] 300 mg PO BID 09/15/22 11/05/22 History Sertraline [Zoloft] 50 mg PO DAILY 09/15/22 11/05/22 History Sildenafil Citrate 20 mg PO DAILY PRN 09/15/22 11/05/22 History Budesonide-Formot 160-4.5 Mcg 2 puff INHALATION RT-BID #60 each 10/03/22 11/05/22 Rx [Symbicort 160-4.5 Mcg Inhaler] Ipratropium-Albuterol Nebulize 3 ml INHALATION RT-QID #120 each 10/03/22 11/05/22 Rx [Duoneb 0.5 mg-3 mg/3 ml Soln] Latanoprost Ophth [Xalatan 0.005%] 1 drops BOTH EYES HS ml 10/03/22 11/05/22 Rx Metoprolol Succinate (ER) [Toprol 12.5 mg PO DAILY #30 tab 10/03/22 11/05/22 Rx XL] Spironolactone [Aldactone] 25 mg PO DAILY #30 tab 10/03/22 11/05/22 Rx Allergies Allergy/AdvReac Type Severity Reaction Status Date / Time No Known Allergies Allergy Verified 11/05/22 12:16 Physical Examination - Vital Signs Vital Signs: Vital Signs Temp Pulse Resp BP Pulse Ox FiO2 11/07/22 11:00 98 12 112/59 100 11/07/22 10:00 118 H 12 112/59 11/07/22 09:00 105 H 11 L 120/43 97 11/07/22 08:30 50 11/07/22 08:00 98.2 F 106 H 16 132/87 97 11/07/22 07:00 100 10 L 119/64 97 11/07/22 06:00 91 13 112/70 98 11/07/22 05:00 91 10 L 120/96 100 11/07/22 04:35 50 11/07/22 04:00 97.8 F 84 10 L 110/67 100 50 11/07/22 03:00 91 13 102/51 95 50 11/07/22 02:00 85 13 96/50 95 50 11/07/22 01:45 88 10 L 95 11/07/22 01:30 85 13 104/57 95 11/07/22 01:15 89 10 L 95 11/07/22 01:00 91 13 111/57 96 50 11/07/22 00:45 91 13 111/57 96 11/07/22 00:30 90 13 115/58 96 11/07/22 00:15 89 13 115/58 97 11/07/22 00:00 90 12 93/64 97 50 11/06/22 23:50 50 11/06/22 23:45 90 13 93/64 96 11/06/22 23:30 87 13 113/69 98 11/06/22 23:15 90 13 113/69 97 11/06/22 23:00 89 10 L 106/64 97 11/06/22 22:45 93 11 L 106/64 94 L 11/06/22 22:30 95 10 L 116/71 97 11/06/22 22:15 95 18 116/71 98 11/06/22 22:00 88 19 117/68 99 11/06/22 21:45 84 15 117/68 97 11/06/22 21:30 92 14 117/55 94 L 11/06/22 21:15 93 14 117/55 94 L 11/06/22 21:00 93 19 115/66 98 11/06/22 20:48 96 11/06/22 20:45 95 14 115/66 97 11/06/22 20:30 100 16 106/59 11/06/22 20:15 110 H 20 11/06/22 20:00 97.6 F 105 H 15 88/49 96 11/06/22 19:45 92 11 L 113/51 97 11/06/22 19:30 98 12 95/44 97 11/06/22 19:15 90 11 L 109/58 95 11/06/22 19:00 91 16 132/72 96 11/06/22 18:45 92 12 115/58 97 11/06/22 18:30 96 12 100/66 96 11/06/22 18:15 90 12 117/57 96 11/06/22 18:00 91 12 99/50 96 11/06/22 17:45 108 H 34 H 102/67 92 L 11/06/22 17:30 95 8 L 88/58 93 L 11/06/22 17:15 90 9 L 110/62 91 L 11/06/22 17:00 77 9 L 118/64 95 11/06/22 16:45 78 10 L 118/67 94 L 11/06/22 16:30 75 9 L 105/83 95 11/06/22 16:15 81 18 122/64 95 11/06/22 16:00 98.2 F 85 11 L 115/61 95 50 11/06/22 15:45 115/61 11/06/22 15:30 115/61 11/06/22 15:17 0.90 11/06/22 15:15 82 10 L 109/54 90 L 11/06/22 15:00 73 12 104/58 94 L 50 11/06/22 14:45 72 11 L 102/54 94 L 11/06/22 14:30 72 10 L 101/55 95 11/06/22 14:15 74 9 L 99/51 95 11/06/22 14:00 76 10 L 97/50 94 L 11/06/22 13:45 77 10 L 99/50 94 L 11/06/22 13:30 80 10 L 107/66 95 11/06/22 13:15 87 17 111/61 92 L 11/06/22 13:00 79 9 L 115/62 93 L 50 11/06/22 12:45 79 17 113/60 93 L 11/06/22 12:30 81 10 L 107/58 93 L 11/06/22 12:15 79 8 L 109/60 93 L 11/06/22 12:00 98.2 F 80 11 L 101/57 94 L 45 11/06/22 11:50 50 11/06/22 11:45 82 9 L 106/55 94 L Intake and Output 11/06/22 11/07/22 11/07/22 22:59 06:59 14:59 Intake Total 1261.068 350 7239 Output Total 1360 1235 1350 Balance -98.203 -335 130 Intake: IV 300 900 280 Piperacillin-Tazobactam 3 100 100 .375 gm In Sodium Chloride 0.9% 100 ml @ 25 mls/hr IVPB Q8HR [facility] Rx# :[id number] Sodium Chloride 0.9% 1, 300 800 180 000 ml @ 100 mls/hr IV . Q10H [facility] Rx#:[id number] Intake, IV Titration 511.797 Amount Norepinephrine 32 mg In 11.797 Sodium Chloride 0.9% 218 ml @ 0.03 MCG/KG/MIN 2. 169 mls/hr IV .Q24H [facility] Rx#:[id number] Sodium Chloride 0.9% 1, 500 000 ml @ 100 mls/hr IV . Q10H [facility] Rx#:[id number] Oral 450 1200 Output: Urine 1360 1235 1350 Other: Voiding Method Indwelling Catheter Indwelling Catheter Indwelling Catheter Weight 156.7 kg GENERAL: The patient is a morbid obese gentleman, laying in bed and is not in acute distress. NEUROLOGICAL: Higher mental function: The patient is awake, alert, oriented to self, place and time. Patient is following commands. No aphasia and no neglect. Cranial nerves: The pupils are round, equal and reactive to light and accommodation. Visual mendosa are full to confrontation throughout. Extraocular movement is intact no nystagmus is noted. Facial sensation is normal to touch throughout. The facial strength is normal throughout. Hearing is normal bilaterally to hand rub. Tongue is midline and moved [id number] without any difficulty. No dysarthria is noted. Shoulder shrug is normal bilaterally. Motor: The strength is 5 over 5 throughout. Normal tone and bulk. Cerebellum: Normal finger to nose bilaterally. Sensation: Sensation is normal to touch on right but asked not to be touched on the left because of pain.. Reflexes (right/left): Not performed because he refused. Plantars are mute bilaterally. Results - Laboratory Findings CBC and BMP: 11/07/22 04:27 11/07/22 04:27 Abnormal Lab Findings: Abnormal Labs 11/05/22 11/05/22 11/05/22 08:13 08:13 08:13 RBC 3.20 L Hgb 9.8 L Hct 31.0 L RDW 17.2 H Plt Count 112 L Lymphocytes # ABG pH ABG pCO2 ABG pO2 ABG Total CO2 ABG O2 Saturation Chloride 108 H Carbon Dioxide 12 L BUN 97 H Creatinine 4.06 H Glucose 130 H POC Glucose (mg/dL) Lipase 334 H Procalcitonin Urine Protein Trace H Urine Blood Small H Urine Bacteria Rare H Urine Mucus Occasional H 11/05/22 11/05/22 11/06/22 08:13 16:39 04:27 RBC 3.48 L Hgb 10.5 L Hct 33.3 L RDW 17.1 H Plt Count 114 L Lymphocytes # ABG pH ABG pCO2 ABG pO2 ABG Total CO2 ABG O2 Saturation Chloride Carbon Dioxide BUN Creatinine Glucose POC Glucose (mg/dL) 141 H Lipase Procalcitonin 4.08 H Urine Protein Urine Blood Urine Bacteria Urine Mucus 11/06/22 11/06/22 11/06/22 04:27 07:51 15:09 RBC Hgb Hct RDW Plt Count Lymphocytes # ABG pH 7.30 L ABG pCO2 52 H ABG pO2 63 L ABG Total CO2 27 H ABG O2 Saturation 91.2 L Chloride Carbon Dioxide BUN 86 H Creatinine 2.63 H Glucose 134 H POC Glucose (mg/dL) 183 H Lipase Procalcitonin Urine Protein Urine Blood Urine Bacteria Urine Mucus 11/07/22 11/07/22 04:27 04:27 RBC 3.27 L Hgb 10.0 L Hct 31.4 L RDW 17.0 H Plt Count 100 L Lymphocytes # 0.7 L ABG pH ABG pCO2 ABG pO2 ABG Total CO2 ABG O2 Saturation Chloride Carbon Dioxide BUN 68 H Creatinine 2.10 H Glucose 116 H POC Glucose (mg/dL) Lipase Procalcitonin Urine Protein Urine Blood Urine Bacteria Urine Mucus Assessment and Plan Assessment: This is a 52 roll gentleman who presented because of abdominal pain. During his hospital stay he had pneumonia and acute hypoxic hypercapnic respiratory failure requiring BiPAP. Yesterday he had altered mental status and CT of the head was reported as hypoattenuation over the left parietal region. Personally reviewed the CT and I felt was a left temporal/parietal region that seem subacute. Hypoattenuation over the left temporal/parietal seem subacute changes concerning for stroke. No IV TPA since unknown last normal and risk outweigh the benefit. Currently NIH is a 0. Altered mental status due to hypoxic/hypercapnic encephalopathy as well as acute on chronic kidney insufficiency--mentation improved Acute hypoxic/hypercapnic respiratory failure requiring BiPAP Acute left lobe pneumonia Previous history of cellulitis of the lower extremities Acute on chronic anemia Tobacco use. Plan: I ordered a repeat CT of the head for later today. Also ordered MRI the brain without. If MRI is performed before CT then no need for repeat CT. Ordered carotid duplex, repeat limited 2-D echo since the patient had an echo recently. Lipid panel and TSH is ordered. I started the patient on aspirin 81 mg daily and we'll assess about the use of dual antiplatelets but will hold off for now until further images is obtained. Patient is on Lipitor 20 mg daily at bedtime. Every 4 hours neuro checks Cardiac monitoring PT OT is consulted He had a recent hemoglobin A1c last month and it was a 5.7. He was counseled on tobacco cessation Defer the rest of the medical management to the primary and ICU team and other specialists. For DVT prophylaxis patient is on subcu heparin every 8 hours Plan discussed with the patient and his nurse was at bedside. Thank you for the consultation Time with Patient: Greater than 30
--- NOTE | 2022-11-07 13:29 | P.PN ---
Subjective Progress Note Date: 11/07/22 CHIEF COMPLAINT: Abdominal pain HISTORY OF PRESENT ILLNESS: Patient is currently in the ICU. His mentation has shown improvement. He is more awake and alert today. He is off the BiPAP. Abdominal pain appears less. He has been able to eat. Denies any nausea or vomiting. He reports that his pain is worse with coughing. Patient being evaluated by neurology service due to computed tomography scan of brain abnormality. Afebrile. WBC 6.5 creatinine down to 2.1 PHYSICAL EXAM: VITAL SIGNS: Reviewed GENERAL: Well-developed in no acute distress. HEENT: No sclera icterus. Extraocular movements grossly intact. Moist buccal mucosa. Head is atraumatic, normocephalic. Hears conversational speech. No nasal drainage. NECK: Supple without lymphadenopathy. CHEST: Non-labored respirations and equal bilateral excursions. CARDIOVASCULAR: Palpable 2+ radial pulses. ABDOMEN: Soft. Nondistended. Mild epigastric tenderness MUSCULOSKELETAL: No clubbing or cyanosis. NEUROLOGIC: No focal or lateralizing signs. Cranial nerves II through XII grossly intact. PSYCH: Appropriate affect. Alert and oriented to person, place and time. SKIN: Well perfused. Good skin turgor. ASSESSMENT: 1. Left-sided abdominal pain likely secondary to left renal calculus and possible musculoskeletal from muscle strain from coughing 2. Acute kidney injury 3. Possible pneumonia 4. Hypotension 5. Acute hypoxic/hypercapnic respiratory failure 6. Mild metabolic acidosis 7. Diabetes mellitus 8. Heart failure history PLAN: -Continue heart healthy diet -Continue supportive care -Continue pain management Physician Service Promoter Salesperson note has been reviewed by physician. Signing provider agrees with the documented findings, assessment, and plan of care. Objective - Vital Signs Vital signs: Vital Signs Temp 98.2 F 11/07/22 08:00 Pulse 98 11/07/22 11:00 Resp 12 11/07/22 11:00 BP 112/59 11/07/22 11:00 Pulse Ox 100 11/07/22 11:00 FiO2 50 11/07/22 08:30 Intake & Output 11/06/22 11/07/22 11/07/22 18:59 06:59 18:59 Intake Total 5294.369 9845 1480 Output Total 1420 1875 1350 Balance 250.545 -475 130 Weight 156.7 kg Intake: IV 400 1200 280 Dextrose 5% in Water 1, 300 000 ml @ 150 mls/hr IV . Q7H40M [facility] with Sodium Bicarb (1 Meq/ml) 150 ml Rx#:[id number] Magnesium Sulfate-D5w Pmx 100 1 gm In Dextrose/Water 1 100ml.bag @ 100 mls/hr IVPB Q1H [facility] Rx#: [id number] Piperacillin-Tazobactam 3 100 100 .375 gm In Sodium Chloride 0.9% 100 ml @ 25 mls/hr IVPB Q8HR [facility] Rx# :[id number] Sodium Chloride 0.9% 1, 1100 180 000 ml @ 100 mls/hr IV . Q10H [facility] Rx#:[id number] Intake, IV Titration 920.545 100 Amount Norepinephrine 32 mg In 20.545 Sodium Chloride 0.9% 218 ml @ 0.03 MCG/KG/MIN 2. 169 mls/hr IV .Q24H [facility] Rx#:[id number] Sodium Chloride 0.9% 1, 900 100 000 ml @ 100 mls/hr IV . Q10H [facility] Rx#:[id number] Oral 975 583 5634 Output: Urine 1420 1875 1350 Other: Voiding Method Indwelling Catheter Indwelling Catheter Indwelling Catheter - Labs CBC & Chem 7: 11/07/22 04:27 11/07/22 04:27 Labs: Abnormal Lab Results - Last 24 Hours (Table) 11/06/22 11/07/22 11/07/22 Range/Units 15:09 04:27 04:27 RBC 3.27 L (4.30-5.90) m/uL Hgb 10.0 L (13.0-17.5) gm/dL Hct 31.4 L (39.0-53.0) % RDW 17.0 H (11.5-15.5) % Plt Count 100 L (150-450) k/uL Lymphocytes # 0.7 L (1.0-4.8) k/uL BUN 68 H (9-20) mg/dL Creatinine 2.10 H (0.66-1.25) mg/dL Glucose 116 H (74-99) mg/dL POC Glucose (mg/dL) 183 H (70-110) mg/dL Microbiology - Last 24 Hours (Table) 11/05/22 13:30 Blood Culture - Preliminary Blood 11/05/22 13:15 Blood Culture - Preliminary Blood
[2022-11-07 15:39] LABS: Chol/HDL Ratio 2.54 Ratio; LDL Cholesterol,Calculated 43.3 mg/dL (0.0-131.0); VLDL Calculation 17.26 mg/dL (5.00-40.00)
--- NOTE | 2022-11-07 15:40 | CA ---
Transthoracic Echo Report Name: Goran Lombardo Age: 52 Gender: M : 1970 Exam Date: 11/07/2022 11:50 Exam Location: [facility] Ht (in): 72 Wt (lb): 345 Ordering Physician: Maycol Burgos MD Attending/Referring Phys: Junior Bookkeeper Heidy Gama RDCS Procedure CPT: Indications: stroke Cardiac Hx: repeat LIMITED echo for LVF Technical Quality: Good Contrast 1: Total Dose (mL): Contrast 2: Total Dose (mL): MEASUREMENTS (Male / Female) Normal Values FINDINGS Left Ventricle Left ventricular ejection fraction is estimated at 55-60 %. No obvious regional wall motion abnormalities. Right Ventricle Right Atrium Left Atrium Mitral Valve Structurally normal mitral valve. No mitral stenosis, regurgitation or prolapse. Aortic Valve Trileaflet aortic valve. No aortic valve stenosis or regurgitation. Tricuspid Valve Structurally normal tricuspid valve. No tricuspid regurgitation. Pulmonic Valve Structurally normal pulmonic valve. Trace pulmonic regurgitation. Pericardium No pericardial effusion. Normal pericardium. Aorta CONCLUSIONS Normal left ventricular size and systolic function Previewed by: Dr. Jay Adam MD (Electronically Signed) Final Date: 07 November 2022 15:39
--- NOTE | 2022-11-07 16:48 | CT ---
EXAMINATION TYPE: CT brain wo con CT DLP: 1231.4 mGycm, Automated exposure control for dose reduction was used. DATE OF EXAM: 11/07/2022 3:50 PM COMPARISON: 11/06/2022. CLINICAL INDICATION:Male, 52 years old with history of hypoattenuation on left parietal/temporal ct y est, Hyopattenuation on LT parietal/temporal CT yesterday TECHNIQUE: Brain: Axial CT images of the brain were obtained with coronal and sagittal reformats created and rev iewed. Contrast used: None. Oral contrast used: None. FINDINGS: Brain: Extra-axial spaces: No abnormal extra-axial fluid collections. Ventricular system: Within normal limits Cerebral parenchyma: N area on prior is most compatible with beam hardening artifact and Neck exam. O acute intraparenchymal hemorrhage or mass effect. The mooney-white junction is well differentiated. Cerebellum: Unremarkable. Mass effect: No evidence of midline shift. Intracranial vasculature: unremarkable Soft tissues: Normal. Calvarium/osseous structures: No depressed skull fracture. Paranasal sinuses and mastoid air cells: Mild scattered paranasal sinus disease. Visualized orbits: Orbital contents are intact. IMPRESSION: No acute intracranial process. Finding on prior exam is felt to relate to beam hardening artifact on prior.
[2022-11-07] MEDS: NOREPINEPHRINE 8 MG in SODIUM CHLORIDE 0.9% 250 ML IV SCH (17:21)
[2022-11-07] MEDS: LATANOPROST 0.005% OPHTH DROPS 2.5 ML BTL BOTH EYES SCH (20:20)
[2022-11-07] MEDS: ATORVASTATIN 20 MG TAB PO SCH (20:20)
[2022-11-08] MEDS: HYDROmorphone 0.5 MG/0.5 ML SYRINGE IVP PRN ×4 (03:46→23:49)
--- NOTE | 2022-11-08 04:04 | HP ---
HISTORY AND PHYSICAL CHIEF COMPLAINT: Weakness, sepsis, shortness of breath, acute kidney injury with left upper quadrant pain. HISTORY OF PRESENT ILLNESS: This is another recent admission for this 52-year-old white male. He was in the hospital roughly a month ago with generalized anasarca and renal failure as well as a necrotic ulcer in the right cobb. Since then, he has been doing well. The swelling has been going down and the lesion on the cobb is healed. He has been doing fairly well, but then came back in to the emergency room complaining of left upper quadrant pain and shortness of breath. In the ER, he was assessed and it was thought that he may have a left lower lobe pneumonitis that might be causing his left upper quadrant pain. He has had no nausea, vomiting, hematemesis, fever, chills, melena, hematochezia, etc. REVIEW OF SYSTEMS: Otherwise unchanged and unremarkable. He did say that he has had pain in the abdomen for 3 days and that had 1 or 2 episodes of diarrhea and was nauseated. He also was complaining of extreme weakness in the legs. He has had no dysuria, hematuria, flank pain, etc. In the emergency room, he had lipase of 334, BUN of 97 with a creatinine of 4.06. PHYSICAL EXAMINATION: VITAL SIGNS: Blood pressure was 122/64 with a pulse of 86 and regular, respirations were 35. He was afebrile. GENERAL: He appeared to be obese and short of breath. SKIN: Color is normal. HEENT: Head, ears, eyes, nose, mouth, and throat were normal. NECK: Veins are not distended. CHEST: Demonstrated slightly decreased breath sounds. CARDIAC: Demonstrated sinus tachycardia with no murmurs or extra sounds. ABDOMEN: Very protuberant. He was tender in the left upper quadrant. Due to his obesity, it was difficult to assess organomegaly. EXTREMITIES: Good, but there is very little edema and the ulcer in the right cobb had healed. NEUROLOGIC: Intact. DIAGNOSES: He is admitted to the hospital with diagnoses: 1. Left upper quadrant pain. 2. Possible left lower lobe pneumonitis. 3. History of generalized anasarca. 4. Elevated lipase. 5. Renal failure. PLAN: 1. Bed rest. 2. IV fluids. 3. CT of the abdomen. 4. Consider treatment for pneumonitis. 5. Look for other possibilities of left upper quadrant pain. MMODL / IJN: [id number] /
[2022-11-08 04:10] LABS: Anisocytosis Slight; Basophils % (A) 0 %; Eosinophils # (A) 0.1 k/uL (0-0.7); Eosinophils % (A) 2 %; HCT 29.4 % (39.0-53.0); HGB 9.5 gm/dL (13.0-17.5); Hypochromasia Slight; Lymphocytes % (A) 20 %; MCH 30.6 pg (25.0-35.0); MCHC 32.3 g/dL (31.0-37.0); MCV 94.8 fL (80.0-100.0); Mean Platelet Volume 11.2; Monocytes # (A) 0.4 k/uL (0-1.0); Monocytes % (A) 7 %; Neutrophils # (A) 3.5 k/uL (1.3-7.7); Neutrophils % (A) 70 %; RBC 3.11 m/uL (4.30-5.90); RDW 17.3 % (11.5-15.5)
--- NOTE | 2022-11-08 04:10 | PN ---
PROGRESS NOTE CHIEF COMPLAINT: Left upper quadrant pain and sepsis. HISTORY OF PRESENT ILLNESS: This gentleman is on BiPAP. He is still having some discomfort. The report now is that this may be related to a kidney stone on the left side. PHYSICAL EXAMINATION: VITAL SIGNS: Normal. CHEST: Clear on BiPAP. CARDIAC: Normal. ABDOMEN: Protuberant, soft. IMPRESSION: 1. Left upper quadrant pain. 2. Possible left lower lobe pneumonitis. 3. Renal failure. PLAN: Continue with ICU management and monitoring of his left upper quadrant pain and continue to workup more fully his renal failure, which may be largely prerenal. MMODL / IJN: [id number] /
[2022-11-08 04:13] LABS: Platelet Count 99 k/uL (150-450)
[2022-11-08 04:33] LABS: African American GFR (CKD) 65 (>60 ml/min/1.73 sqM); Anion Gap 6 mmol/L; Blood Urea Nitrogen 40 mg/dL (9-20); Calcium 9.3 mg/dL (8.4-10.2); Carbon Dioxide 28 mmol/L (22-30); Chloride 101 mmol/L (98-107); Glucose 104 mg/dL (74-99); Magnesium 1.7 mg/dL (1.6-2.3); Non-African American GFR(CKD) 56 (>60 ml/min/1.73 sqM); Potassium 4.8 mmol/L (3.5-5.1); Sodium 135 mmol/L (137-145); Uric Acid 5.7 mg/dL (3.5-8.5)
[2022-11-08] MEDS: COLCHICINE 0.6 MG EACH PO SCH ×2 (05:37→11:06)
[2022-11-08 06:48] LABS: Glucose,Whole Blood 139 mg/dL (70-110)
--- NOTE | 2022-11-08 07:28 | XR ---
EXAMINATION TYPE: XR chest 1V portable DATE OF EXAM: 11/08/2022 HISTORY: Shortness of breath. COMPARISON: 11/07/2022 TECHNIQUE: Single view of the chest is submitted. FINDINGS: Demonstrated are scattered senescent parenchymal change. Persistent reticulonodular infiltrate right medial lung base. Opacity left lower lobe may reflect add itional infiltrate or atelectasis. The heart is stable. Hilar and mediastinal structures are within normal limits. Degenerative changes are seen of the dorsal spine. IMPRESSION: 1. Persistent reticulonodular infiltrate right medial lung base. Opacity left lower lobe may reflect additional infiltrate or atelectasis.
[2022-11-08] MEDS: HEPARIN SODIUM,PORCINE/PF 5,000 UNIT/0.5 ML SYRINGE SQ SCH ×3 (08:01→23:49)
[2022-11-08] MEDS: HYDROcodone/APAP 5-325MG 1 EACH TAB PO PRN (08:01)
[2022-11-08] MEDS: PIPERACILLIN-TAZOBACTAM 3.375 GM in SODIUM CHLORIDE 0.9% 100 ML IVPB SCH ×3 (08:02→23:49)
--- NOTE | 2022-11-08 09:42 | P.PN ---
Subjective Progress Note Date: 11/08/22 52-year-old male patient, and 40 sodium, came into the hospital because of abdominal pain. The pain isn't essentially in the left upper quadrant area. No nausea. No emesis. No witnessed diarrhea although there may be some history of diarrhea. The patient is a poor historian. He is obese. He was afebrile and he was hypotensive in the emergency. He was given IV fluids and following that he was given a triple-lumen catheter and he was started on norepinephrine at 0.03 mcg/kg/m for blood pressure control. WBC count of 9.9 with a hemoglobin of 9.8 and a platelet count of 112. He has chronic kidney disease and he had an acute on top of chronic kidney failure with a BUN of 97 and a creatinine of 4.06. He had a component of anion gap metabolic acidosis with a bicarb of 12. Sodium is at 138. Glucose at 1:30. Amylase level was 36, lipase was 334. His UA was essentially negative. Patient was started on bicarb infusion and the patient was transferred to the intensive care unit for further support. He was started on a combination of Rocephin and Zithromax as the patient was found to h ave a limited lower lobe pulmonary infiltrates on the left suspicious of a pneumonia based on the CAT scan of the abdomen. His CAT scan showed if patchy airspace disease in the left lung base. There was hepatomegaly. Mild generalized anasarca and placed on 3 with. Borderline enlarged hepatic and portal caval lymph nodes were seen largest being 1.3 cm size. There was a left colonic diverticulosis without diverticulitis and a 1.2 cm nonobstructive left renal Disease was also seen. Note that the patient does not have any hematuria. Is morbidly obese with a BMI of 46. LFTs are within normal limits. On today's evaluation of 11/06/2022, the patient is still experiencing some pain in the left upper quadrant. Repeat chest x-ray from today shows limited atelectasis/infiltrate in the left lung base. The patient was on oxygen at 2 L. However, he became more lethargic and obtunded. At that point, blood gas was done that showed mild respiratory acidosis with a pH of 7.3 and a pCO2 52 and pO2 of 63 and this was done on 2 L of O2 nasal cannula. Based on that, the patient was placed on a BiPAP at a pressure of 12/5 cm of water with an FiO2 of 50%. He generating a tidal of 700 with a minute ventilation of 9-10 L. No major airspace disease on his chest x-ray. Meanwhile, the patient was assessed. IV fluids. He was given a bicarb infusion. Serum bicarb is improved and is currently up to 22. BUN is at 86 which is improved and the creatinine is down to 2.6. The patient has no significant leukocytosis. The white cell count of 7 with a hemoglobin of 10.5 and a platelet count of 114. UA has been negative. The patient may also benefit from a surgical consultation. CAT scan of the abdomen was done yesterday and it showed diverticulosis without diverticulitis. He also had a 1.2 cm nonobstructive calculus in the left lower lobe of the kidney, no hydronephrosis. The patient was offered a combination of Rocephin and Zithromax. I'm going to switch him to IV Zosyn for a better intra-abdominal coverage. 11/07/2022, I'm seeing the patient for a follow-up. Is much more alert and awake compared to yesterday. Communicating. He seems to be appropriate. Overnight, he was kept on a BiPAP at pressures of 12/5 cm of water and this morning he was placed on nasal cannula at 5 L. We're going to monitor his oxygenation. There is possibility of a left lower lobe pneumonia and the patient is currently on IV Zosyn. Gen. surgical consultation was obtained regarding his abdominal pain. His abdominal pain is on and off. He states it is worse with coughing. Nevertheless, his abdominal exam is essentially benign. There was concern of his underlying mentation. A CAT scan of the brain was done and showed some hypoattenuation of the left parietal area. No focal sanjay rological deficits and I'm going to consult neurology in that regard for a further evaluation advice regarding those abnormalities. Meanwhile, the patient is hemodynamically stable. He is on IV fluids with normal saline which is running at 100 mL an hour. No chest pain. Limited cough and congestion and wheeze. On today's blood work, there is improvement in the patient's renal function. Creatinine is down to 2.1 with a BUN of 68 and a sodium is at 140 with a potassium level of 5.1. The bili was noted 6.5 with a hemoglobin of 10 and a platelet count of 100. A repeat chest x-ray was done today and it showed atelectatic changes/infiltrate in left lung base. Findings are essentially unch anged. Blood cultures are negative. The patient's pro-calcitonin level was 4.08. His acute kidney injury is improving and the patient is also being seen by nephrology. He is drinking and I'm going to go ahead and His IV Fluids. He Was on a Combination of Diuretics Including Lasix and Aldactone and He Was Also Taken Pablo Inhibitors Which Are Old Discontinued. 11/08/2022, the patient is awake and alert and sitting up on a chair. Abdominal pain is subsided and the patient is currently on room air oxygen. His chest x- ray from today is showing some infiltration in the lung bases/atelectasis. Blood work from today shows a white cell count of 5 hemoglobin 9.5 and a platelet count of 99. BUN is at 40 with a creatinine of 1.4 and his sodium levels of 135. The patient is calm and comfortable. A repeat CAT scan was done yesterday afternoon upon the recommendations of neurology and it showed no evidence of any acute abnormalities and the previously described abnormalities were essentially artifactual. The echocardiogram showed a preserved LV function and this was a limited echocardiogram. The patient is hemodynamically stable at this point. The patient has been in negative fluid balance of 1.8 L over the past 24 hours. Remains on IV Zosyn. Remains on Symbicort. Diuretics are still on hold. Objective - Vital Signs Vital signs: Vital Signs Temp 98.4 F 11/08/22 08:00 Pulse 104 H 11/08/22 08:00 Resp 12 11/08/22 08:00 BP 133/72 11/08/22 08:00 Pulse Ox 97 11/08/22 08:00 FiO2 50 11/08/22 00:39 Intake & Output 11/07/22 11/08/22 11/08/22 18:59 06:59 18:59 Intake Total 2140 850 400 Output Total 2525 2300 425 Balance -385 -1450 -25 Weight 150.4 kg Intake: IV 540 200 160 Invasive Line 1 10 Invasive Line 2 30 Invasive Line 3 10 Piperacillin-Tazobactam 3 200 100 .375 gm In Sodium Chloride 0.9% 100 ml @ 25 mls/hr IVPB Q8HR [facility] Rx# :[id number] Sodium Chloride 0.9% 1, 340 200 10 000 ml @ 100 mls/hr IV . Q10H [facility] Rx#:[id number] Oral 1600 650 240 Output: Urine 2525 2300 425 Other: Voiding Method Indwelling Catheter Indwelling Catheter - Exam obese, comfortable the patient is comfortable in the breathing is nonlabored and the patient is awake and alert and communicating on room air oxygen. Head exam was generally normal. There was no scleral icterus or corneal arcus. Mucous membranes were moist. Neck was supple and without jugular venous distension, thyromegaly, or carotid bruits. Carotids were easily palpable bilaterally. There was no adenopathy. Lungs sounds are diminished bilaterally and the patient has few crackles in lung bases Cardiac exam revealed the PMI to be normally situated and sized. The rhythm was regular and no extrasystoles were noted during several minutes of auscultation. The first and second heart sounds were normal and physiologic splitting of the second heart sound was noted. There were no murmurs, rubs, clicks, or gallops. Abdomen distended and the left upper quadrant area. No rebound tenderness or guarding. Bowel sounds are hypoactive at the present Examination of the extremities revealed easily palpable radial, femoral and pedal pulses. There was no cyanosis, clubbing or edema. Examination of the skin revealed no evidence of significant rashes, suspicious appearing nevi or other concerning lesions. Neurologically awake and alert and communicating. Seems to be appropriate on today's evaluation. - Labs CBC & Chem 7: 11/08/22 03:52 11/08/22 03:52 Labs: Abnormal Lab Results - Last 24 Hours (Table) 11/07/22 11/08/22 11/08/22 Range/Units 04:27 03:52 03:52 RBC 3.11 L (4.30-5.90) m/uL Hgb 9.5 L (13.0-17.5) gm/dL Hct 29.4 L (39.0-53.0) % RDW 17.3 H (11.5-15.5) % Plt Count 99 L (150-450) k/uL Sodium 135 L (137-145) mmol/L BUN 40 H (9-20) mg/dL Creatinine 1.44 H (0.66-1.25) mg/dL Glucose 104 H (74-99) mg/dL POC Glucose (mg/dL) (70-110) mg/dL HDL Cholesterol 39.40 L (40.00-60.00) mg/dL 11/08/22 Range/Units 06:47 RBC (4.30-5.90) m/uL Hgb (13.0-17.5) gm/dL Hct (39.0-53.0) % RDW (11.5-15.5) % Plt Count (150-450) k/uL Sodium (137-145) mmol/L BUN (9-20) mg/dL Creatinine (0.66-1.25) mg/dL Glucose (74-99) mg/dL POC Glucose (mg/dL) 139 H (70-110) mg/dL HDL Cholesterol (40.00-60.00) mg/dL Microbiology - Last 24 Hours (Table) 11/05/22 13:30 Blood Culture - Preliminary Blood 11/05/22 13:15 Blood Culture - Preliminary Blood Assessment and Plan Plan: Abdominal pain under investigation. Pain is essentially left lower quadrant/left upper quadrant area. No evidence of any pyelonephritis. No evidence of any diverticulitis. The patient has diverticulosis. Patient was also found to have a left lower lobe pulmonary infiltrates consistent with pneumonia. It I'm not absolutely convinced that the pneumonia is causing the left upper quadrant pain. There is some limited infiltration the left lung base. I'm a bit more concerned of an intra-abdominal pathology. CAT scan of the abdomen was benign. The patient will be covered with IV Zosyn. The general surgical consultation was obtained. Abdominal exam remains benign. Pain is subsided although is having some on-and-off pain especially with coughing. The patient has subsided and the patient is currently not complaining of any pain. Acute left lower lobe pneumonia/consolidation, chest x-ray findings are unchanged and the patient is currently on IV Zosyn Acute hypoxic respiratory failure, recovered and the patient is currently on room air oxygen Elevated pro-calcitonin level, last level was at 4.08 and a repeat level needs to be obtained Hypotension, rule out underlying sepsis, recovered and the patient is currently off pressors on KVO fluids Acute hypoxic /hypercapnic respiratory failure and the patient is currently on room air oxygen this morning Acute kidney injury on top of chronic kidney disease, no signs of any fluid overload at this point in time, improving and the patient's creatinine is down 1.4 Anion gap metabolic acidosis , recovered chronic diastolic heart failure Previous history of cellulitis of the lower extremities, inactive for now Anemia of chronic disease Altered mentation, improved and the patient's mentation is more appropriate. Hypoattenuation in the left parietal area. May need another repeat CAT scan in neurologic consultation Plan Change IV fluids to KVO Room air oxygen and nasal cannula needed Repeat CAT scan of the brain was done yesterday and the findings were artifactual Obtain neurologic consultation and their input is appreciated Continue IV Zosyn Renal function is improving, creatinine is down to 1.4 Urine and blood cultures , negative Surgical consultation was obtained and their input is appreciated Nephrology consultation Stop the PABLO inhibitor, Lasix and Aldactone, keep diuretics on hold for today May restart beta blockers, metoprolol 12.5 mg twice a day Advance diet We'll continue to follow May transfer this patient out to medical surgical floor.
[2022-11-08] MEDS: SYMBICORT 160-4.5 MCG INHALER INHALATION SCH ×2 (09:57→21:05)
[2022-11-08] MEDS: PREGABALIN 100 MG CAP PO SCH ×2 (10:13→20:21)
[2022-11-08] MEDS: allopurinoL 300 MG TAB PO SCH (10:14)
[2022-11-08] MEDS: ASPIRIN 81 MG PO SCH (10:14)
[2022-11-08] MEDS: METOPROLOL TARTRATE 12.5 MG TAB PO SCH ×2 (10:15→20:21)
[2022-11-08 11:11] LABS: Glucose,Whole Blood 112 mg/dL (70-110)
--- NOTE | 2022-11-08 12:34 | P.PN ---
Subjective Progress Note Date: 11/08/22 The patient is seen at bedside and he feels drastically better. His nurse agrees and feels he continues to be doing better. Denies of any focal weakness, numbness, visual disturbance. Objective - Vital Signs Vital signs: Vital Signs Temp 98.4 F 11/08/22 08:00 Pulse 101 H 11/08/22 10:00 Resp 14 11/08/22 10:00 BP 117/71 11/08/22 10:00 Pulse Ox 95 11/08/22 10:00 FiO2 50 11/08/22 00:39 Intake & Output 11/07/22 11/08/22 11/08/22 18:59 06:59 18:59 Intake Total 2140 850 400 Output Total 2525 2300 625 Balance -385 -1450 -225 Weight 150.4 kg Intake: IV 540 200 160 Invasive Line 1 10 Invasive Line 2 30 Invasive Line 3 10 Piperacillin-Tazobactam 3 200 100 .375 gm In Sodium Chloride 0.9% 100 ml @ 25 mls/hr IVPB Q8HR [facility] Rx# :[id number] Sodium Chloride 0.9% 1, 340 200 10 000 ml @ 100 mls/hr IV . Q10H [facility] Rx#:[id number] Oral 1600 650 240 Output: Urine 2525 2300 625 Other: Voiding Method Indwelling Catheter Indwelling Catheter Indwelling Catheter - Exam GENERAL: The patient is a morbid obese gentleman,sitting in a chair and is not in acute distress. NEUROLOGICAL: Higher mental function: The patient is awake, alert, oriented to self, place and time. Patient is following commands. No aphasia and no neglect. Cranial nerves: The pupils are round, equal and reactive to light and accommodation. Visual mendosa are full to confrontation throughout. Extraocular movement is intact no nystagmus is noted. Facial sensation is normal to touch throughout. The facial strength is normal throughout. Hearing is normal bilaterally to hand rub. Tongue is midline and moved [id number] without any difficulty. No dysarthria is noted. Shoulder shrug is normal bilaterally. Motor: The strength is 5 over 5 throughout. Normal tone and bulk. Cerebellum: Normal finger to nose bilaterally. Sensation: Sensation is normal to touch on right but asked not to be touched on the left because of pain.. Reflexes (right/left): Not performed because he refused. Plantars are mute bilaterally. Some of the workup during his hospital visit consisted of: TSH is 0.584 Lipid panels triglyceride 86, cholesterol 100, LDLs [address] of the head is reported as howed vague asymmetric decreased attenuation posterior left parietal lobe. An area of underlying ischemic insult difficult to exclude. Correlate clinically and consider MRI if felt to be indicated. Patient had acute kidney injury which is trending down. Pressure reviewed the CT of the head and I felt the patient has subacute changes over the left inferior portion of temporal region. No bleed is noted. Has anemia with a platelet count of 100,000 currently. Hemoglobin of 510.[address] of the head is reported as no acute intracranial processes. Finding on prior exam is felt to relate to beam hardening artifact on prior. I personally reviewed the CT and I agree there is no acute or subacute ischemia. There is no interictal hemorrhage or mass effect. Limited 2-D echo was reported as normal left ventricular size and systolic function. Carotid duplex is reported as limited study however no definite evidence for hemodynamically significant stenosis per - Labs CBC & Chem 7: 11/08/22 03:52 11/08/22 03:52 Labs: Abnormal Lab Results - Last 24 Hours (Table) 11/07/22 11/08/22 11/08/22 Range/Units 04:27 03:52 03:52 RBC 3.11 L (4.30-5.90) m/uL Hgb 9.5 L (13.0-17.5) gm/dL Hct 29.4 L (39.0-53.0) % RDW 17.3 H (11.5-15.5) % Plt Count 99 L (150-450) k/uL Sodium 135 L (137-145) mmol/L BUN 40 H (9-20) mg/dL Creatinine 1.44 H (0.66-1.25) mg/dL Glucose 104 H (74-99) mg/dL POC Glucose (mg/dL) (70-110) mg/dL HDL Cholesterol 39.40 L (40.00-60.00) mg/dL 11/08/22 11/08/22 Range/Units 06:47 11:09 RBC (4.30-5.90) m/uL Hgb (13.0-17.5) gm/dL Hct (39.0-53.0) % RDW (11.5-15.5) % Plt Count (150-450) k/uL Sodium (137-145) mmol/L BUN (9-20) mg/dL Creatinine (0.66-1.25) mg/dL Glucose (74-99) mg/dL POC Glucose (mg/dL) 139 H 112 H (70-110) mg/dL HDL Cholesterol (40.00-60.00) mg/dL Microbiology - Last 24 Hours (Table) 11/05/22 13:30 Blood Culture - Preliminary Blood 11/05/22 13:15 Blood Culture - Preliminary Blood Assessment and Plan Assessment: This is a 52 roll gentleman who presented because of abdominal pain. During his hospital stay he had pneumonia and acute hypoxic hypercapnic respiratory failure requiring BiPAP. Yesterday he had altered mental status and CT of the head was reported as hypoattenuation over the left parietal region. Personally reviewed the CT and I felt was a left temporal/parietal region that seem subacute. Hypoattenuation over the left temporal/parietal on initial CT head is due to artifcact and not seen on repeat CT head. No focal deficits. Altered mental status due to hypoxic/hypercapnic encephalopathy as well as acute on chronic kidney insufficiency--mentation improved Acute hypoxic/hypercapnic respiratory failure requiring BiPAP Acute left lobe pneumonia Previous history of cellulitis of the lower extremities Acute on chronic anemia Tobacco use. Plan: I stopped ASA since no evidence of stroke on CT head and no focal deficits. If patient does have any focal deficits then can repeat CT head and consider antiplatelets use. Cannot obtain MRI Brain since was notified because of his body habitus and cannot fit in our MRI. Patient is on Lipitor 20 mg daily at bedtime. Every 4 hours neuro checks Cardiac monitoring PT OT is consulted He had a recent hemoglobin A1c last month and it was a 5.7. He was counseled on tobacco cessation Defer the rest of the medical management to the primary and ICU team and other specialists. For DVT prophylaxis patient is on subcu heparin every 8 hours Plan discussed with the patient and his nurse was at bedside. There is no further neurological work-up. Please notify neurology team if any further concerns. Time with Patient: Less than 30
--- NOTE | 2022-11-08 14:39 | P.PN ---
Subjective Progress Note Date: 11/08/22 Follow-up for acute kidney injury, urine output of 4825 ML the last 24 hours. Objective - Vital Signs Vital signs: Vital Signs Temp 98.4 F 11/08/22 08:00 Pulse 101 H 11/08/22 10:00 Resp 14 11/08/22 10:00 BP 117/71 11/08/22 10:00 Pulse Ox 95 11/08/22 10:00 FiO2 50 11/08/22 00:39 Intake & Output 11/07/22 11/08/22 11/08/22 18:59 06:59 18:59 Intake Total 2140 850 400 Output Total 2525 2300 625 Balance -385 -1450 -225 Weight 150.4 kg Intake: IV 540 200 160 Invasive Line 1 10 Invasive Line 2 30 Invasive Line 3 10 Piperacillin-Tazobactam 3 200 100 .375 gm In Sodium Chloride 0.9% 100 ml @ 25 mls/hr IVPB Q8HR [facility] Rx# :[id number] Sodium Chloride 0.9% 1, 340 200 10 000 ml @ 100 mls/hr IV . Q10H [facility] Rx#:[id number] Oral 1600 650 240 Output: Urine 2525 2300 625 Other: Voiding Method Indwelling Catheter Indwelling Catheter Indwelling Catheter - Exam No acute distress S1-S2 heard Decreased breath sounds Abdomen soft, distended Edema - Labs CBC & Chem 7: 11/08/22 03:52 11/08/22 03:52 Labs: Abnormal Lab Results - Last 24 Hours (Table) 11/07/22 11/08/22 11/08/22 Range/Units 04:27 03:52 03:52 RBC 3.11 L (4.30-5.90) m/uL Hgb 9.5 L (13.0-17.5) gm/dL Hct 29.4 L (39.0-53.0) % RDW 17.3 H (11.5-15.5) % Plt Count 99 L (150-450) k/uL Sodium 135 L (137-145) mmol/L BUN 40 H (9-20) mg/dL Creatinine 1.44 H (0.66-1.25) mg/dL Glucose 104 H (74-99) mg/dL POC Glucose (mg/dL) (70-110) mg/dL HDL Cholesterol 39.40 L (40.00-60.00) mg/dL 11/08/22 11/08/22 Range/Units 06:47 11:09 RBC (4.30-5.90) m/uL Hgb (13.0-17.5) gm/dL Hct (39.0-53.0) % RDW (11.5-15.5) % Plt Count (150-450) k/uL Sodium (137-145) mmol/L BUN (9-20) mg/dL Creatinine (0.66-1.25) mg/dL Glucose (74-99) mg/dL POC Glucose (mg/dL) 139 H 112 H (70-110) mg/dL HDL Cholesterol (40.00-60.00) mg/dL Microbiology - Last 24 Hours (Table) 11/05/22 13:30 Blood Culture - Preliminary Blood 11/05/22 13:15 Blood Culture - Preliminary Blood Assessment and Plan Assessment: #1 nonoliguric acute kidney injury secondary to hemodynamic ATN. -Baseline creatinine 1.0 MG per DL. -Admission creatinine 4.06 MG per DL. -Urine analysis Centre. #2 diastolic CHF #3 pneumonia on antibiotics #4 metabolic acidosis secondary to acute kidney injury. #5 anemia multifactorial Plan: #1 renal function improving. #2 hemodynamically stable. Monitor. #3 avoid nephrotoxic agents and hypotensive episodes. #4 daily labs
--- NOTE | 2022-11-08 15:31 | P.PN ---
Subjective Progress Note Date: 11/08/22 Patient denies abdominal pain today. Tolerated regular diet. Otherwise clinically improving. No acute surgical intervention needed. Objective - Vital Signs Vital signs: Vital Signs Temp 98.4 F 11/08/22 08:00 Pulse 101 H 11/08/22 10:00 Resp 14 11/08/22 10:00 BP 117/71 11/08/22 10:00 Pulse Ox 95 11/08/22 10:00 FiO2 50 11/08/22 00:39 Intake & Output 11/07/22 11/08/22 11/08/22 18:59 06:59 18:59 Intake Total 2140 850 400 Output Total 2525 2300 625 Balance -385 -1450 -225 Weight 150.4 kg Intake: IV 540 200 160 Invasive Line 1 10 Invasive Line 2 30 Invasive Line 3 10 Piperacillin-Tazobactam 3 200 100 .375 gm In Sodium Chloride 0.9% 100 ml @ 25 mls/hr IVPB Q8HR [facility] Rx# :[id number] Sodium Chloride 0.9% 1, 340 200 10 000 ml @ 100 mls/hr IV . Q10H [facility] Rx#:[id number] Oral 1600 650 240 Output: Urine 2525 2300 625 Other: Voiding Method Indwelling Catheter Indwelling Catheter Indwelling Catheter - Labs CBC & Chem 7: 11/08/22 03:52 11/08/22 03:52 Labs: Abnormal Lab Results - Last 24 Hours (Table) 11/07/22 11/08/22 11/08/22 Range/Units 04:27 03:52 03:52 RBC 3.11 L (4.30-5.90) m/uL Hgb 9.5 L (13.0-17.5) gm/dL Hct 29.4 L (39.0-53.0) % RDW 17.3 H (11.5-15.5) % Plt Count 99 L (150-450) k/uL Sodium 135 L (137-145) mmol/L BUN 40 H (9-20) mg/dL Creatinine 1.44 H (0.66-1.25) mg/dL Glucose 104 H (74-99) mg/dL POC Glucose (mg/dL) (70-110) mg/dL HDL Cholesterol 39.40 L (40.00-60.00) mg/dL 11/08/22 11/08/22 Range/Units 06:47 11:09 RBC (4.30-5.90) m/uL Hgb (13.0-17.5) gm/dL Hct (39.0-53.0) % RDW (11.5-15.5) % Plt Count (150-450) k/uL Sodium (137-145) mmol/L BUN (9-20) mg/dL Creatinine (0.66-1.25) mg/dL Glucose (74-99) mg/dL POC Glucose (mg/dL) 139 H 112 H (70-110) mg/dL HDL Cholesterol (40.00-60.00) mg/dL Microbiology - Last 24 Hours (Table) 11/05/22 13:30 Blood Culture - Preliminary Blood 11/05/22 13:15 Blood Culture - Preliminary Blood
[2022-11-08] MEDS: ALBUTEROL NEBULIZED 2.5 MG/3 ML INHALATION SCH ×2 (15:48→21:04)
[2022-11-08] MEDS: ATORVASTATIN 20 MG TAB PO SCH (20:21)
[2022-11-08] MEDS: NYSTATIN 100,000 UNIT/GM POWD 15 GM TOPICAL SCH (20:22)
[2022-11-08] MEDS: LATANOPROST 0.005% OPHTH DROPS 2.5 ML BTL BOTH EYES SCH (20:22)
[2022-11-08 23:14] LABS: Glucose,Whole Blood 152 mg/dL (70-110)
[2022-11-09] MEDS: HYDROmorphone 0.5 MG/0.5 ML SYRINGE IVP PRN ×4 (06:01→23:37)
--- NOTE | 2022-11-09 07:28 | XR ---
EXAMINATION TYPE: XR chest 1V portable DATE OF EXAM: 11/09/2022 HISTORY: Shortness of breath. COMPARISON: 11/08/2022 TECHNIQUE: Single view of the chest is submitted. FINDINGS: Demonstrated are scattered senescent parenchymal change. Reticulonodular infiltrates persist although appear to be improving. Lower lobe atelectasis. The heart is stable. Hilar and mediastinal structures are within normal limits. Degenerative changes are seen of the dorsal spine. IMPRESSION: 1. Reticulonodular infiltrates persist although appear to be improving. Lower lobe atelectasis.
[2022-11-09 08:19] LABS: Anisocytosis Slight; Basophils % (A) 1 %; Eosinophils # (A) 0.1 k/uL (0-0.7); Eosinophils % (A) 2 %; HCT 33.2 % (39.0-53.0); HGB 10.2 gm/dL (13.0-17.5); Hypochromasia Slight; Lymphocytes # (A) 1.1 k/uL (1.0-4.8); Lymphocytes % (A) 22 %; MCH 29.8 pg (25.0-35.0); MCHC 30.9 g/dL (31.0-37.0); MCV 96.6 fL (80.0-100.0); Macrocytosis Slight; Mean Platelet Volume 10.2; Monocytes # (A) 0.3 k/uL (0-1.0); Monocytes % (A) 7 %; Neutrophils # (A) 3.3 k/uL (1.3-7.7); Neutrophils % (A) 67 %; Platelet Count 122 k/uL (150-450); RBC 3.43 m/uL (4.30-5.90); RDW 17.1 % (11.5-15.5)
[2022-11-09] MEDS: SYMBICORT 160-4.5 MCG INHALER INHALATION SCH ×2 (08:25→19:17)
[2022-11-09] MEDS: ALBUTEROL NEBULIZED 2.5 MG/3 ML INHALATION SCH ×4 (08:25→19:17)
[2022-11-09 08:41] LABS: African American GFR (CKD) 79 (>60 ml/min/1.73 sqM); Anion Gap 9 mmol/L; Blood Urea Nitrogen 29 mg/dL (9-20); Calcium 9.6 mg/dL (8.4-10.2); Carbon Dioxide 27 mmol/L (22-30); Chloride 101 mmol/L (98-107); Glucose 105 mg/dL (74-99); Magnesium 1.7 mg/dL (1.6-2.3); Non-African American GFR(CKD) 69 (>60 ml/min/1.73 sqM); Potassium 4.7 mmol/L (3.5-5.1); Sodium 137 mmol/L (137-145)
[2022-11-09] MEDS: PIPERACILLIN-TAZOBACTAM 3.375 GM in SODIUM CHLORIDE 0.9% 100 ML IVPB SCH ×3 (08:52→23:37)
[2022-11-09] MEDS: METOPROLOL TARTRATE 12.5 MG TAB PO SCH ×2 (08:53→20:45)
[2022-11-09] MEDS: HEPARIN SODIUM,PORCINE/PF 5,000 UNIT/0.5 ML SYRINGE SQ SCH ×3 (08:53→23:37)
[2022-11-09] MEDS: PREGABALIN 100 MG CAP PO SCH ×2 (08:53→20:45)
[2022-11-09] MEDS: HYDROcodone/APAP 5-325MG 1 EACH TAB PO PRN ×2 (08:53→15:19)
[2022-11-09] MEDS: allopurinoL 300 MG TAB PO SCH (08:53)
[2022-11-09] MEDS: NYSTATIN 100,000 UNIT/GM POWD 15 GM TOPICAL SCH ×3 (09:01→20:46)
--- NOTE | 2022-11-09 12:32 | P.PN ---
Subjective Progress Note Date: 11/09/22 52-year-old male patient, and 40 sodium, came into the hospital because of abdominal pain. The pain isn't essentially in the left upper quadrant area. No nausea. No emesis. No witnessed diarrhea although there may be some history of diarrhea. The patient is a poor historian. He is obese. He was afebrile and he was hypotensive in the emergency. He was given IV fluids and following that he was given a triple-lumen catheter and he was started on norepinephrine at 0.03 mcg/kg/m for blood pressure control. WBC count of 9.9 with a hemoglobin of 9.8 and a platelet count of 112. He has chronic kidney disease and he had an acute on top of chronic kidney failure with a BUN of 97 and a creatinine of 4.06. He had a component of anion gap metabolic acidosis with a bicarb of 12. Sodium is at 138. Glucose at 1:30. Amylase level was 36, lipase was 334. His UA was essentially negative. Patient was started on bicarb infusion and the patient was transferred to the intensive care unit for further support. He was started on a combination of Rocephin and Zithromax as the patient was found to h ave a limited lower lobe pulmonary infiltrates on the left suspicious of a pneumonia based on the CAT scan of the abdomen. His CAT scan showed if patchy airspace disease in the left lung base. There was hepatomegaly. Mild generalized anasarca and placed on 3 with. Borderline enlarged hepatic and portal caval lymph nodes were seen largest being 1.3 cm size. There was a left colonic diverticulosis without diverticulitis and a 1.2 cm nonobstructive left renal Disease was also seen. Note that the patient does not have any hematuria. Is morbidly obese with a BMI of 46. LFTs are within normal limits. On today's evaluation of 11/06/2022, the patient is still experiencing some pain in the left upper quadrant. Repeat chest x-ray from today shows limited atelectasis/infiltrate in the left lung base. The patient was on oxygen at 2 L. However, he became more lethargic and obtunded. At that point, blood gas was done that showed mild respiratory acidosis with a pH of 7.3 and a pCO2 52 and pO2 of 63 and this was done on 2 L of O2 nasal cannula. Based on that, the patient was placed on a BiPAP at a pressure of 12/5 cm of water with an FiO2 of 50%. He generating a tidal of 700 with a minute ventilation of 9-10 L. No major airspace disease on his chest x-ray. Meanwhile, the patient was assessed. IV fluids. He was given a bicarb infusion. Serum bicarb is improved and is currently up to 22. BUN is at 86 which is improved and the creatinine is down to 2.6. The patient has no significant leukocytosis. The white cell count of 7 with a hemoglobin of 10.5 and a platelet count of 114. UA has been negative. The patient may also benefit from a surgical consultation. CAT scan of the abdomen was done yesterday and it showed diverticulosis without diverticulitis. He also had a 1.2 cm nonobstructive calculus in the left lower lobe of the kidney, no hydronephrosis. The patient was offered a combination of Rocephin and Zithromax. I'm going to switch him to IV Zosyn for a better intra-abdominal coverage. 11/07/2022, I'm seeing the patient for a follow-up. Is much more alert and awake compared to yesterday. Communicating. He seems to be appropriate. Overnight, he was kept on a BiPAP at pressures of 12/5 cm of water and this morning he was placed on nasal cannula at 5 L. We're going to monitor his oxygenation. There is possibility of a left lower lobe pneumonia and the patient is currently on IV Zosyn. Gen. surgical consultation was obtained regarding his abdominal pain. His abdominal pain is on and off. He states it is worse with coughing. Nevertheless, his abdominal exam is essentially benign. There was concern of his underlying mentation. A CAT scan of the brain was done and showed some hypoattenuation of the left parietal area. No focal sanjay rological deficits and I'm going to consult neurology in that regard for a further evaluation advice regarding those abnormalities. Meanwhile, the patient is hemodynamically stable. He is on IV fluids with normal saline which is running at 100 mL an hour. No chest pain. Limited cough and congestion and wheeze. On today's blood work, there is improvement in the patient's renal function. Creatinine is down to 2.1 with a BUN of 68 and a sodium is at 140 with a potassium level of 5.1. The bili was noted 6.5 with a hemoglobin of 10 and a platelet count of 100. A repeat chest x-ray was done today and it showed atelectatic changes/infiltrate in left lung base. Findings are essentially unch anged. Blood cultures are negative. The patient's pro-calcitonin level was 4.08. His acute kidney injury is improving and the patient is also being seen by nephrology. He is drinking and I'm going to go ahead and His IV Fluids. He Was on a Combination of Diuretics Including Lasix and Aldactone and He Was Also Taken Pablo Inhibitors Which Are Old Discontinued. 11/08/2022, the patient is awake and alert and sitting up on a chair. Abdominal pain is subsided and the patient is currently on room air oxygen. His chest x- ray from today is showing some infiltration in the lung bases/atelectasis. Blood work from today shows a white cell count of 5 hemoglobin 9.5 and a platelet count of 99. BUN is at 40 with a creatinine of 1.4 and his sodium levels of 135. The patient is calm and comfortable. A repeat CAT scan was done yesterday afternoon upon the recommendations of neurology and it showed no evidence of any acute abnormalities and the previously described abnormalities were essentially artifactual. The echocardiogram showed a preserved LV function and this was a limited echocardiogram. The patient is hemodynamically stable at this point. The patient has been in negative fluid balance of 1.8 L over the past 24 hours. Remains on IV Zosyn. Remains on Symbicort. Diuretics are still on hold. On today's evaluation of 11/04/2022, no complaints and the patient is stable and is on 2 L of oxygen by nasal cannula. No fever or chills. No abdominal pain. Normal mentation labs were noted, white cell count is at 5 with a hemoglobin of 10 and a platelet count of 122. BUN is 29 with a creatinine of 1.2. Sodium level is at 137. Objective - Vital Signs Vital signs: Vital Signs Temp 97.6 F 11/09/22 01:14 Pulse 96 11/09/22 08:42 Resp 18 11/09/22 01:14 BP 136/62 11/09/22 01:14 Pulse Ox 97 11/09/22 08:29 FiO2 50 11/09/22 05:06 Intake & Output 0611/09/22 11/09/22 18:59 06:59 18:59 Intake Total 1500 30 180 Output Total 1050 1000 250 Balance 450 -970 -70 Intake: IV 400 30 Invasive Line 1 40 30 Invasive Line 2 30 Invasive Line 3 20 Piperacillin-Tazobactam 3 300 .375 gm In Sodium Chloride 0.9% 100 ml @ 25 mls/hr IVPB Q8HR [facility] Rx# :[id number] Sodium Chloride 0.9% 1, 10 000 ml @ 100 mls/hr IV . Q10H [facility] Rx#:[id number] Oral 1100 180 Output: Urine 1050 1000 250 Other: Voiding Method Urinal Urinal # Voids 1 1 # Bowel Movements 1 1 - Exam obese, comfortable the patient is comfortable in the breathing is nonlabored and the patient is awake and alert and communicating on room air oxygen. Head exam was generally normal. There was no scleral icterus or corneal arcus. Mucous membranes were moist. Neck was supple and without jugular venous distension, thyromegaly, or carotid bruits. Carotids were easily palpable bilaterally. There was no adenopathy. Lungs sounds are diminished bilaterally and the patient has few crackles in lung bases Cardiac exam revealed the PMI to be normally situated and sized. The rhythm was regular and no extrasystoles were noted during several minutes of auscultation. The first and second heart sounds were normal and physiologic splitting of the second heart sound was noted. There were no murmurs, rubs, clicks, or gallops. Abdomen distended and the left upper quadrant area. No rebound tenderness or guarding. Bowel sounds are hypoactive at the present Examination of the extremities revealed easily palpable radial, femoral and pedal pulses. There was no cyanosis, clubbing or edema. Examination of the skin revealed no evidence of significant rashes, suspicious appearing nevi or other concerning lesions. Neurologically awake and alert and communicating. Seems to be appropriate on today's evaluation. - Labs CBC & Chem 7: 11/09/22 07:29 11/09/22 07:29 Labs: Abnormal Lab Results - Last 24 Hours (Table) 11/08/22 11/08/22 11/08/22 Range/Units 03:52 11:09 23:13 RBC (4.30-5.90) m/uL Hgb (13.0-17.5) gm/dL Hct (39.0-53.0) % MCHC (31.0-37.0) g/dL RDW (11.5-15.5) % Plt Count (150-450) k/uL BUN (9-20) mg/dL Glucose (74-99) mg/dL POC Glucose (mg/dL) 112 H 152 H (70-110) mg/dL Procalcitonin 0.49 H (0.02-0.09) ng/mL 11/09/22 11/09/22 Range/Units 07:29 07:29 RBC 3.43 L (4.30-5.90) m/uL Hgb 10.2 L (13.0-17.5) gm/dL Hct 33.2 L (39.0-53.0) % MCHC 30.9 L (31.0-37.0) g/dL RDW 17.1 H (11.5-15.5) % Plt Count 122 L (150-450) k/uL BUN 29 H (9-20) mg/dL Glucose 105 H (74-99) mg/dL POC Glucose (mg/dL) (70-110) mg/dL Procalcitonin (0.02-0.09) ng/mL Microbiology - Last 24 Hours (Table) 11/05/22 13:30 Blood Culture - Preliminary Blood 11/05/22 13:15 Blood Culture - Preliminary Blood Assessment and Plan Plan: Abdominal pain under investigation. Pain is essentially left lower quadrant/left upper quadrant area. No evidence of any pyelonephritis. No evidence of any diverticulitis. The patient has diverticulosis. Patient was also found to have a left lower lobe pulmonary infiltrates consistent with pneumonia. It I'm not absolutely convinced that the pneumonia is causing the left upper quadrant pain. There is some limited infiltration the left lung base. I'm a bit more concerned of an intra-abdominal pathology. CAT scan of the abdomen was benign. The patient will be covered with IV Zosyn. The general surgical consultation was obtained. Abdominal exam remains benign. Pain is subsided although is having some on-and-off pain especially with coughing. The patient has subsided and the patient is currently not complaining of any pain. Acute left lower lobe pneumonia/consolidation, chest x-ray findings are unchanged and the patient is currently on IV Zosyn Acute hypoxic respiratory failure, recovered and the patient is currently on 2 L of oxygen nasal cannula Elevated pro-calcitonin level, last level was at 4.08 and a repeat level needs to be obtained and the repeat level came back at 0.49. Hypotension, rule out underlying sepsis, recovered and the patient is currently off pressors on KVO fluids Acute hypoxic /hypercapnic respiratory failure and the patient is currently on 2 L O2 nasal cannula Acute kidney injury on top of chronic kidney disease, no signs of any fluid overload at this point in time, improving and the patient's creatinine is down 1.2 Anion gap metabolic acidosis , recovered chronic diastolic heart failure Previous history of cellulitis of the lower extremities, inactive for now Anemia of chronic disease Altered mentation, improved and the patient's mentation is more appropriate. Hypoattenuation in the left parietal area. May need another repeat CAT scan in neurologic consultation Plan Change IV fluids to KVO Room air oxygen and nasal cannula needed Repeat CAT scan of the brain was done yesterday and the findings were artifactual Obtain neurologic consultation and their input is appreciated, neurologically intact point in time Continue IV Zosyn Renal function is improving, creatinine is down to 1.2 Urine and blood cultures , negative Surgical consultation was obtained and their input is appreciated Nephrology consultation Stop the PABLO inhibitor, Lasix and Aldactone, keep diuretics on hold for today May restart beta blockers, metoprolol 12.5 mg twice a day Advance diet We'll continue to follow Aggressive physical therapy
--- NOTE | 2022-11-09 15:35 | P.PN ---
Subjective Progress Note Date: 11/09/22 Follow-up for acute kidney injury, urine output of 2050 ML the last 24 hours. Objective - Vital Signs Vital signs: Vital Signs Temp 98.6 F 11/09/22 15:23 Pulse 83 11/09/22 15:23 Resp 18 11/09/22 15:23 BP 120/72 11/09/22 15:23 Pulse Ox 97 11/09/22 15:23 FiO2 50 11/09/22 05:06 Intake & Output 11/08/22 11/09/22 11/09/22 18:59 06:59 18:59 Intake Total 1500 30 600 Output Total 1050 1000 1125 Balance 450 -970 -525 Intake: IV 400 30 Invasive Line 1 40 30 Invasive Line 2 30 Invasive Line 3 20 Piperacillin-Tazobactam 3 300 .375 gm In Sodium Chloride 0.9% 100 ml @ 25 mls/hr IVPB Q8HR [facility] Rx# :[id number] Sodium Chloride 0.9% 1, 10 000 ml @ 100 mls/hr IV . Q10H [facility] Rx#:[id number] Oral 1100 600 Output: Urine 1050 1000 1125 Other: Voiding Method Urinal Urinal # Voids 1 1 # Bowel Movements 1 1 - Exam No acute distress S1-S2 heard Decreased breath sounds Abdomen soft, distended Edema - Labs CBC & Chem 7: 11/09/22 07:29 11/09/22 07:29 Labs: Abnormal Lab Results - Last 24 Hours (Table) 11/08/22 11/08/22 11/09/22 Range/Units 03:52 23:13 07:29 RBC 3.43 L (4.30-5.90) m/uL Hgb 10.2 L (13.0-17.5) gm/dL Hct 33.2 L (39.0-53.0) % MCHC 30.9 L (31.0-37.0) g/dL RDW 17.1 H (11.5-15.5) % Plt Count 122 L (150-450) k/uL BUN (9-20) mg/dL Glucose (74-99) mg/dL POC Glucose (mg/dL) 152 H (70-110) mg/dL Procalcitonin 0.49 H (0.02-0.09) ng/mL 11/09/22 Range/Units 07:29 RBC (4.30-5.90) m/uL Hgb (13.0-17.5) gm/dL Hct (39.0-53.0) % MCHC (31.0-37.0) g/dL RDW (11.5-15.5) % Plt Count (150-450) k/uL BUN 29 H (9-20) mg/dL Glucose 105 H (74-99) mg/dL POC Glucose (mg/dL) (70-110) mg/dL Procalcitonin (0.02-0.09) ng/mL Microbiology - Last 24 Hours (Table) 11/05/22 13:30 Blood Culture - Preliminary Blood 11/05/22 13:15 Blood Culture - Preliminary Blood Assessment and Plan Assessment: #1 nonoliguric acute kidney injury secondary to hemodynamic ATN. -Baseline creatinine 1.0 MG per DL. -Admission creatinine 4.06 MG per DL. -Urine analysis [facility]. #2 diastolic CHF #3 pneumonia on antibiotics #4 metabolic acidosis secondary to acute kidney injury. #5 anemia multifactorial Plan: #1 renal function improving. #2 hemodynamically stable. Monitor. #3 avoid nephrotoxic agents and hypotensive episodes. #4 daily labs
[2022-11-09] MEDS: ATORVASTATIN 20 MG TAB PO SCH (20:46)
[2022-11-09] MEDS: LATANOPROST 0.005% OPHTH DROPS 2.5 ML BTL BOTH EYES SCH (20:46)
--- NOTE | 2022-11-09 22:19 | P.PN ---
Subjective Progress Note Date: 11/09/22 , patient denies abdominal pain. He is doing well. Tolerating diet. Objective - Vital Signs Vital signs: Vital Signs Temp 98.1 F 11/09/22 20:00 Pulse 86 11/09/22 20:00 Resp 18 11/09/22 20:00 BP 142/80 11/09/22 20:00 Pulse Ox 92 L 11/09/22 20:00 FiO2 50 11/09/22 17:48 Intake & Output 11/09/22 11/09/22 11/10/22 06:59 18:59 06:59 Intake Total 30 1940 Output Total 1000 1700 250 Balance -970 240 -250 Intake: IV 30 440 .9@20 240 Invasive Line 1 30 Piperacillin-Tazobactam 3 200 .375 gm In Sodium Chloride 0.9% 100 ml @ 25 mls/hr IVPB Q8HR [facility] Rx# :[id number] Oral 1500 Output: Urine 1000 1700 250 Other: Voiding Method Urinal # Voids 1 2 # Bowel Movements 1 1 - Labs CBC & Chem 7: 11/09/22 07:29 11/09/22 07:29 Labs: Abnormal Lab Results - Last 24 Hours (Table) 11/08/22 11/09/22 11/09/22 Range/Units 23:13 07:29 07:29 RBC 3.43 L (4.30-5.90) m/uL Hgb 10.2 L (13.0-17.5) gm/dL Hct 33.2 L (39.0-53.0) % MCHC 30.9 L (31.0-37.0) g/dL RDW 17.1 H (11.5-15.5) % Plt Count 122 L (150-450) k/uL BUN 29 H (9-20) mg/dL Glucose 105 H (74-99) mg/dL POC Glucose (mg/dL) 152 H (70-110) mg/dL Microbiology - Last 24 Hours (Table) 11/05/22 13:30 Blood Culture - Preliminary Blood 11/05/22 13:15 Blood Culture - Preliminary Blood
[2022-11-10] MEDS: HYDROcodone/APAP 5-325MG 1 EACH TAB PO PRN ×2 (04:46→20:57)
[2022-11-10] MEDS: HYDROmorphone 0.5 MG/0.5 ML SYRINGE IVP PRN ×3 (06:02→18:47)
[2022-11-10] MEDS: ALBUTEROL NEBULIZED 2.5 MG/3 ML INHALATION SCH ×4 (08:15→20:28)
[2022-11-10] MEDS: SYMBICORT 160-4.5 MCG INHALER INHALATION SCH ×2 (08:16→20:28)
[2022-11-10] MEDS: HEPARIN SODIUM,PORCINE/PF 5,000 UNIT/0.5 ML SYRINGE SQ SCH ×3 (11:06→23:45)
[2022-11-10] MEDS: METOPROLOL TARTRATE 12.5 MG TAB PO SCH ×2 (11:06→20:56)
[2022-11-10] MEDS: allopurinoL 300 MG TAB PO SCH (11:06)
[2022-11-10] MEDS: PREGABALIN 100 MG CAP PO SCH ×2 (11:06→20:56)
[2022-11-10] MEDS: PIPERACILLIN-TAZOBACTAM 3.375 GM in SODIUM CHLORIDE 0.9% 100 ML IVPB SCH ×2 (11:06→18:41)
[2022-11-10] MEDS: NYSTATIN 100,000 UNIT/GM POWD 15 GM TOPICAL SCH ×3 (11:07→20:56)
--- NOTE | 2022-11-10 11:20 | P.PN ---
Subjective Progress Note Date: 11/10/22 CHIEF COMPLAINT: Abdominal pain HISTORY OF PRESENT ILLNESS: Patient is on cardiac floor. He denies any a bdominal pain. He is tolerating regular diet. Denies any nausea or vomiting. Afebrile. WBC is 5.0 Hgb 10.2 creatinine 1.22 PHYSICAL EXAM: VITAL SIGNS: Reviewed GENERAL: Well-developed in no acute distress. HEENT: No sclera icterus. Extraocular movements grossly intact. Moist buccal mucosa. Head is atraumatic, normocephalic. Hears conversational speech. No nasal drainage. NECK: Supple without lymphadenopathy. CHEST: Non-labored respirations and equal bilateral excursions. CARDIOVASCULAR: Palpable 2+ radial pulses. ABDOMEN: Soft. Nondistended. Nontender MUSCULOSKELETAL: No clubbing or cyanosis. NEUROLOGIC: No focal or lateralizing signs. Cranial nerves II through XII grossly intact. PSYCH: Appropriate affect. Alert and oriented to person, place and time. SKIN: Well perfused. Good skin turgor. ASSESSMENT: 1. Left-sided abdominal pain likely secondary to left renal calculus and possible musculoskeletal from muscle strain from coughing 2. Acute kidney injury 3. Possible pneumonia 4. Hypotension 5. Acute hypoxic/hypercapnic respiratory failure 6. Mild metabolic acidosis 7. Diabetes mellitus 8. Heart failure history PLAN: -No surgical intervention planned -Continue heart healthy diet -Continue supportive care Physician Auto [employer] note has been reviewed by physician. Signing provider agrees with the documented findings, assessment, and plan of care. Objective - Vital Signs Vital signs: Vital Signs Temp 97.8 F 11/10/22 08:48 Pulse 88 11/10/22 08:48 Resp 18 11/10/22 08:48 BP 124/66 11/10/22 08:48 Pulse Ox 96 11/10/22 08:48 FiO2 50 11/09/22 23:49 Intake & Output 11/09/22 11/10/22 11/10/22 18:59 06:59 18:59 Intake Total 1940 540 Output Total 1700 1325 Balance 240 -1325 540 Intake: IV 440 .9@20 240 Piperacillin-Tazobactam 3 200 .375 gm In Sodium Chloride 0.9% 100 ml @ 25 mls/hr IVPB Q8HR [facility] Rx# :[id number] Oral 1500 540 Output: Urine 1700 1325 Other: Voiding Method Urinal # Voids 2 # Bowel Movements 1 - Labs CBC & Chem 7: 11/09/22 07:29 11/09/22 07:29
[2022-11-10 12:03] LABS: Glucose,Whole Blood 135 mg/dL (70-110)
--- NOTE | 2022-11-10 13:10 | P.PN ---
Subjective Progress Note Date: 11/10/22 52-year-old male patient, and 40 sodium, came into the hospital because of abdominal pain. The pain isn't essentially in the left upper quadrant area. No nausea. No emesis. No witnessed diarrhea although there may be some history of diarrhea. The patient is a poor historian. He is obese. He was afebrile and he was hypotensive in the emergency. He was given IV fluids and following that he was given a triple-lumen catheter and he was started on norepinephrine at 0.03 mcg/kg/m for blood pressure control. WBC count of 9.9 with a hemoglobin of 9.8 and a platelet count of 112. He has chronic kidney disease and he had an acute on top of chronic kidney failure with a BUN of 97 and a creatinine of 4.06. He had a component of anion gap metabolic acidosis with a bicarb of 12. Sodium is at 138. Glucose at 1:30. Amylase level was 36, lipase was 334. His UA was essentially negative. Patient was started on bicarb infusion and the patient was transferred to the intensive care unit for further support. He was started on a combination of Rocephin and Zithromax as the patient was found to have a limited lower lobe pulmonary infiltrates on the left suspicious of a pneumonia based on the CAT scan of the abdomen. His CAT scan showed if patchy airspace disease in the left lung base. There was hepatomegaly. Mild generalized anasarca and placed on 3 with. Borderline enlarged hepatic and portal caval lymph nodes were seen largest being 1.3 cm size. There was a left colonic diverticulosis without diverticulitis and a 1.2 cm nonobstructive left renal Disease was also seen. Note that the patient does not have any hematuria. Is morbidly obese with a BMI of 46. LFTs are within normal limits. On today's evaluation of 11/06/2022, the patient is still experiencing some pain in the left upper quadrant. Repeat chest x-ray from today shows limited atelectasis/infiltrate in the left lung base. The patient was on oxygen at 2 L. However, he became more lethargic and obtunded. At that point, blood gas was done that showed mild respiratory acidosis with a pH of 7.3 and a pCO2 52 and pO2 of 63 and this was done on 2 L of O2 nasal cannula. Based on that, the patient was placed on a BiPAP at a pressure of 12/5 cm of water with an FiO2 of 50%. He generating a tidal of 700 with a minute ventilation of 9-10 L. No major airspace disease on his chest x-ray. Meanwhile, the patient was assessed. IV fluids. He was given a bicarb infusion. Serum bicarb is improved and is currently up to 22. BUN is at 86 which is improved and the creatinine is down to 2.6. The patient has no significant leukocytosis. The white cell count of 7 with a hemoglobin of 10.5 and a platelet count of 114. UA has been negative. The patient may also benefit from a surgical consultation. CAT scan of the abdomen was done yesterday and it showed diverticulosis without diverticulitis. He also had a 1.2 cm nonobstructive calculus in the left lower lobe of the kidney, no hydronephrosis. The patient was offered a combination of Rocephin and Zithromax. I'm going to switch him to IV Zosyn for a better intra-abdominal coverage. 11/07/2022, I'm seeing the patient for a follow-up. Is much more alert and awake compared to yesterday. Communicating. He seems to be appropriate. Overnight, he was kept on a BiPAP at pressures of 12/5 cm of water and this morning he was placed on nasal cannula at 5 L. We're going to monitor his oxygenation. There is possibility of a left lower lobe pneumonia and the patient is currently on IV Zosyn. Gen. surgical consultation was obtained regarding his abdominal pain. His abdominal pain is on and off. He states it is worse with coughing. Nevertheless, his abdominal exam is essentially benign. There was concern of his underlying mentation. A CAT scan of the brain was done and showed some hypoattenuation of the left parietal area. No focal neur ological deficits and I'm going to consult neurology in that regard for a further evaluation advice regarding those abnormalities. Meanwhile, the patient is hemodynamically stable. He is on IV fluids with normal saline which is running at 100 mL an hour. No chest pain. Limited cough and congestion and wheeze. On today's blood work, there is improvement in the patient's renal function. Creatinine is down to 2.1 with a BUN of 68 and a sodium is at 140 with a potassium level of 5.1. The bili was noted 6.5 with a hemoglobin of 10 and a platelet count of 100. A repeat chest x-ray was done today and it showed atelectatic changes/infiltrate in left lung base. Findings are essentially unchanged. Blood cultures are negative. The patient's pro-calcitonin level was 4.08. His acute kidney injury is improving and the patient is also being seen by nephrology. He is drinking and I'm going to go ahead and His IV Fluids. He Was on a Combination of Diuretics Including Lasix and Aldactone and He Was Also Taken Pablo Inhibitors Which Are Old Discontinued. 11/08/2022, the patient is awake and alert and sitting up on a chair. Abdominal pain is subsided and the patient is currently on room air oxygen. His chest x- ray from today is showing some infiltration in the lung bases/atelectasis. Blood work from today shows a white cell count of 5 hemoglobin 9.5 and a platelet count of 99. BUN is at 40 with a creatinine of 1.4 and his sodium levels of 135. The patient is calm and comfortable. A repeat CAT scan was done yesterday afternoon upon the recommendations of neurology and it showed no evidence of any acute abnormalities and the previously described abnormalities were essentially artifactual. The echocardiogram showed a preserved LV function and this was a limited echocardiogram. The patient is hemodynamically stable at this point. The patient has been in negative fluid balance of 1.8 L over the past 24 hours. Remains on IV Zosyn. Remains on Symbicort. Diuretics are still on hold. On today's evaluation of 11/04/2022, no complaints and the patient is stable and is on 2 L of oxygen by nasal cannula. No fever or chills. No abdominal pain. Normal mentation labs were noted, white cell count is at 5 with a hemoglobin of 10 and a platelet count of 122. BUN is 29 with a creatinine of 1.2. Sodium level is at 137. The patient is seen today 11/10/2022 in follow-up on the regular medical floor. He is currently sitting up at the bedside. Awake and alert in no acute distress. Maintaining O2 saturations in the 90s on room air. He is utilizing BiPAP at night 12 over 5 and 50% FiO2. He is being treated for left lower lobe pneumonia. He is currently on Zosyn. Most recent chest x-ray showing improvement. Continue on Symbicort and albuterol. Heparin for DVT prophylaxis. Pablo wraps to lower extremities. Blood glucose 135. Objective - Vital Signs Vital signs: Vital Signs Temp 97.8 F 11/10/22 08:48 Pulse 88 11/10/22 08:48 Resp 18 11/10/22 08:48 BP 124/66 11/10/22 08:48 Pulse Ox 96 11/10/22 08:48 FiO2 50 11/09/22 23:49 Intake & Output 11/09/22 11/10/22 11/10/22 18:59 06:59 18:59 Intake Total 1940 540 Output Total 1700 1325 Balance 240 -1325 540 Intake: IV 440 .9@20 240 Piperacillin-Tazobactam 3 200 .375 gm In Sodium Chloride 0.9% 100 ml @ 25 mls/hr IVPB Q8HR [facility] Rx# :[id number] Oral 1500 540 Output: Urine 1700 1325 Other: Voiding Method Urinal Urinal # Voids 2 # Bowel Movements 1 - Exam GENERAL EXAM: Alert, morbidly obese 52-year-old male patient, on room air, comfortable in no apparent distress. HEAD: Normocephalic. EYES: Normal reaction of pupils, equal size. NOSE: Clear with pink turbinates. THROAT: No erythema or exudates. NECK: No masses, no JVD. CHEST: No chest wall deformity. LUNGS: Equal air entry with crackles in the left base. CVS: S1 and S2 normal with no audible murmur, regular rhythm. ABDOMEN: No hepatosplenomegaly, normal bowel sounds, no guarding or rigidity. SPINE: No scoliosis or deformity SKIN: No rashes CENTRAL NERVOUS SYSTEM: No focal deficits, tone is normal in all 4 extremities. EXTREMITIES: Pablo wrap some lower extremities. There is 1-2+ peripheral edema. No clubbing, no cyanosis. Peripheral pulses are intact. - Labs CBC & Chem 7: 11/09/22 07:29 11/09/22 07:29 Labs: Abnormal Lab Results - Last 24 Hours (Table) 11/10/22 Range/Units 11:59 POC Glucose (mg/dL) 135 H (70-110) mg/dL Assessment and Plan Assessment: Abdominal pain under investigation. Pain is essentially left lower quadrant/left upper quadrant area. No evidence of any pyelonephritis. No evidence of any diverticulitis. The patient has diverticulosis. Patient was al so found to have a left lower lobe pulmonary infiltrates consistent with pneumonia. There is some limited infiltration the left lung base. The patient is covered with IV Zosyn. The general surgical consultation was obtained. Abdominal exam remains benign. The patient has subsided and the patient is currently not complaining of any pain. Acute left lower lobe pneumonia/consolidation, chest x-ray findings are unchanged and the patient is currently on IV Zosyn Acute hypoxic respiratory failure, recovered and the patient is currently on room air Elevated pro-calcitonin level, last level was at 4.08 and a repeat level needs to be obtained and the repeat level came back at 0.49. Hypotension, rule out underlying sepsis, recovered and the patient is currently off pressors on KVO fluids Acute hypoxic /hypercapnic respiratory failure and the patient is currently on room air Acute kidney injury on top of chronic kidney disease, no signs of any fluid overload at this point in time, improving and the patient's creatinine is down 1.22 Anion gap metabolic acidosis , recovered Chronic diastolic heart failure Previous history of cellulitis of the lower extremities, inactive for now Anemia of chronic disease Altered mentation, improved and the patient's mentation is more appropriate. Hypoattenuation in the left parietal area. May need another repeat CAT scan in neurologic consultation Plan: The patient was seen and evaluated Medications reviewed Stable and on room air Cleared for discharge from the pulmonary standpoint Complete a course of antibiotics Follow-up in the office in 1 week I have personally seen and examined the patient, performed the documentation and the assessment and plan as written. Number of minutes spent on the visit: 10.
[2022-11-10 14:13] VITALS: RESP 16
--- NOTE | 2022-11-10 14:50 | P.PN ---
Subjective Patient is seen for follow-up for acute kidney injury. Renal function is improved with creatinine down to 1.2 mg/dL. Objective - Vital Signs Vital signs: Vital Signs Temp 97.4 F L 11/10/22 11:30 Pulse 79 11/10/22 11:30 Resp 16 11/10/22 11:30 BP 144/87 11/10/22 11:30 Pulse Ox 97 11/10/22 11:30 FiO2 50 11/09/22 23:49 Intake & Output 11/09/22 11/10/22 11/10/22 18:59 06:59 18:59 Intake Total 1940 740 Output Total 1700 1325 Balance 240 -1325 740 Intake: IV 440 .9@20 240 Piperacillin-Tazobactam 3 200 .375 gm In Sodium Chloride 0.9% 100 ml @ 25 mls/hr IVPB Q8HR [facility] Rx# :[id number] Oral 1500 740 Output: Urine 1700 1325 Other: Voiding Method Urinal Urinal # Voids 2 # Bowel Movements 1 - Exam Patient is awake, comfortable, no acute distress Examination of the heart S1 and S2 Examination of the lungs bilateral breath sounds are heard Abdomen is soft nontender Examination lower extremity shows no significant edema - Labs CBC & Chem 7: 11/09/22 07:29 11/09/22 07:29 Labs: Abnormal Lab Results - Last 24 Hours (Table) 11/10/22 Range/Units 11:59 POC Glucose (mg/dL) 135 H (70-110) mg/dL Assessment and Plan Assessment: #1 nonoliguric acute kidney injury secondary to hemodynamic ATN. -Baseline creatinine 1.0 MG per DL. -Admission creatinine 4.06 MG per DL. -Urine analysis [place]. #2 diastolic CHF #3 pneumonia on antibiotics #4 metabolic acidosis secondary to acute kidney injury, improved. Plan: Continue to encourage increase oral intake. Check labs periodically
[2022-11-10 17:00] LABS: Glucose,Whole Blood 153 mg/dL (70-110)
[2022-11-10 20:32] LABS: Glucose,Whole Blood 208 mg/dL (70-110)
[2022-11-10] MEDS: LATANOPROST 0.005% OPHTH DROPS 2.5 ML BTL BOTH EYES SCH (20:56)
[2022-11-10] MEDS: ATORVASTATIN 20 MG TAB PO SCH (20:57)
--- NOTE | 2022-11-11 01:30 | PN ---
PROGRESS NOTE DATE OF SERVICE: 11/07/2022 CHIEF COMPLAINT: Pneumonitis and respiratory failure. HISTORY OF PRESENT ILLNESS: This gentleman is fairly stable, but continues to be lethargic and is still on BiPAP. Temperature is down. PHYSICAL EXAMINATION: VITAL SIGNS: Normal. CHEST: Breath sounds are diminished bilaterally. He is weak. CARDIAC: Normal. ABDOMEN: Soft, nontender. EXTREMITIES: There is no significant edema. IMPRESSION: 1. Pneumonitis. 2. Respiratory failure. 3. Congestive heart failure. 4. Pain in the right foot. PLAN: 1. Continue with current management in ICU. 2. Uric acid. MMODL / IJN: [id number] /
--- NOTE | 2022-11-11 01:38 | PN ---
PROGRESS NOTE DATE OF SERVICE: 11/08/2022 CHIEF COMPLAINT: Pneumonitis and respiratory failure. HISTORY OF PRESENT ILLNESS: This gentleman is doing fairly well. Blood gases are well maintained on BiPAP. He is alert, but still lethargic. PHYSICAL EXAMINATION: CHEST: Breath sounds are heard bilaterally. No rales or rhonchi. CARDIAC: Normal. ABDOMEN: Soft and protuberant. EXTREMITIES: Are the same. IMPRESSION: 1. Left lower lobe pneumonitis. 2. Respiratory failure. 3. Sepsis. 4. Congestive heart failure. PLAN: Continue with ICU management and he is improving. He may be able to be moved out soon. MMODL / IJN: [id number] /
[2022-11-11] MEDS: HYDROmorphone 0.5 MG/0.5 ML SYRINGE IVP PRN ×2 (01:51→08:04)
[2022-11-11] MEDS: PIPERACILLIN-TAZOBACTAM 3.375 GM in SODIUM CHLORIDE 0.9% 100 ML IVPB SCH ×2 (01:51→08:04)
[2022-11-11 05:34] LABS: Glucose,Whole Blood 144 mg/dL (70-110)
[2022-11-11 06:56] VITALS: BP 134/86; TEMP 98.3
[2022-11-11] MEDS: HEPARIN SODIUM,PORCINE/PF 5,000 UNIT/0.5 ML SYRINGE SQ SCH (08:04)
[2022-11-11] MEDS: ALBUTEROL NEBULIZED 2.5 MG/3 ML INHALATION SCH ×2 (09:06→12:36)
[2022-11-11] MEDS: SYMBICORT 160-4.5 MCG INHALER INHALATION SCH (09:06)
[2022-11-11 09:22] VITALS: PULSE 84
[2022-11-11 10:29] LABS: African American GFR (CKD) 87 (>60 ml/min/1.73 sqM); Anion Gap 7 mmol/L; Blood Urea Nitrogen 27 mg/dL (9-20); Calcium 9.6 mg/dL (8.4-10.2); Carbon Dioxide 28 mmol/L (22-30); Chloride 98 mmol/L (98-107); Glucose 120 mg/dL (74-99); Non-African American GFR(CKD) 75 (>60 ml/min/1.73 sqM); Potassium 5.4 mmol/L (3.5-5.1); Sodium 133 mmol/L (137-145)
[2022-11-11 11:07] LABS: Glucose,Whole Blood 133 mg/dL (70-110)
[2022-11-11] MEDS: HYDROcodone/APAP 5-325MG 1 EACH TAB PO PRN (11:20)
[2022-11-11] MEDS: allopurinoL 300 MG TAB PO SCH (11:20)
[2022-11-11] MEDS: METOPROLOL TARTRATE 12.5 MG TAB PO SCH (11:22)
[2022-11-11] MEDS: PREGABALIN 100 MG CAP PO SCH (11:23)
[2022-11-11] MEDS: NYSTATIN 100,000 UNIT/GM POWD 15 GM TOPICAL SCH (11:23)
[2022-11-11] MEDS ORDERED: AMOXIC-POT CLAV 875-125MG 1 EACH TAB PO STA (11:46)
--- NOTE | 2022-11-11 12:10 | P.PN ---
Subjective Patient is seen for follow-up for acute kidney injury. Renal function is improved with creatinine down to 1.1 mg/dL. Potassium 5.4 today. No complaints Objective - Vital Signs Vital signs: Vital Signs Temp 98.3 F 11/11/22 06:54 Pulse 84 11/11/22 09:21 Resp 16 11/11/22 06:54 BP 134/86 11/11/22 06:54 Pulse Ox 94 L 11/11/22 09:06 FiO2 50 11/11/22 00:15 Intake & Output 11/10/22 11/11/22 11/11/22 18:59 06:59 18:59 Intake Total 840 Output Total 1025 550 Balance -185 -550 Intake: IV 100 Piperacillin-Tazobactam 3 100 .375 gm In Sodium Chloride 0.9% 100 ml @ 25 mls/hr IVPB Q8HR [facility] Rx# :[id number] Oral 740 Output: Urine 1025 550 Other: Voiding Method Urinal Urinal # Voids 2 # Bowel Movements 1 - Exam Patient is awake, comfortable, no acute distress Examination of the heart S1 and S2 Examination of the lungs bilateral breath sounds are heard Abdomen is soft nontender Examination lower extremity shows no significant edema - Labs CBC & Chem 7: 11/09/22 07:29 11/11/22 09:56 Labs: Abnormal Lab Results - Last 24 Hours (Table) 11/10/22 11/10/22 11/11/22 Range/Units 16:56 20:28 05:31 Sodium (137-145) mmol/L Potassium (3.5-5.1) mmol/L BUN (9-20) mg/dL Glucose (74-99) mg/dL POC Glucose (mg/dL) 153 H 208 H 144 H (70-110) mg/dL 11/11/22 11/11/22 Range/Units 09:56 11:06 Sodium 133 L (137-145) mmol/L Potassium 5.4 H (3.5-5.1) mmol/L BUN 27 H (9-20) mg/dL Glucose 120 H (74-99) mg/dL POC Glucose (mg/dL) 133 H (70-110) mg/dL Microbiology - Last 24 Hours (Table) 11/05/22 13:30 Blood Culture - Final Blood 11/05/22 13:15 Blood Culture - Final Blood Assessment and Plan Assessment: #1 nonoliguric acute kidney injury secondary to hemodynamic ATN. -Baseline creatinine 1.0 MG per DL. -Admission creatinine 4.06 MG per DL. -Urine analysis [place]. #2 diastolic CHF #3 pneumonia on antibiotics #4 metabolic acidosis secondary to acute kidney injury, improved. #5. Mild hyperkalemia, rule out urine retention Plan: check bladder scan and rule out urine retention
[2022-11-11] MEDS ORDERED: SODIUM ZIRCONIUM CYCLOSILICATE 10 GM PACKET PO ONE (12:30)
--- NOTE | 2022-11-11 12:57 | P.PN ---
Subjective Progress Note Date: 11/11/22 52-year-old male patient, and 40 sodium, came into the hospital because of abdominal pain. The pain isn't essentially in the left upper quadrant area. No nausea. No emesis. No witnessed diarrhea although there may be some history of diarrhea. The patient is a poor historian. He is obese. He was afebrile and he was hypotensive in the emergency. He was given IV fluids and following that he was given a triple-lumen catheter and he was started on norepinephrine at 0.03 mcg/kg/m for blood pressure control. WBC count of 9.9 with a hemoglobin of 9.8 and a platelet count of 112. He has chronic kidney disease and he had an acute on top of chronic kidney failure with a BUN of 97 and a creatinine of 4.06. He had a component of anion gap metabolic acidosis with a bicarb of 12. Sodium is at 138. Glucose at 1:30. Amylase level was 36, lipase was 334. His UA was essentially negative. Patient was started on bicarb infusion and the patient was transferred to the intensive care unit for further support. He was started on a combination of Rocephin and Zithromax as the patient was found to have a limited lower lobe pulmonary infiltrates on the left suspicious of a pneumonia based on the CAT scan of the abdomen. His CAT scan showed if patchy airspace disease in the left lung base. There was hepatomegaly. Mild generalized anasarca and placed on 3 with. Borderline enlarged hepatic and portal caval lymph nodes were seen largest being 1.3 cm size. There was a left colonic diverticulosis without diverticulitis and a 1.2 cm nonobstructive left renal Disease was also seen. Note that the patient does not have any hematuria. Is morbidly obese with a BMI of 46. LFTs are within normal limits. On today's evaluation of 11/06/2022, the patient is still experiencing some pain in the left upper quadrant. Repeat chest x-ray from today shows limited atelectasis/infiltrate in the left lung base. The patient was on oxygen at 2 L. However, he became more lethargic and obtunded. At that point, blood gas was done that showed mild respiratory acidosis with a pH of 7.3 and a pCO2 52 and pO2 of 63 and this was done on 2 L of O2 nasal cannula. Based on that, the patient was placed on a BiPAP at a pressure of 12/5 cm of water with an FiO2 of 50%. He generating a tidal of 700 with a minute ventilation of 9-10 L. No major airspace disease on his chest x-ray. Meanwhile, the patient was assessed. IV fluids. He was given a bicarb infusion. Serum bicarb is improved and is currently up to 22. BUN is at 86 which is improved and the creatinine is down to 2.6. The patient has no significant leukocytosis. The white cell count of 7 with a hemoglobin of 10.5 and a platelet count of 114. UA has been negative. The patient may also benefit from a surgical consultation. CAT scan of the abdomen was done yesterday and it showed diverticulosis without diverticulitis. He also had a 1.2 cm nonobstructive calculus in the left lower lobe of the kidney, no hydronephrosis. The patient was offered a combination of Rocephin and Zithromax. I'm going to switch him to IV Zosyn for a better intra-abdominal coverage. 11/07/2022, I'm seeing the patient for a follow-up. Is much more alert and awake compared to yesterday. Communicating. He seems to be appropriate. Overnight, he was kept on a BiPAP at pressures of 12/5 cm of water and this morning he was placed on nasal cannula at 5 L. We're going to monitor his oxygenation. There is possibility of a left lower lobe pneumonia and the patient is currently on IV Zosyn. Gen. surgical consultation was obtained regarding his abdominal pain. His abdominal pain is on and off. He states it is worse with coughing. Nevertheless, his abdominal exam is essentially benign. There was concern of his underlying mentation. A CAT scan of the brain was done and showed some hypoattenuation of the left parietal area. No focal neur ological deficits and I'm going to consult neurology in that regard for a further evaluation advice regarding those abnormalities. Meanwhile, the patient is hemodynamically stable. He is on IV fluids with normal saline which is running at 100 mL an hour. No chest pain. Limited cough and congestion and wheeze. On today's blood work, there is improvement in the patient's renal function. Creatinine is down to 2.1 with a BUN of 68 and a sodium is at 140 with a potassium level of 5.1. The bili was noted 6.5 with a hemoglobin of 10 and a platelet count of 100. A repeat chest x-ray was done today and it showed atelectatic changes/infiltrate in left lung base. Findings are essentially unchanged. Blood cultures are negative. The patient's pro-calcitonin level was 4.08. His acute kidney injury is improving and the patient is also being seen by nephrology. He is drinking and I'm going to go ahead and His IV Fluids. He Was on a Combination of Diuretics Including Lasix and Aldactone and He Was Also Taken Pablo Inhibitors Which Are Old Discontinued. 11/08/2022, the patient is awake and alert and sitting up on a chair. Abdominal pain is subsided and the patient is currently on room air oxygen. His chest x- ray from today is showing some infiltration in the lung bases/atelectasis. Blood work from today shows a white cell count of 5 hemoglobin 9.5 and a platelet count of 99. BUN is at 40 with a creatinine of 1.4 and his sodium levels of 135. The patient is calm and comfortable. A repeat CAT scan was done yesterday afternoon upon the recommendations of neurology and it showed no evidence of any acute abnormalities and the previously described abnormalities were essentially artifactual. The echocardiogram showed a preserved LV function and this was a limited echocardiogram. The patient is hemodynamically stable at this point. The patient has been in negative fluid balance of 1.8 L over the past 24 hours. Remains on IV Zosyn. Remains on Symbicort. Diuretics are still on hold. On today's evaluation of 11/04/2022, no complaints and the patient is stable and is on 2 L of oxygen by nasal cannula. No fever or chills. No abdominal pain. Normal mentation labs were noted, white cell count is at 5 with a hemoglobin of 10 and a platelet count of 122. BUN is 29 with a creatinine of 1.2. Sodium level is at 137. The patient is seen today 11/10/2022 in follow-up on the regular medical floor. He is currently sitting up at the bedside. Awake and alert in no acute distress. Maintaining O2 saturations in the 90s on room air. He is utilizing BiPAP at night 12 over 5 and 50% FiO2. He is being treated for left lower lobe pneumonia. He is currently on Zosyn. Most recent chest x-ray showing improvement. Continue on Symbicort and albuterol. Heparin for DVT prophylaxis. Pablo wraps to lower extremities. Blood glucose 135. The patient is seen today 11/11/2022 in follow-up on the regular medical floor. He is currently sitting up in a chair. Awake and alert in no acute distress. Breathing is back to his baseline. Maintaining good O2 saturations in the 90s on room air. Sodium 133. Potassium 5.4. Bicarb 20. BUN 27. Creatinine 1.13. Glucose 120. Blood cultures revealed no growth. He's been transitioned to Augmentin. Continue on Symbicort, albuterol. Objective - Vital Signs Vital signs: Vital Signs Temp 98.3 F 11/11/22 06:54 Pulse 84 11/11/22 09:21 Resp 16 11/11/22 06:54 BP 134/86 11/11/22 06:54 Pulse Ox 94 L 11/11/22 09:06 FiO2 50 11/11/22 00:15 Intake & Output 11/10/22 11/11/22 11/11/22 18:59 06:59 18:59 Intake Total 840 Output Total 1025 550 Balance -185 -550 Intake: IV 100 Piperacillin-Tazobactam 3 100 .375 gm In Sodium Chloride 0.9% 100 ml @ 25 mls/hr IVPB Q8HR [facility] Rx# :[id number] Oral 740 Output: Urine 1025 550 Other: Voiding Method Urinal Urinal # Voids 2 # Bowel Movements 1 - Exam GENERAL EXAM: Alert, morbidly obese 52-year-old male, on room air, up in a chair, comfortable in no apparent distress. HEAD: Normocephalic. EYES: Normal reaction of pupils, equal size. NOSE: Clear with pink turbinates. THROAT: No erythema or exudates. NECK: No masses, no JVD. CHEST: No chest wall deformity. LUNGS: Equal air entry with crackles in the left base. CVS: S1 and S2 normal with no audible murmur, regular rhythm. ABDOMEN: No hepatosplenomegaly, normal bowel sounds, no guarding or rigidity. SPINE: No scoliosis or deformity SKIN: No rashes CENTRAL NERVOUS SYSTEM: No focal deficits, tone is normal in all 4 extremities. EXTREMITIES: Pablo wrap some lower extremities. There is 1-2+ peripheral edema. No clubbing, no cyanosis. Peripheral pulses are intact. - Labs CBC & Chem 7: 11/09/22 07:29 11/11/22 09:56 Labs: Abnormal Lab Results - Last 24 Hours (Table) 11/10/22 11/10/22 11/11/22 Range/Units 16:56 20:28 05:31 Sodium (137-145) mmol/L Potassium (3.5-5.1) mmol/L BUN (9-20) mg/dL Glucose (74-99) mg/dL POC Glucose (mg/dL) 153 H 208 H 144 H (70-110) mg/dL 11/11/22 11/11/22 Range/Units 09:56 11:06 Sodium 133 L (137-145) mmol/L Potassium 5.4 H (3.5-5.1) mmol/L BUN 27 H (9-20) mg/dL Glucose 120 H (74-99) mg/dL POC Glucose (mg/dL) 133 H (70-110) mg/dL Microbiology - Last 24 Hours (Table) 11/05/22 13:30 Blood Culture - Final Blood 11/05/22 13:15 Blood Culture - Final Blood Assessment and Plan Assessment: Abdominal pain under investigation. Pain is essentially left lower quadrant/left upper quadrant area. No evidence of any pyelonephritis. No evidence of any diverticulitis. The patient has diverticulosis. Patient was also found to have a left lower lobe pulmonary infiltrates consistent with pneumonia. There is some limited infiltration the left lung base. The patient is covered with IV Zosyn. The general surgical consultation was obtained. Abdominal exam remains benign. The patient has subsided and the patient is currently not complaining of any pain. Acute left lower lobe pneumonia/consolidation, chest x-ray findings are unc hanged and the patient is currently on IV Zosyn Acute hypoxic respiratory failure, recovered and the patient is currently on room air Elevated pro-calcitonin level, last level was at 4.08 and a repeat level needs to be obtained and the repeat level came back at 0.49. Hypotension, rule out underlying sepsis, recovered and the patient is currently off pressors on KVO fluids Acute hypoxic /hypercapnic respiratory failure, recovered and the patient is currently on room air Acute kidney injury on top of chronic kidney disease, no signs of any fluid overload at this point in time, improving and the patient's creatinine is down 1.13 Anion gap metabolic acidosis, recovered Chronic diastolic heart failure Previous history of cellulitis of the lower extremities, inactive for now Anemia of chronic disease Altered mentation, recovered Plan: The patient was seen and evaluated Medications and labs reviewed Stable and on room air Cleared for discharge from the pulmonary standpoint Complete a course of Augmentin Follow-up in the office in 1 week I have personally seen and examined the patient, performed the documentation and the assessment and plan as written. Number of minutes spent on the visit: 10.
--- NOTE | 2022-11-11 14:23 | DS ---
DISCHARGE SUMMARY CHIEF COMPLAINT: 1. Respiratory failure. 2. Pneumonitis. 3. Sepsis. 4. Congestive heart failure. 5. Acute kidney injury. HISTORY OF PRESENT ILLNESS AND PHYSICAL EXAMINATION: Details of this man's history and physical can be found in the initial workup. LABORATORY STUDIES: While he is in the hospital, he had laboratory studies, details of which can be found in the laboratory section of his chart. COURSE IN THE HOSPITAL: After admission, he was placed on bedrest, started intravenous fluids, IV antibiotics and updrafts. He was seen and followed by pulmonology. He was eventually transferred to the intensive care unit where he was continued on IV fluids, antibiotics and a BiPAP. He slowly improved and [facility] and [facility] did well. He was able to get up and move about without oxygen and ambulate. It was felt that he could go home on the . He will go home on his usual activity and his usual medications along with Augmentin 875 twice a day and he would be seen in the office in several days. FINAL DIAGNOSES: 1. Respiratory failure. 2. Left lower lobe pneumonitis. 3. Congestive heart failure. 4. Renal failure. 5. Morbid obesity. 6. Diabetes mellitus. 7. Acute kidney injury operations. OPERATIONS: Pulmonology, is improved. MMODL / IJN: [id number] /
[2022-11-11] MEDS ORDERED: AMOXIC-POT CLAV 875-125MG 1 EACH TAB PO SCH (21:00)
--- NOTE | 2022-11-13 13:18 | CDI ---
Documentation Clarification Form Date: 11/13/2022 12:41:47 PM From: Meghana Angelo Phone: Admit Date: 11/05/2022 12:15:00 PM Patient Name: Goran Lombardo Visit Number: [id number] Discharge Date: 11/11/2022 12:42:00 PM ATTENTION: The Clinical Documentation Specialists (CDI) and [facility] Coding Staff appreciate your assistance in clarifying documentation. Please respond to the clarification below the line at the bottom and electronically sign. The CDI & [facility] Coding staff will review the response and follow-up if needed. Please note: Queries are made part of the Legal Health Record. If you have any questions, please contact the author of this message via ITS. Dr. Evert Vallejo In the previous query, you stated "possible CKD, will need to establish once MALINDA resolves." Additional clarification regarding the stage ofCKDis requested post ATN treatment. History/Risk Factors: 52yo M, sepsis/, ATN d/t hypotensiveshock, nonobstructive left renal calculus, metabolic acidosis, DMII w CKD, AH/HRF, hyperkalemia, PNA w COPD, HLD, morbid obesity, smoker Clinical Indicators: Baseline creatinine near 1 10/07 Nephrology Consult11/06/22 Blood Urea Nitrogen: 11/05 97 11/06 86 11/08 40 11/11 26 Creatinine: 11/05 4.06 11/06 2.63 11/08 1.44 11/11 1.13 Creatinine: 11/05 16 11/06 27 11/08 56 11/11 75 GFR: 11/06 31 11/08 65 11/11 87 Non- GFR: 11/06 27 11/08 56 11/11 75 Treatment: Check bladder scan andrule outurine. Avoid nephrotoxins, continue to monitor renal function and urine output. Continue to encourage increase oral intake. UrineanalysisBland. Please clarify the stage of theCKD, if known: [ ] CKD Stage 2 (GFR 60-89) [ ] CKD Stage 3a (GFR 45-59) [ ] CKD Stage 3b (GFR 30-44) [ ] Other, please specify [ x] Unable to determine (Template Last revised: June 2020) MTDD
--- NOTE | 2022-11-19 01:27 | PN ---
PROGRESS NOTE DATE OF SERVICE: 11/10/2022 CHIEF COMPLAINT: Cellulitis of the lower extremities with an ulcer of the right cobb. HISTORY OF PRESENT ILLNESS: This is a gentleman who is doing well and is probably going to be able to go home soon. He thinks he can handle pains at home now. PHYSICAL EXAMINATION: CHEST: Clear. CARDIAC: Normal. ABDOMEN: Protuberant. EXTREMITIES: Unchanged and both wrapped. IMPRESSION: 1. Generalized anasarca. 2. Renal failure. 3. Congestive heart failure. 4. Lower extremity edema with cellulitis and ulcer of the right cobb. PLAN: Continue to increase activity and he may be able to go home soon if we can arrange help. MMODL / IJN: [id number] /
--- NOTE | 2022-11-19 01:27 | PN ---
PROGRESS NOTE DATE OF SERVICE: 11/09/2022 CHIEF COMPLAINT: Edema, heart failure, and cellulitis of lower extremities. HISTORY OF PRESENT ILLNESS: This gentleman is about the same. Lower extremities are somewhat less painful and the edema is improving. He is able to ambulate. He is not nearly short of breath. Renal function has slightly improved. PHYSICAL EXAMINATION: CHEST: Clear. CARDIAC: Unchanged. ABDOMEN: Protuberant, soft. EXTREMITIES: Wrapped from the knees down. IMPRESSION: 1. Anasarca. 2. Renal failure. 3. Congestive heart failure. 4. Lower extremity edema with stasis dermatitis and cellulitis and ulcer of the right cobb. PLAN: Continue with current program and we are thinking about discharge plan, hopefully soon. MMODL / IJN: [id number] /
--- NOTE | 2022-11-19 07:45 | PN ---
PROGRESS NOTE DATE OF SERVICE: 11/09/2022 CHIEF COMPLAINT: Anasarca, renal failure, and cellulitis of lower extremities. HISTORY OF PRESENT ILLNESS: This gentleman is improving slowly. Edema seems to be going down, and the ulcer on the right leg is drying up. PHYSICAL EXAMINATION: CHEST: Clear. CARDIAC: Normal. ABDOMEN: Soft DICTATION ENDS HERE MMODL / IJN: [id number] /
== END 2022-11-11 12:42 | disposition home or self-care (01) | DRG 720 ==
LOC: EC 07:49 → 3SCARD 12:15 → 2SICU 14:51 → 3SCARD 11-08 22:37 → 4SSUR 11-10 11:48
PROVIDERS: ADMIT Family Medicine; ATTEND Family Medicine
PROC: 06HY33Z Insertion of Infusion Device into Lower Vein, Percutaneous Approach (ICD-10-PCS; principal; 2022-11-05)
PROC: 3E033XZ Introduction of Vasopressor into Peripheral Vein, Percutaneous Approach (ICD-10-PCS; 2022-11-05)
PROC: 5A09357 Assistance with Respiratory Ventilation, Less than 24 Consecutive Hours, Continuous Positive Airway Pressure (ICD-10-PCS; 2022-11-06)
DX: A41.9 Sepsis, unspecified organism (principal); J96.02 Acute respiratory failure with hypercapnia; J96.01 Acute respiratory failure with hypoxia; R57.8 Other shock; N17.0 Acute kidney failure with tubular necrosis; G93.49 Other encephalopathy; I13.0 Hypertensive heart and chronic kidney disease with heart failure and stage 1 through stage 4 chronic kidney disease, or unspecified chronic kidney disease; I27.20 Pulmonary hypertension, unspecified; J18.9 Pneumonia, unspecified organism; E87.4 Mixed disorder of acid-base balance; J44.0 Chronic obstructive pulmonary disease with (acute) lower respiratory infection; R16.2 Hepatomegaly with splenomegaly, not elsewhere classified; D63.8 Anemia in other chronic diseases classified elsewhere; L97.819 Non-pressure chronic ulcer of other part of right lower leg with unspecified severity; E11.22 Type 2 diabetes mellitus with diabetic chronic kidney disease; I50.32 Chronic diastolic (congestive) heart failure; E66.01 Morbid (severe) obesity due to excess calories; Z68.42 Body mass index [BMI] 45.0-49.9, adult; N18.9 Chronic kidney disease, unspecified; I87.2 Venous insufficiency (chronic) (peripheral); F17.210 Nicotine dependence, cigarettes, uncomplicated; E78.5 Hyperlipidemia, unspecified; I86.8 Varicose veins of other specified sites; R59.0 Localized enlarged lymph nodes; K57.30 Diverticulosis of large intestine without perforation or abscess without bleeding; N20.0 Calculus of kidney; N32.89 Other specified disorders of bladder; E87.5 Hyperkalemia; Z87.11 Personal history of peptic ulcer disease; Z79.51 Long term (current) use of inhaled steroids; Z79.899 Other long term (current) drug therapy
CPT/HCPCS: 36415; 36600; 51798; 70450; 71045; 71046; 74176; 80048; 80053; 80061; 81001; 82150; 82805; 83605; 83690; 83735; 84145; 84443; 84550; 85025; 85610; 85730; 87040; 87449; 93308; 93880; 94640; 94660; 94760; 96361; 96365; 96366; 96368; 96375; 99291

== ENCOUNTER 2023-12-27 15:20 | Inpatient (IN) | payer OTHER ==
[~2023-12-27 15:20] MED LIST: NALOXONE 0.4 MG/ML 1 ML VIAL ONE
[2023-12-27] MEDS ORDERED: methylPREDNISolone SOD SUCCI 125 MG/2 ML VIAL ONE ×2 (18:45→21:10)
[2023-12-27] MEDS ORDERED: HEPARIN SODIUM,PORCINE 5,000 UNIT/ML 1 ML VIAL ONE (21:09)
[2023-12-27] MEDS ORDERED: cefTRIAXone 2 GM VIAL ONE (21:28)
[2023-12-28] MEDS ORDERED: methylPREDNISolone SOD SUCCI 125 MG/2 ML VIAL ONE ×3 (02:14→15:15)
[2023-12-28] MEDS ORDERED: HEPARIN SODIUM,PORCINE 5,000 UNIT/ML 1 ML VIAL ONE ×2 (04:51→11:37)
[2023-12-28] MEDS ORDERED: PANTOPRAZOLE 40 MG/10 ML VIAL ONE (08:45)
[2023-12-28] MEDS ORDERED: FUROSEMIDE 10 MG/ML 4 ML VIAL ONE (11:37)
[2023-12-28] MEDS ORDERED: INSULIN ASPART (NovoLOG) 100 UNIT/ML VIAL SQ ONE ×2 (12:20→18:43)
[2023-12-28] MEDS ORDERED: LORazepam 2 MG/ML INJ ONE (17:25)
[2023-12-28] MEDS ORDERED: FORMOTEROL FUMARATE 20 MCG/2 ML NEBU INHALATION ONE (19:08)
[2023-12-28] MEDS ORDERED: IPRATROPIUM-ALBUTEROL 3 ML NEB ONE (19:08)
[2023-12-28] MEDS ORDERED: BUDESONIDE 1 MG/2 ML NEBU INHALATION ONE (19:08)
[2023-12-29] MEDS ORDERED: INSULIN ASPART (NovoLOG) 100 UNIT/ML VIAL SQ ONE ×3 (06:34→16:25)
[2023-12-29] MEDS ORDERED: FORMOTEROL FUMARATE 20 MCG/2 ML NEBU INHALATION ONE ×2 (07:57→19:42)
[2023-12-29] MEDS ORDERED: BUDESONIDE 1 MG/2 ML NEBU INHALATION ONE (07:57)
[2023-12-29] MEDS ORDERED: IPRATROPIUM-ALBUTEROL 3 ML NEB ONE ×2 (07:57→19:43)
[2023-12-29] MEDS ORDERED: methylPREDNISolone SOD SUCCI 40 MG/ML 1 ML VIAL ONE ×3 (09:48→20:52)
[2023-12-29] MEDS ORDERED: HEPARIN SODIUM,PORCINE 5,000 UNIT/ML 1 ML VIAL ONE ×2 (09:48→20:50)
[2023-12-29] MEDS ORDERED: PANTOPRAZOLE 40 MG/10 ML VIAL ONE (09:48)
[2023-12-29] MEDS ORDERED: FUROSEMIDE 10 MG/ML 4 ML VIAL ONE ×2 (09:48→21:41)
[2023-12-29] MEDS ORDERED: LORazepam 2 MG/ML INJ ONE ×2 (15:00→16:26)
[2023-12-29] MEDS ORDERED: THIAMINE 100 MG TAB ONE (20:50)
[2023-12-29] MEDS ORDERED: cefTRIAXone 1 GM VIAL ONE (20:51)
[2023-12-29] MEDS ORDERED: POTASSIUM CHLORIDE ER 20 MEQ TAB.ER PO ONE (20:54)
[2023-12-29] MEDS ORDERED: cefTRIAXone 2 GM VIAL ONE (21:09)
[2023-12-30] MEDS ORDERED: LORazepam 2 MG/ML INJ ONE ×5 (00:58→20:38)
[2023-12-30] MEDS ORDERED: FORMOTEROL FUMARATE 20 MCG/2 ML NEBU INHALATION ONE (03:06)
[2023-12-30] MEDS ORDERED: BUDESONIDE 1 MG/2 ML NEBU INHALATION ONE ×2 (03:06→18:42)
[2023-12-30] MEDS ORDERED: IPRATROPIUM-ALBUTEROL 3 ML NEB ONE ×2 (03:06→18:42)
[2023-12-30] MEDS ORDERED: methylPREDNISolone SOD SUCCI 40 MG/ML 1 ML VIAL ONE (03:44)
[2023-12-30] MEDS ORDERED: HEPARIN SODIUM,PORCINE 5,000 UNIT/ML 1 ML VIAL ONE ×3 (03:45→20:42)
[2023-12-30] MEDS ORDERED: INSULIN ASPART (NovoLOG) 100 UNIT/ML VIAL SQ ONE ×5 (06:45→20:47)
[2023-12-30] MEDS ORDERED: PANTOPRAZOLE 40 MG/10 ML VIAL ONE (08:51)
[2023-12-30] MEDS ORDERED: FUROSEMIDE 10 MG/ML 4 ML VIAL ONE (08:51)
[2023-12-30] MEDS ORDERED: methylPREDNISolone SOD SUCCI 125 MG/2 ML VIAL ONE ×3 (08:52→20:42)
[2023-12-30] MEDS ORDERED: THIAMINE 100 MG TAB ONE ×2 (08:52→20:42)
[2023-12-30] MEDS ORDERED: HALOPERIDOL LACTATE 5 MG/ML 1 ML VIAL ONE ×3 (17:01→19:44)
[2023-12-30] MEDS ORDERED: DEXMEDETOMIDINE/0.9% NACL(PMX) 400 MCG/100 ML IV ONE ×2 (18:13→21:09)
[2023-12-30] MEDS ORDERED: cefTRIAXone 2 GM VIAL ONE (21:51)
[2023-12-30] MEDS ORDERED: NYSTATIN 100,000UNIT/GM CREAM 30 GM TUBE TOPICAL ONE (23:59)
[2023-12-30] MEDS ORDERED: SODIUM CHLORIDE 0.9% 100 ML BAG IV ONE (23:59)
[2023-12-31] MEDS ORDERED: methylPREDNISolone SOD SUCCI 125 MG/2 ML VIAL ONE ×2 (02:02→09:26)
[2023-12-31] MEDS ORDERED: DEXMEDETOMIDINE/0.9% NACL(PMX) 400 MCG/100 ML IV ONE ×5 (02:04→20:53)
[2023-12-31] MEDS ORDERED: HEPARIN SODIUM,PORCINE 5,000 UNIT/ML 1 ML VIAL ONE ×3 (03:56→20:49)
[2023-12-31] MEDS ORDERED: INSULIN ASPART (NovoLOG) 100 UNIT/ML VIAL SQ ONE ×4 (07:06→20:50)
[2023-12-31] MEDS ORDERED: PANTOPRAZOLE 40 MG/10 ML VIAL ONE (09:26)
[2023-12-31] MEDS ORDERED: FUROSEMIDE 40 MG TAB ONE (09:27)
[2023-12-31] MEDS ORDERED: THIAMINE 100 MG TAB ONE ×2 (09:27→20:50)
[2023-12-31] MEDS ORDERED: LORazepam 2 MG/ML INJ ONE (15:19)
[2023-12-31] MEDS ORDERED: methylPREDNISolone SOD SUCCI 40 MG/ML 1 ML VIAL ONE (20:49)
[2023-12-31] MEDS ORDERED: cefTRIAXone 2 GM VIAL ONE (20:50)
[2023-12-31] MEDS ORDERED: hydrALAZINE HCL 20 MG/ML 1 ML VIAL ONE (23:34)
[2024-01-01] MEDS ORDERED: LORazepam 2 MG/ML INJ ONE ×3 (03:30→18:18)
[2024-01-01] MEDS ORDERED: hydrALAZINE HCL 20 MG/ML 1 ML VIAL ONE (07:00)
[2024-01-01] MEDS ORDERED: INSULIN ASPART (NovoLOG) 100 UNIT/ML VIAL SQ ONE ×2 (07:01→12:40)
[2024-01-01] MEDS ORDERED: methylPREDNISolone SOD SUCCI 40 MG/ML 1 ML VIAL ONE ×2 (08:49→21:04)
[2024-01-01] MEDS ORDERED: PANTOPRAZOLE 40 MG/10 ML VIAL ONE (08:49)
[2024-01-01] MEDS ORDERED: POTASSIUM CHLORIDE 100 ML ONE ×2 (08:50→10:00)
[2024-01-01] MEDS ORDERED: DEXMEDETOMIDINE/0.9% NACL(PMX) 400 MCG/100 ML IV ONE ×2 (09:59→22:37)
[2024-01-01] MEDS ORDERED: HALOPERIDOL LACTATE 5 MG/ML 1 ML VIAL ONE (17:12)
[2024-01-01] MEDS ORDERED: FORMOTEROL FUMARATE 20 MCG/2 ML NEBU INHALATION ONE (18:28)
[2024-01-01] MEDS ORDERED: BUDESONIDE 1 MG/2 ML NEBU INHALATION ONE (18:29)
[2024-01-01] MEDS ORDERED: THIAMINE 100 MG TAB ONE (21:04)
[2024-01-01] MEDS ORDERED: cefTRIAXone 2 GM VIAL ONE (21:04)
[2024-01-02] MEDS ORDERED: LORazepam 2 MG/ML INJ ONE (01:33)
[2024-01-02] MEDS ORDERED: PANTOPRAZOLE 40 MG/10 ML VIAL ONE (09:49)
[2024-01-02] MEDS ORDERED: methylPREDNISolone SOD SUCCI 40 MG/ML 1 ML VIAL ONE ×2 (09:50→20:22)
[2024-01-02] MEDS ORDERED: THIAMINE 100 MG TAB ONE ×2 (09:50→20:22)
[2024-01-02] MEDS ORDERED: MULTIVITAMINS, THERA 1 EACH TAB ONE (09:50)
[2024-01-02] MEDS ORDERED: amLODIPine 5 MG TAB ONE (09:50)
[2024-01-02] MEDS ORDERED: DEXMEDETOMIDINE/0.9% NACL(PMX) 400 MCG/100 ML IV ONE (16:22)
[2024-01-02] MEDS ORDERED: hydrALAZINE HCL 20 MG/ML 1 ML VIAL ONE ×2 (16:23→22:19)
[2024-01-02] MEDS ORDERED: INSULIN ASPART (NovoLOG) 100 UNIT/ML VIAL SQ ONE ×2 (17:05→20:23)
[2024-01-02] MEDS ORDERED: cefTRIAXone 2 GM VIAL ONE (20:23)
[2024-01-02] MEDS ORDERED: SENNOSIDES-DOCUSATE SODIUM 1 EACH TAB PO ONE (20:57)
[2024-01-02] MEDS ORDERED: DEXTROSE 5%-0.45% NACL 1,000 ML BAG IV ONE (23:59)
[2024-01-02] MEDS ORDERED: SODIUM CHLORIDE 0.9% 50 ML BAG ONE (23:59)
[2024-01-03] MEDS ORDERED: LORazepam 2 MG/ML INJ ONE ×3 (00:06→11:44)
[2024-01-03] MEDS ORDERED: HALOPERIDOL LACTATE 5 MG/ML 1 ML VIAL ONE (01:16)
[2024-01-03] MEDS ORDERED: POTASSIUM CHLORIDE 200 ML ONE (06:33)
[2024-01-03] MEDS ORDERED: IPRATROPIUM-ALBUTEROL 3 ML NEB ONE (07:55)
[2024-01-03] MEDS ORDERED: BUDESONIDE 1 MG/2 ML NEBU INHALATION ONE (07:55)
[2024-01-03] MEDS ORDERED: FORMOTEROL FUMARATE 20 MCG/2 ML NEBU INHALATION ONE (07:55)
[2024-01-03] MEDS ORDERED: methylPREDNISolone SOD SUCCI 40 MG/ML 1 ML VIAL ONE ×2 (08:30→20:40)
[2024-01-03] MEDS ORDERED: PANTOPRAZOLE 40 MG/10 ML VIAL ONE (08:30)
[2024-01-03] MEDS ORDERED: MULTIVITAMINS, THERA 1 EACH TAB ONE (08:30)
[2024-01-03] MEDS ORDERED: SENNOSIDES 8.6 MG TAB ONE ×2 (08:31→20:40)
[2024-01-03] MEDS ORDERED: THIAMINE 100 MG TAB ONE (08:31)
[2024-01-03] MEDS ORDERED: amLODIPine 5 MG TAB ONE (08:31)
[2024-01-03] MEDS ORDERED: INSULIN ASPART (NovoLOG) 100 UNIT/ML VIAL SQ ONE (13:30)
[2024-01-04] MEDS ORDERED: IPRATROPIUM-ALBUTEROL 3 ML NEB ONE (05:14)
[2024-01-04] MEDS ORDERED: BUDESONIDE 1 MG/2 ML NEBU INHALATION ONE (05:14)
[2024-01-04] MEDS ORDERED: FORMOTEROL FUMARATE 20 MCG/2 ML NEBU INHALATION ONE (05:14)
[2024-01-04] MEDS ORDERED: INSULIN ASPART (NovoLOG) 100 UNIT/ML VIAL SQ ONE ×4 (06:54→22:06)
[2024-01-04] MEDS ORDERED: methylPREDNISolone SOD SUCCI 40 MG/ML 1 ML VIAL ONE ×2 (08:59→22:06)
[2024-01-04] MEDS ORDERED: PANTOPRAZOLE 40 MG/10 ML VIAL ONE (08:59)
[2024-01-04] MEDS ORDERED: MULTIVITAMINS, THERA 1 EACH TAB ONE (08:59)
[2024-01-04] MEDS ORDERED: amLODIPine 5 MG TAB ONE (09:00)
[2024-01-04] MEDS ORDERED: THIAMINE 100 MG TAB ONE (09:00)
[2024-01-05] MEDS ORDERED: SENNOSIDES-DOCUSATE SODIUM 1 EACH TAB PO ONE (00:11)
[2024-01-05] MEDS ORDERED: BUDESONIDE 1 MG/2 ML NEBU INHALATION ONE (06:08)
[2024-01-05] MEDS ORDERED: FORMOTEROL FUMARATE 20 MCG/2 ML NEBU INHALATION ONE (06:09)
[2024-01-05] MEDS ORDERED: IPRATROPIUM-ALBUTEROL 3 ML NEB ONE (06:09)
[2024-01-05] MEDS ORDERED: INSULIN ASPART (NovoLOG) 100 UNIT/ML VIAL SQ ONE ×3 (06:42→17:51)
[2024-01-05] MEDS ORDERED: methylPREDNISolone SOD SUCCI 40 MG/ML 1 ML VIAL ONE (09:05)
[2024-01-05] MEDS ORDERED: PANTOPRAZOLE 40 MG/10 ML VIAL ONE (09:05)
[2024-01-05] MEDS ORDERED: amLODIPine 5 MG TAB ONE (09:06)
[2024-01-05] MEDS ORDERED: DOCUSATE 100 MG CAP ONE (09:12)
[2024-01-05] MEDS ORDERED: THIAMINE 100 MG TAB ONE (09:12)
[2024-01-05] MEDS ORDERED: MULTIVITAMINS, THERA 1 EACH TAB ONE (09:12)
[2024-01-05] MEDS ORDERED: polyethylene glycoL 3350 17 GM POWD.PACK ONE (23:59)
[2024-01-05] MEDS ORDERED: SODIUM CHLORIDE 0.9% 1,000 ML BAG ONE (23:59)
[2024-01-05] MEDS ORDERED: DEXTROSE 5% IN WATER 1,000 ML BAG ONE (23:59)
[2024-01-06] MEDS ORDERED: IPRATROPIUM-ALBUTEROL 3 ML NEB ONE (05:37)
[2024-01-06] MEDS ORDERED: SENNOSIDES 8.6 MG TAB ONE (09:29)
[2024-01-06] MEDS ORDERED: predniSONE 10 MG TAB ONE (09:29)
[2024-01-06] MEDS ORDERED: THIAMINE 100 MG TAB ONE (09:29)
[2024-01-06] MEDS ORDERED: PANTOPRAZOLE 40 MG/10 ML VIAL ONE (09:29)
[2024-01-06] MEDS ORDERED: MULTIVITAMINS, THERA 1 EACH TAB ONE (09:29)
[2024-01-06] MEDS ORDERED: amLODIPine 5 MG TAB ONE (09:30)
[2024-01-07] MEDS ORDERED: amLODIPine 5 MG TAB ONE (08:13)
[2024-01-07] MEDS ORDERED: MULTIVITAMINS, THERA 1 EACH TAB ONE (08:13)
[2024-01-07] MEDS ORDERED: PANTOPRAZOLE 40 MG/10 ML VIAL ONE (08:14)
[2024-01-07] MEDS ORDERED: THIAMINE 100 MG TAB ONE (08:14)
[2024-01-07] MEDS ORDERED: predniSONE 10 MG TAB ONE (08:14)
[2024-01-07] MEDS ORDERED: POLYMYXIN B-TRIMETHOPRIM SULF (10,000-1) OPHTH DROPS 10 ML BTL ONE (16:00)
[2024-01-07] MEDS ORDERED: INSULIN ASPART (NovoLOG) 100 UNIT/ML VIAL SQ ONE ×2 (17:19→20:58)
[2024-01-07] MEDS ORDERED: IPRATROPIUM-ALBUTEROL 3 ML NEB ONE (19:39)
--- NOTE | 2024-01-25 15:58 | CT ---
Patient Goran Morales ID [id number] Order # EXAMINATION TYPE: CT brain wo con DATE OF EXAM: 01/03/2024 COMPARISON: No comparison available on downtime PACS. INDICATION: Acute mental status changes DLP: 1243.1 mGycm, Automated exposure control for dose reduction was used. CONTRAST: None CT of the brain is performed utilizing 3 mm thick sections through the posterior fossa and 3 mm thick sections through the remaining calvarium. Study is performed within 24 hours of arrival to the hosp ital. No abnormal hyperdensity is present to suggest an acute intracranial hemorrhage. No mass lesion is evident. No acute infarcts are evident. There may be some mild periventricular white matter hypodensity, likel y on the basis of chronic white matter ischemic changes. Ventricles and sulci are prominent for the patient age. Paranasal sinuses and mastoid air cells within the [id number] are clear. IMPRESSION: 1. No acute intracranial process. Follow up MRI can be performed as clinically indicated. 2. Atrophy. Minimal chronic appearing white matter ischemic change may be present.
--- NOTE | 2024-01-29 14:13 | XR ---
Patient Goran Morales ID [id number] [id number] EXAMINATION TYPE: XR chest 2V DATE OF EXAM: 12/27/2023 1:38 PM CLINICAL INDICATION: AMS COMPARISON: THIS EXAM WAS READ DURING PACS DOWNTIME, NO PRIORS AVAILABLE. TECHNIQUE: XR chest 2V Frontal view of the chest. FINDINGS: Lungs/Pleura: Low lung volumes are present. There is no evidence of pleural effusion, focal consolida tion, or pneumothorax. Pulmonary vascularity: Pulmonary vascular congestion. Heart/mediastinum: Cardiomediastinal silhouette is enlarged. Musculoskeletal: No acute osseous pathology. IMPRESSION: Low lung volumes with a generalized hazy appearance which could represent atelectasis versus pulmonar y edema correlate with serum BNP.
--- NOTE | 2024-02-01 13:30 | XR ---
EXAMINATION TYPE: XR abdomen 1V DATE OF EXAM: 02/01/2024 COMPARISON: None HISTORY: Constipation TECHNIQUE: Abdomen is examined in supine view. Multiple images are obtained. FINDINGS: 1.0 cm renal or proximal ureteral stone may be present on the left. Nonspecific bowel gas is present within small bowel loops as well as colon. No dilated loops of bowel are evident. No mass effect is evident. Organomegaly not evident. IMPRESSION: 1. Nonspecific bowel gas pattern. 2. Possible 1 cm renal proximal left ureteral stone [facility], , 02/01/2024 1:27 PM
--- NOTE | 2024-02-02 07:43 | XR ---
Patient Goran Morales ID [id number] Order # EXAMINATION TYPE: XR chest 1V DATE OF EXAM: 01/01/2024 COMPARISON: 12/31/2023 INDICATION: Pneumonia TECHNIQUE: Single frontal view of the chest is obtained. FINDINGS: The heart size is normal. The pulmonary vasculature is normal. There is improved aeration of the retrocardiac region. IMPRESSION: 1. Previous left lower lobe infiltrate may be resolved.
--- NOTE | 2024-02-02 14:00 | CT ---
Site ID [facility] Goran Chacon ID [id number] EXAMINATION TYPE: CT brain wo con CT DLP: 1146.4 mGycm, Automated exposure control for dose reduction was used. DATE OF EXAM: 12/27/2023 12:05 PM COMPARISON: THIS EXAM WAS READ DURING PACS DOWNTIME, NO PRIORS AVAILABLE. CLINICAL INDICATION: AMS. TECHNIQUE: Brain: Axial CT images of the brain were obtained with coronal and sagittal reformats created and rev iewed. Contrast used: None. Oral contrast used: None. FINDINGS: Brain: Extra-axial spaces: No abnormal extra-axial fluid collections. Ventricular system: Within normal limits Cerebral parenchyma: No acute intraparenchymal hemorrhage or mass effect. The mooney-white junction is well differentiated. Cerebellum: Unremarkable. Mass effect: No evidence of midline shift. Intracranial vasculature: Atherosclerotic calcifications of the intracranial vessels. Soft tissues: Normal. Calvarium/osseous structures: No depressed skull fracture. Paranasal sinuses and mastoid air cells: Mild scattered paranasal sinus disease. Visualized orbits: Orbital contents are intact. IMPRESSION: No acute intracranial process.
--- NOTE | 2024-02-03 05:59 | XR ---
Site ID [facility] Goran Chacon ID [id number] Order # Procedure CHEST SINGLE VIEW EXAMINATION TYPE: XR chest 1V DATE OF EXAM: 12/31/2023 1:26 PM CLINICAL INDICATION: RESPIRATORY FAILURE COMPARISON: THIS 12/27/2023. TECHNIQUE: XR chest 1V Frontal view of the chest. FINDINGS: Rotated exam Lungs/Pleura: There is no evidence of pleural effusion, focal consolidation, or pneumothorax. Pulmonary vascularity: Unremarkable. Heart/mediastinum: Cardiomediastinal silhouette is enlarged. Musculoskeletal: No acute osseous pathology. IMPRESSION: Rotated exam There may be mild improvement of mild pulmonary vascular congestion seen on prior which may be due to patient rotation. Cardiomegaly remains the same
--- NOTE | 2024-02-08 13:17 | CT ---
EXAM: CT Head Without Intravenous Contrast CLINICAL HISTORY: unwitnessed fall TECHNIQUE: Axial computed tomography images of the head/brain without intravenous contrast. CTDI is 49.1 mGy and DLP is 1168.9 mGy-cm. This CT exam was performed using one or more of the following dose reduction techniques: automated exposure control, adjustment of the mA and/or kV according to patient size, and/or use of iterative reconstruction technique. COMPARISON: No relevant prior studies available. FINDINGS: Brain:No acute intracranial abnormality. Consider MRI if there is further concern. There are a few areas of decreased attenuation in the deep cerebral white matter consistent with mild small vessel ischemic/degenerative changes. The cerebral and cerebellar sulci are mildly prominent consistent with mild brain atrophy. No hemorrhage. Ventricles:Unremarkable. No ventriculomegaly. Bones/joints:Unremarkable. No acute fracture. Soft tissues:Unremarkable. Vasculature:Atherosclerotic disease. Sinuses:Unremarkable as visualized. Mastoid air cells:Unremarkable as visualized. No mastoid effusion. IMPRESSION: No acute intracranial abnormality. Consider MRI if there is further concern. Radiologist: Goran Baca MD Electronically Signed: 01/07/24 08:16 Study ready at 06:43 and initial results transmitted at 08:16 [facility]
--- NOTE | 2024-02-08 14:35 | XR ---
EXAMINATION TYPE: XR chest 1V portable DATE OF EXAM: 02/08/2024 COMPARISON: 01/01/2024 INDICATION: COPD respiratory failure TECHNIQUE: Single frontal view of the chest is obtained. FINDINGS: The heart size is slightly enlarged.. The pulmonary vasculature is normal. Retrocardiac infiltrate appears to be present. There is silhouetting the left diaphragm. Correlate fo r pneumonia. IMPRESSION: 1. Cardiomegaly with retrocardiac infiltrate. Correlate for pneumonia. [facility], , 02/08/2024 2:32 PM
--- NOTE | 2024-02-11 14:39 | CONS ---
CONSULTATION This is a dictation of wound consult. REASON FOR CONSULTATION: Bilateral lower extremity ulcerations and ulcerations in the groin. HISTORY/CHIEF COMPLAINT: We are unable to get really a history, the patient is noncommunicative at this time and is on CPAP, but we were told the patient was recently admitted with these wounds and pneumonia. PHYSICAL EXAMINATION: GENERAL: We find a morbidly obese gentleman, currently resting, on the CPAP. EXTREMITIES: He has some discoloration in both lower extremities. Mid calf, he has moderate size ulcerations which appear to be broken blisters from swelling. He currently has about 1 to 2+ edema of both lower legs. In the groins, he has excoriation with redness. IMPRESSION: 1. Possible candidiasis in the groins under a large pannus flap. 2. Chronic venous stasis of both lower extremities with swelling having created ulcerations. RECOMMENDATIONS: I have discussed the case with Nursing and I have recommended we proceed with nystatin cream in the groins and that the groins have an absorptive cloth placed under the pannus to avoid perspiration accumulating. The dressings would be changed daily. On the legs, I recommended absorptive silver, Opticell or Aquacel placed over the wounds, and the wound should then be gauze wrapped and then Pablo wraps from the toes to just below the knee with 4-inch double roll Pablo wraps. Leg elevation as much as possible would be appropriate. Last recommendation, we would be happy to follow the patient in Wound Care following his discharge if necessary depending on the progress of the wounds during his hospitalization. We appreciate the opportunity to participate in this gentleman's care and would be happy to answer any questions or follow up if needed. MMODL / IJN: [id number] /
--- NOTE | 2024-02-11 14:42 | PN ---
PROGRESS NOTE SUBJECTIVE: At the time of my evaluation, the patient was seen in room 264. The patient appears lethargic today, still appears quite hazy and confused, but is awake and arousable, and interactive to me on exam. Answering some questions though without any linear thought process. OBJECTIVE: VITAL SIGNS: The patient is afebrile, 153/100, heart rate is 71, 97% on room air. GENERAL: The patient is in no acute distress, but does not appear oriented, is awake and arousable to voice. RESPIRATORY: He does appear to have mild wheezing diffusely throughout the lungs with coarse breath sounds, especially in the left lower base. CARDIOVASCULAR: The patient has no pitting edema, regular rate and rhythm without evidence of murmurs. GASTROINTESTINAL: The patient is soft, nontender to palpation, nondistended. MUSCULOSKELETAL: No petechia. No rashes. No ecchymoses to appreciate in his lower extremities. NEUROLOGIC: Moving all extremities without any focal deficits. LABORATORY WORK: Today white blood cell count is 6.3, hemoglobin is 11, platelets are noted to be 77, which have been down trended from 150 on admission. Chemistry showed that sodium is 149 today, which is up trending from 145. However, kidney function seems to be improving with BUN of 53 down from 65 and creatinine of 1.2 down from 1.4. Bicarb is 32. Glucose is 145. No new images to review today. ASSESSMENT: 1. Community-acquired pneumonia. We will continue ceftriaxone and DuoNebs as needed. History of chronic obstructive pulmonary disease. Continue his formoterol, budesonide. 2. Alcohol withdrawal. Continue Ativan p.r.n., thiamine, folic acid, multivitamin, Precedex drip is being weaned off as discussed with nursing. 3. Thrombocytopenia. Discussed with Pulmonology. We will obtain a DIC panel including fibrinogen, D-dimer, coags, and follow this up. 4. Acute kidney injury with hypernatremia. We will switch his fluids from 50 cc of normal saline to 100 cc/hour of D5 half-normal. 5. Constipation. The patient has not had a bowel movement since admission. Per nursing, we will start MiraLAX 17 g daily as well as Senokot-S one tab b.i.d. first dose now. 6. Deep venous thrombosis prophylaxis is on hold due to thrombocytopenia. The patient is a FULL CODE. MMODL / IJN: [id number] /
--- NOTE | 2024-02-11 14:43 | PN ---
PROGRESS NOTE Seen in room 264 at the time of my evaluation. SUBJECTIVE: Today, the patient is feeling still confused, but appears to be more interactive to voice on exam. She is alert and oriented x1. She has no complaints of fevers, chills, nausea, vomiting. She is able to eat with the help of one-to-one sitter. Continues to gradually improve from alcohol withdrawal encephalopathy. OBJECTIVE: VITAL SIGNS: Stable. She is afebrile. Blood pressure 112/90, heart rate is 82, 97% on room air. LABORATORY WORK: Demonstrates CBC, white blood cell count 10.2, hemoglobin is 11.1, platelets are 69, which are stable. Basic metabolic panel shows improvement of sodium 145. Chemistry shows creatinine of 1.02, magnesium is 2.[address] of the head was done on imaging yesterday, which was negative for an acute intracranial process. ASSESSMENT AND PLAN: 1. Community-acquired pneumonia, has resolved. 2. Alcohol withdrawal with encephalopathy, metabolic. Continue Ativan p.r.n. Continue thiamine, folic acid, multivitamin, Precedex drip is being weaned off completely. The patient . 3. Thrombocytopenia. DIC panel . 4. Acute kidney injury with hypernatremia. Acute kidney injury has resolved. Creatinine is now stable. Hypernatremia is improving to 145 from 150 after change of the fluids to D5W at 75 mL/hours, continue at this time. 5. Constipation has resolved with bowel regimen. 6. The patient is full code. MMODL / IJN: [id number] /
--- NOTE | 2024-02-17 15:57 | US ---
EXAM: Ultrasound of the kidneys DATE: 12/27/2023 20:18 INDICATION: COMPARISON: None, please note PACS downtime occurred during the radiologist interpretation of these i mages with limited priors/reports. TECHNIQUE: Multiple mooney-scale and color color Doppler ultrasound images were obtained of the kidneys and urinary bladder. FINDINGS: RIGHT KIDNEY: Size: 13.0 x 4.9 x 5.7 cm (longitudinally and transverse). Echogenicity: [place] to be within normal limits. Parenchymal thickness and contour: Normal Pelvicalyceal dilatation: None. Calculi: None. Lesions: None. LEFT KIDNEY: Size: 13.1 x 6.2 x 6.6 cm (longitudinally and transverse). Echogenicity: [place] to be within normal limits.. Parenchymal thickness and contour: Normal Pelvicalyceal dilatation: None. Calculi: 8 mm hyperechoic focus present with shadowing. Lesions: None. No URINARY BLADDER: Not evaluated AORTA: Not evaluated IMPRESSION: No evidence for obstructive uropathy. Left nonobstructing calculus. [facility], , 02/17/2024 3:55 PM
== END 2024-01-07 21:57 | disposition home or self-care (01) | DRG 139 ==
LOC: OR 15:20 → 4SSUR 15:21
PROVIDERS: ADMIT Student in an Organized Health Care Education/Training Program; ATTEND Student in an Organized Health Care Education/Training Program
PROC: 5A09357 Assistance with Respiratory Ventilation, Less than 24 Consecutive Hours, Continuous Positive Airway Pressure (ICD-10-PCS; principal; 2023-12-27)
DX: J18.9 Pneumonia, unspecified organism (principal); J96.02 Acute respiratory failure with hypercapnia; J96.01 Acute respiratory failure with hypoxia; G93.41 Metabolic encephalopathy; Z87.891 Personal history of nicotine dependence; I45.10 Unspecified right bundle-branch block; J44.1 Chronic obstructive pulmonary disease with (acute) exacerbation; J44.0 Chronic obstructive pulmonary disease with (acute) lower respiratory infection; D69.6 Thrombocytopenia, unspecified; B37.2 Candidiasis of skin and nail; N17.9 Acute kidney failure, unspecified; D50.9 Iron deficiency anemia, unspecified; I87.8 Other specified disorders of veins; I83.009 Varicose veins of unspecified lower extremity with ulcer of unspecified site; Z79.51 Long term (current) use of inhaled steroids; Z79.899 Other long term (current) drug therapy
CPT/HCPCS: 36600; 70450; 71045; 71046; 74018; 76770; 82607; 82746; 84145; 87040; 87449; 93306; 94640; 94660; 96374; 96375; 99291